=== PATIENT | female | born 1990 | race Caucasian/White ===

== ENCOUNTER 2023-04-01 21:13 | Emergency (ER) | payer OTHER, SELFPAY ==
[2023-04-01 21:20] VITALS: BP 127/77; PULSE 96; RESP 16; TEMP 36.6; O2SAT 99; BMI 31.0
--- NOTE | 2023-04-01 21:23 | ED.URI1 ---
HPI - URI/Sore Throat General Chief Complaint: Upper Respiratory Infection Stated Complaint: Upper Respiratory took home covid test + Time Seen by Provider: 04/01/23 21:22 Source: patient Limitations: no limitations History of Present Illness HPI Narrative: 32-year-old female presents with wanting a COVID test. She states that she has had a runny nose and cough for the past couple days and she is in a sober living home and needs a COVID test. She took an at home COVID test and this was positive. Denies fever, sore throat, ear pain, SOB or CP Related Data Home Medications Medication Instructions Recorded Confirmed olanzapine 10 mg tablet (Zyprexa) 10 mg PO BID 04/01/23 04/01/23 sertraline 50 mg tablet (Zoloft) 50 mg PO DAILY 04/01/23 04/01/23 Allergies Allergy/AdvReac Type Severity Reaction Status Date / Time No Known Drug Allergies Allergy Verified 04/01/23 21:23 Review of Systems ROS Status of ROS 10 or more systems reviewed and unremarkable except as noted in history and below PFSH PFS Social History Smoking status: Current every day smoker Exam Narrative Exam Narrative: General: alert, no distress, talking in full an complete sentences skin: warm, dry, intact head: normocephalic, atraumatic eyes: PERRLA, EOMI, normal conjunctiva nose: nares patent throat: no stridor, uvula midline neck: supple, trachea midline cardiac: +S1/S1. no murmur respiratory: lungs CTA, non-labored, no wheezing, no retractions extremities: FROM x 4, strength +5/5 neuro: A&Ox3 psych: appropriate mood and affect, cooperative Constitutional Vital Signs, click to edit/add: Last Vital Signs Temp 97.8 F 04/01/23 21:20 Pulse 96 H 04/01/23 21:20 Resp 16 04/01/23 21:20 BP 127/77 04/01/23 21:20 Pulse Ox 99 04/01/23 21:20 O2 Del Method Room Air 04/01/23 21:20 Course Vital Signs Vital signs: Vital Signs Temperature 97.8 F 04/01/23 21:20 Pulse Rate 96 H 04/01/23 21:20 Respiratory Rate 16 04/01/23 21:20 Blood Pressure 127/77 04/01/23 21:20 Pulse Oximetry 99 04/01/23 21:20 Oxygen Delivery Method Room Air 04/01/23 21:20 Temperature 97.8 F 04/01/23 21:20 Pulse Rate 96 H 04/01/23 21:20 Respiratory Rate 16 04/01/23 21:20 Blood Pressure 127/77 04/01/23 21:20 Pulse Oximetry 99 04/01/23 21:20 Oxygen Delivery Method Room Air 04/01/23 21:20 MDM - URI/Sore Throat MDM Narrative Medical decision making narrative: Patient will be discharged home and called medical records tomorrow to get her results printed off. F/u with PCP. afebrile, not tachypneic, not tachycardic, tolerating p.o., not hypoxic, non toxic appearing and ambulating at baseline and hemodynamically stable to be d/c. answered all questions. pt in agreement with tx. educated when to return to ER. Lab Data Labs: Lab Results 04/01/23 Range/Units 21:25 SARS-CoV-2 (PCR) Positive A (NEGATIVE) Discharge Plan Discharge Chief Complaint: Upper Respiratory Infection Clinical Impression: Upper respiratory infection Qualifiers: URI type: unspecified URI Qualified Code(s): J06.9 - Acute upper respiratory infection, unspecified Patient Disposition: Home, Self-Care Time of Disposition Decision: 21:30 Condition: Good Mode of Transportation: Private Vehicle Prescriptions / Home Meds: No Action sertraline [Zoloft] 50 mg tablet 50 mg PO DAILY olanzapine [Zyprexa] 10 mg tablet 10 mg PO BID Instructions: Viral Syndrome (ED) Additional Instructions: You can call medical records tomorrow and get a printout of your results and give this to sober living Stand Alone Forms: Portal Instructions
--- NOTE | 2023-04-01 21:31 | PC.NURSE ---
patient with cold symptoms for several days, took home covid test with positive result. She lives in a sober living house and needs an official covid test done with a positive result and a work note to be off of work.
[2023-04-01 21:48] LABS: SARS-CoV-2 Ag POSITIVE (NEGATIVE)
== END 2023-04-01 21:45 | disposition home or self-care (01) ==
PROVIDERS: Physician Assistant; Emergency Provider Emergency Medicine
DX: U07.1 COVID-19 (principal); J06.9 Acute upper respiratory infection, unspecified; F17.210 Nicotine dependence, cigarettes, uncomplicated
CPT/HCPCS: 87811; 99283

== ENCOUNTER 2024-08-06 21:26 | Emergency (ER) | payer SELFPAY ==
[2024-08-06 21:32] VITALS: BP 119/67; PULSE 86; TEMP 36.8; O2SAT 100; BMI 33.7
--- OUTSIDE RECORDS SUMMARY | 2024-08-06 21:35 | XMS_ITS | CCD ---
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 [place] [address] cCa2+ Art 4.66 mg/dL Normal 4.40-5.30 [facility] Comment on above: Performed By: #### 4 [id number] #### [facility] [address] [place] [address] cCl- Art 108.0 mmol/L Normal 101.0-111.0 [facility] Comment on above: Performed By: #### 4 [id number] #### [facility] [address] [place] [address] cGlu Art 87 mg/dL Normal 55-99 [facility] Comment on above: Performed By: #### 4 [id number] #### [facility] [address] [place] [address] cK+ Art 3.8 mmol/L Normal 3.5-5.3 [facility] Comment on above: Performed By: #### 4 [id number] #### [facility] [address] [place] [address] cLac Art .5 mmol/L Normal .5-2.2 [facility] Comment on above: Performed By: #### 4 [id number] #### [facility] [address] [place] [address] loan documentation specialist+ Art 138.0 mmol/L Normal 135.0-145.0 [facility] Comment on above: Performed By: #### 4 [id number] #### [facility] [address] [place] [address] Drawn by WMP Invalid Interpretation Code [facility] Comment on above: Performed By: #### 4 [id number] #### [facility] [address] [place] [address] FCOHb Art 1.0 % Low 1.5-4.9 [facility] Comment on above: Result Comment: Refe rence range Nonsmoker <1.5% Smoker <5.0% Heavy Smoker <9.0% Performed By: #### 4 [id number] #### [facility] [address] [place] [address] FIO2 BG 21 Invalid Interpretation Code [facility] Comment on above: Performed By: #### 4 [id number] #### [facility] [address] [place] [address] FMetHb Art <1.0 Normal 0.0-1.9 [facility] Comment on above: Performed By: #### 4 [id number] #### [facility] [address] [place] [address] FO2Hb Art 97.7 % Normal 92.0-100.0 [facility] Comment on above: Performed By: #### 4 [id number] #### [facility] [address] [place] [address] HCO3 (Bld) [Moles/Vol] 22.5 mmol/L Normal 22.0-26.0 [facility] Comment on above: Performed By: #### 4 [id number] #### [facility] [address] [place] [address] Hemoglobin (Bld) [Mass/Vol] 12.8 g/dL Normal 12.0-16.0 [facility] Comment on above: Performed By: #### 4 [id number] #### [facility] [address] [place] [address] Oxygen saturation in Blood 98.9 % Normal 95.0-100.0 [facility] Comment on above: Performed By: #### 4 [id number] #### [facility] [address] [place] [address] P CO2 Arterial 33.1 mmHg Low 35.0-45.0 [facility] Comment on above: Performed By: #### 4 [id number] #### [facility] [address] [place] [address] P O2 Arterial 96.6 mmHg Normal 80.0-100.0 [facility] Comment on above: Performed By: #### 4 [id number] #### [facility] [address] [place] [address] pH Arterial 7.421 Normal 7.350-7.450 [facility] Comment on above: Performed By: #### 4 [id number] #### [facility] [address] [place] [address] Sample Site L Radial Normal [facility] Comment on above: Performed By: #### 4 [id number] #### [facility] [address] [place] [address] Sample Type Arterial Draw Normal [facility] Comment on above: Performed By: #### 4 [id number] #### [facility] [address] [place] [address] ED Clinical Summaryon 2024 ED Clinical Summary ED Clinical Summary [address] [address] ED Clinical Summary Person Information Name: DECLANMACKENZIEELBA/[facility] Age: 34 Years : 1990 Sex: Female Language: Sammarinese PCP: NONE, XXXX Marital Status: Single Visit Id: Visit Reason: Carbon Monoxide (CO) exposure; Sinus Pain/Congestion; CARBONMONOXIDE EXPOSURE Speciality: Acuity: 3 Enc Type: Emergency Med Service: Emergency Arrival: 07/15/2024 18:07:57 Discharge: 07/15/2024 22:09:15 LOS: 000 04:02 Checkin: 07/15/2024 18:07:57 Checkout: 07/15/2024 22:09:15 Dispo Type: Home (Routine DC) EVENTS: Event Name Event Status Request Date/Time Start Date/Time Complete Date/Time Arrive Complete 07/15/2024 18:07:57 07/15/2024 18:07:57 07/15/2024 18:07:57 Document Home Meds Request 07/15/2024 18:07:57 Triage Complete 07/15/2024 18:07:57 07/15/2024 18:19:43 07/15/2024 18:19:43 Registration Complete 07/15/2024 18:16:01 07/15/2024 18:16:01 07/15/2024 18:16:01 Reg Complete Request 07/15/2024 18:16:01 Reg Bed Request Complete 07/15/2024 18:16:01 07/15/2024 18:16:01 07/15/2024 18:16:01 X-Ray Complete 07/15/2024 19:03:26 07/15/2024 19:15:07 07/15/2024 19:25:02 Wet Read Request 07/15/2024 19:25:02 Bed Assign Complete 07/15/2024 19:34:09 07/15/2024 19:34:09 07/15/2024 19:34:09 Dr Exam Complete 07/15/2024 19:34:09 07/15/2024 19:35:57 07/15/2024 19:35:57 RN Exam Complete 07/15/2024 19:34:09 07/15/2024 20:05:23 07/15/2024 20:05:23 Registration Request 07/15/2024 19:35:57 Pending Labs Complete 07/15/2024 19:54:26 07/15/2024 20:26:50 RT Tx/ABG Request 07/15/2024 19:54:26 Pending Labs Complete 07/15/2024 20:59:36 07/15/2024 21:53:07 Lab Complete 07/15/2024 20:59:36 07/15/2024 21:53:07 Urine Collect Complete 07/15/2024 20:59:36 07/15/2024 21:53:07 Discharge Complete 07/15/2024 22:00:39 07/15/2024 22:09:20 07/15/2024 22:09:20 Transfer Complete 07/15/2024 22:09:20 07/15/2024 22:09:20 07/15/2024 22:09:20 ADDRESS: [address] [place] [id number] [facility] DOC NOTES: MEDICAL INFORMATION: Prescriptions Given: PATIENT EDUCATION INFORMATION: Instructions: Medical Screening Exam Follow up: With: Address: When: Mahamed Garcia In 3 days 07/18/2024 Comments: Call the office of your primary care doctor to arrange for follow-up within the above-stated timeframe. Follow-up with your primary care doctor about this ED visit. You should review your labs, imaging, and diagnoses from this ED visit with your primary care physician. There are occasionally non-emergent findings that require additional follow-up after your ED visit. If you were prescribed medications you should discuss possible side-effects and drug interactions with your pharmacist. Call 911 or go to the nearest Emergency Department if you develop any new or worsening symptoms. DIAGNOSIS: Accidental exposure to carbon monoxide; Sebaceous cyst Normal [facility] ED Note-Physicianon 07-15-19 25 ED Note-Physician ED Note-Physician Basic Information Time Seen: Kobe Alcala DO 07/15/2024 19:35 Chief Complaint pt states a pipe was loose at her house and she had it checked and the param stated it leaks carbon monixide but safety featuires caused the pipes to turn off. pt states she had her face by a vent and it blew into her face, pt states she is now feeling History of Present Illness 34-year-old female to the emergency department with chief complaint of carbon oxide exposure. Patient reports that her he would not work today. She had an HVAC professional come out to her home to figure out what the problem was. He told them that there was a car monoxide leak in her furnace and it was shutting itself off to prevent buildup. They repaired this. They placed a carbon oxide detector in her home. The carbon oxide detector is not alerted. The patient does report though after the repair some exhaust from the pipe blew into her face and she has felt congested and had some tingling in her hands ever since. She is concerned she has carbon oxide poisoning. She also has a small lump on the inside of her right forearm that has been there for several years and occasionally gets inflamed she would like evaluated. There currently no symptoms. Review of Systems A 10 point review of systems is negative except as noted above Medical and Surgical History: Reviewed and noted Social history: Lives at home Tobacco: Denies Physical Exam Vitals & Measurements T: 36.7 ???C(Oral) HR: 83(Peripheral) RR: 18 BP: 129/70 SpO2: 100% HT: 160 cm WT: 88.3 kg BMI: 34.49 VITALS: I have reviewed the triage vital signs. GENERAL: Well developed, well appearing adult in no acute distress. NEURO: Alert and oriented. Moves all extremities. Face is symmetric and expressive. EYES: PERRL. No scleral icterus or conjunctival injection. No discharge. HENT: Normocephalic, atraumatic. Hearing is grossly intact. Nares grossly patent and without discharge. Mucous membranes moist. NECK: No JVD. Patient moves neck without restriction. CARDIO: Rhythm regular. Normal rate. No murmur, rub, or gallop. Pulses equal bilaterally in the upper and lower extremity. No lower extremity edema. PULM: Lungs clear to auscultation in all gee. No wheezes, rales, or rhonchi. No conversational dyspnea. No splinting, stridor, or accessory muscle use. EXTREMITIES: Symmetric muscle bulk. No joint swelling. No clubbing, cyanosis, or deformity. 2 mm sebaceous cyst of the right forearm SKIN: Warm and dry. Normal turgor. No rash or lesions appreciated. PSYCH: Anxious Medical Decision Making Well-appearing 34-year-old female to the emergency department with reported carbon oxide exposure. Vital stable, the patient is afebrile. She is anxious in the room. She has a sebaceous cyst on her forearm which is not inflamed or infected today which I reports she can follow-up with her doctor about in the future. Will test her for carbon monoxide with an ABG. ABG without any evidence of acute abnormality. She does not have car monoxide poisoning. Chest x-ray without acute findings as ordered in triage. Patient now concerned she may be . test is ordered. test is negative Reassurance was given to the patient. All questions were answered. The patient was discharged home. Assessment/Plan Accidental exposure to carbon monoxide (Z77.098: Contact with and (suspected) exposure to other hazardous, chiefly nonmedicinal, chemicals) Sebaceous cyst (L72.3: Sebaceous cyst) Orders: Blood Gas Art, with Lytes, Gluc, Lact Disposition Plan Patient Discharge Condition Stable Discharge Disposition Home Discharge Prescription List Prescriptions No active prescription medications Follow-up With When Contact Information Mahamed Garcia In 3 days 07/18/2024 EST Additional Instructions: Call the office of your primary care doctor to arrange for follow-up within the above-stated timeframe. Follow-up with your primary care doctor about this ED visit. You should review your labs, imaging, and diagnoses from this ED visit with your primary care physician. There are occasionally non-emergent findings that require additional follow-up after your ED visit. If you were prescribed medications you should discuss possible side-effects and drug interactions with your pharmacist. Call 911 or go to the nearest Emergency Department if you develop any new or worsening symptoms. Patient Education Medical Screening Exam Problem List/Past Medical History Ongoing Acute pharyngitis BMI 34.0-34.9,adult BMI 35.0-35.9,adult Smoker Historical No qualifying data Medications Inpatient No active inpatient medications Home No active home medications Allergies No Known Allergies Social History Alcohol - Denies Alcohol Use, 07/02/2023 Substance Abuse - Medium Risk, 07/02/2023 Past, 07/02/2023 Tobacco - High Risk, 07/02/2023 Current vaping or e-cigarette use Smokeless Tobacco Use:. Vaping, 07 (more content not included)... Normal [facility] Comment on above: Result Comment: Elec tronically Signed By: Kobe Alcala DO\.br\Date and Time Signed: 07/15/24 22:28 EST ED Patient Summaryon 025 ED Patient Summary ED Patient Summary [place] [id number] Patient Discharge Instructions Person Information Name: ELBA JO Age: 34 Years Arrival Date: 07/15/2024 18:07:57 Discharge Diagnosis: Accidental exposure to carbon monoxide; Sebaceous cyst Primary Care Physician: NONE, XXXX Provider Information Primary Provider: Kobe Alcala DO Advanced Bed Placement Coordinator:Mark The exam and treatment you received in the Emergency Department were for an urgent problem and are not intended as complete care. It is important that you follow up with a doctor, nurse practitioner, or physician???s greenhouse assistant for ongoing care. If your symptoms become worse or you do not improve as expected and you are unable to reach your usual health care provider, you should return to the Emergency Department. We are available 24 hours a day. ELBA JO has been given the following list of patient education materials, prescriptions and follow-up instructions: Follow-up Instructions: With: Address: When: Mahamed Garcia In 3 days 07/18/2024 Comments: Call the office of your primary care doctor to arrange for follow-up within the above-stated timeframe. Follow-up with your primary care doctor about this ED visit. You should review your labs, imaging, and diagnoses from this ED visit with your primary care physician. There are occasionally non-emergent findings that require additional follow-up after your ED visit. If you were prescribed medications you should discuss possible side-effects and drug interactions with your pharmacist. Call 911 or go to the nearest Emergency Department if you develop any new or worsening symptoms. In the event that this physician does not participate in your insurance network, please consult with your insurance company to find a nearby participating provider. Patient Education Materials: Medical Screening Exam A MESSAGE TO ALL PATIENTS REGARDING OPIOIDS PRESCRIPTION OPIOIDS: WHAT YOU NEED TO KNOW Prescription opioids can be used to help relieve xmufsqzo-gl-bozcyc pain and are often prescribed following a surgery or injury, or for certain health conditions. These medications can be an important part of the treatment but also come with serious risks. It is important to work with your healthcare provider to make sure you are getting the safest, most effective care. WHAT ARE THE RISKS AND SIDE EFFECTS OF OPIOID USE? Prescription opioids carry serious risks of addiction and overdose, especially with prolonged use. An opioid overdose, often marked by slowed breathing, can cause sudden . The use of prescription opioids can have a number of side effects as well, even when taken as directed: ??? Tolerance???meaning you might need to take more of the medication for the same pain relief ??? Physical dependence???meaning you have symptoms of withdrawal when a medication is stopped ??? Increased sensitivity to pain ??? Constipation ??? Nausea, vomiting, and dry mouth ??? Sleepiness and dizziness ??? Confusion ??? Depression ??? Low levels of testosterone that can result in lower sex drive, energy, and strength ??? Itching and sweating RISKS ARE GREATER WITH: ??? History of drug misuse, substance use disorder, or overdose ??? Mental health conditions (such as depression or anxiety) ??? Sleep apnea ??? Older age (65 years and older) ??? Avoid alcohol while taking prescription opioids. Also, unless specifically advised by your health care provider, medications to avoid include: ??? Benzodiazepines (such as Xanax or Valium) ??? Muscle relaxants (such as Soma or Flexeril) ??? Hypnotics (such as Ambien or Lunesta) ??? Other prescription opioids KNOW YOUR OPTIONS Talk to your health care provider about ways to manage your pain that don???t involve prescription opioids. Some of these options may actually work better and have fewer risks and side effects. Options may include: ??? Pain relievers such as acetaminophen, ibuprofen, and naproxen ??? Some medication that are also used for depression or seizures ??? Physical therapy and exercise ??? Cognitive behavioral therapy, a psychological, goal-directed approach, in which patients learn how to modify physical, behavioral, and emotional triggers of pain and stress. IF YOU ARE PRESCRIBED OPIOIDS FOR PAIN: ??? Never take opioids in greater amounts or more often than prescribed. ??? Follow up with your primary health care provider. o Work together to create a plan on how to manage your pain. o Talk about ways to help manage your pain that don???t involve prescription opioids. o Talk about any and all concerns and side effects. ??? Help prevent misuse and abuse o Never sell or share prescription opioids. o Never use another person???s prescription opioids. ??? Store prescription opioids in (more content not included)... Normal [facility] FT Blood GasesOrdered By: River Albarran on 07-15-2024 a/A Ratio Art 87.70 % Normal >=0.80% FT Resp Auto SS AaDO2 Art 13.5 mm[Hg] Normal 5.0 - 15.0 mmHg FT Resp Auto SS Allens Test Positive (07/15/24 8:24 PM) Normal FT Resp Auto SS Base Excess Arterial -2.3 mmol/L Low >=2.8mmol/L FT Resp Auto SS cCa2+ Art 4.66 mg/dL Normal 4.40 - 5.30 mg/dL FT Resp Auto SS cCl- Art 108.0 mmol/L Normal 101.0 - 111.0 mmol/L FT Resp Auto SS cGlu Art 87 mg/dL Normal 55 - 99 mg/dL FT Resp Auto SS cK+ Art 3.8 mmol/L Normal 3.5 - 5.3 mmol/L FT Resp Auto SS cLac Art 0.5 mmol/L Normal 0.5 - 2.2 mmol/L FT Resp Auto SS loan documentation specialist+ Art 138.0 mmol/L Normal 135.0 - 145.0 mmol/L FT Resp Auto SS Drawn by WMP Invalid Interpretation Code [facility] Resp Auto SS FCOHb Art 1.0 % Low 1.5 - 4.9 % FT Resp Auto SS Comment on above: Interpretive Data: R eference range Nonsmoker <1.5% Smoker <5.0% Heavy Smoker <9.0% FIO2 BG 21 1 Invalid Interpretation Code [facility] Resp Auto SS FMetHb Art % Normal 0.0 - 1.9 % [facility] Resp Auto SS FO2Hb Art 97.7 % Normal 92.0 - 100.0 % [facility] Resp Auto SS HCO3 (Bld) [Moles/Vol] 22.5 mmol/L Normal 22.0 - 26.0 mmol/L [facility] Resp Auto SS Hemoglobin (Bld) [Mass/Vol] 12.8 g/dL Normal 12.0 - 16.0 gm/dL [facility] Resp Auto SS P CO2 Arterial 33.1 mm[Hg] Low 35.0 - 45.0 mmHg [facility] Resp Auto SS P O2 Arterial 96.6 mm[Hg] Normal 80.0 - 100.0 mmHg [facility] Resp Auto SS pH (Bld) 7.421 [pH] Normal 7.350 - 7.450 [facility] Resp Auto SS Sample Site L Radial (07/15/24 8:24 PM) Normal [facility] Resp Auto SS Sample Type Arterial Draw (07/15/24 8:24 PM) Normal [facility] Resp Auto SS SEROLOGYOrdered By: Antelmo ly on 07-15-2024 HCG.beta subunit (U) [Moles/Vol] Negative Normal [facility] Man Sero U BetaHcg Qualon 07-15-2024 HCG.beta subunit (U) [Moles/Vol] Negative Normal [facility] Comment on above: Performed By: #### 2 [id number] #### [facility] [address] [place] [address] ED Clinical Summaryon 2024 ED Clinical Summary ED Clinical Summary [address] [address] ED Clinical Summary Person Information Name: ELBA JO Emily/[facility] Age: 34 Years : 1990 Sex: Female Language: Sammarinese PCP: NONE, XXXX Marital Status: Single Visit Id: Visit Reason: ABDOMINAL PAIN Speciality: Acuity: Enc Type: Emergency Med Service: Emergency Arrival: 07/10/2024 02:05:10 Discharge: 07/10/2024 03:10:28 LOS: 000 01:05 Checkin: 07/10/2024 02:05:10 Checkout: 07/10/2024 03:10:28 Dispo Type: Left Without Being Seen EVENTS: Event Name Event Status Request Date/Time Start Date/Time Complete Date/Time Arrive Complete 07/10/2024 02:05:10 07/10/2024 02:05:10 07/10/2024 02:05:10 Document Home Meds Request 07/10/2024 02:05:10 Triage Request 07/10/2024 02:05:10 Registration Complete 07/10/2024 02:08:03 07/10/2024 02:08:03 07/10/2024 02:08:03 Reg Complete Request 07/10/2024 02:08:03 Reg Bed Request Complete 07/10/2024 02:08:03 07/10/2024 02:08:03 07/10/2024 02:08:03 Discharge Complete 07/10/2024 03:10:38 07/10/2024 03:10:38 07/10/2024 03:10:38 Transfer Complete 07/10/2024 03:10:38 07/10/2024 03:10:38 07/10/2024 03:10:38 ADDRESS: [address] [place] [id number] PHYS DOC NOTES: MEDICAL INFORMATION: Prescriptions Given: PATIENT EDUCATION INFORMATION: Instructions: Follow up: DIAGNOSIS: Normal [facility] ED Patient Education Noteon 07-10-2024 ED Patient Education Note ED Patient Education Note Normal [facility] ED Patient Summaryon 025 ED Patient Summary ED Patient Summary [place] [id number] Patient Discharge Instructions Person Information Name: ELBA JO Age: 34 Years Arrival Date: 07/10/2024 02:05:10 Discharge Diagnosis: Primary Care Physician: NONE, XXXX Provider Information Primary Provider: Advanced Bed Placement Coordinator:None The exam and treatment you received in the Emergency Department were for an urgent problem and are not intended as complete care. It is important that you follow up with a doctor, nurse practitioner, or physician???s greenhouse assistant for ongoing care. If your symptoms become worse or you do not improve as expected and you are unable to reach your usual health care provider, you should return to the Emergency Department. We are available 24 hours a day. ELBA JO has been given the following list of patient education materials, prescriptions and follow-up instructions: Follow-up Instructions: In the event that this physician does not participate in your insurance network, please consult with your insurance company to find a nearby participating provider. Patient Education Materials: A MESSAGE TO ALL PATIENTS REGARDING OPIOIDS PRESCRIPTION OPIOIDS: WHAT YOU NEED TO KNOW Prescription opioids can be used to help relieve euvlehzp-wn-obqxsg pain and are often prescribed following a surgery or injury, or for certain health conditions. These medications can be an important part of the treatment but also come with serious risks. It is important to work with your healthcare provider to make sure you are getting the safest, most effective care. WHAT ARE THE RISKS AND SIDE EFFECTS OF OPIOID USE? Prescription opioids carry serious risks of addiction and overdose, especially with prolonged use. An opioid overdose, often marked by slowed breathing, can cause sudden . The use of prescription opioids can have a number of side effects as well, even when taken as directed: ??? Tolerance???meaning you might need to take more of the medication for the same pain relief ??? Physical dependence???meaning you have symptoms of withdrawal when a medication is stopped ??? Increased sensitivity to pain ??? Constipation ??? Nausea, vomiting, and dry mouth ??? Sleepiness and dizziness ??? Confusion ??? Depression ??? Low levels of testosterone that can result in lower sex drive, energy, and strength ??? Itching and sweating RISKS ARE GREATER WITH: ??? History of drug misuse, substance use disorder, or overdose ??? Mental health conditions (such as depression or anxiety) ??? Sleep apnea ??? Older age (65 years and older) ??? Avoid alcohol while taking prescription opioids. Also, unless specifically advised by your health care provider, medications to avoid include: ??? Benzodiazepines (such as Xanax or Valium) ??? Muscle relaxants (such as Soma or Flexeril) ??? Hypnotics (such as Ambien or Lunesta) ??? Other prescription opioids KNOW YOUR OPTIONS Talk to your health care provider about ways to manage your pain that don???t involve prescription opioids. Some of these options may actually work better and have fewer risks and side effects. Options may include: ??? Pain relievers such as acetaminophen, ibuprofen, and naproxen ??? Some medication that are also used for depression or seizures ??? Physical therapy and exercise ??? Cognitive behavioral therapy, a psychological, goal-directed approach, in which patients learn how to modify physical, behavioral, and emotional triggers of pain and stress. IF YOU ARE PRESCRIBED OPIOIDS FOR PAIN: ??? Never take opioids in greater amounts or more often than prescribed. ??? Follow up with your primary health care provider. o Work together to create a plan on how to manage your pain. o Talk about ways to help manage your pain that don???t involve prescription opioids. o Talk about any and all concerns and side effects. ??? Help prevent misuse and abuse o Never sell or share prescription opioids. o Never use another person???s prescription opioids. ??? Store prescription opioids in a secure place and out of reach of others (this may include visitors, children, friends, and family). ??? Safely dispose of unused prescription opioids: Find your community drug take-back program or your pharmacy mail-back program, or flush them down the toilet, following guidance from the Food and Drug Administration (www.fda.gov/Drugs/Resourc esForYou). ??? Visit www.cdc.gov/drugoverdose to learn about the risks of opioids abuse and overdose. ??? If you believe you may be struggling with addiction, tell your health caregiver assisted living and ask for guidance or call [facility]???S National Helpline at 7-439-414-FJFX. v Source: US Department of Health and Human Services/Center for Disease Control & Prevention [facility] Medicatio (more content not included)... [facility] Ambulatory Visit Summaryon 0 12-08-2023 Ambulatory Visit Summary Ambulatory Visit Summary ELBA JO :1990 Visit Date:12/08/2023 Ambulatory Visit Instructions Your Diagnosis Pain, dental Broken tooth BMI 35.0-35.9,adult Vapes nicotine containing substance Your Care Team Attending Physician - Carlos ALVAREZ, Wilberto Sloan Primary Care Physician - EMIR RIVAS, RANI Fan This Is Your Medications List amoxicillin (amoxicillin 500 mg Cap) chlorhexidine topical (Peridex 0.12% Liquid) Discharge Vitals Temperature (Oral) 36.7 ?C Heart Rate (Peripheral) 77 Blood Pressure 122/78 Height 160 cm Height 63 in Weight 91 kg Weight 200.2 lb BMI 35.55 Medications What How Much When Why Instructions New amoxicillin (amoxicillin 500 mg Cap) 1 Capsules By Mouth 3 times a day Pain, dental Broken tooth BMI 35.0-35.9,adult Vapes nicotine containing substance Duration: 7 Days Pickup at [facility]/pharmacy #[id number] New chlorhexidine topical (Peridex 0.12% Liquid) 15 Milliliter By Mouth 2 times a day Pain, dental Broken tooth BMI 35.0-35.9,adult Vapes nicotine containing substance Duration: 14 Days (swish and spit; do not swallow) Pickup at [facility]/pharmacy #[id number] [id number] [address] [place] [phone] Allergies No Known Allergies Problems Ongoing - Any problem that you are currently receiving treatment for. Acute pharyngitis BMI 34.0-34.9,adult BMI 35.0-35.9,adult Smoker Patient Survey You may receive a survey via text or e-mail asking about your office visit. Please share your experience with us by completing your survey. We appreciate your feedback and thank you for choosing us for your care. Education Materials Tooth Avulsion Tooth avulsion is the loss of a tooth due to trauma to the tooth which causes it to be completely knocked out of its place in the gum. This condition is an emergency and must be treated right away by a dentist or emergency department. The sooner the tooth is replanted, the better the chance that it can be saved. It is usually best if the tooth is replanted within one hour of avulsion. However, even if it has been longer than one hour, it is still important to visit your health care provider as soon as possible to discuss your treatment options. Only permanent teeth can be replanted. Baby teeth do not usually need replanting. What are the causes? The loss of a tooth may be caused by any force that is strong enough to chip, break, dislodge, or knock out a tooth. Forces may come from: ? Sports injuries. ? Falls. ? Accidents. ? Fights. What increases the risk? The following factors may make you more likely to lose a tooth: ? Playing contact sports, such as football or boxing, without using a mouth guard. ? Any medical condition that increases the risk of falling or fainting. ? Any injury that causes injuries to the face. ? Any dental condition that reduces the support of the root. What are the signs or symptoms? Symptoms of this condition include: ? A tooth that is knocked out of its place in the gum. How is this diagnosed? A physical exam. How is this treated? ? Before going to the dentist or emergency department: ? Find the tooth. Do not touch the bottom of the tooth. The bottom of the tooth is also called a root. ? Wash the tooth for 10 seconds under cold running water, bottled water or milk (if available). Do not wipe, dry or scrub the tooth. ? Gently reposition the tooth in its original socket, if you are able. ? If the tooth cannot be repositioned, immediately place the tooth in a glass of milk or hold the tooth inside the mouth under the tongue or between the molars and cheek. Your dental care provider will decide whether the tooth can be placed back into its original position. Your treatment will also include controlling any bleeding or pain. Follow these instructions at home: ? Take eunp-qbr-jfsqcvl and prescription medicines only as told by your dentist. ? Eat a soft diet for two weeks or as directed by your dentist. ? [place] the tooth with a soft toothbrush after every meal. ? For two weeks, or for the time you are told, avoid activities that have a high risk of injury to the teeth. ? Wear a mouth guard while playing contact sports. ? Keep all follow-up visits. This is important. Contact a health care provider if: ? The tooth becomes progressively loose. ? Your splint is bent or loose. ? You have swelling or pain that gets worse. ? You have redness around your replanted tooth. ? You have pain that does not get better with medicine. ? You have a fever or chills. ? You have any other new symptoms. Get help right away if: ? Your tooth become loose or falls out. Summary ? Tooth avulsion is the loss of a tooth due to the tooth falling out or being knocked out. ? If the tooth was an adult tooth, your health care provider (more content not included)... [facility] Family Medicine Office/Clini c Noteon 12-08-2023 Family Medicine Office/Clinic Note Family Medicine Office/Clinic Note Chief Complaint broken tooth/tooth ache HPI Staff 33 year old female presents with a broken tooth in the back of her mouth on the top. has a hole in a bottom tooth also that is painful symptoms for a few weeks scheduled a dentist bela for December 24 History of Present Illness I have reviewed and verified the staff HPI to be accurate for this encounter. Portions of this record have been created with voice recognition software. Occasional wrong-word or ?wxkmx-t-zykd? substitutions may have occurred due to the inherent limitations of voice recognition software. 33 yo female presents today with cc of broken tooth. Patient states left upper and left lower tooth pain. States that the left lower tooth actually started hurting her over the past 2 weeks states she noticed an area maybe an old filling or what she believes is a small hole in her tooth. States pain especially with eating she is uncertain if this is pushing down on a nerve or not. She also notes a broken tooth of the left upper jawline she states that may have been broken prior to the left lower jaw and tooth pain however patient is uncertain. Patient states she has a follow-up appointment with her dad has been on till the of this month. She denies any fever or chills she denies any mouth swelling she denies any drainage. She denies any nasal congestion runny stuffy nose ear pain or sore throat with her symptoms. She has no other concerns at this time. No known drug allergies. Patient does not currently take any medications. She has not tried any modifying factors in regards to her tooth pain today. Review of Systems PHQ Score Initial Depression Screen Score: 0 SCORE ROS negative unless otherwise stated in HPI. Physical Exam Vitals & Measurements T: 36.7 ?C(Oral) HR: 77(Peripheral) BP: 122/78 SpO2: 98% HT: 63 in HT: 160 cm WT: 91 kg WT: 200.2 lb BMI: 35.55 General: Pleasant obese female, no acute distress Eyes: Bilateral conjunctiva within normal limits no injection Ears: Bilateral TMs are within normal limits no erythema or bulging. Bilateral external auditory canals are within normal limits no erythema or edema Nose: No deformity, discharge, inflammation, or lesions Mouth: Moist mucous membranes. Uvula is midline. No tonsillar erythema edema or exudate. No signs of peritonsillar abscess. No trismus or drooling. Patient appears to have a small chip or avulsion of the left upper tooth #18. Patient appears to have either an old filling or a possible decay to the left lower tooth for 16. No significant surrounding gum erythema no obvious dental abscess noted. Pain around the areas of both of these teeth Neck: no adenopathy Lungs: Lung sounds are clear bilaterally. No wheezing rhonchi or crackles on exam. Cardio: S1, S2, regular rhythm. No murmurs gallops or rubs Abdomen: not assessed Musculoskeletal: not assessed Extremity: not assessed Neurologic: not assessed Skin: not assessed Mental Status: Alert and oriented x3. Normal mood and affect Assessment/Plan I spoke with patient regards to treatment for dental pain and broken tooth. Discussed treatment with amoxicillin 3 times daily x 7 days as I did not note any concern for dental abscess at this time. Also discussed. Dex Chloraseptic mouth rinse swish and spit twice daily x 2 weeks duration after brushing and flossing. Patient will keep her follow-up appoint with her dentist for 24 December otherwise may return if needed. Patient agrees and understands plan. 1. Pain, dental (K08.89: Other specified disorders of teeth and supporting structures) Will treat with amoxicillin, given signs of dental infection. Finish antibiotic course. May use tylenol or ibuprofen as needed for pain. Discussed importance of follow up with dentist SHOSHANA for proper treatment- pain and/or infection will continue or reoccur until properly treated. I also sent a prescription for peridex mouth rinse. Swish and spit twice daily after brushing and flossing. ER if any significantly worsening pain, high fever, or rapidly spreading erythema, edema, warmth to face. Patient verbalized understanding of treatment plan. May otherwise return if needed. Ordered: amoxicillin, 500 mg = 1 cap(s), Oral, TID, X 7 day(s), # 21 cap(s), Refills(s) 0, Pharmacy: [facility]/pharmacy #[id number], 160, cm, 12/08/23 10:02:00 EDT, Height/Length Dosing, 91, kg, 12/08/23 10:02:00 EDT, Weight Dosing chlorhexidine topical, 0.018 gm, 15 mL, Oral, BID for 14 day(s), 420 mL, Refill(s) 0, (swish and spit; do not swallow), [facility]/pharmacy #[id number], 160, cm, 12/08/23 10:02:00 EDT, Height/Length Dosing, 91, kg, 12/08/23 10:02:00 EDT, Weight Dosing 2. Broken tooth (S02.5XXA: Fracture of tooth (traumatic), initial encounter for closed fracture) See above Ordered: amoxicillin, 500 mg = 1 cap(s), Oral, TID, X 7 day(s), # 21 cap(s), Refills(s) 0, Pharmacy: [facility]/pharmacy #[id number], 160, cm, 12/08/23 10:02:00 EDT, Height/Length Dosing, 91, kg, 12/08/23 10:02:00 EDT, Weight Dosing chl (more content not included)... [facility] Comment on above: Result Comment: Elec tronically Signed By: Carlos ALVAREZ, Wilberto Sloan\.br\Date and Time Signed: 12/08/23 10:19 EDT Patient Letter FTon 2023 Patient Letter [facility] Patient Letter [facility] [address] [place] [address] [phone] December 08, 2023 ELBA JO [address] [place] [address] : 1990 Please excuse ELBA JO from work . Date and/or Time of Absence: From: 12/08/23 To: 12/09/23 May return to work on: 12/09/23 Restrictions: None Comments: Please excuse due to an acute illness. Provider Signature: Wilberto Gonzalez PA-C Physician [employer] Professor [facility] [address] [place] [address] [facility] ED Note-Physicianon 11-25-19 ED Note-Physician Basic Information Time Seen: Charles Eid PA-C 11/24/2023 16:06 Chief Complaint sinus congestion and pain History of Present Illness 33-year-old female comes into the ED for evaluation of sinus congestion. She presents with a 2-3-day history of sinus congestion, rhinorrhea, sneezing. No chest pain or shortness of breath. No cough, fever, chills, nausea or vomiting. Took a Benadryl yesterday with some improvement, no treatments prior to arrival today. Review of Systems A 10 point review of systems is negative except as noted above. Medical and Surgical History: Reviewed and noted Social history: Lives at home Tobacco: Denies Physical Exam Vitals & Measurements T: 36.6 ?C(Oral) HR: 73(Peripheral) RR: 16 BP: 124/80 SpO2: 100% HT: 160 cm WT: 90.5 kg BMI: 35.35 Nurses notes and vital signs reviewed and patient is not hypoxic. General: Well-appearing, does not appear ill Skin: Warm, dry. Head: Atraumatic. Neck: No JVD. Eye: Normal conjunctiva. Ears, Nose, Mouth, and Throat: Sinus congestion, no difficulty with speaking or swallowing. TMs are clear. Moderate tenderness across the maxillary frontal sinuses bilaterally. No facial swelling. No ecchymosis or erythema. Cardiovascular: Not tachycardic Chest wall: Respiratory: Respirations are nonlabored. Back: Normal range of motion. Musculoskeletal: Normal ROM with no gross deformity. Gastrointestinal: Urological: Neurological: Awake and alert. No focal deficits. Follows commands. Psychiatric: Cooperative. Medical Decision Making Patient with 3-day history of sinus congestion. She is treated with steroids antihistamines and decongestions. Discharged home to follow-up with PCP. Patient was encouraged to return to the ED if symptoms worsen or change. Assessment/Plan Sinusitis (J32.9: Chronic sinusitis, unspecified) Orders: loratadine-pseudoephedrine , 1 tab(s), Oral, q12hr for 10 day(s), 20 tab(s), Refill(s) 0, [facility]/pharmacy #[id number], 160, cm, 11/24/23 15:45:00 EDT, Height/Length Dosing, 90.5, kg, 11/24/23 15:45:00 EDT, Weight Dosing predniSONE, 60 mg = 3 tab(s), Oral, Daily, X 7 day(s), # 21 tab(s), Refills(s) 0, Pharmacy: [facility]/pharmacy #[id number], 160, cm, 11/24/23 15:45:00 EDT, Height/Length Dosing, 90.5, kg, 11/24/23 15:45:00 EDT, Weight Dosing Disposition Plan Patient Discharge Condition Disposition: Discharged home Condition: Improved and stable Counseled: Patient and/or family were counseled to workup, results, treatment plan and follow-up recommendations Discharge Prescription List Prescriptions loratadine-pseudoephedrine 5 mg-120 mg ER Tab, 1 tab(s), Oral, q12hr predniSONE 20 mg Tab, 60 mg= 3 tab(s), Oral, Daily Follow-up With When Contact Information RANI FIELD In 3 days 11/27/2023 EDT [address] [place] [address]- [phone] Business (1) Additional Instructions: Patient Education Sinus Infection, Adult Attestation I performed a substantive part of the MDM during the patient?s E/M visit. I personally made or approved the documented management plan and acknowledge its risk of complications. (Independent Interpretation) My (EKG/X-Ray/US/CT) interpretation as above. (Discussion) Management/test interpretation discussed with APC. This report was transcribed using voice recognition software. Every effort was made to ensure accuracy, however, inadvertently computerized classifier operator mistakes may be present. Appropriate healthcare PPE was used in evaluating this patient. Problem List/Past Medical History Ongoing Acute pharyngitis BMI 34.0-34.9,adult BMI 35.0-35.9,adult Smoker Historical No qualifying data Medications Inpatient No active inpatient medications Home No active home medications Allergies No Known Allergies Social History Alcohol - Denies Alcohol Use, 07/02/2023 Substance Abuse - Medium Risk, 07/02/2023 Past, 07/02/2023 Tobacco - High Risk, 07/02/2023 Current vaping or e-cigarette use Smokeless Tobacco Use:. Vaping, 11/24/2023 Never (less than 100 in lifetime) Tobacco Use:. Current vaping or e-cigarette use Smokeless Tobacco Use:. Cigarettes, Vaping, Yes, 10/15/2023 Lab Results No qualifying data available. Diagnostic Results No qualifying data available. [facility] Comment on above: Result Comment: Elec tronically Signed By: Charles Eid PA-C\.br\Date and Time Signed: 11/24/23 16:35 EDT\.br\Electronically Co-Signed By: Ting Kennedy DO\.br\Date and Time Co-Signed: 11/25/23 07:27 EDT Consent for Treatmenton 11-01 Consent for Treatment [id number] [facility] Discharge Instructionson Discharge Instructions [id number] [facility] ED Clinical Summaryon 2023 ED Clinical Summary (Inserted Image. Keerthi ble to display) [place] [id number] ED Clinical Summary Person Information Name: ELBA JO Emily[facility] Age: 33 Years : 1990 Sex: Female Language: Sammarinese PCP: RANI FIELD NP Marital Status: Single Visit Id: Visit Reason: Sinus Pain/Congestion; FEELS PRESSURE IN THE HEAD & NECK AREA, COUGH Speciality: Acuity: 4 Enc Type: Emergency Med Service: Emergency Arrival: 11/24/2023 15:35:16 Discharge: 11/24/2023 16:53:27 LOS: 000 01:18 Checkin: 11/24/2023 15:35:16 Checkout: 11/24/2023 16:53:27 Dispo Type: Home (Routine DC) EVENTS: Event Name Event Status Request Date/Time Start Date/Time Complete Date/Time Arrive Complete 11/24/2023 15:35:16 11/24/2023 15:35:16 11/24/2023 15:35:16 Document Home Meds Request 11/24/2023 15:35:16 Triage Complete 11/24/2023 15:35:16 11/24/2023 15:45:48 11/24/2023 15:45:48 Bed Assign Complete 11/24/2023 15:48:41 11/24/2023 15:48:41 11/24/2023 15:48:41 Dr Exam Complete 11/24/2023 15:48:41 11/24/2023 16:06:09 11/24/2023 16:06:09 RN Exam Complete 11/24/2023 15:48:41 11/24/2023 16:13:10 11/24/2023 16:13:10 Registration Complete 11/24/2023 16:06:09 11/24/2023 16:23:21 11/24/2023 16:23:21 Dr Exam Complete 11/24/2023 16:06:21 11/24/2023 16:06:21 11/24/2023 16:06:21 Reg Complete Request 11/24/2023 16:23:21 Reg Bed Request Complete 11/24/2023 16:23:21 11/24/2023 16:23:21 11/24/2023 16:23:21 Discharge Complete 11/24/2023 16:34:03 11/24/2023 16:53:33 11/24/2023 16:53:33 Transfer Complete 11/24/2023 16:53:33 11/24/2023 16:53:33 11/24/2023 16:53:33 ADDRESS: [address] [place] [phone] [facility] DOC NOTES: MEDICAL INFORMATION: Prescriptions Given: New Medications [facility]/pharmacy #[id number], [address] [place] [phone], [phone] loratadine-pseudoephedrine (loratadine-pseudoephedrin e 5 mg-120 mg ER Tab) 1 Tablets By Mouth every 12 hours for 10 Days. Refills: 0. predniSONE (predniSONE 20 mg Tab) 3 Tablets By Mouth every day for 7 Days. Refills: 0. PATIENT EDUCATION INFORMATION: Instructions: Sinus Infection, Adult Follow up: With: Address: When: RANI FIELD [address] [place], [place] [address]daron [facility] [place] [phone] Business (1) In 3 days 11/27/2023 DIAGNOSIS: Sinusitis [facility] ED Patient Education Noteon 11-24-2023 ED Patient Education Note Infectious Disease Sinus Infection, Adult A sinus infection, also called sinusitis, is inflammation of your sinuses. Sinuses are hollow spaces in the bones around your face. Your sinuses are located: ? Around your eyes. ? In the middle of your forehead. ? Behind your nose. ? In your cheekbones. Mucus normally drains out of your sinuses. When your nasal tissues become inflamed or swollen, mucus can become trapped or blocked. This allows bacteria, viruses, and fungi to grow, which leads to infection. Most infections of the sinuses are caused by a virus. A sinus infection can develop quickly. It can last for up to 4 weeks (acute) or for more than 12 weeks (chronic). A sinus infection often develops after a cold. What are the causes? This condition is caused by anything that creates swelling in the sinuses or stops mucus from draining. This includes: ? Allergies. ? Asthma. ? Infection from bacteria or viruses. ? Deformities or blockages in your nose or sinuses. ? Abnormal growths in the nose (nasal polyps). ? Pollutants, such as chemicals or irritants in the air. ? Infection from fungi. This is rare. What increases the risk? You are more likely to develop this condition if you: ? Have a weak body defense system (immune system). ? Do a lot of swimming or diving. ? Overuse nasal sprays. ? Smoke. What are the signs or symptoms? The main symptoms of this condition are pain and a feeling of pressure around the affected sinuses. Other symptoms include: ? Stuffy nose or congestion that makes it difficult to breathe through your nose. ? Thick yellow or greenish drainage from your nose. ? Tenderness, swelling, and warmth over the affected sinuses. ? A cough that may get worse at night. ? Decreased sense of smell and taste. ? Extra mucus that collects in the throat or the back of the nose (postnasal drip) causing a sore throat or bad breath. ? Tiredness (fatigue). ? Fever. How is this diagnosed? This condition is diagnosed based on: ? Your symptoms. ? Your medical history. ? A physical exam. ? Tests to find out if your condition is acute or chronic. This may include: ? Checking your nose for nasal polyps. ? Viewing your sinuses using a device that has a light (endoscope). ? Testing for allergies or bacteria. ? Imaging tests, such as an MRI or CT scan. In rare cases, a bone biopsy may be done to rule out more serious types of fungal sinus disease. How is this treated? Treatment for a sinus infection depends on the cause and whether your condition is chronic or acute. ? If caused by a virus, your symptoms should go away on their own within 10 days. You may be given medicines to relieve symptoms. They include: ? Medicines that shrink swollen nasal passages (decongestants). ? A spray that eases inflammation of the nostrils (topical intranasal corticosteroids). ? Rinses that help get rid of thick mucus in your nose (nasal saline washes). ? Medicines that treat allergies (antihistamines). ? Eojq-yue-mnmfefb pain relievers. ? If caused by bacteria, your health care provider may recommend waiting to see if your symptoms improve. Most bacterial infections will get better without antibiotic medicine. You may be given antibiotics if you have: ? A severe infection. ? A weak immune system. ? If caused by narrow nasal passages or nasal polyps, surgery may be needed. Follow these instructions at home: Medicines ? Take, use, or apply voee-xtx-twolmxr and prescription medicines only as told by your health care provider. These may include nasal sprays. ? If you were prescribed an antibiotic medicine, take it as told by your health care provider. Do not stop taking the antibiotic even if you start to feel better. Hydrate and humidify ? Drink enough fluid to keep your urine pale yellow. Staying hydrated will help to thin your mucus. ? Use a cool mist humidifier to keep the humidity level in your home above 50%. ? Inhale steam for 10?15 minutes, 3?4 times a day, or as told by your health care provider. You can do this in the bathroom while a hot shower is running. ? Limit your exposure to cool or dry air. Rest ? Rest as much as possible. ? Sleep with your head raised (elevated). ? Make sure you get enough sleep each night. General instructions ? Apply a warm, moist washcloth to your face 3?4 times a day or as told by your health care provider. This will help with discomfort. ? Use nasal saline washes as often as told by your health care provider. ? Wash your hands often with soap and water to reduce your exposure to germs. If soap and water are not available, use hand scale tank operator. ? Do not smoke. Avoid being around people who are smoking (secondhand smoke). ? Keep all follow-up visits. This is important. Contact a health care provider if: ? You have a fever. ? Your symptoms get (more content not included)... Normal [facility] ED Patient Summaryon 024 ED Patient Summary (Inserted Image. Keerthi ble to display) [address] [address] Patient Discharge Instructions Person Information Name: ELBA JO Age: 33 Years Arrival Date: 11/24/2023 15:35:16 Discharge Diagnosis: Sinusitis Primary Care Physician: RANI FIELD NP Provider Information Primary Provider: Ting Kennedy DO Advanced Bed Placement Coordinator:Charles Eid PA-C The exam and treatment you received in the Emergency Department were for an urgent problem and are not intended as complete care. It is important that you follow up with a doctor, nurse practitioner, or physician?s greenhouse assistant for ongoing care. If your symptoms become worse or you do not improve as expected and you are unable to reach your usual health care provider, you should return to the Emergency Department. We are available 24 hours a day. ELBA JO has been given the following list of patient education materials, prescriptions and follow-up instructions: Follow-up Instructions: With: Address: When: RANI FIELD [address] [place], [place] [id number] [phone] Business (1) In 3 days 11/27/2023 In the event that this physician does not participate in your insurance network, please consult with your insurance company to find a nearby participating provider. Patient Education Materials: Sinus Infection, Adult A MESSAGE TO ALL PATIENTS REGARDING OPIOIDS PRESCRIPTION OPIOIDS: WHAT YOU NEED TO KNOW Prescription opioids can be used to help relieve bolazbxy-sx-omhuxs pain and are often prescribed following a surgery or injury, or for certain health conditions. These medications can be an important part of the treatment but also come with serious risks. It is important to work with your healthcare provider to make sure you are getting the safest, most effective care. WHAT ARE THE RISKS AND SIDE EFFECTS OF OPIOID USE? Prescription opioids carry serious risks of addiction and overdose, especially with prolonged use. An opioid overdose, often marked by slowed breathing, can cause sudden . The use of prescription opioids can have a number of side effects as well, even when taken as directed: ? Tolerance?meaning you might need to take more of the medication for the same pain relief ? Physical dependence?meaning you have symptoms of withdrawal when a medication is stopped ? Increased sensitivity to pain ? Constipation ? Nausea, vomiting, and dry mouth ? Sleepiness and dizziness ? Confusion ? Depression ? Low levels of testosterone that can result in lower sex drive, energy, and strength ? Itching and sweating RISKS ARE GREATER WITH: ? History of drug misuse, substance use disorder, or overdose ? Mental health conditions (such as depression or anxiety) ? Sleep apnea ? Older age (65 years and older) ? Avoid alcohol while taking prescription opioids. Also, unless specifically advised by your health care provider, medications to avoid include: ? Benzodiazepines (such as Xanax or Valium) ? Muscle relaxants (such as Soma or Flexeril) ? Hypnotics (such as Ambien or Lunesta) ? Other prescription opioids KNOW YOUR OPTIONS Talk to your health care provider about ways to manage your pain that don?t involve prescription opioids. Some of these options may actually work better and have fewer risks and side effects. Options may include: ? Pain relievers such as acetaminophen, ibuprofen, and naproxen ? Some medication that are also used for depression or seizures ? Physical therapy and exercise ? Cognitive behavioral therapy, a psychological, goal-directed approach, in which patients learn how to modify physical, behavioral, and emotional triggers of pain and stress. IF YOU ARE PRESCRIBED OPIOIDS FOR PAIN: ? Never take opioids in greater amounts or more often than prescribed. ? Follow up with your primary health care provider. o Work together to create a plan on how to manage your pain. o Talk about ways to help manage your pain that don?t involve prescription opioids. o Talk about any and all concerns and side effects. ? Help prevent misuse and abuse o Never sell or share prescription opioids. o Never use another person?s prescription opioids. ? Store prescription opioids in a secure place and out of reach of others (this may include visitors, children, friends, and family). ? Safely dispose of unused prescription opioids: Find your community drug take-back program or your pharmacy mail-back program, or flush them down the toilet, following guidance from the Food and Drug Administration (www.fda.gov/Drugs/Resourc esForYou). ? Visit www.cdc.gov/drugoverdose to learn about the risks of opioids abuse and overdose. ? If you believe you may be struggling with addiction, tell your health caregiver assisted living and ask for guidance or call SAMHSA?S National Helpline at 0-986-372-HELP. v (more content not included)... Normal [facility] Prescriptions/Work Noteson 0 11-24-2023 Prescriptions/Work Notes [id number]#[id number] Normal [facility] HIV Screen 4th Generation wR fxon 11-08-2023 HIV 1+2 Ab+HIV1 p24 Ag IA Ql Non-Reactive Invalid Interpretation Code Non Reactive [facility] Comment on above: Result Comment: HIV Negative HIV-1/HIV-2 antibodies and HIV-1 p24 antigen were NOT detected. There is no laboratory evidence of HIV infection. Performed at: [facility] [id number] PhD Irina Bronson Performed By: #### 9 [id number] ####[facility] [id number] [place] [address] CBC w/ Auto Diffon 4 Basophils/100 WBC (Bld) 0.9 % Normal 0.0-2.0 [facility] Comment on above: Performed By: #### 2 [id number] #### [facility] Laboratory [address] [place] [address] Basophils/Leukocytes Auto (Bld) [Pure # fraction] 0.1 E9/L Normal 0.0-0.2 [facility] Comment on above: Performed By: #### 2 [id number] #### [facility] [address] [place] [address] Eosinophils (Bld) [#/Vol] 0.1 E9/L Normal 0.0-0.5 [facility] Comment on above: Performed By: #### 2 [id number] #### [facility] [address] [place] [address] Eosinophils/100 WBC (Bld) 1.9 % Normal 0.0-8.0 [facility] Comment on above: Performed By: #### 2 [id number] #### [facility] [address] [place] [address] Erythrocyte distribution width (RBC) [Ratio] 13.7 % Normal 10.9-14.2 [facility] Comment on above: Performed By: #### 2 [id number] #### [facility] [address] [place] [address] Hematocrit (Bld) [Volume fraction] 39.9 % Normal 34.0-46.0 [facility] Comment on above: Performed By: #### 2 [id number] #### [facility] [address] [place] [address] Hemoglobin (Bld) [Mass/Vol] 13.6 g/dL Normal 12.0-16.0 [facility] Comment on above: Performed By: #### 2 [id number] #### [facility] Laboratory [address] [place] [address] Lymphocytes (Bld) [#/Vol] 1.9 E9/L Normal 1.0-4.0 [facility] Comment on above: Performed By: #### 2 [id number] #### [facility] [address] [place] [address] Lymphocytes/100 WBC (Bld) 32.4 % Normal 14.0-50.0 [facility] Comment on above: Performed By: #### 2 [id number] #### [facility] [address] [place] [address] MCH (RBC) [Entitic mass] 28.8 pg Normal 27.0-34.0 [facility] Comment on above: Performed By: #### 2 [id number] #### [facility] [address] [place] [address] MCHC (RBC) [Mass/Vol] 34.2 g/dL Normal 31.4-36.0 [facility] Comment on above: Performed By: #### 2 [id number] #### [facility] [address] [place] [address] MCV (RBC) [Entitic vol] 84.4 fL Normal 80.0-100.0 [facility] Comment on above: Performed By: #### 2 [id number] #### [facility] [address] [place] [address] Monocytes (Bld) [#/Vol] 0.4 E9/L Normal 0.2-1.0 [facility] Comment on above: Performed By: #### 2 [id number] #### [facility] [address] [place] [address] Neutrophils (Bld) [#/Vol] 3.5 E9/L Normal 2.0-7.5 [facility] Comment on above: Performed By: #### 2 [id number] #### [facility] [address] [place] [address] Neutrophils/100 WBC (Bld) 58.4 % Normal 36.0-75.0 [facility] Comment on above: Performed By: #### 2 [id number] #### [facility] [address] [place] [address] Platelet mean volume (Bld) [Entitic vol] 8.8 fL Normal 6.4-10.8 [facility] Comment on above: Performed By: #### 2 [id number] #### [facility] [address] [place] [address] Platelets (Bld) [#/Vol] 278.0 E9/L Normal 150.0-500.0 [facility] Comment on above: Performed By: #### 2 [id number] #### [facility] [address] [place] [address] RBC (Bld) [#/Vol] 4.7 E12/L Normal 4.3-5.9 [facility] Comment on above: Performed By: #### 2 [id number] #### [facility] [address] [place] [address] WBC corrected for nucl RBC Auto (Bld) [#/Vol] 6.0 E9/L Normal 4.0-11.0 [facility] Comment on above: Performed By: #### 2 [id number] #### [facility] [address] [place] [address] CHEMISTRYOrdered By: SYSTEM SYSTEM on 06-07-2024 25-hydroxyvitamin D3 [Mass/Vol] 22.6 ng/mL Low 30.0 - 100.0 ng/mL [facility] Albumin [Mass/Vol] 4.4 g/dL Normal 3.3 - 5.0 gm/dL [facility] Albumin/Globulin [Mass ratio] 1.4 {ratio} Normal 1.1 - 2.2 [facility] ALP [Catalytic activity/Vol] 60 [iU]/d Normal 21 - 98 Int._Unit/L [facility] ALT No additional P-5'-P [Catalytic activity/Vol] 11 [iU]/d Normal 6 - 46 Int._Unit/L [facility] Anion gap [Moles/Vol] 9 mmol/L Normal 6 - 16 mEq/L R em[facility] Chem AST [Catalytic activity/Vol] 11 [iU]/d Normal 5 - 43 Int._Unit/L [facility] Bilirubin [Mass/Vol] 0.2 mg/dL Normal 0.0 - 1 .1 mg/dL [facility] Calcium [Mass/Vol] 9.2 mg/dL Normal 8.9 - 11. 1 mg/dL [facility] Chloride [Moles/Vol] 108 mmol/L Normal 101 - 1 11 mmol/L [facility] Cholesterol [Mass/Vol] 161 mg/dL Normal 120 - 200 mg/dL [facility] Cholesterol in HDL [Mass/Vol] 37 mg/dL Invalid Interpretation Code [facility] Comment on above: Result Comment: '>= 60 LOW RISK' '<= 40 HIGH RISK' Cholesterol in LDL [Mass/Vol] 108 mg/dL Normal <=129mg/dL [facility] Cholesterol in VLDL [Mass/Vol] 19 mg/dL Normal 7 - 40 mg/dL [facility] CO2 [Moles/Vol] 27 mmol/L Normal 21 - 31 mmol/L [facility] Creatinine [Mass/Vol] 0.8 mg/dL Normal 0.5 - 1.3 mg/dL [facility] eGFR 98 mL/min/1.73 m2 Normal >=59mL/min /1 .73 m2 [facility] Globulin (S) [Mass/Vol] 3.1 g/dL Normal 1.4 - 4.0 gm/dL [facility] Glucose [Mass/Vol] 94 mg/dL Normal 55 - 199 mg/dL [facility] Potassium [Moles/Vol] 4.2 mmol/L Normal 3.5 - 5.3 mmol/L [facility] Protein [Mass/Vol] 7.5 g/dL Normal 6.0 - 7.8 gm/dL [facility] Sodium [Moles/Vol] 140 mmol/L Normal 135 - 145 mmol/L [facility] Triglyceride [Mass/Vol] 97 mg/dL Normal <=149mg/dL [facility] TSH Qn 2.57 m[IU]/L Normal 0.34 - 5.60 mcIU/mL [facility] Urea nitrogen [Mass/Vol] 11 mg/dL Normal 5 - 21 mg/dL [facility] Urea nitrogen/Creatinine [Mass ratio] 14 mg/mg Normal 10 - 20 [facility] CMPon 11-07-2023 Albumin [Mass/Vol] 4.4 g/dL Normal 3.3-5.0 [facility] Comment on above: Performed By: #### 2 [id number] #### [facility] [address] [place] [address] Albumin/Globulin (S) [Mass conc ratio] 1.4 Normal 1.1-2.2 [facility] Comment on above: Performed By: #### 2 [id number] #### [facility] [address] [place] [address] ALP [Catalytic activity/Vol] 60 Int._Unit/L Normal 21-98 [facility] Comment on above: Performed By: #### 2 [id number] #### [facility] [address] [place] [address] ALT No additional P-5'-P [Catalytic activity/Vol] 11 Int._Unit/L Normal 6-46 [facility] Comment on above: Performed By: #### 2 [id number] #### [facility] [address] [place] [address] Anion gap [Moles/Vol] 9 mmol/L Normal 6-16 [facility] Comment on above: Performed By: #### 2 [id number] #### [facility] [address] [place] [address] AST [Catalytic activity/Vol] 11 Int._Unit/L Normal 5-43 [facility] Comment on above: Performed By: #### 2 [id number] #### [facility] [address] [place] [address] Bilirubin [Mass/Vol] 0.2 mg/dL Normal 0.0-1.1 [facility] Comment on above: Performed By: #### 2 [id number] #### [facility] [address] [place] [address] Calcium [Mass/Vol] 9.2 mg/dL Normal 8.9-11.1 [facility] Comment on above: Performed By: #### 2 [id number] #### [facility] [address] [place] [address] Chloride [Moles/Vol] 108 mmol/L Normal 101-111 [facility] Comment on above: Performed By: #### 2 [id number] #### [facility] [address] [place] [address] CO2 [Moles/Vol] 27 mmol/L Normal 21-31 [facility] Comment on above: Performed By: #### 2 [id number] #### [facility] [address] [place] [address] Creatinine [Mass/Vol] 0.8 mg/dL Normal 0.5-1.3 [facility] Comment on above: Performed By: #### 2 [id number] #### [facility] [address] [place] [address] Globulin (S) [Mass/Vol] 3.1 g/dL Normal 1.4-4.0 [facility] Comment on above: Performed By: #### 2 [id number] #### [facility] [address] [place] [address] Glucose [Mass/Vol] 94 mg/dL Normal 55-199 [facility] Comment on above: Performed By: #### 2 772909 #### [facility] [address] [place] [address] Potassium [Moles/Vol] 4.2 mmol/L Normal 3.5-5.3 [facility] Comment on above: Performed By: #### 2 582102 #### [facility] [address] [place] [address] Protein [Mass/Vol] 7.5 g/dL Normal 6.0-7.8 [facility] Comment on above: Performed By: #### 2 [id number] #### [facility] [address] [place] [address] Sodium [Moles/Vol] 140 mmol/L Normal 135-145 [facility] Comment on above: Performed By: #### 2 [id number] #### [facility] [address] [place] [address] Urea nitrogen [Mass/Vol] 11 mg/dL Normal 5-21 [facility] Comment on above: Performed By: #### 2 [id number] #### [facility] [address] [place] [address] Urea nitrogen/Creatinine [Mass ratio] 14 No Units Normal 10-20 [facility] Comment on above: Performed By: #### 2 [id number] #### [facility] [address] [place] [address] Consent for Treatmenton Consent for Treatment [id number]#[id number] Normal [facility] HEMATOLOGYOrdered By: SYSTEM SYSTEM on 11-07-2023 Basophils/100 WBC (Bld) 0.9 % Normal 0.0 - 2.0 % [facility] Basophils/Leukocytes Auto (Bld) [Pure # fraction] 0.1 E9/L Normal 0.0 - 0.2 E9/L [facility] Eosinophils (Bld) [#/Vol] 0.1 E9/L Normal 0.0 - 0.5 E9/L [facility] Eosinophils/100 WBC (Bld) 1.9 % Normal 0.0 - 8.0 % [facility] Erythrocyte distribution width (RBC) [Ratio] 13.7 % Normal 10.9 - 14.2 % [facility] Hematocrit (Bld) [Volume fraction] 39.9 % Normal 34.0 - 46.0 % [facility] Hemoglobin (Bld) [Mass/Vol] 13.6 g/dL Normal 12.0 - 16.0 gm/dL [facility] Lymphocytes (Bld) [#/Vol] 1.9 E9/L Normal 1.0 - 4.0 E9/L [facility] Lymphocytes/100 WBC (Bld) 32.4 % Normal 14.0 - 50.0 % [facility] MCH (RBC) [Entitic mass] 28.8 pg Normal 27.0 - 34.0 pg [facility] MCHC (RBC) [Mass/Vol] 34.2 g/dL Normal 31.4 - 36.0 gm/dL [facility] MCV (RBC) [Entitic vol] 84.4 fL Normal 80.0 - 100.0 fL [facility] Monocytes (Bld) [#/Vol] 0.4 E9/L Normal 0.2 - 1.0 E9/L [facility] Monocytes/100 WBC (Bld) 6.4 % Normal 4.0 - 14.0 % [facility] Neutrophils (Bld) [#/Vol] 3.5 E9/L Normal 2.0 - 7.5 E9/L [facility] Neutrophils/100 WBC (Bld) 58.4 % Normal 36.0 - 75.0 % [facility] Platelet mean volume (Bld) [Entitic vol] 8.8 fL Normal 6.4 - 10.8 fL [facility] Platelets (Bld) [#/Vol] 278.0 E9/L Normal 150.0 - 500.0 E9/L [facility] RBC (Bld) [#/Vol] 4.7 E12/L Normal 4.3 - 5.9 E12/L [facility] WBC corrected for nucl RBC Auto (Bld) [#/Vol] 6.0 E9/L Normal 4.0 - 11.0 E9/L [facility] Lipid Panelon 11-07-2023 Cholesterol [Mass/Vol] 161 mg/dL Normal 120-200 [facility] Comment on above: Performed By: #### 2 [id number] #### [facility] [address] [place] [address] Cholesterol in HDL [Mass/Vol] 37 mg/dL Invalid Interpretation Code [facility] Comment on above: Result Comment: '>= 60 LOW RISK' '<= 40 HIGH RISK' Performed By: #### 2 [id number] #### [facility] [address] [place] [address] Cholesterol in LDL [Mass/Vol] 108 mg/dL Normal <=129 [facility] Comment on above: Performed By: #### 2 [id number] #### [facility] [address] [place] [address] Cholesterol in VLDL [Mass/Vol] 19 mg/dL Normal 7-40 [facility] Comment on above: Performed By: #### 2 [id number] #### [facility] [address] [place] [address] Triglyceride [Mass/Vol] 97 mg/dL Normal <=149 [facility] Comment on above: Performed By: #### 2 [id number] #### [facility] [address] [place] [address] Physician Orderon 11-07-2023 Physician Order [id number]#1.00TIFF Normal [facility] TSH With T4fr Reflexon 11-06 TSH Qn 2.57 m[IU]/L Normal 0.34-5.60 [facility] Comment on above: Performed By: #### 1 [id number] #### [facility] [address] [place] [address] Vitamin D 25 Hydroxyon 11-06 25-hydroxyvitamin D3 [Mass/Vol] 22.6 ng/mL Low 30.0-100.0 [facility] Comment on above: Performed By: #### 5 [id number] #### [facility] [address] [place] [address] eGFRon 11-07-2023 eGFR 98 mL/min/1.73 m2 Normal >=59 [facility] Comment on above: Order Comment: Order added by Discern Expert. Performed By: #### 1 [id number] #### [facility] [address] [place] [address] Registrationon 10-21-2023 Registration [id number]#1.00TIFF Sandra Zepeda [facility] Family Medicine Office/Clini c Noteon 10-18-2023 Family Medicine Office/Clinic Note Chief Complaint cough, sore throat, HPI Staff 33 year old female flu symptoms nausea, diarrhea, stomach pain, sore throat, fatigue, itchy throat, cough strep negative- friday began Friday, was prescribed prednisone, didn't take OTC-none no hx of allergies History of Present Illness I have reviewed and verified the staff HPI to be accurate for this encounter. Portions of this record may have been created with voice recognition artificial intelligence software, specifically [employer] and or [employer]. Substitutions may have occurred due to the inherent limitations of voice recognition and artificial intelligence software. Patient presents in office today with concerns for flulike symptoms x 5 days. She was evaluated in office on 10/13/2023 with negative strep test. She was provided with prescription for prednisone at that time, but states that she has not picked it up. She continues to, complain of sore throat, fatigue, itchy throat, irritative cough. Denies any significant nasal symptoms. She now has nausea, had 1 episode of diarrhea this morning. Generalized abdominal discomfort. She is not using any treatment egwi-ihb-nnhsntz at this time. She does note that she recently had a flu exposure and notes that she is concerned about flu infection. Review of Systems PHQ Score Initial Depression Screen Score: 0 SCORE Physical Exam Vitals & Measurements T: 36.6 ?C(Oral) HR: 76(Peripheral) BP: 110/70 SpO2: 98% HT: 63 in HT: 160 cm WT: 90 kg WT: 198 lb BMI: 35.16 General: Well developed, well nourished, in no acute distress Ears: No deformity or lesion of external ear. Canals and TM appear normal bilaterally. TM?s intact, not inflamed, with normal light reflex. Hearing grossly normal to conversational speech Nose: mild nasal mucosa inflammation and edema Mouth: _Mucous membranes moist, tongue normal. No palatal petechiae. Uvula midline. Tonsils 3+ without exudate noted. Mild erythema of the posterior pharynx with mild postnasal drip noted. No trismus or drooling. Neck: shotty anterior cervical nodes bilaterally Lungs: clear to auscultation throughout, no wheezing, no rales. No respiratory distress Cardio: regular rate and rhythm, no murmur Abdomen: Abdomen is soft, round, nondistended. Bowel sounds are mildly hyperactive x 4 quadrants. No pain to palpation. No guarding, grimacing, or rebound tenderness. No rigidity noted. Mental Status: Alert and oriented x3. Normal mood and affect Assessment/Plan 1. Nausea (R11.0: Nausea) Discussed nausea likely secondary to viral illness. Will send Rx for Zofran to help with nausea. Rest, fluids. [place] diet. Follow-up with PCP if not gradually improving over the next week, sooner if significantly worsening. ER for any concerns for dehydration, inability to tolerate oral fluids. Patient verbalized understanding. 2. Exposure to influenza (Z20.828: Contact with and (suspected) exposure to other viral communicable diseases) recent strep PCR negative. Rapid influenza testing performed at the patient's request, negative today in office. Discussed exam and hx are consistent with viral illness. Advised of typical duration. Discussed antibiotics unfortunately do not treat viral illnesses, it will take time to run course- usually 7-14 days. Fluids/rest encouraged, PRN tylenol/ibuprofen for any pain. May use Mucinex DM, Claritin-D for symptomatic tx. Follow up with PCP if not improving over next week or significantly worsening symptoms. Patient verbalized understanding of tx plan. 3. BMI 35.0-35.9,adult (Z68.35: Body mass index [BMI] 35.0-35.9, adult) The standard range for ages 18 and older is >=18.5 and < 25 kg/m2. Your BMI today was above this range, this falls in the overweight to obese category and there are medical benefits to weight loss. We can offer counselling, referral, and/or medical support in addressing this problem. Your BMI and weight management will be followed at subsequent visits. Sore throat (J02.9: Acute pharyngitis, unspecified) Ordered: Influenza Type A&B POC 72726 Follow-up With When Contact Information EMIR RIVAS, RANI Fan, [facility] Only if needed [address] [place] [address]- Additional Instructions: 1 week if no improvement Patient Education Upper Respiratory Infection, Adult BMI for Adults Problem List/Past Medical History Ongoing Acute pharyngitis BMI 34.0-34.9,adult BMI 35.0-35.9,adult Smoker Historical No qualifying data Medications ondansetron 4 mg Tab, 4 mg= 1 tab(s), Oral, q8hr, PRN predniSONE 20 mg Tab, 40 mg= 2 tab(s), Oral, Daily, Unable to obtain Allergies No Known Allergies Social History Alcohol - Denies Alcohol Use, 07/02/2023 Substance Abuse - Medium Risk, 07/02/2023 Past, 07/02/2023 Tobacco - High Risk, 07/02/2023 Never (less than 100 in lifetime) Tobacco Use:. Current vaping or e-cigarette use Smokeless Tobacco Use:. Cigarettes, Vaping, Yes, 05/ (more content not included)... Normal [facility] Comment on above: Result Comment: Elec tronically Signed By: IWONA Perdue APRN, Sydnie Torres\.br\Date and Time Signed: 10/18/23 12:18 EDT Family Medicine Office/Clini c Noteon 10-16-2023 Family Medicine Office/Clinic Note Chief Complaint sore throat HPI Staff 33 year old female here for sore throat and difficulty swallowing for a few days. Pt has white patches in throat. History of Present Illness Reviewed and agree with above documented HPI by outside medical sales representative. Portions of this record may have been created with voice recognition artificial intelligence software, specifically [employer], [employer] and or [employer]. Substitutions may have occurred due to the inherent limitations of voice recognition and artificial intelligence software. Patient is a 33-year-old female who presents to [facility], for sore throat, patient states symptoms started few days, states her friend son is positive for strep and she has been around her friend's son, patient states past few days she has increased pain with swallowing, but no difficulty swallowing, states she is able to eat taste and smell of food she is not concerned about COVID-19 or influenza but concerned about strep pharyngitis. Patient states she thinks she has had strep neuritis before, patient denies any headaches, dizziness, fevers, chills, nausea vomiting, difficulty swallowing, cough, chest pain, shortness of breath, weakness. Review of Systems PHQ Score Initial Depression Screen Score: 0 SCORE Physical Exam Vitals & Measurements T: 36.7 ?C(Temporal Artery) HR: 78(Peripheral) BP: 128/80 SpO2: 99% HT: 63 in HT: 160 cm WT: 89.2 kg WT: 196.24 lb BMI: 34.84 General: Well developed, well nourished, in no acute distress patient does appear ill but not septic. No respiratory distress. Patient answers questions appropriately and in complete sentences, and follows commands appropriately. Head: Normocephalic/atraumatic Positive upper respiratory infection. Eyes: Pupils equal, round, and reactive to light. Conjunctivae and sclerae normal, Ears: Bilateral TMs bilateral external canals are both within normal limits. Hearing is intact. Nose: No deformity, discharge, inflammation, or lesions Mouth: Mucous membranes moist. Normal oropharynx, and posterior pharynx with erythremia, without exudates, lesions, or enlarged tonsils. No trismus. No difficulty swallowing. Neck: anterior cervical adenopathy bilaterally no mastoid tenderness. Lungs: Normal respiratory effort and clear to auscultation throughout. Cardio: regular rate and rhythm, no murmur Extremity: Patient is able to move all 4 extremities equally well with pain or weakness. Neurologic: Grossly normal Skin: No rashes, ulcerations, or suspicious lesions Lymph Nodes: no lad Mental Status: alert, active Assessment/Plan Patient agrees to rapid strep swab. No other swabs are indicated at this time. Discussed with patient she is negative for rapid strep. Patient verbally understands that she will be contacted with a positive throat culture results, at that time she can be placed on antibiotics. 33-year-old female presents to [facility], for acute pharyngitis, symptoms started a few days ago, patient ill but not septic, no respiratory distress, no difficulty swallowing, patient was given a prescription for prednisone, instructed colic ibuprofen Tylenol needed for fever or pain, drink plenty water stay hydrated, and follow-up with primary care provider as needed. 1. Acute pharyngitis (J02.9: Acute pharyngitis, unspecified) See above Ordered: Strep Screen Culture 2. BMI 35.0-35.9,adult (Z68.35: Body mass index [BMI] 35.0-35.9, adult) The standard range for ages 18 and older is >=18.5 and < 25 kg/m2. Your BMI today was above this range, this falls in the overweight to obese category and there are medical benefits to weight loss. We can offer counselling, referral, and/or medical support in addressing this problem. Your BMI and weight management will be followed at subsequent visits. Follow-up With When Contact Information EMIR RIVAS, RANI Fan, [facility] [address] [place] [address]- Additional Instructions: Patient Education BMI for Adults Pharyngitis, Qsim-cb-Oncm Problem List/Past Medical History Ongoing Acute pharyngitis BMI 34.0-34.9,adult BMI 35.0-35.9,adult Smoker Historical No qualifying data Medications ondansetron 4 mg Tab, 4 mg= 1 tab(s), Oral, q8hr, PRN predniSONE 20 mg Tab, 40 mg= 2 tab(s), Oral, Daily, Unable to obtain Allergies No Known Allergies Social History Alcohol - Denies Alcohol Use, 07/02/2023 Substance Abuse - Medium Risk, 07/02/2023 Past, 07/02/2023 Tobacco - High Risk, 07/02/2023 Never (less than 100 in lifetime) Tobacco Use:. Current vaping or e-cigarette use Smokeless Tobacco Use:. Cigarettes, Vaping, Yes, 10/15/2023 Immunizations Vaccine Date Status Comments SARS-CoV-2 mRNA (tozinameran 5y-11y) vac - Not Given Postpone due to refusal measles/mumps/rubella virus vaccine 08/31/1998 Recorded hepatitis B pediatric vaccine 08/31/1998 Recorded hepatitis B pediatric vaccine 11/07/1997 Recorded DTaP, unspecified formul (more content not included)... Normal [facility] Comment on above: Result Comment: Elec tronically Signed By: ELANA ALVAREZ, MIKE\.klaus\Date and Time Signed: 10/16/23 13:35 EDT Patient Educationon 10-16-19 Patient Education Infectious Disease Pharyngitis Pharyngitis is a sore throat (pharynx). This is when there is redness, pain, and swelling in your throat. Most of the time, this condition gets better on its own. In some cases, you may need medicine. What are the causes? ? An infection from a virus. ? An infection from bacteria. ? Allergies. What increases the risk? ? Being 5?24 years old. ? Being in crowded environments. These include: ? Daycares. ? Schools. ? Dormitories. ? Living in a place with cold temperatures outside. ? Having a weakened disease-fighting (immune) system. What are the signs or symptoms? Symptoms may vary depending on the cause. Common symptoms include: ? Sore throat. ? Tiredness (fatigue). ? Low-grade fever. ? Stuffy nose. ? Cough. ? Headache. Other symptoms may include: ? Glands in the neck (lymph nodes) that are swollen. ? Skin rashes. ? Film on the throat or tonsils. This can be caused by an infection from bacteria. ? Vomiting. ? Red, itchy eyes. ? Loss of appetite. ? Joint pain and muscle aches. ? Tonsils that are temporarily bigger than usual (enlarged). How is this treated? Many times, treatment is not needed. This condition usually gets better in 3?4 days without treatment. If the infection is caused by a bacteria, you may be need to take antibiotics. Follow these instructions at home: Medicines ? Take wsxo-fps-qygdqih and prescription medicines only as told by your doctor. ? If you were prescribed an antibiotic medicine, take it as told by your doctor. Do not stop taking the antibiotic even if you start to feel better. ? Use throat lozenges or sprays to soothe your throat as told by your doctor. ? Children can get pharyngitis. Do not give your child aspirin. Managing pain To help with pain, try: ? Sipping warm liquids, such as: ? Broth. ? Herbal tea. ? Warm water. ? Eating or drinking cold or frozen liquids, such as frozen ice pops. ? Rinsing your mouth (gargle) with a salt water mixture 3?4 times a day or as needed. ? To make salt water, dissolve ??1 tsp (3?6 g) of salt in 1 cup (237 mL) of warm water. ? Do not swallow this mixture. ? Sucking on hard candy or throat lozenges. ? Putting a cool-mist humidifier in your bedroom at night to moisten the air. ? Sitting in the bathroom with the door closed for 5?10 minutes while you run hot water in the shower. General instructions ? Do not smoke or use any products that contain nicotine or tobacco. If you need help quitting, ask your doctor. ? Rest as told by your doctor. ? Drink enough fluid to keep your pee (urine) pale yellow. How is this prevented? ? Wash your hands often for at least 20 seconds with soap and water. If soap and water are not available, use hand scale tank operator. ? Do not touch your eyes, nose, or mouth with unwashed hands. Wash hands after touching these areas. ? Do not share cups or eating utensils. ? Avoid close contact with people who are sick. Contact a doctor if: ? You have large, tender lumps in your neck. ? You have a rash. ? You cough up green, yellow-brown, or bloody spit. Get help right away if: ? You have a stiff neck. ? You drool or cannot swallow liquids. ? You cannot drink or take medicines without vomiting. ? You have very bad pain that does not go away with medicine. ? You have problems breathing, and it is not from a stuffy nose. ? You have new pain and swelling in your knees, ankles, wrists, or elbows. These symptoms may be an emergency. Get help right away. Call your local emergency services (911 in the [place] ? Do not wait to see if the symptoms will go away. ? Do not drive yourself to the hospital. Summary ? Pharyngitis is a sore throat (pharynx). This is when there is redness, pain, and swelling in your throat. ? Most of the time, pharyngitis gets better on its own. Sometimes, you may need medicine. ? If you were prescribed an antibiotic medicine, take it as told by your doctor. Do not stop taking the antibiotic even if you start to feel better. This information is not intended to replace advice given to you by your health care provider. Make sure you discuss any questions you have with your health care provider. Document Revised: 08/15/2021 Document Reviewed: 08/15/2021 [email or web address] Patient Education ? 2022 [email or web address] Nutrition BMI for Adults What is BMI? Body mass index (BMI) is a number that is calculated from a person's weight and height. BMI can help estimate how much of a person's weight is composed of fat. BMI does not measure body fat directly. Rather, it is an alternative to procedures that directly measure body fat, which can be difficult and expensive. BMI can help identify people who may be at higher risk for certain medical problems. What are BMI measurements used for? BMI is used as a screening tool to identify possi (more content not included)... Normal [facility] Patient Education Infectious Disease Upper Respiratory Infection, Adult An upper respiratory infection (URI) is a common viral infection of the nose, throat, and upper air passages that lead to the lungs. The most common type of URI is the common cold. URIs usually get better on their own, without medical treatment. What are the causes? A URI is caused by a virus. You may catch a virus by: ? Breathing in droplets from an infected person's cough or sneeze. ? Touching something that has been exposed to the virus (is contaminated) and then touching your mouth, nose, or eyes. What increases the risk? You are more likely to get a URI if: ? You are very young or very old. ? You have close contact with others, such as at work, school, or a health care facility. ? You smoke. ? You have long-term (chronic) heart or lung disease. ? You have a weakened disease-fighting system (immune system). ? You have nasal allergies or asthma. ? You are experiencing a lot of stress. ? You have poor nutrition. What are the signs or symptoms? A URI usually involves some of the following symptoms: ? Runny or stuffy (congested) nose. ? Cough. ? Sneezing. ? Sore throat. ? Headache. ? Fatigue. ? Fever. ? Loss of appetite. ? Pain in your forehead, behind your eyes, and over your cheekbones (sinus pain). ? Muscle aches. ? Redness or irritation of the eyes. ? Pressure in the ears or face. How is this diagnosed? This condition may be diagnosed based on your medical history and symptoms, and a physical exam. Your health care provider may use a swab to take a mucus sample from your nose (nasal swab). This sample can be tested to determine what virus is causing the illness. How is this treated? URIs usually get better on their own within 7?10 days. Medicines cannot cure URIs, but your health care provider may recommend certain medicines to help relieve symptoms, such as: ? Laal-iow-rlfvcks cold medicines. ? Cough suppressants. Coughing is a type of defense against infection that helps to clear the respiratory system, so take these medicines only as recommended by your health care provider. ? Fever-reducing medicines. Follow these instructions at home: Activity ? Rest as needed. ? If you have a fever, stay home from work or school until your fever is gone or until your health care provider says your URI cannot spread to other people (is no longer contagious). Your health care provider may have you wear a face mask to prevent your infection from spreading. Relieving symptoms ? Gargle with a mixture of salt and water 3?4 times a day or as needed. To make salt water, completely dissolve ??1 tsp (3?6 g) of salt in 1 cup (237 mL) of warm water. ? Use a cool-mist humidifier to add moisture to the air. This can help you breathe more easily. Eating and drinking ? Drink enough fluid to keep your urine pale yellow. ? Eat soups and other clear broths. General instructions ? Take mhgc-okg-ekiwmih and prescription medicines only as told by your health care provider. These include cold medicines, fever reducers, and cough suppressants. ? Do not use any products that contain nicotine or tobacco. These products include cigarettes, chewing tobacco, and vaping devices, such as e-cigarettes. If you need help quitting, ask your health care provider. ? Stay away from secondhand smoke. ? Stay up to date on all immunizations, including the yearly (annual) flu vaccine. ? Keep all follow-up visits. This is important. How to prevent the spread of infection to others URIs can be contagious. To prevent the infection from spreading: ? Wash your hands with soap and water for at least 20 seconds. If soap and water are not available, use hand scale tank operator. ? Avoid touching your mouth, face, eyes, or nose. ? Cough or sneeze into a tissue or your sleeve or elbow instead of into your hand or into the air. Contact a health care provider if: ? You are getting worse instead of better. ? You have a fever or chills. ? Your mucus is brown or red. ? You have yellow or brown discharge coming from your nose. ? You have pain in your face, especially when you bend forward. ? You have swollen neck glands. ? You have pain while swallowing. ? You have white areas in the back of your throat. Get help right away if: ? You have shortness of breath that gets worse. ? You have severe or persistent: ? Headache. ? Ear pain. ? Sinus pain. ? Chest pain. ? You have chronic lung disease along with any of the following: ? Making high-pitched whistling sounds when you breathe, most often when you breathe out (wheezing). ? Prolonged cough (more than 14 days). ? Coughing up blood. ? A change in your usual mucus. ? You have a stiff neck. ? You have changes in your: ? Vision. ? Hearing. ? Thinking. ? Mood. These symptoms may be an emergency. Get help (more content not included)... Normal [facility] Ambulatory Visit Summaryon 0 10-15-2023 Ambulatory Visit Summary ELBA JO :1990 Visit Date:10/15/2023 Ambulatory Visit Instructions Your Diagnosis Nausea Sore throat Your Care Team Attending Physician - Nette CRENSHAW, IWONA, Sydnie Torres Primary Care Physician - EMIR RIVAS, RANI Fan This Is Your Medications List Contact prescribing physician if questions or concerns cyclobenzaprine (cyclobenzaprine 10 mg Tab) lidocaine topical (lidocaine Top 5% film Patch) predniSONE (predniSONE 20 mg Tab) Discharge Vitals Temperature (Oral) 36.6 ?C Heart Rate (Peripheral) 76 Blood Pressure 110/70 Height 160 cm Height 63 in Weight 90 kg Weight 198 lb BMI 35.16 Medications What How Much When Why Instructions Unchanged cyclobenzaprine (cyclobenzaprine 10 mg Tab) 1 Tablets By Mouth 3 times a day Contact prescribing physician if questions or concerns Unchanged lidocaine topical (lidocaine Top 5% film Patch) 1 Patches Topical Every day apply 12 hours on and 12 hours off daily Contact prescribing physician if questions or concerns Unchanged predniSONE (predniSONE 20 mg Tab) 2 Tablets By Mouth Every day Acute pharyngitis Duration: 5 Days Contact prescribing physician if questions or concerns Medications and Immunizations Administered Not Given SARS-CoV-2 mRNA (tophong 5y-11y) vac, Postpone due to refusal Allergies No Known Allergies Problems Ongoing - Any problem that you are currently receiving treatment for. Acute pharyngitis BMI 34.0-34.9,adult Smoker Patient Survey You may receive a survey via text or e-mail asking about your office visit. Please share your experience with us by completing your survey. We appreciate your feedback and thank you for choosing us for your care. [facility] Provider Letteron 10-15-2023 Provider Letter (Inserted Image. Keerthi ble to display) October 15, 2023 ELBA JO [address] [place] [address] : 1990 To Whom It May Concern, Please excuse above patient from work. Date of Illness: From: 10/15/2023 To: 10/16/2023 May Return to Work On: 10/17/2023 Sincerely, [facility] [address] [place] [address], [facility] [place] [place] [address] [facility] Ambulatory Visit Summaryon 0 10-13-2023 Ambulatory Visit Summary DEYSI ELBA Fan :1990 Visit Date:10/13/2023 Ambulatory Visit Instructions Your Diagnosis Acute pharyngitis Your Care Team Attending Physician - ELANA ALVAREZ, MIKE Primary Care Physician - EMIR RIVAS, RANI Fan This Is Your Medications List cyclobenzaprine (cyclobenzaprine 10 mg Tab) lidocaine topical (lidocaine Top 5% film Patch) Discharge Vitals Temperature (Temporal Artery) 36.7 ?C Heart Rate (Peripheral) 78 Blood Pressure 128/80 Height 160 cm Height 63 in Weight 89.2 kg Weight 196.24 lb BMI 34.84 Medications What How Much When Instructions Unchanged cyclobenzaprine (cyclobenzaprine 10 mg Tab) 1 Tablets By Mouth 3 times a day Unchanged lidocaine topical (lidocaine Top 5% film Patch) 1 Patches Topical Every day apply 12 hours on and 12 hours off daily Allergies No Known Allergies Problems Ongoing - Any problem that you are currently receiving treatment for. Acute pharyngitis Smoker Patient Survey You may receive a survey via text or e-mail asking about your office visit. Please share your experience with us by completing your survey. We appreciate your feedback and thank you for choosing us for your care. Normal [facility] XR Hip Bilat 2 Views + Pelvi son 07-04-2023 XR Hip Bilat 2 Views + Pelvis Exam Date/Time: 07/03/2023 13:33 EST Reason for Exam: M54.50 lumboscaral pain Report IMPRESSION: NO ACUTE OSSEOUS ABNORMALITY. EXAMINATION: XR Hip Bilat 2 Views + Pelvis HISTORY: Hip pain COMPARISONS: None available TECHNIQUE: Frontal and lateral views of the right and left hip. FINDINGS: No acute proximal femur fracture. No hip dislocation. Joint space of both hips maintained. Visualized bones of the pelvis are within normal limits. Soft tissues are within normal limits. Ordering Provider: RANI FIELD FINAL REPORT Dictated: 07/04/2023 11:23 am Michael Carrion DO Signed (Electronic Signature): 07/04/2023 11:23 am Signed by: Michael Carrion DO Transcribed by: KEO Technologist: MALCOLM Technical Comments Radiation Dose: Ka,r in mGy = na DAP = na Normal [facility] XR Spine Lumbosacral 2 or 3 Viewson 07-04-2023 XR Spine Lumbosacral 2 or 3 Views Exam Date/Time: 07/03/2023 13:33 EST Reason for Exam: M54.50 lumbosacral pain Report IMPRESSION: NO ACUTE OSSEOUS ABNORMALITY. EXAMINATION: XR Spine Lumbosacral 2 or 3 Views TECHNIQUE: AP and lateral views of the lumbar spine and coned-down lateral view of the lumbosacral junction HISTORY: Low back pain COMPARISONS: None available. FINDINGS: Mild dextrocurvature. Lumbar vertebral body heights are maintained. Intervertebral disc heights are preserved. No acute fracture. No spondylolysis or spondylolisthesis. Ordering Provider: RANI FIELD FINAL REPORT Dictated: 07/04/2023 11:24 am Michael Carrion DO Signed (Electronic Signature): 07/04/2023 11:24 am Signed by: Michael Carrion DO Transcribed by: KEO Technologist: MALCOLM Technical Comments Radiation Dose: Ka,r in mGy = na DAP = na Normal [facility] Consent for Treatmenton 02-0 Consent for Treatment [id number] Normal [facility] Discharge Instructionson Discharge Instructions [id number] Normal [facility] ED Clinical Summaryon 2023 ED Clinical Summary (Inserted Image. Keerthi ble to display) [place] [id number] ED Clinical Summary Person Information Name: ELBA JO Mita Diaz/[facility]uan Jose Age: 33 Years : 1990 Sex: Female Language: Sammarinese PCP: NONE, XXXX Marital Status: Single Visit Id: Visit Reason: Back pain; LOWER BACK PAIN Speciality: Acuity: 4 Enc Type: Emergency Med Service: Emergency Arrival: 07/02/2023 21:01:45 Discharge: 07/02/2023 23:43:59 LOS: 000 02:42 Checkin: 07/02/2023 21:01:45 Checkout: 07/02/2023 23:43:59 Dispo Type: Home (Routine DC) EVENTS: Event Name Event Status Request Date/Time Start Date/Time Complete Date/Time Arrive Complete 07/02/2023 21:01:45 07/02/2023 21:01:45 07/02/2023 21:01:45 Document Home Meds Request 07/02/2023 21:01:45 Triage Complete 07/02/2023 21:01:45 07/02/2023 21:09:04 07/02/2023 21:09:04 Registration Complete 07/02/2023 21:05:19 07/02/2023 21:05:19 07/02/2023 21:05:19 Reg Complete Request 07/02/2023 21:05:19 Reg Bed Request Complete 07/02/2023 21:05:19 07/02/2023 21:05:19 07/02/2023 21:05:19 Dr Exam Complete 07/02/2023 21:05:57 07/02/2023 21:05:57 07/02/2023 21:05:57 Registration Start 07/02/2023 21:05:57 07/02/2023 21:09:13 Bed Assign Complete 07/02/2023 21:09:13 07/02/2023 21:09:13 07/02/2023 21:09:13 RN Exam Complete 07/02/2023 21:09:13 07/02/2023 21:25:12 07/02/2023 21:25:12 Pending Labs Complete 07/02/2023 21:10:57 07/02/2023 23:14:42 Lab Complete 07/02/2023 21:10:57 07/02/2023 23:14:42 Urine Collect Complete 07/02/2023 21:10:57 07/02/2023 23:14:42 Meds Admin Complete 07/02/2023 21:25:23 07/02/2023 21:34:24 Meds Admin Complete 07/02/2023 22:53:06 07/02/2023 22:55:47 Discharge Complete 07/02/2023 23:34:40 07/02/2023 23:44:23 07/02/2023 23:44:23 Transfer Complete 07/02/2023 23:44:23 07/02/2023 23:44:23 07/02/2023 23:44:23 ADDRESS: [address] [place], [place] [id number] PHYS DOC NOTES: MEDICAL INFORMATION: Prescriptions Given: New Medications [facility]/pharmacy #[id number], [address], [place] [id number], [phone] cyclobenzaprine (cyclobenzaprine 10 mg Tab) 1 Tablets By Mouth 3 times a day. Refills: 0. lidocaine topical (lidocaine Top 5% film Patch) 1 Patches Topical every day. apply 12 hours on and 12 hours off daily. Refills: 0. naproxen (naproxen 500 mg Tab) 1 Tablets By Mouth 2 times a day for 10 Days. Refills: 0. PATIENT EDUCATION INFORMATION: Instructions: Acute Back Pain, Adult Follow up: With: Address: When: [facility], [address] [place] [address] [place] [address] Business (1) In 5 days 07/07/2023 DIAGNOSIS: Low back pain Normal [facility] ED Note-Physicianon 07-03-19 ED Note-Physician Basic Information Time Seen: Driss Wright DO 07/02/2023 21:05 Chief Complaint left lower back pain on and off since april. in recovery not narcotics. pain today is worse than it has ever been. History of Present Illness HPI: She is a 33-year-old female with past medical history of drug abuse who presents the ED for left lower back pain. Patient states that she has had some on and off pain in this region since March or April of this year. She denies any injury that she is aware of. She states that it is worse with movement and walking and better at rest. She states that today the pain has been worse than it has been in the past. She denies any incontinence of urine or stool. She denies any numbness or weakness. She denies any fever or chills. She did try taking 800 mg of ibuprofen approximately 1 hour prior to arrival. ROS: Pertinent review of systems conducted and is negative except as noted above. Physical exam: General: nontoxic appearing and in no distress Neuro: awake and alert. Motor incision to bilateral lower extremities are intact in all dermatomes. Patellar tendon reflexes are 2+ bilaterally. Neck: supple, trachea midline Card: Heart regular rate and rhythm no murmur, dorsalis pedis pulses are 2+ bilaterally Resp: Lungs clear to auscultation no wheeze or rhonchi Abd: Soft and nondistended. No tenderness to palpation with no rebound or guarding. Spine: No midline tenderness of the thoracic or lumbar spine. No palpable bony deformity. Tenderness of the left paraspinal musculature of the L4-L5 region. Ext: No gross deformity or edema Physical Exam Vitals & Measurements T: 36.8 ?C(Oral) HR: 88(Peripheral) RR: 18 BP: 135/85 SpO2: 98% HT: 160 cm WT: 96.6 kg BMI: 37.73 Medical Decision Making MEDICAL DECISION MAKING Number and Complexity of Problems Differential Diagnosis: [] [facility] Data External documents reviewed: N/A My EKG interpretation: Noted in chart if applicable My CT interpretation: N/A My X-ray interpretation: Noted in chart if applicable My Ultrasound interpretation: N/A Decision rules/scores evaluated: N/A Discussed with: N/A Treatment and Disposition ED Course: Is well-appearing in no distress. No trauma. No signs of cauda equina. No midline tenderness. She has isolated tenderness to the paraspinal musculature in the lower lumbar region. We will obtain a urinalysis and urine and give her a dose of muscle relaxer and lidocaine patch. hCG is negative and urine shows no signs of acute infection. We will give her prescription for naproxen as well as Flexeril and lidocaine patches. We discussed need for follow-up with her primary care physician. Shared decision making: As above Code status: N/A Assessment/Plan Low back pain (M54.50: Low back pain, unspecified) Orders: cyclobenzaprine, 10 mg = 1 tab(s), Tab, Oral, Once, Stop date 07/02/23 21:25:00 EST, STAT, Start date 07/02/23 21:25:00 EST, 07/02/23 21:25:00 EST cyclobenzaprine, 10 mg = 1 tab(s), Oral, TID, # 14 tab(s), Refills(s) 0, Pharmacy: [facility] #[id number], 160, cm, 07/02/23 21:09:00 EST, Height/Length Dosing, 96.6, kg, 07/02/23 21:09:00 EST, Weight Dosing lidocaine topical, 1 patch(es), Patch, TransDermal, Once, Stop date 07/02/23 22:52:00 EST, STAT, Start date 07/02/23 22:52:00 EST lidocaine topical, 1 patch(es), Topical, Daily, 7 patch(es), Refill(s) 0, apply 12 hours on and 12 hours off daily, [facility] #[id number], 160, cm, 07/02/23 21:09:00 EST, Height/Length Dosing, 96.6, kg, 07/02/23 21:09:00 EST, Weight Dosing naproxen, 500 mg = 1 tab(s), Oral, BID, X 10 day(s), # 20 tab(s), Refills(s) 0, Pharmacy: [facility]/pharm[facility] #[id number], 160, cm, 07/02/23 21:09:00 EST, Height/Length Dosing, 96.6, kg, 07/02/23 21:09:00 EST, Weight Dosing U Beta Hcg Qual UA With Cult Reflex Medications Administered Given cyclobenzaprine 10 mg Tab, 10 mg, Oral lidocaine Top 5% film Patch, 1 patch(es), TransDermal Disposition Plan Discharge Prescription List Prescriptions cyclobenzaprine 10 mg Tab, 10 mg= 1 tab(s), Oral, TID lidocaine Top 5% film Patch, 1 patch(es), Topical, Daily naproxen 500 mg Tab, 500 mg= 1 tab(s), Oral, BID Follow-up With When Contact Information COREY FITZGERALD In 5 days 07/07/2023 EST [address] [place] [address] [employer] (1) Additional Instructions: Patient Education Acute Back Pain, Adult Problem List/Past Medical History Ongoing Smoker Historical No qualifying data Medications Inpatient cyclobenzaprine 10 mg Tab, 10 mg= 1 tab(s), Oral, Once Home No active home medications Allergies No Known Allergies Social History Alcohol - Denies Alcohol Use, 07/02/2023 Substance Abuse - Medium Risk, 07/02/2023 Past, 07/02/2023 Tobacco - High Risk, 07/02/2023 10 or more cigarettes (1/2 pack or more)/day in last 30 days Tobacco Use:., 07/02/2023 Lab Results UA Spec Desc: Clean Catch (07/02/23 22:50:00) UA Color: Yellow2 ( (more content not included)... Normal [facility] Comment on above: Result Comment: Elec tronically Signed By: Driss Wright DO\.br\Date and Time Signed: 07/02/23 23:38 EST ED Patient Education Noteon 07-03-2023 ED Patient Education Note Orthopedics Acute Back Pain, Adult Acute back pain is sudden and usually short-lived. It is often caused by an injury to the muscles and tissues in the back. The injury may result from: ? A muscle, tendon, or ligament getting overstretched or torn. Ligaments are tissues that connect bones to each other. Lifting something improperly can cause a back strain. ? Wear and tear (degeneration) of the spinal disks. Spinal disks are circular tissue that provide cushioning between the bones of the spine (vertebrae). ? Twisting motions, such as while playing sports or doing yard work. ? A hit to the back. ? Arthritis. You may have a physical exam, lab tests, and imaging tests to find the cause of your pain. Acute back pain usually goes away with rest and home care. Follow these instructions at home: Managing pain, stiffness, and swelling ? Take zpzc-anp-nekpojs and prescription medicines only as told by your health care provider. Treatment may include medicines for pain and inflammation that are taken by mouth or applied to the skin, or muscle relaxants. ? Your health care provider may recommend applying ice during the first 24?48 hours after your pain starts. To do this: ? Put ice in a plastic bag. ? Place a towel between your skin and the bag. ? Leave the ice on for 20 minutes, 2?3 times a day. ? Remove the ice if your skin turns bright red. This is very important. If you cannot feel pain, heat, or cold, you have a greater risk of damage to the area. ? If directed, apply heat to the affected area as often as told by your health care provider. Use the heat source that your health care provider recommends, such as a moist heat pack or a heating pad. ? Place a towel between your skin and the heat source. ? Leave the heat on for 20?30 minutes. ? Remove the heat if your skin turns bright red. This is especially important if you are unable to feel pain, heat, or cold. You have a greater risk of getting burned. Activity ? Do not stay in bed. Staying in bed for more than 1?2 days can delay your recovery. ? Sit up and stand up straight. Avoid leaning forward when you sit or hunching over when you stand. ? If you work at a desk, sit close to it so you do not need to lean over. Keep your chin tucked in. Keep your neck drawn back, and keep your elbows bent at a 90-degree angle (right angle). ? Sit high and close to the steering wheel when you drive. Add lower back (lumbar) support to your car seat, if needed. ? Take short walks on even surfaces as soon as you are able. Try to increase the length of time you walk each day. ? Do not sit, drive, or dining host one place for more than 30 minutes at a time. Sitting or standing for long periods of time can put stress on your back. ? Do not drive or use heavy machinery while taking prescription pain medicine. ? Use proper lifting techniques. When you bend and lift, use positions that put less stress on your back: ? Bend your knees. ? Keep the load close to your body. ? Avoid twisting. ? Exercise regularly as told by your health care provider. Exercising helps your back heal faster and helps prevent back injuries by keeping muscles strong and flexible. ? Work with a physical therapist to make a safe exercise program, as recommended by your health care provider. Do any exercises as told by your physical therapist. Lifestyle ? Maintain a healthy weight. Extra weight puts stress on your back and makes it difficult to have good posture. ? Avoid activities or situations that make you feel anxious or stressed. Stress and anxiety increase muscle tension and can make back pain worse. Learn ways to manage anxiety and stress, such as through exercise. General instructions ? Sleep on a firm mattress in a comfortable position. Try lying on your side with your knees slightly bent. If you lie on your back, put a pillow under your knees. ? Keep your head and neck in a straight line with your spine (neutral position) when using electronic equipment like smartphones or pads. To do this: ? Raise your smartphone or pad to look at it instead of bending your head or neck to look down. ? Put the smartphone or pad at the level of your face while looking at the screen. ? Follow your treatment plan as told by your health care provider. This may include: ? Cognitive or behavioral therapy. ? Acupuncture or massage therapy. ? Meditation or yoga. Contact a health care provider if: ? You have pain that is not relieved with rest or medicine. ? You have increasing pain going down into your legs or buttocks. ? Your pain does not improve after 2 weeks. ? You have pain at night. ? You lose weight without trying. ? You have a fever or chills. ? You develop nausea or vomiting. ? You develop abdominal pain. Get help right away if: ? You develop new bowel or bladder control problems. ? You have unusual weakness or numbness in your arms or legs. ? You feel faint. These sym (more content not included)... Normal [facility] ED Patient Summaryon 024 ED Patient Summary (Inserted Image. Keerthi ble to display) [address] [address] Patient Discharge Instructions Person Information Name: ELBA JO Age: 33 Years Arrival Date: 07/02/2023 21:01:45 Discharge Diagnosis: Low back pain Primary Care Physician: NONE, XXXX Provider Information Primary Provider: Driss Wright DO Advanced Bed Placement Coordinator:Mark The exam and treatment you received in the Emergency Department were for an urgent problem and are not intended as complete care. It is important that you follow up with a doctor, nurse practitioner, or physician?s greenhouse assistant for ongoing care. If your symptoms become worse or you do not improve as expected and you are unable to reach your usual health care provider, you should return to the Emergency Department. We are available 24 hours a day. ELBA JO has been given the following list of patient education materials, prescriptions and follow-up instructions: Follow-up Instructions: With: Address: When: [facility][1], [address] [place], [place] [address] [address] Business (1) In 5 days 07/07/2023 In the event that this physician does not participate in your insurance network, please consult with your insurance company to find a nearby participating provider. Patient Education Materials: Acute Back Pain, Adult A MESSAGE TO ALL PATIENTS REGARDING OPIOIDS PRESCRIPTION OPIOIDS: WHAT YOU NEED TO KNOW Prescription opioids can be used to help relieve ncmrdrgf-jl-xevrua pain and are often prescribed following a surgery or injury, or for certain health conditions. These medications can be an important part of the treatment but also come with serious risks. It is important to work with your healthcare provider to make sure you are getting the safest, most effective care. WHAT ARE THE RISKS AND SIDE EFFECTS OF OPIOID USE? Prescription opioids carry serious risks of addiction and overdose, especially with prolonged use. An opioid overdose, often marked by slowed breathing, can cause sudden . The use of prescription opioids can have a number of side effects as well, even when taken as directed: ? Tolerance?meaning you might need to take more of the medication for the same pain relief ? Physical dependence?meaning you have symptoms of withdrawal when a medication is stopped ? Increased sensitivity to pain ? Constipation ? Nausea, vomiting, and dry mouth ? Sleepiness and dizziness ? Confusion ? Depression ? Low levels of testosterone that can result in lower sex drive, energy, and strength ? Itching and sweating RISKS ARE GREATER WITH: ? History of drug misuse, substance use disorder, or overdose ? Mental health conditions (such as depression or anxiety) ? Sleep apnea ? Older age (65 years and older) ? Avoid alcohol while taking prescription opioids. Also, unless specifically advised by your health care provider, medications to avoid include: ? Benzodiazepines (such as Xanax or Valium) ? Muscle relaxants (such as Soma or Flexeril) ? Hypnotics (such as Ambien or Lunesta) ? Other prescription opioids KNOW YOUR OPTIONS Talk to your health care provider about ways to manage your pain that don?t involve prescription opioids. Some of these options may actually work better and have fewer risks and side effects. Options may include: ? Pain relievers such as acetaminophen, ibuprofen, and naproxen ? Some medication that are also used for depression or seizures ? Physical therapy and exercise ? Cognitive behavioral therapy, a psychological, goal-directed approach, in which patients learn how to modify physical, behavioral, and emotional triggers of pain and stress. IF YOU ARE PRESCRIBED OPIOIDS FOR PAIN: ? Never take opioids in greater amounts or more often than prescribed. ? Follow up with your primary health care provider. o Work together to create a plan on how to manage your pain. o Talk about ways to help manage your pain that don?t involve prescription opioids. o Talk about any and all concerns and side effects. ? Help prevent misuse and abuse o Never sell or share prescription opioids. o Never use another person?s prescription opioids. ? Store prescription opioids in a secure place and out of reach of others (this may include visitors, children, friends, and family). ? Safely dispose of unused prescription opioids: Find your community drug take-back program or your pharmacy mail-back program, or flush them down the toilet, following guidance from the Food and Drug Administration (www.fda.gov/Drugs/Resourc esForYou). ? Visit www.cdc.gov/drugoverdose to learn about the risks of opioids abuse and overdose. ? If you believe you may be struggling with addiction, tell your health caregiver assisted living and ask for guidance or call SAMHSA?S National Helpline at 2-292-778-HELP. v Source: [place] Depar (more content not included)... Normal [facility] Physician Orderon 07-03-2023 Physician Order [id number] Normal [facility] U BetaHcg Qualon 07-03-2023 HCG.beta subunit (U) [Moles/Vol] Negative Normal [facility] Comment on above: Performed By: #### 2 [id number], [id number] ####[facility] [address] [place] [address] UA With Cult Reflexon 2023 Bacteria LM Ql (Urine sed) 1+ /HPF Abnormal Trace [facility] Comment on above: Performed By: #### 2 [id number], [id number] ####[facility] [address] [place] [address] Bilirubin Ql (U) Negative Normal Negative [facility] Comment on above: Performed By: #### 2 [id number], [id number] ####[facility] [address] [place] [address] Clarity (U) SL CLOUDY Invalid Interpretation Code [facility] Comment on above: Performed By: #### 2 [id number], [id number] ####[facility] [address] [place] [address] Color (U) YELLOW Normal Yellow [facility] Comment on above: Performed By: #### 2 [id number], [id number] ####[facility] [address] [place] [address] Epithelial cells.squamous LM.HPF (Urine sed) [#/Area] 5-8 Normal 0-2 [facility] Comment on above: Performed By: #### 2 [id number], [id number] ####[facility] [address] [place] [address] Glucose Test strip (U) [Mass/Vol] Negative Normal Negative [facility] Comment on above: Performed By: #### 2 [id number], [id number] ####[facility] [address] [place] [address] Hemoglobin Ql (U) 1+ Abnormal Negative [facility] Comment on above: Performed By: #### 2 [id number], [id number] ####[facility] [address] [place] [address] Ketones (U) [Mass/Vol] Negative Normal Negative [facility] Comment on above: Performed By: #### 2 [id number], [id number] ####[facility] [address] [place] [address] Tustin.plasma/Lithiu m.RBC (Bld) [Mass ratio] 0-3 Normal 0-3 [facility] Comment on above: Performed By: #### 2 [id number], [id number] ####[address] [address] Mucus Ql (Urine sed) 1+ Normal [facility] Comment on above: Performed By: #### 2 [id number], [id number] ####[facility] [address] [place] [address] Nitrite Ql (U) Negative Normal Negative [facility] Comment on above: Performed By: #### 2 [id number], [id number] ####[facility] [address] [place] [address] pH (U) 6.0 [pH] Invalid Interpretation Code 5.0-9.0 [facility] Comment on above: Performed By: #### 2 [id number], [id number] ####[facility] [address] [place] [address] Protein (U) [Mass/Vol] Negative Normal Negative [facility] Comment on above: Performed By: #### 2 [id number], [id number] ####[facility] [address] [place] [address] Specific gravity (U) [Rel density] 1.025 Invalid Interpretation Code 1.005-1.030 [facility] Comment on above: Performed By: #### 2 [id number], [id number] ####[facility] [address] [place] [address] Type of Urine collection method Clean Catch Normal [facility] Comment on above: Performed By: #### 2 [id number], [id number] ####[facility] [address] [place] [address] Urobilinogen Qn (U) 0.2 {John'U}/dL Normal 0.0-1.0 [facility] Comment on above: Performed By: #### 2 [id number], [id number] ####[facility] [address] [place], [place] [address] WBC Auto Ql (U) Negative Normal Negative [facility] Comment on above: Performed By: #### 2 0796631, [id number] ####[address] [address] WBC LM.HPF (Urine sed) [#/Area] 0-5 Normal 0-5 [facility] Comment on above: Performed By: #### 2 [id number], [id number] ####[address] [address] Consent for Treatmenton 06-04 Consent for Treatment [id number] Normal [facility] PAP [id number] Age Gdlnon 2024 IGP Aptima HPV ACOG Note Invalid Interpretation Code [facility] Comment on above: Result Comment: TEST S RESULT FLAG UNITS REF RANGE LAB Clinician Provided Cytology Information Source.............Cervix No. of containers..01 ThinPrep Vial Age Algo ACOG Kirsty... FLAG LEGEND: L-Low Normal,H-High Normal,LL-Alert Low,HH-Alert High <-Panic Low,>-Panic High,A-Abnormal,AA-Critical Abnormal Performed at: 01 =[facility] [address] [facility], [place] [address] Lauren Perez MD, Performed at: =[facility] [address] [place], [place] [id number] MD Ana Aguilar Performed By: #### 2 [id number], [id number] ####[facility] [address] [place] [address] PAP [id number] 05-13-2023 Cytology report Cyto stain Doc (Cvx/Vag) Note Invalid Interpretation Code [facility] Comment on above: Result Comment: TEST S RESULT FLAG UNITS REF RANGE LAB DIAGNOSIS: 02 NEGATIVE FOR INTRAEPITHELIAL LESION OR MALIGNANCY. Specimen adequacy: 02 Satisfactory for evaluation. No endocervical component is identified. Performed by: 02 Patience Alvarenga, Municipal Court Judge (ASCP) . 02 Note: Note 02 The Pap smear is a screening test designed to aid in the detection of premalignant and malignant conditions of the uterine cervix. It is not a diagnostic procedure and should not be used as the sole means of detecting cervical cancer. Both false-positive and false-negative reports do occur. Test Methodology: Note 02 This liquid based ThinPrep(R) pap test was screened with the use of an image guided system. HPV Genotype Reflex Note 02 Criteria not met, HPV Genotype not performed. FLAG LEGEND: L-Low Normal,H-High Normal,LL-Alert Low,HH-Alert High <-Panic Low,>-Panic High,A-Abnormal,AA-Critical Abnormal Performed at: [address] [address] Lauren Perez MD, Performed By: #### 2 [id number], [id number] ####[address] [place] [address] HPV 16+18+31+33+35+39+45+ 51+52+56+58+59+66+68 DNA Probe+sig amp Ql (Cvx) Negative Invalid Interpretation Code Negative [facility] Comment on above: Result Comment: This nucleic acid amplification test detects fourteen high-risk HPV types (16,18,31,33,35,39,45,51,52,56,58,59,66,68) without differentiation. Performed at: WB [address] [id number] MD Ana Aguilar Performed at: =G [address] [id number] MD Ana Aguilar Performed By: #### 2 [id number], [id number] ####[address] [place] [address] NuSwab Vaginitis Plus (VG+)o n 05-12-2023 A. vaginae DNA KAY+probe Ql (Vag fld) High - 2 Abnormal [facility] Comment on above: Performed By: #### 1 [id number] ####[facility] [address] [place] [address] Bacterial vaginosis associated bacterium 2 DNA KAY+probe Ql (Vag fld) High - 2 Abnormal [facility] Comment on above: Performed By: #### 1 [id number] ####[facility] [address] [place] [address] C. albicans DNA KAY+probe Ql (Vag fld) Negative Invalid Interpretation Code Negative [facility] Comment on above: Result Comment: This test was developed and its performance characteristics determined by [facility]. It has not been cleared or approved by the Food and Drug Administration. Performed By: #### 1 [id number] ####[address] [address] C. glabrata DNA KAY+probe Ql (Vag fld) Negative Invalid Interpretation Code Negative [facility] Comment on above: Result Comment: This test was developed and its performance characteristics determined by [facility]. It has not been cleared or approved by the Food and Drug Administration. Performed By: #### 1 [id number] ####[address] [address] C. trachomatis DNA KAY+probe Ql (Vag fld) Negative Invalid Interpretation Code Negative [facility] Comment on above: Performed By: #### 1 [id number] ####[address] [address] Megasphaera sp type 1 DNA KAY+probe Ql (Vag fld) High - 2 Abnormal [facility] Comment on above: Result Comment: Calc ulate total score by adding the 3 individual bacterial vaginosis (BV) marker scores together. Total score is interpreted as follows: Total score 0-1: Indicates the absence of BV. Total score 2: Indeterminate for BV. Additional clinical data should be evaluated to establish a diagnosis. Total score 3-6: Indicates the presence of BV. This test was developed and its performance characteristics determined by [facility]. It has not been cleared or approved by the Food and Drug Administration. Performed By: #### 1 [id number] ####[id number] [place] [address] N. gonorrhoeae DNA KAY+probe Ql (Vag fld) Negative Invalid Interpretation Code Negative [facility] Comment on above: Result Comment: Perf ormed at: =G [facility] [address] [place] [id number] MD Ana Aguilar Performed By: #### 1 [id number] ####[facility] [id number] [place] [address] T. vaginalis DNA KAY+probe Ql (Vag fld) Negative Invalid Interpretation Code Negative [facility] Comment on above: Performed By: #### 1 [id number] ####[facility] [address] [place] [address] PAP [id number] Age Gdlnon 2024 Collection Technique BRUSH-SPATULA Normal F [facility] Comment on above: Performed By: #### 2 [id number], [id number] ####[address] [place] [address] Gynecological Body Site CERVIX Normal [facility] Comment on above: Performed By: #### 2 [id number], [id number] ####[facility] [address] [place] [address] Physician Orderon 05-08-2023 Physician Order [id number]#[id number] Normal [facility] Coding Summaryon 03-15-2023 Coding Summary HTMLBase 64 SsdxlaqmGDl2qSp+PGhlYWQ+PE 2WKEHwJ03qhFDeuU2mR8WAZZfC WxjmJJTSKJwMOuNteyAdYI1nyI NjZXJu IC8+AW1mLEFyLnddfRUsb0B8eV K9U44bhm7tXNdfaAB6MSZcQlIt zemje3yyzDc5PDaxDpqfLrJa GBNxbL53REB7xR32Bo89aSNduX Pho6adnEo1NgZbZTKbNKS8wYdu CKxig3EcNLNbK49gcGLgo6D6 UGLerRpntSDqUhJzjDS0eQ2qZE qpoybdx0bkvbozDfi6cn40uPSk u6L6iHS8U7VjtlU1AYFzqSZw LfelgGGNtP6lqpmog9dlevlqHh MiCKGaDCo0WEq9EZNgsJjdIuTu AQ00JMW0BIQyudUyV3RdHUOq nDhiYwE1t7B7Ed0EJ0HHDiurG8 VNTUFSWTwvdGQ+HN16cu68D4Ld JstsBrl4EHZsLBE0iYY8dI0i VAPqFHseu9Q5hNA3Y3WsnaXftx 5nc2duNDOoFRhsZ78foKClk9W9 FBJmbIA5LEQprVyrDgCqkM40 Oyc+HPLlsQiff1FyKuobc9bly6 rqdZc3MmqxEWGouiZyaXkcIIH4 t5CfUh5bMNGxhET7hEG2jG7n YsChJbB2UOdqJ844UeDejDDyDo ahP40rZ9WbiPB+ECQtPgv8XGQo bBduJI6eM7StPPEfybqwyBQl kWkjLC4bDZWesfvsORIojU8hPB MxX7b5KqNwKkQ7DVevK7LhNHBx ajodSy83fH3hOzYrPuK6FKsr N2TjpbD0XOGliZSxDFhxPFM0S2 0jq7S3LCTpJSVeVVO6aCT6uV6r bGlnbjogbGVmdDsgdmVydGlj AVlyOSmqF667FICyeMuyWdSoOX luZyBEYXRlOiAgMTAvMTQvMjAy MzwvdGQ+EPOvDYL3vMetBYCa vTYnHGqsAb8knOoodEbsBE7aUR JwxbujXHPtjY6aAUKtiPHotCmt VI2sAEWbtfqny438EvZcVDN1 DJVjmNRiK2YxfA2gYlShQZQxGS BdF2CwgJBpUExsG678VGtiTeJ4 JQJavoQlZ9MpFWTehMmyInO1 c3K8Pe7Ph2XxivnhH3MmsAClCr VuYxbqWWj1L2IwQmrilHC+PC90 TJSzBH03KFx8CUL6yYsmVVfd LTYeV8FjxA6bTsZuEUZnMGEgVz c+PHRhYmxlIHdpZHRoPScxMDAl KvEubRgwPJ8rUs9rERIbGFRw oXkouWThMaHci3doBHJuDUemVR 3rwEeqX9DhqZM3CXXkh0e4Ft52 Z77jY4GduIA+SCDppRN4oGI1 pB2hSfKbDnH9TItuA387FqUydF NoTmsjk6ynv5bgpSh2NnX3GLXt xiLkrMvjWTZ0g4AkYz70S94d IHdpZHRoPSIxNSUiIHZhbGlnbj 4ueG3qVj5+ZUIvuYQ6dUJ8kF0x PaYqZiF0CZhwC446TqBkfOKk Etjmt7hsz2xqaBw7TkJrYROwef GanOseNUO7s1FeLs76I6OxcNnl o4AsCps2fh59iMIht2O1cNI6 X0EiKIZwswdcdGAfqPzwCR1vIA NwzupeUXAqzX7gTABpD9u9HgJw PiB4IAvfI7GhwwX2RVMgaMIe QMLoySTUyS7jokxbn9shktzyCz JqFWUlYCr0MYo5GUBrbIurXzTp HQE1UmC2ONH9eXNkxJ5ccEuo gweqtD8dIka+LGV2lTBxqXOHIA 1lOjwvdGQ+HNJkVXN9bHbfUKpd TTBgiL5gCMQqV7b6ZgDqJgC1 CGffC9YmjjI1YMPwsAJiRTXnyW PLaA0tkuwsd7xjeekzAuTlJIGk ARy4ZGd7QWDalGztVgBuOEE8 HuA8BAM2jPRkdV6tnOtxezhsbY 9wOyc+BbeabDvoGXG1TAt2P8Cj Ndd0NOMjyNknKK2hgINwZPkr Jz3ofDfufReeDF7rMVDguwcnb8 61GpGad1dlCDJvoSSnXCulJPR1 C10uh1G9ANBfXTMfYIH3uPN3 kO7xcOgdsbkouHWdbKalmqVonW arFYsgDCpbZ374SHWhzQdnYcAm ZXg6L2MnCzg5UFSmzNngFY6x dLAvMPprHr2clEgvcBwdVW1vLQ Klbcdsf049UqVhp3biRVAjiNSa NVgdWCP0Y50xp2E6XSEbYJVy CMW8wQF8nM9deByimpjhxTNkbI hmqxKwmUgbLJunTRkdH785UITm jTgwNpKjhJp6X9SjIkt8DVAf mRlqLV0ofQJlXZeqVq1fxKzykJ urFI6qXZEzpasdk023MoGwu2zp CEJbpFXrGIujPYF9R24xf7S2 AQXlEZSoHLR9bJP9yV8ncXchnx ogbGVmdDsgdmVydGljYWwtYWxp V469OPJapMveAdDxnZgsmaZw JQjxQSn2S0PeWyctuDG+PC90YW OyDG08gMNvxYCsf0gefEd0LnFh KRRhPOL1gKiiWAyqk7ErYOYd O82tjPQhd8F4BDVinLbwmUTgOd AfgKR0lH5oFGyxiwhnt2fhdocv Syvav9frhy19xU94H82dLAli YIJhDZYxESMxVXGhjRnvze1wzP 9wIi8+UUNhiBF8nBM4pY3uSHAj UuZ1WChlR084JwVtmKInSrsc d5nif9yanQy7KfD5VPEdpfBoeM rnRUI0w3WqCj29X96mHTbnCMYw VSBzHCLkWVDzyFzhkv6pzK5z Ii8+XVCacXZ4dEB1mF5zDjDuVa Y7GKqfF129DmFgaDJuFfpeP57x H9KfwPB+IMInChi8AHKsxIck ZU1dvLHaRQicCb9dQTY4HnRaNw OhVPcbR3CnEOVtwmkrfkkniVG6 GWGeZODfeP43Wo8eaZogKDXy vBZCyR5pnlpnl7xcqpzdIzUnBQ AhRJs2LMl7BWWkiAabVuGpHIH8 DjA2JBL0tOQfeR7wdOwbqmrh eT2qT8HeQIXybsvbFm82eK3fYz LuKhI1LObaZwb+A7wWM1uDDjwp FIhZRVYIAOJXRObAFN43GF10 iKZzk6R2wWJ0P4GxZZEnnoyhnr dcdEH0GILnLWPplN50pEGsXFmz Dd5uq0K9h390ZSWaUQMibJ89 Qe3atSzlYTVjyAUOfN9lkpgbe8 sclsvmGhPuMRLkSBv8CIv6PHXc uJxwSmEnUQZ8YjZ2AXK8sWFe jR9miYiflyhstP3mWsg+MDEvMj KaLEd6PKyojRE+WYWnDZW9rMks WDnuJCFwjW5xMPPuH4z0NeDo OnP8SJnxK3HjZKXftquwFh60sV 3uJtFtXcH5WXpkA7PgqgQ3SNPc sERzWIuxZKJ8Y73lc5Q2ZFTq OYUoZBT1xYZ3bI8vlSmhyjsbcZ CzaHzcabVpjXuzHGsyEKoiP257 PRTjtAkrDrN0BRfmOUDoWQ45 ML40iZCmi1X0zRF3R0SvCLSqbq tswmlbtFV8DNJmHRBnfV54iGOi RHxgVz8wn0R9m831PTMvZSCe dT16Lk7yyOieAQScjIEDfU4hkn dfv9nywseoFqOfGAHlEEk8HKx2 LZKzcPgmRqLvYUP9NfN2OLA8 aAMkaD2laMrxkrdrtG7qZxy+Rk ANPVqVSX98WM34eTUuj6V6wIU1 U1SvWWFzjkjsecbrqVT3HXHa HLCryS98qCFyPJfhQz7ux1C1g1 93OWKeLPJcrE62Me1arKywHJHj lYBYbP6qogfny1tkjasjDdSa PNCnGAh0XNw1QVGhbAldCbXuKS H1VrZ3KOJ8jTVcjG0uuBndwnud lZ7iPsn+ZQ1ccsunzdX3QF27 NR07A4CiMjgdsTBrpFN+PHRhYm xlIHdpZHRoPScxMDAlJyBzdHls ZS5gHk6qUXMtAAFabNzuuPTl KjXqu6xeTZQgALwwFK9rlJwwD3 DduXF8KLJim8u2St22H57qM8Sw dXA+SZVweYY4uAD7uY7qCyJl ZmV2KRxtI390QqZjfIEzYdgql1 lup6qctNs7AsNgIJPewiAceOlz QVS1b1WcZm33A79yWPztWZOn QJUlXQXjZRIjpKmkhg8enC4pGa 8+ASPdxTB5cTC6dV7wFzTmXtS6 EDjtD923OlEzsNRnUngjD00z G0QuuTN+VWSiZbl9PSIumSizGB 0zlWGnOOewHh1kLIC2HcSqJoLz KNqtC8LsXTYankkwdeasbAR7 IBHxAOXqbA50Fr0gnPqzIb4kEO SiHRF2OGMjmRDfZ4SurD8mBmMs OMJeIZIhK0QqaOJnUShcK129 KTisAvO0HJLxbvHuI4TeQBAukK vtQjH2g9M6Iy7JnBafxRPuPE3g VrRsEVa5W3FyBvd8ZGUtsWmn EB2ykJDvKUvgFi0ueYbtaQctAO 4uWPJxexqhz255KvQix7byLRPg uATaAGfnCOL3U82ku8R0PPTs EBXzTSU7tLN2wM5ndSmorljcwM BmrRxvpyCmmFgzCNcnKOryK483 EGTxqMfkYjBCDqq0K2SoLny9 BOBtjUcyGT6siBPzBKdyNq3khA uwgZvyXF9gCTLsjlems345DkZv w7zwRLBnnQLhEJwfTJQ7S97t r1G7SAImIUHlEGP4kIE0iQ3zsV lnbjogbGVmdDsgdmVydGljYWwt ZCiwZ399PYGdxDfaRq4ISyl8 G1UwJpt6OBWdpEpiVU7gfHMdNP fpAc2drJtxdCooWN6jHEWrhcys o986PlNxl2tsNVBvqILnTMtm PII2J84sf1K4DWLjTRCmVGS8qZ K0yT6jzWfzdsmrsETkhBzlhzCd vAhqRVrzQAnbJ802KUAbxDzp PlBheWVyOjwvdGQ+MM92pi25F8 NuVayoKyj4ISFaDWA8aOM2gC6c FJLxYVkcg0G3zEF9N1BoneDr ci1 (more content not included)... [facility] Consent Formson 03-10-2023 Consent Forms [id number] [facility] Outside Recordson 03-10-2023 Outside Records [id number]#1.00OTGTIFF Normal [facility] Transfer Noteon 03-10-2023 Transfer Note [id number] Normal [facility] .Auto Diff 1on 03-09-2023 Auto Gos[place] % 6 % Normal 1-12 [facility] Comment on above: Performed By: #### 5 [id number], [id number], [id number] #### [facility] (DEFAULT) [address] [place] [address] Baso Abs# 0.1 x10 Normal 0.0-0.2 [facility] Comment on above: Performed By: #### 5 [id number], [id number], [id number] #### [facility] (DEFAULT) [address] [place] [address] Basophils/100 WBC (Bld) 0.8 % Normal 0.2-2.0 [facility] Comment on above: Performed By: #### 5 [id number], [id number], [id number] #### [facility] (DEFAULT) [address] [place] [address] Eos Abs# 0.2 x10 Normal 0.0-0.4 [facility] Comment on above: Performed By: #### 5 [id number], [id number], [id number] #### [facility] (DEFAULT) [address] [place] [address] Eosinophils/100 WBC (Bld) 1.4 % Normal 0.9-4.0 [facility] Comment on above: Performed By: #### 5 [id number], [id number], [id number] #### [facility] (DEFAULT) [address] [place] [address] 22627 Lymph Abs# 2.7 x10 Normal 1.3-2.9 [facility] Comment on above: Performed By: #### 5 [id number], [id number], [id number] #### [facility] (DEFAULT) [address] [place] [address]176 Lymphocytes/100 WBC (Bld) 25 % Normal 14-48 [facility] Comment on above: Performed By: #### 5 [id number], [id number], [id number] #### [facility] (DEFAULT) [address] [place] [address] Gosper Abs# 0.6 x10 Normal 0.0-0.8 [facility] Comment on above: Performed By: #### 5 [id number], [id number], [id number] #### [facility] (DEFAULT) [address] [place] [address] Neut Abs# 7.3 x10 Normal 1.5-9.2 [facility] Comment on above: Performed By: #### 5 [id number], [id number], [id number] #### [facility] (DEFAULT) [address] [place] [address] Neutrophils/100 WBC (Bld) 67 % Normal 44-88 [facility] Comment on above: Performed By: #### 5 [id number], [id number], [id number] #### [facility] (DEFAULT) [address] [place] [address] Acet Levelon 03-09-2023 Acetaminoph Lvl <10 Normal 10-30 [facility] Comment on above: Order Comment: Urine Source: Voided Performed By: #### 5 [id number], [id number], [id number] #### [facility] (DEFAULT) [address] [place] [address] CBC w/ Auto Diffon Erythrocyte distribution width (RBC) [Ratio] 16.6 % High 11.5-15.0 [facility] Comment on above: Order Comment: Urine Source: Voided Performed By: #### 5 [id number], [id number], [id number] #### [facility] (DEFAULT) [address] [place] [address] Hematocrit (Bld) [Volume fraction] 41.3 % High 33.7-40.4 [facility] Comment on above: Order Comment: Urine Source: Voided Performed By: #### 5 [id number], [id number], [id number] #### [facility] (DEFAULT) [address] [place] [address]9 Hemoglobin (Bld) [Mass/Vol] 14.2 g/dL Normal 11.3-15.9 [facility] Comment on above: Order Comment: Urine Source: Voided Performed By: #### 5 [id number], [id number], [id number] #### [facility] (DEFAULT) [address] [place] [address] Man Diff? Auto Invalid Interpretation Code [facility] Comment on above: Order Comment: Urine Source: Voided Performed By: #### 5 [id number], [id number], [id number] #### [facility] (DEFAULT) [address] [place] [address] 54037 MCH (RBC) [Entitic mass] 29 pg Normal 24-34 [facility] Comment on above: Order Comment: Urine Source: Voided Performed By: #### 5 [id number], [id number], [id number] #### [facility] (DEFAULT) [address] [place] [address] MCHC (RBC) [Mass/Vol] 34 g/dL Normal 26-37 [facility] Comment on above: Order Comment: Urine Source: Voided Performed By: #### 5 [id number], [id number], [id number] #### [facility] (DEFAULT) [address] [place] [address] 78945 MCV (RBC) [Entitic vol] 83 fL Normal 81-100 [facility] Comment on above: Order Comment: Urine Source: Voided Performed By: #### 5 [id number], [id number], [id number] #### [facility] (DEFAULT) [address] [place] [address] 86883 Platelet 310 x10 Normal 138-427 [facility] Comment on above: Order Comment: Urine Source: Voided Performed By: #### 5 [id number], [id number], [id number] #### [facility] (DEFAULT) [address] [place] [address] 29299 Platelet mean volume (Bld) [Entitic vol] 7.7 fL Normal 6.3-10.2 [facility] Comment on above: Order Comment: Urine Source: Voided Performed By: #### 5 [id number], [id number], [id number] #### [facility] (DEFAULT) [address] [place] [address] RBC 4.95 x10 Normal 3.70-5.30 [facility] Comment on above: Order Comment: Urine Source: Voided Performed By: #### 5 [id number], [id number], [id number] #### [facility] (DEFAULT) [address] [place] [address] WBC 10.9 x10 High 3.5-10.5 [facility] Comment on above: Order Comment: Urine Source: Voided Performed By: #### 5 [id number], [id number], [id number] #### [facility] (DEFAULT) [address] [place] [address] CMP Standardon 03-09-2023 eGFR Non AA >60 Invalid Interpretation Code [facility] Comment on above: Order Comment: Urine Source: Voided Performed By: #### 5 [id number], [id number], [id number] #### [facility] (DEFAULT) [address] [place] [address] eGFR AA >60 Invalid Interpretation Code [facility] Comment on above: Order Comment: Urine Source: Voided Performed By: #### 5 [id number], [id number], [id number] #### [facility] (DEFAULT) [address] [place] [address] 92493 Albumin [Mass/Vol] 4.4 g/dL Normal 3.5-5.0 [facility] Comment on above: Order Comment: Urine Source: Voided Performed By: #### 5 [id number], [id number], [id number] #### [facility] (DEFAULT) [address] [place] [address] 70182 Albumin/Globulin [Mass ratio] 1.2 {ratio} Low 1.4-2.6 [facility] Comment on above: Order Comment: Urine Source: Voided Performed By: #### 5 [id number], [id number], [id number] #### [facility] (DEFAULT) [address] [place] [address] 80060 Alk Phos 57 IU/L Normal 32-91 [facility] Comment on above: Order Comment: Urine Source: Voided Performed By: #### 5 [id number], [id number], [id number] #### [facility] (DEFAULT) [address] [place] [address] 33106 ALT [Catalytic activity/Vol] 27.0 U/L Normal 14.0-54.0 [facility] Comment on above: Order Comment: Urine Source: Voided Performed By: #### 5 [id number], [id number], [id number] #### [facility] (DEFAULT) [address] [place] [address] 49388 Anion gap [Moles/Vol] 10.3 mmol/L Normal 5.0-19.0 [facility] Comment on above: Order Comment: Urine Source: Voided Performed By: #### 5 [id number], [id number], [id number] #### [facility] (DEFAULT) [address] [place] [address] 66399 AST [Catalytic activity/Vol] 22 U/L Normal 15-41 [facility] Comment on above: Order Comment: Urine Source: Voided Performed By: #### 5 [id number], [id number], [id number] #### [facility] (DEFAULT) [address] [place] [address] 03734 Bili Total 0.2 mg/dL Low 0.3-1.2 [facility] Comment on above: Order Comment: Urine Source: Voided Performed By: #### 5 [id number], [id number], [id number] #### [facility] (DEFAULT) [address] [place] [address] 06110 Calcium [Mass/Vol] 9.6 mg/dL Normal 8.9-10.3 [facility] Comment on above: Order Comment: Urine Source: Voided Performed By: #### 5 [id number], [id number], [id number] #### [facility] (DEFAULT) [address] [place] [address] 28415 Chloride [Moles/Vol] 107 mmol/L Normal 101-111 [facility] Comment on above: Order Comment: Urine Source: Voided Performed By: #### 5 [id number], [id number], [id number] #### [facility] (DEFAULT) [address] [place] [address] 87667 CO2 [Moles/Vol] 27 mmol/L Normal 21-32 [facility] Comment on above: Order Comment: Urine Source: Voided Performed By: #### 5 [id number], [id number], [id number] #### [facility] (DEFAULT) [address] [place] [address] 48315 Creatinine [Mass/Vol] 0.77 mg/dL Normal 0.60-1.30 [facility] Comment on above: Order Comment: Urine Source: Voided Performed By: #### 5 [id number], [id number], [id number] #### [facility] (DEFAULT) [address] [place] [address] 41857 Globulin (S) [Mass/Vol] 3.6 g/dL Normal 1.5-4.3 [facility] Comment on above: Order Comment: Urine Source: Voided Performed By: #### 5 [id number], [id number], [id number] #### [facility] (DEFAULT) [address] [place] [address] 57426 Glucose [Mass/Vol] 102.0 mg/dL Normal 74.0-118.0 [facility] Comment on above: Order Comment: Urine Source: Voided Performed By: #### 5 [id number], [id number], [id number] #### [facility] (DEFAULT) [address] [place] [address] 46653 Osmolality 280 mOsm/L Invalid Interpretation Code [facility] Comment on above: Order Comment: Urine Source: Voided Performed By: #### 5 [id number], [id number], [id number] #### [facility] (DEFAULT) [address] [place] [address] 25910 Potassium [Moles/Vol] 4.3 mmol/L Normal 3.6-5.1 [facility] Comment on above: Order Comment: Urine Source: Voided Performed By: #### 5 [id number], [id number], [id number] #### [facility] (DEFAULT) [address] [place] [address] 82004 Protein [Mass/Vol] 8.0 g/dL Normal 6.5-8.1 [facility] Comment on above: Order Comment: Urine Source: Voided Performed By: #### 5 [id number], [id number], [id number] #### [facility] (DEFAULT) [address] [place] [address] 06074 Sodium [Moles/Vol] 140.0 mmol/L Normal 136.0-144.0 [facility] Comment on above: Order Comment: Urine Source: Voided Performed By: #### 5 [id number], [id number], [id number] #### [facility] (DEFAULT) [address] [place] [address] 34854 Urea nitrogen [Mass/Vol] 14 mg/dL Normal 8-26 [facility] Comment on above: Order Comment: Urine Source: Voided Performed By: #### 5 [id number], [id number], [id number] #### [facility] (DEFAULT) [address] [place] [address] 27512 Urea nitrogen/Creatinine [Mass ratio] 18.1 mg/mg High 4.6-16.2 [facility] Comment on above: Order Comment: Urine Source: Voided Performed By: #### 5 [id number], [id number], [id number] #### [facility] (DEFAULT) [address] [place] [address] 56179 Cholesterol [Mass/volume] in Serum or PlasmaOrdered By: Baljinder Espino on 03-09-2023 Cholesterol [Mass/Vol] 170 mg/dL 140-200 [facility] Comment on above: Chol less than 200 m g/dl low riskChol 201-239 mg/dl borderline riskChol 240 mg/dl and greater high risk Cholesterol in LDL Calc [Mas s/Vol]Ordered By: Baljinder Espino on 03-09-2023 Cholesterol in LDL [Mass/Vol] 83 mg/dL 0-100 [facility] Comment on above: LDL ATP III CLASSIFI CATIONLDL less than 100 mg/dL OptimalLDL 100-129 mg/dL Near or above optimalLDL 130-159 mg/dL Borderline highLDL 160-189 mg/dL HighLDL greater than 189 mg/dL Very high Cholesterol in VLDL Calc [Ma ss/Vol]Ordered By: Baljinder Espino on 03-09-2023 Cholesterol in VLDL [Mass/Vol] 35 mg/dL [facility] ED Clinical Summaryon 2022 ED Clinical Summary [facility] Emergency Department [address] [place] [address] [id number] ED Clinical Summary PERSON INFORMATION Name: ELBA JO Age: 32 Years Sex: FEMALE : 1990 MRN: Acct#: Visit Reason: Psychiatric problem; PSYCH EVAL Arrival: 03/08/2023 20:38:00 Discharge: 03/09/2023 01:25:00 LOS: 000 04:47 Check In: 03/08/2023 20:38:00 Checkout:03/09/2023 01:25:00 Address: [address] [place] [id number] PCP: Provider, None PROVIDER INFORMATION Provider Role Assigned Unassigned Aravind Arnold DO ED Provider 03/08/2023 20:39:09 Khushboo Daniel HEALTH SERVICES COORDINATOR Nurse 03/08/2023 20:46:22 VITALS INFORMATION Vital Sign Triage Latest Temperature Tympanic Temperature Temporal Artery 36.7 DegC Pulse Rate 69 bpm 68 bpm O2 Sat 96 % 100 % Respiratory Rate 16 br/min 16 br/min Blood Pressure /78 mmHg /78 mmHg MEDICAL INFORMATION Medications Given: Medication Dose Route acetaminophen 1000 mg PO Allergy Information: No known allergies PHYSICIAN DOCUMENTATION DISCHARGE INFORMATION: Discharge Disposition: Disch /Transfer to Psychiatric Facility Discharge Location: [facility] PATIENT EDUCATION INFORMATION Instructions: Follow-Up: DIAGNOSIS: 1:Depression; 2:Mood swings; 3:Blood pressure elevated without history of HTN; 4:Alcoholism in recovery; 5:Drug abuse in remission Patient Understands: Yes - Patient/family/caregiver verbalizes understanding of instructions given Comment: [facility] ED Patient Education Noteon 03-09-2023 ED Patient Education Note Education Materials [facility] ED Patient Summaryon 023 ED Patient Summary [facility] Emergency Department [address] [place] [id number] PATIENT DISCHARGE INSTRUCTIONS Patient Information Name: ELBA JO Age: 32 Years Date of : 1990 [facility]: [id number] Reason For Visit: Psychiatric problem; PSYCH EVAL Arrival Time: 03/08/2023 20:38:00 Primary Care Physician: Provider, None Attending Physician: Aravind Arnold DO Comment: Visit Diagnosis: Diagnoses This Visit Alcoholism in recovery (F10.21) Blood pressure elevated without history of HTN (R03.0) Depression (F32.A) 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 If you or anyone you know is experiencing suicidal thoughts, mental health, alcohol and/or drug addiction problems; contact the [facility] 23/12 Crisis Hotline -Text 7BEXQ tz 450491. If you received any narcotics, sedation, or any other medication that causes drowsiness for the next 24 hours, unless otherwise directed: ? Do not drive a car. ? Do not operate machinery such as power tools, lawn mowers, drills, sewing machines, or stoves ? Avoid alcoholic beverages and drugs for allergies, nerves, or sleep ? Do not make important personal or business decisions or sign any legal documents Medication Information: The exam and treatment you received today in the [facility] Emergency Department were for an urgent problem and are not intended as complete care. It is important for you to follow up with a doctor, nurse practitioner, or physician?s greenhouse assistant for ongoing care. If your symptoms become worse or you do not improve as expected and you are unable to reach your usual health care provider, you should return to the Emergency Department, we are available 24 hours a day. For those patients who have received Radiology results, the interpretation of your X-ray as given to you by our Emergency Department physician is only a preliminary report. The Radiologist will review your films and if there is a change in the diagnosis you will be notified by phone. Please make sure you have provided a working phone number so we can reach you if necessary. In the event that you had a lab culture while you were a patient in the Emergency Department, you will be notified by phone if there is a need to change your antibiotic. Please make sure you have provided a working phone number so we can reach you if necessary. [facility] Emergency Department has provided you with a complete list of medications post discharge. Please inform your neurology epilepsy physician/provider of your visit and for further instruction on these medications. Any specific questions regarding your chronic medications and dosages should be discussed with your primary care physician(s) and/or pharmacist. Visit Information Allergies: Substance Reaction Symptoms Type Comments No known allergies Drug Vital Signs: Vitals and Measurements this Visit (last charted value for your 03/08/2023 visit) Vital Signs This Visit Temperature Temporal Artery: 36.7 DegC Peripheral Pulse Rate: 68 bpm Heart Rate Monitored: 69 bpm Respiratory Rate: 16 br/min Systolic Blood Pressure: 105 mmHg Diastolic Blood Pressure: 60 mmHg Mean Arterial Pressure, Cuff-Calculation: 75 mmHg Mean Arterial Pressure Cuff-Monitor: 73 mmHg Systolic Blood Pressure Invasive: 113 mmHg Diastolic Blood Pressure Invasive: 81 mmHg SpO2: 100 % Oxygen Therapy: Room air Measurements This Visit Height/Length Dosin.020 cm Height/Length Estimated: 160.020 cm Weight Dosin.770 kg Weight Estimated: 65.770 kg Problems List: Problem Onset Comments Alcoholism in recovery Drug abuse in remission Tobacco user Patient Education Viruses or Bacteria What?s got you sick? Antibiotics only treat bacterial infections. Viral illnesses cannot be treated with antibiotics. When an antibiotic is not prescribed, ask your healthcare professional for tips on how to relieve symptoms and feel better. Usual Cause Illness Viruses Bacteria Antibiotic Needed Cold/Runny Nose ? NO Bronchitis/Chest Cold (in otherwise healthy children and adults) ? NO Whooping Cough ? Yes Flu ? NO Strep Throat ? Yes Sore Throat (except strep) ? NO Fluid in the middle ear (otitis media with effusion) ? NO Urinary Tract Infection ? Yes Antibiotics Aren?t Always the Answer www.cdc.gov/getsmart GET SMART Know When Antibiotics Work U.S. Department of Health and Human Services Centers for Disease Control and Prevention January 2014 Normal [facility] Ethanol.on 03-09-2023 Ethanol Level <5.0 Normal 0.0-5.0 [facility] Comment on above: Order Comment: Jeannine potts is currently on the phone with hotline. I will poke after. 03/08/2023 21:51:29 EDT I had asked Elizabet Cavazos Comic Writer to call when patient is done. 03/08/2023 21:55:00 EDT Performed By: #### 2 [id number] #### [facility] (DEFAULT) [address] [place] [address] Lipid Panelon 03-09-2023 Cholesterol [Mass/Vol] 170 mg/dL Normal 140-200 [facility] Comment on above: Result Comment: Chol less than 200 mg/dl low risk Chol 201-239 mg/dl borderline risk Chol 240 mg/dl and greater high risk Performed By: #### L IPID, TSH3 wRFLX, [id number] #### [facility] [address] [place] [address] [place] Cholesterol in HDL [Mass/Vol] 52 mg/dL Normal 23-92 [facility] Comment on above: Result Comment: HDL CHOL ATP-III CLASSIFICATION Cardiovascular Risk HDL > or equal to 60 mg/dL LOW HDL < 40 mg/dL HIGH Performed By: #### L IPID, TSH3 wRFLX, [id number] #### [facility] [address] [place] [address] [place] Cholesterol.total/Cho lesterol in HDL [Mass ratio] 3.3 {ratio} Normal <5.0 [facility] Comment on above: Performed By: #### L IPID, TSH3 wRFLX, [id number] #### [facility] [address] [place] [address] [place] LDL Cholesterol,Calculate d 83 mg/dL Normal 0-100 [facility] Comment on above: Result Comment: LDL ATP III CLASSIFICATION LDL less than 100 mg/dL Optimal LDL 100-129 mg/dL Near or above optimal LDL 130-159 mg/dL Borderline high LDL 160-189 mg/dL High LDL greater than 189 mg/dL Very high Performed By: #### L IPID, TSH3 wRFLX, [id number] #### [facility] [address] [place] [address] [place] Triglyceride w/Reflex 177 mg/dL High 0-149 [facility] Comment on above: Result Comment: TRIG ATP III CLASSIFICATION TRIG less than 150 mg/dL Normal TRIG 150-199 mg/dL Borderline high TRIG 200-500 mg/dL High TRIG greater than 500 mg/dL Very high Standard traceable to the Center for Disease Conrtrol and Prevention (CDC) test method. Performed By: #### L IPID, TSH3 wRFLX, [id number] #### [facility] [address] [place] [address] [place] VLDL CHOLESTEROL 35 mg/dL Normal [facility] Comment on above: Performed By: #### L IPID, TSH3 wRFLX, [id number] #### [facility] [address] [place] [address] [facility] Test Urine 1on U Preg Negative Normal [facility] Comment on above: Performed By: #### 5 [id number], [id number], [id number] #### [facility] (DEFAULT) [address] [place] [address] U Preg Internal Control Pass Normal [facility] Comment on above: Performed By: #### 5 [id number], [id number], [id number] #### [facility] (DEFAULT) [address] [place] [address] Salicylateon 03-09-2023 Salicylate Lvl <4.0 Normal 0.0-30.0 [facility] Comment on above: Order Comment: Urine Source: Voided Performed By: #### 5 [id number], [id number], [id number] #### [facility] (DEFAULT) [address] [place] [address]684 Serum or plasma high density lipoprotein (HDL) cholesterol measurementOrdered By: Baljinder Espino on 03-09-2023 Cholesterol in HDL [Mass/Vol] 52 mg/dL 23-92 [facility] Comment on above: HDL CHOL ATP-III CLA SSIFICATION Cardiovascular RiskHDL > or equal to 60 mg/dL LOWHDL < 40 mg/dL HIGH Serum or plasma total choles terol/high density lipoprotein (HDL) cholesterol mass ratOrdered By: Baljinder Espino on 03-09-2023 Cholesterol.total/Cho lesterol in HDL [Mass ratio] 3.3 {ratio} <5.0 [facility] Thyroid Stim Hormone w/Rflxo n 03-09-2023 Thyroid Stim Hormone w/Rflx 2.69 u[iU]/mL Normal 0.45-5.33 [facility] Comment on above: Performed By: #### L IPID, TSH3 wRFLX, [id number] #### [facility] [address] Thyrotropin [Units/volume] i n Serum or PlasmaOrdered By: Baljinder Espino on 03-09-2023 TSH Qn 2.69 m[IU]/L 0.45-5.33 [facility] Triage Panel 12on 03-09-2023 Triage Internal Control Pass Normal [facility] Comment on above: Order Comment: Urine Source: Voided Performed By: #### 5 [id number], [id number], [id number] #### [facility] (DEFAULT) [address] [place] [address]7739 U Amph Scr Negative [facility] Comment on above: Order Comment: Urine Source: Voided Performed By: #### 5 [id number], [id number], [id number] #### [facility] (DEFAULT) [address] [place] [address] 64980 U Yojana Scr Negative Normal [facility] Comment on above: Order Comment: Urine Source: Voided Performed By: #### 5 [id number], [id number], [id number] #### [facility] (DEFAULT) [address] [place] [address] 34325 U Benzodia Scr Negative Normal [facility] Comment on above: Order Comment: Urine Source: Voided Performed By: #### 5 [id number], [id number], [id number] #### [facility] (DEFAULT) [address] [place] [address] 06690 U Cannab Scrn Negative [facility] Comment on above: Order Comment: Urine Source: Voided Performed By: #### 5 [id number], [id number], [id number] #### [facility] (DEFAULT) [address] [place] [address] 91693 U Cocaine Scr Negative [facility] Comment on above: Order Comment: Urine Source: Voided Performed By: #### 5 [id number], [id number], [id number] #### [facility] (DEFAULT) [address] [place] [address] 41480 U Methadone Scr Negative [facility] Comment on above: Order Comment: Urine Source: Voided Performed By: #### 5 [id number], [id number], [id number] #### [facility] (DEFAULT) [address] [place] [address] 45478 U Methamp Scrn Negative [facility] Comment on above: Order Comment: Urine Source: Voided Performed By: #### 5 [id number], [id number], [id number] #### [facility] (DEFAULT) [address] [place] [address] 35067 U Opiate Scr Negative [facility] Comment on above: Order Comment: Urine Source: Voided Performed By: #### 5 [id number], [id number], [id number] #### [facility] (DEFAULT) [address] [place] [address] 10931 U Oxycod Scr Negative [facility] Comment on above: Order Comment: Urine Source: Voided Performed By: #### 5 [id number], [id number], [id number] #### [facility] (DEFAULT) [address] [place] [address] 83860 U Phencyclidine Scr Negative [facility] Comment on above: Order Comment: Urine Source: Voided Performed By: #### 5 [id number], [id number], [id number] #### [facility] (DEFAULT) [address] [place] [address] 62361 U Propoxyphene Scr Negative Normal [facility] Comment on above: Order Comment: Urine Source: Voided Performed By: #### 5 [id number], [id number], [id number] #### [facility] (DEFAULT) [address] [place] [address] 49950 U Tricyclic Antidepress Scr Negative Normal [facility] Comment on above: Order Comment: Urine Source: Voided Result Comment: Resu lts are to be used only for medical (ie, treatment) purposes only. Positive tests will not be sent out for confirmation. PROFILE?-V MEDTOX Scan? Drugs of Abuse Test System detects drug classes at the following cutoff concentrations: AMP Amphetamine (d-amphetamine): 500 ng/mL BAR Barbituates (Butabital): 200 ng/mL BZO Benzodiazepines (Nordiazepam): 150 ng/mL BUP Buprenorphine (Buprenorphine): 10 ng/mL ROXANNE Cocaine (Benzoylecgonine): 150 ng/mL MAMP Methamphetamine (d-Methamphetamine): 500 ng/mL MTD Methadone (Methadone): 200 ng/mL OPI Opiates (Morphine): 100 ng/mL or 2000 ng/mL OXY Oxycodone (Oxycodone): 100 ng/mL PCP Phencyclidine (Phencyclidine): 25 ng/mL PPX Propoxyphene (Norpropoxyphene): 300 ng/mL THC Cannabinoids (76-ioz-4-carboxy- -THC): 50 ng/mL TCA Tricyclic-Antidepressants (Desipramine): 300 ng/mL Performed By: #### 5 [id number], [id number], [id number] #### [facility] (DEFAULT) [address] [place] [address] 33174 Urine Source Clean Catch [facility] Comment on above: Order Comment: Urine Source: Voided Performed By: #### 5 [id number], [id number], [id number] #### [facility] (DEFAULT) [address] [place] [address] 59367 Triglyceride [Mass/volume] i n Serum or PlasmaOrdered By: Baljinder Espino on 03-09-2023 Triglyceride [Mass/Vol] 177 mg/dL 0-149 [facility] Comment on above: TRIG ATP III CLASSIF ICATIONTRIG less than 150 mg/dL NormalTRIG 150-199 mg/dL Borderline highTRIG 200-500 mg/dL High TRIG greater than 500 mg/dL Very highStandard traceable to the Center for Disease Conrtrol and Prevention (CDC) test method. UA Ezkyu1dd 03-09-2023 UA Bacteria Trace [facility] Comment on above: Order Comment: Urina lysis Microscopic order added on by [employer] Rules system. Performed By: #### 5 [id number], [id number], [id number] #### [facility] (DEFAULT) [address] [place] [address] UA Mucous Trace [facility] Comment on above: Order Comment: Urina lysis Microscopic order added on by [employer] Rules system. Performed By: #### 5 [id number], [id number], [id number] #### [facility] (DEFAULT) [address] [place] [address] UA RBC 0-2 [facility] Comment on above: Order Comment: Urina lysis Microscopic order added on by [employer] Expert Rules system. Performed By: #### 5 [id number], [id number], [id number] #### [facility] (DEFAULT) [address] [place] [address] UA Squam Epi Rare [facility] Comment on above: Order Comment: Urina lysis Microscopic order added on by [employer] Expert Rules system. Performed By: #### 5 [id number], [id number], [id number] #### [facility] (DEFAULT) [address] [place] [address] UA WBC 0-2 [facility] Comment on above: Order Comment: Urina lysis Microscopic order added on by [employer] Expert Rules system. Performed By: #### 5 [id number], [id number], [id number] #### [facility] (DEFAULT) [address] [place] [address] UA w Culture if Ind Standard on 03-09-2023 Breakpoint UA [facility] Comment on above: Performed By: #### 5 [id number], [id number], [id number] #### [facility] (DEFAULT) [address] [place] [address] Color (U) Yellow [facility] Comment on above: Performed By: #### 5 [id number], [id number], [id number] #### [facility] (DEFAULT) [address] [place] [address] Culture? Not Indicated Invalid Interpretation Code [facility] Comment on above: Result Comment: Resu lt created by rule GL_MAGR_ADD_UA_CULT Result created by rule GL_MAGR_ADD_UA_CULT1 Result created by rule GL_MAGR_ADD_UA_CULT Result created by rule GL_MAGR_ADD_UA_CULT1 Result created by rule GL_MAGR_ADD_UA_CULT1 Performed By: #### 5 [id number], [id number], [id number] #### [facility] (DEFAULT) [address] [place] [address] Glucose (U) [Mass/Vol] Negative Normal [facility] Comment on above: Performed By: #### 5 [id number], [id number], [id number] #### [facility] (DEFAULT) [address] [place] [address] Ketones Ql (U) Negative Normal [facility] Comment on above: Performed By: #### 5 [id number], [id number], [id number] #### [facility] (DEFAULT) [address] [place] [address] Micro? Indicated Invalid Interpretation Code [facility] Comment on above: Result Comment: Resu lt created by rule GL_MAGR_ADD_UA_MICRO Performed By: #### 5 [id number], [id number], [id number] #### [facility] (DEFAULT) [address] [place] [address] UA Bilirubin Negative Normal [facility] Comment on above: Performed By: #### 5 [id number], [id number], [id number] #### [facility] (DEFAULT) [address] [place] [address] UA Blood TRACE Abnormal NEGATIVE [facility] Comment on above: Performed By: #### 5 [id number], [id number], [id number] #### [facility] (DEFAULT) [address] [place] [address] UA Clarity CLEAR Normal CLEAR [facility] Comment on above: Performed By: #### 5 [id number], [id number], [id number] #### [facility] (DEFAULT) [address] [place] [address] 52320 UA Leuk Est Negative Normal NEGATIVE [facility] Comment on above: Performed By: #### 5 [id number], [id number], [id number] #### [facility] (DEFAULT) [address] [place] [address] 52917 UA Nitrite Negative Normal NEGATIVE [facility] Comment on above: Performed By: #### 5 [id number], [id number], [id number] #### [facility] (DEFAULT) [address] [place] [address] 81966 UA pH 6.0 Normal 5-8 [facility] Comment on above: Performed By: #### 5 [id number], [id number], [id number] #### [facility] (DEFAULT) [address] [place] [address] 38960 UA Protein Negative Normal NEGATIVE [facility] Comment on above: Performed By: #### 5 [id number], [id number], [id number] #### [facility] (DEFAULT) [address] [place] [address] 90362 UA Spec Grav 1.025 Normal 1.001-1.035 [facility] Comment on above: Performed By: #### 5 [id number], [id number], [id number] #### [facility] (DEFAULT) [address] [place] [address] 04834 UA Urobilinogen 0.2 mg/dL Normal 0.2-1.0 [facility] Comment on above: Performed By: #### 5 [id number], [id number], [id number] #### [facility] (DEFAULT) [address] [place] [address] 39603 Vitamin D 25 Hydroxy Totalon 03-09-2023 Vitamin D 25 Hydroxy Total 25.0 ng/mL Low 30-100 [facility] Comment on above: Result Comment: VARGHESE MIN D STATUS 25(OH)VITAMIN D RANGE (ng/mL) Deficient <20 Insufficient 20 to <30 Sufficient 30 to 100 Reference: Aj Herrera, Tony INFANTE, et al. Evaluation,treatment, and prevention of vitamin D deficiency; an Endocrine Society clinical practice guideline. JCEM. 2010; 96(7):1911-30. PERFORMED BY: [facility] [address] [place] [address] PATHOLOGIST HAT BODY SORTER ESTEBAN MALDONADO M.D. Performed By: #### L IPID, TSH3 wRFLX, [id number] #### [facility] [address] Vitamin D+Metabolites [Mass/ volume] in Serum or PlasmaOrdered By: Baljinder Espino on 03-09-2023 Vitamin D+Metabolites [Mass/Vol] 25.0 ng/mL 30-100 [facility] Comment on above: VITAMIN D STATUS 25( [place])VITAMIN D RANGE (ng/mL) Deficient <20 Insufficient 20 to <30Sufficient 30 to 100Reference: Aj Herrera, Tony INFANTE, et al. Evaluation,treatment, and prevention of vitamin D deficiency; an Endocrine Society clinical practice guideline. JCEM. 2010; 96(7):1911-30. Transfer Noteon 03-08-2023 Transfer Note 2056 - called Rbuen Zamarripa is currently speaking with the patient's nurse, Capri. Marilou then spoke with the patient. Marilou is going to have the counselor call back. 2124 - Linda Bradley, [facility] counselor, called back and spoke with the nurse and the patient. 2248 - all labs [facility]ed to the [facility] 0028 - Linda called back with acceptance from Dr. Espino, Psychiatrist, to [facility] 1 [facility] rm 15 bed 1... report #[phone].....Linda couldn't get the ME car until 1pm tomorrow so she thought we could use [facility]. We don't have any transport until 7am. 0030 - called [facility] for transport...ETA: 1-1:30 am [Electronically Signed on: 03/09/2023 01:04 EDT] Elizabet Cavazos [Verified on: 03/09/2023 01:04 EDT] Elizabet Cavazos 0112 - [facility] arrived 0120 - [facility] departed A copy of the patient's chart was given to the transport crew. The patient's not on any home medications at this time. The original signed Voluntary Admission paper was sent with the chart as well. [Electronically Signed on: 03/09/2023 01:22 EDT] Elizabet Cavazos [facility] HCV RNA,Quant,PCRon 01-21-20 23 HCV RNA,Quant Not detected [facility] Comment on above: Result Comment: INTERPRETIVE INFORMATION: HCV by Quantitative NAAT, Serum or Plasma Normal Range for this assay is Not Detected . The quantitative range of this assay is 15-30,000,000 IU/mL (1.17-7.48 log IU/mL). Lower limit of quantitation(LLoQ) is 15 IU/mL(1.17 log IU/mL). LLoQ values do not apply to diluted specimens. A result of Not Detected does not rule out the presence of inhibitors in the patient specimen or hepatitis C virus RNA concentrations below the level of detection of the test. Care should be taken when interpreting any single viral load determination. This test should not be used for blood donor screening, associated re-entry protocols, or for screening Human Cell, Tissues and Cellular Tissue-Based Products (HCT/P). Performed By: #### H CV #### [facility] [address] [place], [place] [id number] Mail Clerk: Hernesto Hinton MD [facility] [address] [place] [address] Mail Clerk: Drake Zelaya MD HCV RNA,Quant,PCRon 01-18-20 23 Source .PLASMA Normal [facility] Comment on above: Performed By: #### H CVQN #### [address] [address] Mail Clerk: Hernesto Hinton MD [facility] [address] [place] [address] [place] [address] Mail Clerk: Drake Zelaya MD Hepatitis Acute [facility] 01-16 Hep A Ab,IgM Non-Reactive Normal [facility] Comment on above: Performed By: #### C BC, HCG, CP #### [facility] [address] [place] [address] [address] [place], [place] [id number] Mail Clerk: Drake Zelaya MD #### HIVCMB, PHEP, TREP #### [address] [address] Mail Clerk: Hernesto Hinton MD Hep B Core Ab,IgM Non-Reactive Normal [facility] Comment on above: Performed By: #### C BC, HCG, CP #### [address] [place], [place] [address]83 Mail Clerk: Drake Zelaya MD #### HIVCMB, PHEP, TREP #### [address] [address] Mail Clerk: Hernesto Hinton MD Hep B Surf Ag Non-Reactive Normal [facility] Comment on above: Performed By: #### C BC, HCG, CP #### [facility] [address] [place] [address] [place] [address] Mail Clerk: Drake Zelaya MD #### HIVCMB, PHEP, TREP #### [address] [address] Mail Clerk: Hernesto Hinton MD Hep C Ab Reactive Abnormal [facility] Comment on above: Result Comment: The hepatitis C procedure used in our laboratory is a Chemiluminescent test specific for three recombinant HCV antigens. A negative anti-HCV result indicates that the antibodies to hepatitis C virus are not present at this time. Individuals with reactive anti-HCV should be considered infected and infectious until proven otherwise. Confirmation of all equivocal or reactive results is recommended by ordering HCV RNA by PCR. Results reported to the appropriate Health Department Performed By: #### C BC, HCG, CP #### [facility] [address] [place] [address] [place] [address] Mail Clerk: Drake Zelaya MD #### HIVCMB, PHEP, TREP #### [address] [place], [place] [phone] Mail Clerk: Hernesto Hinton MD T.pallidum Ab Screenon 01-160 T.pallidum Ab Screen Non-Reactive Normal NR [facility] Comment on above: Result Comment: T. pallidum antibodies are not detected. There is no serological evidence of infection with T. pallidum (early primary syphilis cannot be excluded). Retest in 2-4 weeks if syphilis is clinically suspect. Performed By: #### C BC, HCG, CP #### [address] [place] [address] Mail Clerk: Drake Zelaya MD #### HIVCMB, PHEP, TREP #### [facility] [employer] [facility] [place], [place] 8455408 Mail Clerk: Hernesto Hinton MD CBCon Erythrocyte distribution width (RBC) [Ratio] 14.3 % Normal 11.8-14.4 [facility] Comment on above: Performed By: #### C BC, HCG, CP #### [address] [place] [address] Mail Clerk: Drake Zelaya MD #### HIVCMB, PHEP, TREP #### [facility] [employer] [facility] [place], [place] 6846[address] Mail Clerk: Hernesto Hinton MD Hematocrit (Bld) [Volume fraction] 43.9 % Normal 36.3-47.1 [facility] Comment on above: Performed By: #### C BC, HCG, CP #### [address] [place] [address] Mail Clerk: Drake Zelaya MD #### HIVCMB, PHEP, TREP #### [address] [id number] Mail Clerk: Hernesto Hinton MD Hemoglobin (Bld) [Mass/Vol] 14.6 g/dL Normal 11.9-15.1 [facility] Comment on above: Performed By: #### C BC, HCG, CP #### [address] [place] [id number] Mail Clerk: Drake Zelaya MD #### HIVCMB, PHEP, TREP #### [address] [id number] Mail Clerk: Hernesto Hinton MD MCH (RBC) [Entitic mass] 28.0 pg Normal 25.2-33.5 [facility] Comment on above: Performed By: #### C BC, HCG, CP #### [address] [place] [address] Mail Clerk: Drake Zelaya MD #### HIVCMB, PHEP, TREP #### [address] [id number] Mail Clerk: Hernesto Hinton MD MCHC (RBC) [Mass/Vol] 33.3 g/dL Normal 28.4-34.8 [facility] Comment on above: Performed By: #### C BC, HCG, CP #### [address] [place] [address] Mail Clerk: Drake Zelaya MD #### HIVCMB, PHEP, TREP #### [address] [id number] Mail Clerk: Hernesto Hinton MD MCV (RBC) [Entitic vol] 84.3 fL Normal 82.6-102.9 [facility] Comment on above: Performed By: #### C BC, HCG, CP #### [facility] [address] [place] [address] [address] [place], [place] 737[address]83 Mail Clerk: Drake Zelaya MD #### HIVCMB, PHEP, TREP #### [address] [place] [address] Mail Clerk: Hernesto Hinton MD NRBC Automated 0.0 per 100 WBC Normal 0.0 [facility] Comment on above: Performed By: #### C BC, HCG, CP #### [facility] [address] [place] [address] [address] [place] [id number] Mail Clerk: Drake Zelaya MD #### HIVCMB, PHEP, TREP #### [address] [address] Mail Clerk: Hernesto Hinton MD Platelet mean volume (Bld) [Entitic vol] 11.4 fL Normal 8.1-13.5 [facility] Comment on above: Performed By: #### C BC, HCG, CP #### [address] [place] [id number] Mail Clerk: Drake Zelaya MD #### HIVCMB, PHEP, TREP #### [address] [id number] Mail Clerk: Hernesto Hinton MD Platelets (Bld) [#/Vol] 237 10*3/uL Normal 138-453 [facility] Comment on above: Performed By: #### C BC, HCG, CP #### [facility] [address] [place] [address] Dr. [place] [id number] Mail Clerk: Drake Zelaya MD #### HIVCMB, PHEP, TREP #### [facility] [address] [place] [address] Mail Clerk: Hernesto Hinton MD RBC (Bld) [#/Vol] 5.21 10*6/uL High 3.95-5.11 [facility] Comment on above: Performed By: #### C BC, HCG, CP #### [address] [place], [place] [phone] Mail Clerk: Drake Zelaya MD #### HIVCMB, PHEP, TREP #### [address] [address] Mail Clerk: Hernesto Hinton MD WBC (Bld) [#/Vol] 6.3 10*3/uL Normal 3.5-11.3 [facility] Comment on above: Performed By: #### C BC, HCG, CP #### [address] [place] [phone] Mail Clerk: Drake Zelaya MD #### HIVCMB, PHEP, TREP #### [address] [address] Mail Clerk: Hernesto Hinton MD Comp Metabolic Profon 2022 Albumin [Mass/Vol] 4.4 g/dL Normal 3.5-5.2 [facility] Comment on above: Performed By: #### C BC, HCG, CP #### [address] [place] [address] Mail Clerk: Drake Zelaya MD #### HIVCMB, PHEP, TREP #### [address] [address] Mail Clerk: Hernesto Hinton MD Albumin/Glob Ratio 1.4 Normal 1.0-2.5 [facility] Comment on above: Performed By: #### C BC, HCG, CP #### [address] [place], [place] [phone] Mail Clerk: Drake Zelaya MD #### HIVCMB, PHEP, TREP #### [address] [place], [place] [phone] Mail Clerk: Hernesto Hinton MD Alkaline Phos 55 U/L Normal 35-104 [facility] Comment on above: Performed By: #### C BC, HCG, CP #### [facility] [address] [place], [place] [phone] Mail Clerk: Drake Zelaya MD #### HIVCMB, PHEP, TREP #### [id number] [place], [place] [phone] Mail Clerk: Hernesto Hinton MD ALT [Catalytic activity/Vol] 8 U/L Normal 5-33 [facility] Comment on above: Performed By: #### C BC, HCG, CP #### [address] [place] [address] Mail Clerk: Drake Zelaya MD #### HIVCMB, PHEP, TREP #### [address] [phone] Mail Clerk: Hernesto Hinton MD Anion gap [Moles/Vol] 9 mmol/L Normal 9-17 [facility] Comment on above: Performed By: #### C BC, HCG, CP #### [facility] [address] [place] [address] [place] [address] Mail Clerk: Drake Zelaya MD #### HIVCMB, PHEP, TREP #### [address] [place], [place] [phone] Mail Clerk: Hernesto Hinton MD AST [Catalytic activity/Vol] 13 U/L Normal <32 [facility] Comment on above: Performed By: #### C BC, HCG, CP #### [facility] [address] [place] [address] [place] [address] Mail Clerk: Drake Zelaya MD #### HIVCMB, PHEP, TREP #### [address] [place], [place] [phone] Mail Clerk: Hernesto Hinton MD Bilirubin [Mass/Vol] 0.3 mg/dL Normal 0.3-1.2 [facility] Comment on above: Performed By: #### C BC, HCG, CP #### [facility] [address] [place] [address] [place] [address] Mail Clerk: Drake Zelaya MD #### HIVCMB, PHEP, TREP #### [address] [phone] Mail Clerk: Hernesto Hinton MD BUN/CRE Ratio 11 Normal 9-20 [facility] Comment on above: Performed By: #### C BC, HCG, CP #### [facility] [address] [place] [address] [place] [address] Mail Clerk: Drake Zelaya MD #### HIVCMB, PHEP, TREP #### [address] [phone] Mail Clerk: Hernesto Hinton MD Calcium [Mass/Vol] 9.5 mg/dL Normal 8.6-10.4 [facility] Comment on above: Performed By: #### C BC, HCG, CP #### [address] [place] [address] Mail Clerk: Drake Zelaya MD #### HIVCMB, PHEP, TREP #### [address] [place], [place] [phone] Mail Clerk: Hernesto Hinton MD Chloride [Moles/Vol] 105 mmol/L Normal 98-107 [facility] Comment on above: Performed By: #### C BC, HCG, CP #### [facility] [address] [place], [place] [phone] Mail Clerk: Drake Zelaya MD #### HIVCMB, PHEP, TREP #### [id number] [place], [place] [phone] Mail Clerk: Hernesto Hinton MD CO2 [Moles/Vol] 25 mmol/L Normal 20-31 [facility] Comment on above: Performed By: #### C BC, HCG, CP #### [address] [place], [place] 8005983 Mail Clerk: Drake Zelaya MD #### HIVCMB, PHEP, TREP #### [address] [place], [place] [phone] Mail Clerk: Hernesto Hinton MD Creatinine [Mass/Vol] 0.8 mg/dL Normal 0.5-0.9 [facility] Comment on above: Performed By: #### C BC, HCG, CP #### [address] [place] [address] Mail Clerk: Drake Zelaya MD #### HIVCMB, PHEP, TREP #### [address] [place], [place] [phone] Mail Clerk: Hernesto Hinton MD GFR/1.73 sq M.predicted among non-blacks MDRD (S/P/Bld) [Vol rate/Area] mL/min/{1.73_m2} Normal >60 [facility] Comment on above: Result Comment: These results are not intended for use in patients <18 years of age. eGFR results are calculated without a race factor using the 2020 CKD-EPI equation. Careful clinical correlation is recommended, particularly when comparing to results calculated using previous equations. The CKD-EPI equation is less accurate in patients with extremes of muscle mass, extra-renal metabolism of creatine, excessive creatine ingestion, or following therapy that affects renal tubular secretion. Performed By: #### C BC, HCG, CP #### [address] [place], [place] [phone] Mail Clerk: Drake Zelaya MD #### HIVCMB, PHEP, TREP #### [address] [address] [place], [place] [phone] Mail Clerk: Hernesto Hinton MD Glucose [Mass/Vol] 90 mg/dL Normal 70-99 [facility] Comment on above: Performed By: #### C BC, HCG, CP #### [facility] [address] [place] [address] Dr. [place], [place] [phone] Mail Clerk: Drake Zelaya MD #### HIVCMB, PHEP, TREP #### [address] [place], [place] [phone] Mail Clerk: Hernesto Hinton MD Potassium [Moles/Vol] 4.4 mmol/L Normal 3.7-5.3 [facility] Comment on above: Performed By: #### C BC, HCG, CP #### [address] [place], [place] [phone] Mail Clerk: Drake Zelaya MD #### HIVCMB, PHEP, TREP #### [address] [phone] Mail Clerk: Hernesto Hinton MD Protein [Mass/Vol] 7.5 g/dL Normal 6.4-8.3 [facility] Comment on above: Performed By: #### C BC, HCG, CP #### [address] [place], [place] [phone] Mail Clerk: Drake Zelaya MD #### HIVCMB, PHEP, TREP #### [address] [phone] Mail Clerk: Hernesto Hinton MD Sodium [Moles/Vol] 139 mmol/L Normal 135-144 [facility] Comment on above: Performed By: #### C BC, HCG, CP #### [facility] [address] [place] [place] [address] Mail Clerk: Drake Zelaya MD #### HIVCMB, PHEP, TREP #### [facility] [employer] [address] [place] [address] Mail Clerk: Hernesto Hinton MD Urea nitrogen [Mass/Vol] 9 mg/dL Normal 6-20 [facility] Comment on above: Performed By: #### C BC, HCG, CP #### [facility] [address] [place] [place] [address] Mail Clerk: Drake Zelaya MD #### TONYACMDipak, PHEP, TREP #### [address] [place] [address] Mail Clerk: Hernesto Hinton MD HCG Screen, Bloodon 01-15-20 23 HCG Screen, Blood Negative Normal NEG [facility] Comment on above: Result Comment: Spec imens with hCG levels near the threshold of the test (25 mIU/mL) may give a negative or indeterminate result. In such cases, another test should be performed with a new specimen in 48-72 hours. If early is suspected clinically in this setting, correlation with quantitative serum b-hCG level is suggested. [facility] has confirmed the use of plasma for this test. This has not been cleared or approved by the U.S. Food and Drug Administration. The FDA has determined that such clearance is not necessary. Performed By: #### C BC, HCG, CP #### [facility] [address] [place] [place] [address] Mail Clerk: Drake Zelaya MD #### HIVCMDipak, PHEP, TREP #### [facility] [address] [place] [address] Mail Clerk: Hernesto Hinton MD HIV Ag/Abon 01-14-2023 HIV Ag/Ab Non-Reactive Normal NR [facility] Comment on above: Result Comment: No l aboratory evidence of HIV infection. If acute HIV infection is suspected, consider testing for HIV-1 RNA. Performed By: #### C BC, HCG, CP #### [facility] [address] [place] [address] Mail Clerk: Drake Zelaya MD #### HIVCMB, PHEP, TREP #### [address] [phone] Mail Clerk: Hernesto Hinton MD C.trachomatis N.gonorrhoeae DNA ,Urineon 11-12-2022 Chlamydia trachomatis DNA, Urine Negative Normal Negative [facility] Neisseria gonorrhoeae DNA, Urine Negative Normal Negative [facility] Trichomonas vaginalis by [employer] on 11-09-2022 T. vaginalis Amplified Negative Normal Negative [facility] Comment on above: Result Comment: This test was developed and its performance characteristics determined by [facility]. It has not been cleared or approved by the U.S. Food and Drug Administration. This test was performed in a CLIA-certified laboratory and is intended for clinical purposes. Interpretive Information: Trichomonas vaginalis by TMA A negative result does not completely rule out infection with T. vaginalis. Results should be interpreted in conjunction with other clinical data. This test has not been validated for use with self-collected vaginal swab specimens from patients. This test is intended for medical purposes only and is not valid for the evaluation of suspected sexual abuse or for other forensic purposes. Performed By: [facility] [address] [place] [id number] Concert Manager: Alfa Looney MD, PhD Performed By: #### [id number] #### [facility] [address] [place] [address] Culture, Urineon 11-07-2022 Culture, Urine ORDER#: [id number] OR DERED BY: NATI OCHOA SOURCE: Urine Clean Catch COLLECTED: 11/07/22 12:00 ANTIBIOTICS AT MATTY.: RECEIVED : 11/07/22 17:07 Culture, Urine FINAL 11/08/22 20:25 Cult,Urine: NO SIGNIFICANT GROWTH Performed at [address] [address] ([phone] Normal [facility] Comment on above: Performed By: #### C XURN #### [facility] [address] [place] [address] POC Urine QualOrde red By: Pascual Ramirez on 11-07-2022 Beta HCG ( test) Ql (U) Negative Negative [facility] [employer] Lot Number [id number] [facility] [employer] Negative QC Pass/Fail Pass [facility] Positive QC Pass/Fail Pass [facility] [employer] [facility] [employer] Trichomonas vaginalis by [employer] on 11-07-2022 Specimen source Nom (Unsp spec) Urine Normal [facility] Comment on above: Performed By: #### [id number] #### [facility] [address] [place] [address] Urinalysis, reflex to cultur mirtha 11-07-2022 Urine Reflexed to Culture Yes Normal [facility] Comment on above: Performed By: #### U AR #### [facility] [address] [place] [address] Bilirubin Ql (U) Negative Normal Negative [facility] Comment on above: Performed By: #### U AR #### [facility] [address] [place] [address] Clarity (U) SL CLOUDY Abnormal Clear [facility] Comment on above: Performed By: #### U AR #### [facility] [address] [place] [address] Color (U) Yellow Normal Straw/[place] [facility] Comment on above: Performed By: #### U AR #### [facility] [address] [place] [address] Glucose Ql (U) Negative Normal Negative [facility] Comment on above: Performed By: #### U AR #### [facility] [address] [place] [address] Hemoglobin Ql (U) Negative Normal Negative [facility] Comment on above: Performed By: #### U AR #### [facility] [address] [place] [address] Ketones Ql (U) Negative Normal Negative [facility] Comment on above: Performed By: #### U AR #### [facility] [address] [place] [address] Leukocyte esterase Test strip Ql (U) TRACE Abnormal Negative [facility] Comment on above: Performed By: #### U AR #### [facility] [address] [place] [address] Nitrite Ql (U) Negative Normal Negative [facility] Comment on above: Performed By: #### U AR #### [facility] [address] [place] [address] pH (U) 6.0 [pH] Normal 5.0-9.0 [facility] Comment on above: Performed By: #### U AR #### [facility] [address] [place] [address] Protein Ql (U) Negative Normal Negative [facility] Comment on above: Performed By: #### U AR #### [facility] [address] [place] [address] Specific gravity (U) [Rel density] >=1.030 Normal 1.005-1.03 [facility] Comment on above: Performed By: #### U AR #### [facility] [address] [place] [address] Urobilinogen Qn (U) 0.2 {John'U}/dL Normal < 2.0 [facility] Comment on above: Performed By: #### U AR #### [facility] [address] [place] [address] Urine Microscopicon 11-08-19 23 Urine Bacteria FEW Abnormal Negative [facility] Comment on above: Performed By: #### U JAD #### [facility] [address] [place] [address] Urine Epithelial Cells Auto 20-50 Normal 0-5 [facility] Comment on above: Performed By: #### U JAD #### [facility] [address] [place] [address] Urine Hyaline Casts Auto 5-10 Normal 0-5 [facility] Comment on above: Performed By: #### U JAD #### [facility] [address] [place] [address] Urine RBC Auto 3-5 Abnormal 0-5 [facility] Comment on above: Performed By: #### U JAD #### [facility] [address] [place] [address] Urine WBC Auto 50-100 Abnormal 0-5 [facility] Comment on above: Performed By: #### U JAD #### [facility] [address] [place] [address] XR WRIST RIGHT (MIN 3 VIEWS) on 06-18-2022 XR WRIST RIGHT (MIN 3 VIEWS) EXAMINATION: 3 XRAY VIEWS OF THE RIGHT WRIST 06/18/2022 11:44 am COMPARISON: None. HISTORY: ORDERING SYSTEM PROVIDED HISTORY: wrist pain TECHNOLOGIST PROVIDED HISTORY: Reason for exam:->wrist pain Is the patient ?->No What reading provider will be dictating this exam?->CRC FINDINGS: Carpal bones and alignment are maintained. Distal radius and ulna are intact. No acute fracture or dislocation. IMPRESSION: Normal wrist radiographs Interpreted by: Ting Graff MD Signed by: Ting Graff MD 06/18/22 Final result Normal [facility] Normal wrist radiogr aphs [facility] RAD[facility] EXAMINATION: 3 XRAY VIEWS OF THE RIGHT WRIST 06/18/2022 11:44 am COMPARISON: None. HISTORY: ORDERING SYSTEM PROVIDED HISTORY: wrist pain TECHNOLOGIST PROVIDED HISTORY: Reason for exam:->wrist pain Is the patient ?->No What reading provider will be dictating this exam?->CRC FINDINGS: Carpal bones and alignment are maintained. Distal radius and ulna are intact. No acute fracture or dislocation. [facility] Ting Graff MD - 06/18/2022 EXAMINATION: 3 XRAY VIEWS OF THE RIGHT WRIST 06/18/2022 11:44 am COMPARISON: None. HISTORY: ORDERING SYSTEM PROVIDED HISTORY: wrist pain TECHNOLOGIST PROVIDED HISTORY: Reason for exam:->wrist pain Is the patient ?->No What reading provider will be dictating this exam?->CRC FINDINGS: Carpal bones and alignment are maintained. Distal radius and ulna are intact. No acute fracture or dislocation. IMPRESSION: Normal wrist radiographs [employer] Phone: Radiology Study observation (narrative) [employer] Phone: XR WRIST RIGHT (MIN 3 VIEWS) Ordered By: Ting Graff on 06-18-2022 [employer] Phone: COVID-19 SOFIAOrdered By: Ab jamar Abarca on 12-01-2021 SARS-CoV+SARS-CoV-2 (COVID-19) Ag IA.rapid Ql (Resp) Negative Negative [facility] Comment on above: This is a duplicate Nicole SARS Antigen (LOU) result to be used for statistical tracking purpose only. No Panel InformationOrdered By: Gordon Abarca on 12-01-2021 SARS Antigen (LFIA) [facility] COVID-19 SOFIAOrdered By: Florian Paez on 11-29-2021 SARS-CoV+SARS-CoV-2 (COVID-19) Ag IA.rapid Ql (Resp) Negative Negative [facility] Comment on above: This is a duplicate Nicole SARS Antigen (LOU) result to be used for statistical tracking purpose only. No Panel InformationOrdered By: Talha Paez on 11-29-2021 SARS Antigen (LFIA) [facility] Amphetamine Screen Ql (U)Ord ered By: Talha Paez on 11-28-2021 Amphetamines Ql (U) Negative Negative [facility] Automated erythrocytes count in urine sediment (number/area)Ordered By: Talha Paez on 11-28-2021 RBC Auto (Urine sed) [#/Area] 1-2 [HPF] [facility] Automated leukocytes count i n urine sediment (number/area)Ordered By: Talha Paez on 11-28-2021 WBC Auto (Urine sed) [#/Area] 5-9 [HPF] [facility] Barbiturates [Presence] in U rineOrdered By: Talha Paez on 11-28-2021 Barbiturates Ql (U) Negative Negative [facility] Basophils Auto (Bld) [#/Vol] Ordered By: Talha Paez on 11-28-2021 Basophils (Bld) [#/Vol] 0.0 10*3/uL 0.0-0.2 [facility] Basophils/100 WBC Auto (Bld) Ordered By: Talha Paez on 11-28-2021 Basophils/100 WBC (Bld) 0.7 % [facility] Benzodiazepines [Presence] i n UrineOrdered By: Talha Paez on 11-28-2021 Benzodiazepines Ql (U) Negative Negative [facility] Bilirubin Test strip Ql (U)O rdered By: Talha Paez on 11-28-2021 Bilirubin Ql (U) Negative Negative [facility] Blood hemoglobin measurement (mass/volume)Ordered By: Talha Paez on 11-28-2021 Hemoglobin (Bld) [Mass/Vol] 13.9 g/dL 11.8-15.4 [facility] Blood leukocytes automated c ount (number/volume)Ordered By: Talha Paez on 11-28-2021 WBC (Bld) [#/Vol] 7.0 10*3/uL 4.5-11.0 [facility] Body fluid albumin measureme nt (mass/volume)Ordered By: Talha Paez on 11-28-2021 Albumin (Body fld) [Mass/Vol] 4.3 g/dL 3.2-5.5 [facility] Cannabinoids [Presence] in U rine by Screen methodOrdered By: Talha Paez on 11-28-2021 Cannabinoids Screen Ql (U) Positive Negative [facility] Comment on above: These are unconfirme d results and should not be used for legal purposes. Drug Cut-Off Concentration: AMPH 1000 ng/mL YOJANA 200 ng/mL WERNER 200 ng/mL COCM 300 ng/mL OP 300 ng/mL PCP 25 ng/mL THC 20 ng/mL Cholesterol [Mass/volume] in Serum or PlasmaOrdered By: Gordon Abarca on 11-28-2021 Cholesterol [Mass/Vol] 170 mg/dL 140-200 [facility] Comment on above: Chol less than 200 m g/dl low risk Chol 201-239 mg/dl borderline risk Chol 240 mg/dl and greater high risk Cholesterol in LDL Calc [Mas s/Vol]Ordered By: Gordon Abarca on 11-28-2021 Cholesterol in LDL [Mass/Vol] 105 mg/dL 0-100 [facility] Comment on above: LDL ATP III CLASSIFI CATION LDL less than 100 mg/dL Optimal LDL 100-129 mg/dL Near or above optimal LDL 130-159 mg/dL Borderline high LDL 160-189 mg/dL High LDL greater than 189 mg/dL Very high Cholesterol in VLDL Calc [Ma ss/Vol]Ordered By: Gordon Abarca on 11-28-2021 Cholesterol in VLDL [Mass/Vol] 34 mg/dL [facility] Color Auto (U)Ordered By: Florian Paez on 11-28-2021 Color (U) Yellow Yellow [facility] Creatinine and Glomerular fi ltration rate.predicted panel (S/P/Bld)Ordered By: Talha Paez on 11-28-2021 Creatinine [Mass/Vol] 0.77 mg/dL 0.44-1.03 [facility] Eosinophils Auto (Bld) [#/Vo l]Ordered By: Talha Paez on 11-28-2021 Eosinophils (Bld) [#/Vol] 0.1 10*3/uL 0.0-0.45 [facility] Eosinophils/100 WBC Auto (Bl d)Ordered By: Talha Paez on 11-28-2021 Eosinophils/100 WBC (Bld) 1.9 % [facility] Erythrocyte distribution wid th Auto (RBC) [Ratio]Ordered By: Talha Paez on 11-28-2021 Erythrocyte distribution width (RBC) [Ratio] 14.6 % 11.9-15.3 [facility] Estimated glomerular filtrat ion rate (GFR) non- AmericanOrdered By: Talha Paez on 11-28-2021 GFR/1.73 sq M.predicted among non-blacks MDRD (S/P/Bld) [Vol rate/Area] > 60 mL/Min [facility] Globulin Calc (S) [Mass/Vol] Ordered By: Talha Paez on 11-28-2021 Globulin (S) [Mass/Vol] 2.9 g/dL [facility] HCG ( test) IA.rapi d Ql (U)Ordered By: Talha Paez on 11-28-2021 HCG ( test) Ql (U) Negative [facility] Hematocrit Auto (Bld) [Volum e fraction]Ordered By: Talha Paez on 11-28-2021 Hematocrit (Bld) [Volume fraction] 41.9 % 34.0-46.4 [facility] Ketones Auto test strip (U) [Mass/Vol]Ordered By: Talah Paez on 11-28-2021 Ketones (U) [Mass/Vol] Negative Negative [facility] Laboratory - Drug toxicology Ordered By: Talha Paez on 11-28-2021 Opiates Ql (U) Negative Negative [facility] Laboratory - Hematology and Cell countsOrdered By: Talha Paez on 11-28-2021 Nucleated RBC/100 WBC (Bld) [Ratio] 0.1 % 0-0.5 [facility] Laboratory - UrinalysisOrder ed By: Talha Paez on 11-28-2021 Hyaline casts LM Ql (Urine sed) 0-8 [LPF] [facility] Lymphocytes Auto (Bld) [#/Vo l]Ordered By: Talha Paez on 11-28-2021 Lymphocytes (Bld) [#/Vol] 2.3 10*3/uL 1.00-4.8 [facility] Lymphocytes/100 WBC Auto (Bl d)Ordered By: Talha Paez on 11-28-2021 Lymphocytes/100 WBC (Bld) 32.9 % [facility] MCH Auto (RBC) [Entitic mass ]Ordered By: Talha Paez on 11-28-2021 MCH (RBC) [Entitic mass] 29.1 pg 24.7-34.3 [facility] MCHC Auto (RBC) [Mass/Vol]Or dered By: Talha Paez on 11-28-2021 MCHC (RBC) [Mass/Vol] 33.2 g/dL 32.0-35.0 [facility] MCV Auto (RBC) [Entitic vol] Ordered By: Talha Paez on 11-28-2021 MCV (RBC) [Entitic vol] 87.9 fL 80-100 [facility] Monocytes Auto (Bld) [#/Vol] Ordered By: Talha Paez on 11-28-2021 Monocytes (Bld) [#/Vol] 0.3 10*3/uL 0.0-0.8 [facility] Monocytes/100 WBC Auto (Bld) Ordered By: Talha Paez on 11-28-2021 Monocytes/100 WBC (Bld) 5.0 % [facility] Neutrophils Auto (Bld) [#/Vo l]Ordered By: Talha Paez on 11-28-2021 Neutrophils (Bld) [#/Vol] 4.2 10*3/uL 1.8-7.7 [facility] Neutrophils/100 WBC Auto (Bl d)Ordered By: Talha Paez on 11-28-2021 Neutrophils/100 WBC (Bld) 59.5 % [facility] Nitrite Test strip Ql (U)Ord ered By: Talha Paez on 11-28-2021 Nitrite Ql (U) Negative Negative [facility] No Panel InformationOrdered By: Gordon Abarca on 11-28-2021 25-Hydroxy Vitamin D Total 30.3 ng/mL 30-100 [facility] Comment on above: VITAMIN D STATUS 25( [place])VITAMIN D RANGE (ng/mL) Deficient <20 Insufficient 20 to <30 Sufficient 30 to 100 Reference: Alexy MF,Aj NC, Tony INFANTE, et al. Evaluation,treatment, and prevention of vitamin D deficiency; an Endocrine Society clinical practice guideline. JCEM. 2010; 96(7):1911-30. No Panel InformationOrdered By: Talha Paez on 11-28-2021 Estimated GFR () > 60 mL/Min [facility] Comment on above: GFR estimated refere nce range: According to KDOQI guidelines, <60 ml/min/1.73m2 is sufficient to diagnose a patient with chronic kidney disease. Pharmacy Creatinine Clearance (Chem 105.15 [facility] Phencyclidine Screen Ql (U)O rdered By: Talha Paez on 11-28-2021 Phencyclidine Ql (U) Negative Negative [facility] Platelet mean volume Auto (B ld) [Entitic vol]Ordered By: Talha Paez on 11-28-2021 Platelet mean volume (Bld) [Entitic vol] 9.0 fL 6.3-10.7 [facility] Platelets Auto (Bld) [#/Vol] Ordered By: Talha Paez on 11-28-2021 Platelets (Bld) [#/Vol] 267 10*3/uL 150-450 [facility] Protein Auto test strip (U) [Mass/Vol]Ordered By: Talha Paez on 11-28-2021 Protein (U) [Mass/Vol] Negative Negative [facility] Protein [Mass/volume] in Ser um or PlasmaOrdered By: Talha Paez on 11-28-2021 Protein [Mass/Vol] 7.2 g/dL 6.1-7.9 [facility] RBC Auto (Bld) [#/Vol]Ordere d By: Talha Paez on 11-28-2021 RBC (Bld) [#/Vol] 4.76 10*6/uL 3.60-5.00 [facility] Serum or plasma alanine pitts otransferase measurement without P-5'-P (enzymatic activiOrdered By: Talha Paez on 11-28-2021 ALT No additional P-5'-P [Catalytic activity/Vol] 14 U/L 10-60 [facility] Serum or plasma albumin/glob ulin mass ratioOrdered By: Talha Paez on 11-28-2021 Albumin/Globulin [Mass ratio] 1.5 {ratio} [facility] Serum or plasma alkaline nikhil sphatase measurement (enzymatic activity/volume)Ordered By: Talha Paez on 11-28-2021 ALP [Catalytic activity/Vol] 46 U/L 32-92 [facility] Serum or plasma aspartate am inotransferase measurement (enzymatic activity/volume)Ordered By: Talha Paez on 11-28-2021 AST [Catalytic activity/Vol] 17 U/L 10-42 [facility] Serum or plasma calcium zacarias urement (mass/volume)Ordered By: Talha Paez on 11-28-2021 Calcium [Mass/Vol] 9.0 mg/dL 8.2-10.2 [facility] Serum or plasma chloride edilberto surement (moles/volume)Ordered By: Talha Paez on 11-28-2021 Chloride [Moles/Vol] 103 mmol/L 95-114 [facility] Serum or plasma ethanol zacarias urement (mass/volume)Ordered By: Talha Paez on 11-28-2021 Ethanol [Mass/Vol] mg/dL [facility] Ethanol [Mass/Vol] TNP [facility] Comment on above: Test not performed Serum or plasma glucose zacarias urement (mass/volume)Ordered By: Talha Paez on 11-28-2021 Glucose [Mass/Vol] 86 mg/dL 70-100 [facility] Comment on above: ADA recommended refe rence range Random Glucose Reference Range is dependent on time and content of last meal. Glucose of more than 200 mg/dL in a nonstressed, ambulatory subject supports the diagnosis of Diabetes Mellitus. Serum or plasma high density lipoprotein (HDL) cholesterol measurementOrdered By: Gordon Abarca on 11-28-2021 Cholesterol in HDL [Mass/Vol] 31 mg/dL 35-85 [facility] Comment on above: HDL CHOL ATP-III CLA SSIFICATION Cardiovascular Risk HDL > or equal to 60 mg/dL LOW HDL < 40 mg/dL HIGH Serum or plasma potassium me asurement (moles/volume)Ordered By: Talha Paez on 11-28-2021 Potassium [Moles/Vol] 3.5 mmol/L 3.5-5.1 [facility] Serum or plasma sodium measu rement (moles/volume)Ordered By: Talha Paez on 11-28-2021 Sodium [Moles/Vol] 138 mmol/L 136-146 [facility] Serum or plasma total biliru bin measurement (mass/volume)Ordered By: Talha Paez on 11-28-2021 Bilirubin [Mass/Vol] 0.2 mg/dL 0.3-1.2 [facility] Serum or plasma total carbon dioxide measurement (moles/volume)Ordered By: Talha Paez on 11-28-2021 CO2 [Moles/Vol] 26.3 mmol/L 22.0-30.0 [facility] Serum or plasma total choles terol/high density lipoprotein (HDL) cholesterol mass ratOrdered By: Gordon Abarca on 11-28-2021 Cholesterol.total/Cho lesterol in HDL [Mass ratio] 5.5 {ratio} [facility] Serum or plasma urea nitroge n measurement (mass/volume)Ordered By: Talha Paez on 11-28-2021 Urea nitrogen [Mass/Vol] 6 mg/dL 9- [facility] Specific gravity Auto test s trip (U) [Rel density]Ordered By: Talha Paez on 11-28-2021 Specific gravity (U) [Rel density] 1.010 1.001-1.030 [facility] Squamous epithelial cells de tection in urine sediment by light microscopyOrdered By: Talha Paez on 11-28-2021 Epithelial cells.squamous LM Ql (Urine sed) 3-4 [HPF] [facility] TSH DL <= 0.005 mIU/L QnOrde red By: Gordon Abarca on 11-28-2021 TSH Qn 2.00 m[IU]/L 0.45-5.33 [facility] Triglyceride [Mass/volume] i n Serum or PlasmaOrdered By: Gordon Abarca on 11-28-2021 Triglyceride [Mass/Vol] 171 mg/dL 35-149 [facility] Comment on above: TRIG ATP III CLASSIF ICATION TRIG less than 150 mg/dL Normal TRIG 150-199 mg/dL Borderline high TRIG 200-500 mg/dL High TRIG greater than 500 mg/dL Very high Standard traceable to the Center for Disease Conrtrol and Prevention (CDC) test method. Urine bacteria detection by automated methodOrdered By: Talha Paez on 11-28-2021 Bacteria Auto Ql (U) 1+ None Seen [facility] Urine clarity by refractomet ry automatedOrdered By: Talha Paez on 11-28-2021 Clarity Refractometry automated (U) Clear Clear [facility] Urine cocaine detectionOrder ed By: Tahla Paez on 06-29-2022 Cocaine Ql (U) Negative Negative [facility] Urine culture routineOrdered By: Talha Paez on 11-28-2021 Bacteria identified Cx Nom (U) 2 Days [facility] Urine glucose measurement by automated test strip (mass/volume)Ordered By: Talha Paez on 11-28-2021 Glucose Auto test strip (U) [Mass/Vol] Normal mg/dL Normal [facility] Urine hemoglobin detection b y automated test stripOrdered By: Talha Paez on 11-28-2021 Hemoglobin Auto test strip Ql (U) 1+ Negative [facility] Urine leukocyte esterase det ection by automated test stripOrdered By: Talha Paez on 11-28-2021 Leukocyte esterase Auto test strip Ql (U) 1+ Negative [facility] Urobilinogen Auto test strip (U) [Mass/Vol]Ordered By: Talha Paez on 11-28-2021 Urobilinogen (U) [Mass/Vol] Normal mg/dL Normal [facility] pH Auto test strip (U)Ordere d By: Talha Paez on 11-28-2021 pH (U) 6.0 [pH] 5.0-9.0 [facility] HCG ( test) Ql (U)o n 09-03-2021 [facility] HCG QUALITATIVE, URINEon HCG ( test) Ql (U) Negative [facility] No Panel Informationon 09-03 Interpretation and review of laboratory results Abnormal [facility] URINALYSIS, MACROon 09-04-19 22 Bilirubin Ql (U) Negative NEGATIVE [facility] Clarity (U) CLEAR CLEAR [facility] Color (U) YELLOW YELLOW [facility] Glucose Test strip (U) [Mass/Vol] Negative NEGATIVE mg/dl [facility] Hemoglobin Ql (U) Negative NEGATIVE [facility] Ketones (U) [Mass/Vol] Negative NEGATIVE mg/dl [facility] Leukocyte esterase Test strip Ql (U) SMALL Abnormal NEGATIVE [facility] Nitrite Ql (U) Negative NEGATIVE [facility] pH (U) 7.0 [pH] [facility] Protein Ql (U) 30 mg/dl Abnormal NEGATIVE [facility] Specific gravity (U) [Rel density] 1.020 [facility] Urobilinogen (U) [Mass/Vol] 0.2 mg/dL [facility] URINE MICROSCOPICon 09-04-19 22 Bacteria LM.HPF (Urine sed) [#/Area] 1+ Abnormal NEGATIVE [facility] Casts LM.LPF (Urine sed) [#/Area] NONE NONE /LPF [facility] Crystals LM Nom (Urine sed) NONE NONE [facility] Epithelial cells LM Ql (Urine sed) 20 TO 30 /HPF [facility] Mucus Ql (Urine sed) TRACE Abnormal NEGATIVE [facility] RBC LM.HPF (Urine sed) [#/Area] Negative NEGATIVE /HPF [facility] Urine sediment comments LM Constantine (Urine sed) POSSIBLY CONTAMINATED SPECIMEN, CULTURE MUST BE ORDERED SEPARATELY IF DEEMED NECESSARY. [facility] WBC LM.HPF (Urine sed) [#/Area] '5 TO 10 NEGATIVE /HPF [facility] US Pelvis transvaginalon IMPRESSION: Cystic lesion in the left ovary measuring 2 cm. I favor a collapsing functional cyst. This does not have the typical appearance of an ectopic RADIOLOGY EXAM: US TRANSVAGINA L WITH DOPPLER HISTORY: pelvic pain left COMPARISON: None. TECHNIQUE: Transabdominal and transvaginal imaging FINDINGS: The uterus is normal in size, contour and myometrial echotexture measuring 9.7 x 4.7 x 5.1 cm. No focal myometrial mass. The endometrium measures 0.9 cm, normal. Areas of anechoic echogenicity in the cervix, nabothian cysts are favored. The right ovary is normal in size, contour and echotexture measuring 2.7 x 2.7 x 3.1 cm. Normal color and Doppler flow. PSV/EDV: 11.6/6.4 cm/s. Normal resistive index of 0.45. Left ovary is normal in size measuring 3.5 x 2.8 x 3.3 cm. Area of oval echogenic abnormality measuring 2.0 x 1.6 x 1.5 cm with peripheral soft tissue and hypervascular area and central hypovascularity/anechoic echogenicity. Normal color Doppler flow in the ovary. PSV/EDV: 21.5/7.3 cm/s. Resistive index 0.66. Small amount of free fluid in the pelvic cul-de-sac, physiologic amount RADIOLOGY West VDrake MD - 09/03/2021 EXAM: US TRANSVAGINAL WITH DOPPLER HISTORY: pelvic pain left COMPARISON: None. TECHNIQUE: Transabdominal and transvaginal imaging FINDINGS: The uterus is normal in size, contour and myometrial echotexture measuring 9.7 x 4.7 x 5.1 cm. No focal myometrial mass. The endometrium measures 0.9 cm, normal. Areas of anechoic echogenicity in the cervix, nabothian cysts are favored. The right ovary is normal in size, contour and echotexture measuring 2.7 x 2.7 x 3.1 cm. Normal color and Doppler flow. PSV/EDV: 11.6/6.4 cm/s. Normal resistive index of 0.45. Left ovary is normal in size measuring 3.5 x 2.8 x 3.3 cm. Area of oval echogenic abnormality measuring 2.0 x 1.6 x 1.5 cm with peripheral soft tissue and hypervascular area and central hypovascularity/anechoic echogenicity. Normal color Doppler flow in the ovary. PSV/EDV: 21.5/7.3 cm/s. Resistive index 0.66. Small amount of free fluid in the pelvic cul-de-sac, physiologic amount IMPRESSION IMPRESSION: Cystic lesion in the left ovary measuring 2 cm. I favor a collapsing functional cyst. This does not have the typical appearance of an ectopic [facility] Radiology Study observation (narrative) [facility] US Pelvis transvaginalOrdere d By: Drake Alvarenga on 09-03-2021 [facility] Work Phone: INFLUENZA A AND B, PCRon FLUAV and FLUBV Ag IF Nom (Unsp spec) Negative NEGATIVE [facility] FLUBV Ag IA Ql (Unsp spec) Negative NEGATIVE [facility] Comment on above: TESTING PERFORMED BY KAY [facility] NOVEL CORONAVIRUS LAB 1 - NA SOPHARYNGEALon 07-30-2021 NARRATIVE -1 This test was perfor med using isothermal KAY and has been approved as Emergency Use Authorization (EUA) for the qualitative detection [id number] nucleic acid. [facility] SARS-CoV-2 (COVID-19) RNA KAY+probe Ql (Unsp spec) Not detected NOT DETECTED [facility] Comment on above: Negative results do not preclude SARS-CoV-2 infection and should not be used as the sole basis for treatment or other patient management decisions. Optimum specimen types and timing for peak viral levels during infections caused by SARS-CoV-2 has not been determined. The possibility of a false negative result should especially be considered if the patient's recent exposures or clinical presentation suggest that SARS-CoV-2 infection is probable, and diagnostic tests for other causes of illness (e.g., other respiratory illness) are negative. Collection of a new specimen and re-testing may be necessary if the patient is critically ill or clinically deteriorating. [facility] No Panel Informationon 04-28 Interpretation and review of laboratory results Abnormal [facility] URINALYSIS, MACROon 04-28-20 21 Bilirubin Ql (U) SMALL Abnormal NEGATIVE [facility] Clarity (U) CLEAR CLEAR [facility] Color (U) YELLOW YELLOW [facility] Glucose Test strip (U) [Mass/Vol] Negative NEGATIVE mg/dl [facility] Hemoglobin Ql (U) Negative NEGATIVE [facility] Ketones (U) [Mass/Vol] 15 mg/dL Abnormal NEGATIVE [facility] Leukocyte esterase Test strip Ql (U) TRACE Abnormal NEGATIVE [facility] Nitrite Ql (U) Negative NEGATIVE [facility] pH (U) 6.0 [pH] [facility] Protein Ql (U) Negative NEGATIVE mg/dl [facility] Specific gravity (U) [Rel density] 1.020 [facility] Urobilinogen (U) [Mass/Vol] 1.0 mg/dL [facility] URINE MICROSCOPICon 04-28-20 21 Bacteria LM.HPF (Urine sed) [#/Area] 2+ Abnormal NEGATIVE [facility] Casts LM.LPF (Urine sed) [#/Area] NONE NONE /LPF [facility] Crystals LM Nom (Urine sed) NONE NONE [facility] Epithelial cells LM Ql (Urine sed) TOO NUMEROUS TO COUNT /HPF [facility] Mucus Ql (Urine sed) 2+ Abnormal NEGATIVE [facility] RBC LM.HPF (Urine sed) [#/Area] Negative NEGATIVE /HPF [facility] Urine sediment comments LM Constantine (Urine sed) POSSIBLY CONTAMINATED SPECIMEN, CULTURE MUST BE ORDERED SEPARATELY IF DEEMED NECESSARY. [facility] WBC LM.HPF (Urine sed) [#/Area] 1 TO 5 NEGATIVE /HPF [facility] XR CHEST AP PORTABLEon 04-28 EXAM: XR CHEST AP PO RTABLE COMPARISON: None available. CLINICAL INDICATION: Shortness of breath. FINDINGS: Evaluation limited by exposure. Difficult to evaluate the pulmonary interstitium due to technique. The cardiomediastinal silhouette is within normal limits. No focal consolidation. No pleural effusion. No pneumothorax. RADIOLOGY Krishna Mccormick MD - 04/28/2021 EXAM: XR CHEST AP PORTABLE COMPARISON: None available. CLINICAL INDICATION: Shortness of breath. FINDINGS: Evaluation limited by exposure. Difficult to evaluate the pulmonary interstitium due to technique. The cardiomediastinal silhouette is within normal limits. No focal consolidation. No pleural effusion. No pneumothorax. IMPRESSION IMPRESSION: Evaluation limited by exposure. Difficult to evaluate the pulmonary interstitium due to technique. No definite radiographic evidence of acute cardiopulmonary abnormality. If continued clinical concern consider repeat PA and lateral chest x-rays with improved penetration or a CT chest. [facility] Radiology Study observation (narrative) [facility] XR CHEST AP PORTABLEOrdered By: Krishna Mccormick on 04-28-2021 [facility] Work Phone: POCT ALERE DRUG SCREENOrdere d By: Cecilia Vargas on 01-04-2021 Amphetamine (AMP), poct Negative [facility] Barbiturates (BAR), poct Negative [facility] Buprenorphine Glucuronide (BUPG),poct Negative [facility] COCAINE (ROXANNE), POCT Negative [facility] Ecstasy (MDMA), poct Negative [facility] Interpretation and review of laboratory results Normal [facility] Marijuana (THC), poct Negative [facility] Comment on above: temp 96 urine was no t witnessed Methadone (MTD), poct Negative [facility] Methamphetamine (mAMP/MET), poct Negative [facility] Nortripyline (TCA), poct Negative [facility] Opiate (OPI), poct Negative [facility] OXAZEPAM (BZO),POCT Negative [facility] Oxycodone (OXY), poct Negative [facility] Phencyclidine (PCP), poct Negative [facility] Propoxyphene (PPX), poct Negative [facility] POCT ALERE DRUG SCREENon All internal control s were present [facility] XR HAND LEFT 3+ VIEWSOrdered By: Drake Calloway on 12-06-2020 IMPRESSION: Suspecte d nondisplaced fracture at the base of the proximal fifth phalanx. [facility] EXAM: XR HAND LEFT 3 + VIEWS HISTORY: Pain and swelling fifth and fourth knuckles. No injury or trauma. COMPARISON: None. TECHNIQUE: 3 views of the left hand are performed. FINDINGS: There is irregularity at the base of the proximal fifth phalanx, suggesting a nondisplaced fracture. The remaining bony structures are unremarkable. Normal soft tissues. [facility] User, Interfaces 12/06/2020 6:00 PM EDT EXAM: XR HAND LEFT 3+ VIEWS HISTORY: Pain and swelling fifth and fourth knuckles. No injury or trauma. COMPARISON: None. TECHNIQUE: 3 views of the left hand are performed. FINDINGS: There is irregularity at the base of the proximal fifth phalanx, suggesting a nondisplaced fracture. The remaining bony structures are unremarkable. Normal soft tissues. IMPRESSION IMPRESSION: Suspected nondisplaced fracture at the base of the proximal fifth phalanx. [facility] POCT ALERE DRUG SCREENOrdere d By: Ender Collins on 11-30-2020 Amphetamine (AMP), poct Negative [facility] Barbiturates (BAR), poct Negative [facility] Buprenorphine Glucuronide (BUPG),poct Negative [facility] COCAINE (ROXANNE), POCT Negative [facility] Ecstasy (MDMA), poct Negative [facility] Interpretation and review of laboratory results Normal [facility] Marijuana (THC), poct Negative [facility] Comment on above: temp 94 urine was no t witnessed Methadone (MTD), poct Negative [facility] Methamphetamine (mAMP/MET), poct Negative [facility] Nortripyline (TCA), poct Negative [facility] Opiate (OPI), poct Negative [facility] OXAZEPAM (BZO),POCT Negative [facility] Oxycodone (OXY), poct Negative [facility] Phencyclidine (PCP), poct Negative [facility] Propoxyphene (PPX), poct Negative [facility] All internal control s were present [facility] CBC, EDIF, PLATELETOrdered B y: Ting Mott on 11-08-2020 ABSOLUTE BASOPHIL COUNT 0.0 10*3/uL 0.0 - 0.2 10*3/uL [facility] Basophils/100 WBC (Bld) 0.7 % 0.0 - 2.0 % [facility] Differential cell count method Nom (Bld) AUTO DIFF % [facility] Eosinophils (Bld) [#/Vol] 0.20 10*3/uL 0.0 - 0.7 10*3/uL [facility] Eosinophils/100 WBC (Bld) 2.7 % 0.0 - 11.0 % [facility] Erythrocyte distribution width (RBC) [Ratio] 13.7 % 11.5 - 14.5 % [facility] Hematocrit (Bld) [Volume fraction] 37.0 % 36.0 - 48.0 % [facility] Hemoglobin (Bld) [Mass/Vol] 12.8 g/dL [facility] Lymphocytes (Bld) [#/Vol] 2.00 10*3/uL 1.2 - 3.4 10*3/uL [facility] Lymphocytes/100 WBC (Bld) 28.4 % 20.0 - 55.0 % [facility] MCH (RBC) [Entitic mass] 30.2 pg 26.0 - 35.0 PG [facility] MCHC (RBC) [Mass/Vol] 34.7 g/dL [facility] MCV (RBC) [Entitic vol] 87.3 fL [facility] Monocytes (Bld) [#/Vol] 0.6 10*3/uL 0.0 - 0.7 10*3/uL [facility] Monocytes/100 WBC (Bld) 8.1 % 0.0 - 10.0 % [facility] Neutrophils (Bld) [#/Vol] 4.2 10*3/uL 1.4 - 6.5 10*3/uL [facility] Neutrophils/100 WBC (Bld) 60.1 % 37.0 - 75.0 % [facility] Platelet mean volume (Bld) [Entitic vol] 7.8 fL [facility] Platelets (Bld) [#/Vol] 244 10*3/uL 130.0 - 400.0 10*3/uL [facility] RBC (Bld) [#/Vol] 4.24 10*6/uL 4.0 - 5.4 10*6/uL [facility] WBC (Bld) [#/Vol] 7.0 10*3/uL 3.6 - 11.0 10*3/uL [facility] COMPREHENSIVE METABOLIC PANE LOrdered By: Ting Mott on 11-08-2020 Albumin [Mass/Vol] 4.1 G/dl 3.5 - 5.0 G/dl [facility] Albumin/Globulin [Mass ratio] 1.5 {ratio} [facility] ALP [Catalytic activity/Vol] 56 U/L [facility] ALT [Catalytic activity/Vol] 13 U/L <35 IU/L [facility] AST [Catalytic activity/Vol] 19 U/L [facility] Bilirubin [Mass/Vol] 0.1 mg/dL Low [facility] Calcium [Mass/Vol] 9.2 mg/dL [facility] Chloride [Moles/Vol] 107 mmol/L [facility] Comment on above: Please note: Triglyc eride levels of 600mg/dL or higher may positively bias chloride results by approximately 2.1 mmol CO2 [Moles/Vol] 25 mmol/L [facility] Creatinine [Mass/Vol] 0.69 mg/dL Low [facility] GFR COMMENT Average GFR for 30-3 9 years old = 109. [facility] Comment on above: Chronic Kidney disea se, GFR = <60. Kidney failure, GFR = <15. The GFR estimate is not adjusted for extreme body surface area or acute process, nor has it been validated for women or ethnic groups other than and . GFR/1.73 sq M.predicted among blacks MDRD (S/P/Bld) [Vol rate/Area] mL/min/{1.73_m2} ml/min/1.73s q.m [facility] GFR/1.73 sq M.predicted among non-blacks MDRD (S/P/Bld) [Vol rate/Area] mL/min/{1.73_m2} ml/min/1.73s q.m [employer] Glucose post fast [Mass/Vol] 93 [facility] Comment on above: NORMAL <100 mg/dL PREDIABETES 101-126 mg/dL DIABETES 126 mg/dL or higher Interpretation and review of laboratory results Abnormal [employer] Potassium [Moles/Vol] 3.9 mmol/L [facility] Protein [Mass/Vol] 6.9 g/dL [employer] Sodium [Moles/Vol] 138 mmol/L [employer] Urea nitrogen [Mass/Vol] 12 mg/dL [employer] CT ABDOMEN/PELVIS WITH CONTR ASTOrdered By: Ting Mott on 11-08-2020 IMPRESSION: No obstr ucting stones, appendicitis, or diverticulitis. No discrete focal bowel wall or stomach wall thickening. Heterogeneous uterus with sliver of endometrial canal fluid. Focus of air within the cervical canal and vaginal canal. Correlate clinically for underlying pelvic inflammation versus other etiology. [employer] EXAMINATION: CT ABDOMEN/PELVIS WITH CONTRAST HISTORY: Epigastric abdominal pain COMPARISON: None. TECHNIQUE: CT examination of the abdomen and pelvis following the administration of 75 mL Omnipaque 350 intravenous contrast. Coronal and sagittal reformations were performed. Dose reduction techniques were achieved by using automated exposure control and/or adjustment of mA and/or kV according to patient size and/or use of iterative reconstruction technique. FINDINGS: Visualized lung bases unremarkable. Visualized cardiac apex unremarkable. Liver, gallbladder, spleen, pancreas, adrenal glands, kidneys are unremarkable. Appendix unremarkable. No evidence for appendicitis. No evidence for bowel obstruction, large ascites, or free air. Urinary bladder unremarkable. Heterogeneous uterus with sliver of endometrial canal fluid. Focus of air within the cervical canal and vaginal canal. Correlate clinically for underlying pelvic inflammation versus other etiology. 2.0 cm right ovarian cyst. No acute bony abnormality. [employer] User, Interfaces - 11/08/2020 11:30 PM EDT EXAMINATION: CT ABDOMEN/PELVIS WITH CONTRAST HISTORY: Epigastric abdominal pain COMPARISON: None. TECHNIQUE: CT examination of the abdomen and pelvis following the administration of 75 mL Omnipaque 350 intravenous contrast. Coronal and sagittal reformations were performed. Dose reduction techniques were achieved by using automated exposure control and/or adjustment of mA and/or kV according to patient size and/or use of iterative reconstruction technique. FINDINGS: Visualized lung bases unremarkable. Visualized cardiac apex unremarkable. Liver, gallbladder, spleen, pancreas, adrenal glands, kidneys are unremarkable. Appendix unremarkable. No evidence for appendicitis. No evidence for bowel obstruction, large ascites, or free air. Urinary bladder unremarkable. Heterogeneous uterus with sliver of endometrial canal fluid. Focus of air within the cervical canal and vaginal canal. Correlate clinically for underlying pelvic inflammation versus other etiology. 2.0 cm right ovarian cyst. No acute bony abnormality. IMPRESSION IMPRESSION: No obstructing stones, appendicitis, or diverticulitis. No discrete focal bowel wall or stomach wall thickening. Heterogeneous uterus with sliver of endometrial canal fluid. Focus of air within the cervical canal and vaginal canal. Correlate clinically for underlying pelvic inflammation versus other etiology. [facility] HCG ( test) Ql (U)O rdered By: iTng Mott on 11-08-2020 [facility] HCG QUALITATIVE, URINEOrdere d By: Ting Mott on 11-08-2020 HCG ( test) Ql (U) Negative [facility] [facility] LIPASEOrdered By: Ting Mott on 11-08-2020 Lipase [Catalytic activity/Vol] 66 U/L 23 - 300 U/L [facility] No Panel InformationOrdered By: Ting Mott on 11-08-2020 [facility] Interpretation and review of laboratory results Abnormal [facility] URINALYSIS, MACROOrdered By: Ting Mott on 11-08-2020 Bilirubin Ql (U) Negative NEGATIVE [facility] Clarity (U) CLEAR CLEAR [facility] Color (U) YELLOW YELLOW [facility] Glucose Test strip (U) [Mass/Vol] Negative NEGATIVE mg/dl [facility] Hemoglobin Ql (U) Negative NEGATIVE [facility] Ketones (U) [Mass/Vol] TRACE Abnormal NEGATIVE mg/dl [facility] Leukocyte esterase Test strip Ql (U) TRACE Abnormal NEGATIVE [facility] Nitrite Ql (U) Negative NEGATIVE [facility] pH (U) 7.5 [pH] High [facility] Protein Ql (U) Negative NEGATIVE mg/dl [facility] Specific gravity (U) [Rel density] 1.025 [facility] Urobilinogen (U) [Mass/Vol] 0.2 mg/dL [facility] URINE MICROSCOPICOrdered By: Ting Mott on 11-08-2020 Bacteria LM.HPF (Urine sed) [#/Area] 2+ Abnormal NEGATIVE [facility] Casts LM.LPF (Urine sed) [#/Area] NONE NONE /LPF [facility] Crystals LM Nom (Urine sed) NONE NONE [facility] Epithelial cells LM Ql (Urine sed) 20 TO 30 /HPF [facility] Mucus Ql (Urine sed) 2+ Abnormal NEGATIVE [facility] RBC LM.HPF (Urine sed) [#/Area] Negative NEGATIVE /HPF [facility] Urine sediment comments LM Constantine (Urine sed) POSSIBLY CONTAMINATED SPECIMEN, CULTURE MUST BE ORDERED SEPARATELY IF DEEMED NECESSARY. [facility] WBC LM.HPF (Urine sed) [#/Area] 1 TO 5 NEGATIVE /HPF [facility] POCT ALERE DRUG SCREENOrdere d By: Ender Collins on 10-05-2020 Amphetamine (AMP), poct Negative [facility] Barbiturates (BAR), poct Negative [facility] Buprenorphine Glucuronide (BUPG),poct Negative [facility] COCAINE (ROXANNE), POCT Negative [facility] Ecstasy (MDMA), poct Negative [facility] Interpretation and review of laboratory results Normal [facility] Marijuana (THC), poct Negative [facility] Comment on above: Temp 96 urine was no t witnessed Methadone (MTD), poct Negative [facility] Methamphetamine (mAMP/MET), poct Negative [facility] Nortripyline (TCA), poct Negative [facility] Opiate (OPI), poct Negative [facility] OXAZEPAM (BZO),POCT Negative [facility] Oxycodone (OXY), poct Negative [facility] Phencyclidine (PCP), poct Negative [facility] Propoxyphene (PPX), poct Negative [facility] All internal control s were present [facility] POCT ALERE DRUG SCREENon Amphetamine (AMP), poct Negative [facility] Barbiturates (BAR), poct Negative [facility] Buprenorphine Glucuronide (BUPG),poct Negative [facility] COCAINE (ROXANNE), POCT Negative [facility] Ecstasy (MDMA), poct Negative [facility] Interpretation and review of laboratory results Normal [facility] Marijuana (THC), poct Negative [facility] Comment on above: temp 96 urine was no t witnessed Methadone (MTD), poct Negative [facility] Methamphetamine (mAMP/MET), poct Negative [facility] Nortripyline (TCA), poct Negative [facility] Opiate (OPI), poct Negative [facility] OXAZEPAM (BZO),POCT Negative [facility] Oxycodone (OXY), poct Negative [facility] Phencyclidine (PCP), poct Negative [facility] Propoxyphene (PPX), poct Negative [facility] All internal control s were present [facility] POCT ALERE DRUG SCREENon Amphetamine (AMP), poct Negative [facility] Barbiturates (BAR), poct Negative [facility] Buprenorphine Glucuronide (BUPG),poct Negative [facility] COCAINE (ROXANNE), POCT Negative [facility] Ecstasy (MDMA), poct Negative [facility] Interpretation and review of laboratory results Normal [facility] Methadone (MTD), poct Negative [facility] Methamphetamine (mAMP/MET), poct Negative [facility] Nortripyline (TCA), poct Negative [facility] Opiate (OPI), poct Negative [facility] OXAZEPAM (BZO),POCT Negative [facility] Oxycodone (OXY), poct Negative [facility] Phencyclidine (PCP), poct Negative [facility] Propoxyphene (PPX), poct Negative [facility] All internal control s are positive [facility] POCT ALERE DRUG SCREENon Amphetamine (AMP), poct Negative [facility] Barbiturates (BAR), poct Negative [facility] Buprenorphine Glucuronide (BUPG),poct Negative [facility] COCAINE (ROXANNE), POCT Negative [facility] Ecstasy (MDMA), poct Negative [facility] Interpretation and review of laboratory results Normal [facility] Marijuana (THC), poct Negative [facility] Methadone (MTD), poct Negative [facility] Methamphetamine (mAMP/MET), poct Negative [facility] Nortripyline (TCA), poct Negative [facility] Opiate (OPI), poct Negative [facility] OXAZEPAM (BZO),POCT Negative [facility] Oxycodone (OXY), poct Negative [facility] Phencyclidine (PCP), poct Negative [facility] Propoxyphene (PPX), poct Negative [facility] All internal control s are positive [facility] HCV, QN, RT-PCRon 06-16-2020 HEPATITIS C QN Not detected Normal [facility] Comment on above: Result Comment: Unit : IU/mL Performed By: #### A CBC, CMPF, GHIV #### Testing [place] [address] #### LHCVRT #### Testing performed at [facility] TEST INFORMATION Comment Normal [facility] Comment on above: Result Comment: (NOT E) The quantitative range of this assay is 15 IU/mL to 100 million IU/mL. PERFORMED AT [facility] Performed By: #### A CBC, CMPF, GHIV #### Testing [place] [address] #### LHCVRT #### Testing performed at [facility] HEP PANEL A,B,Con 06-15-2020 HEP A AB TOTAL Negative Normal NEGATIVE [facility] Comment on above: Performed By: #### A HEPP #### Testing performed [place] [address] HEP B CORE AB Negative Normal NEGATIVE [facility] Comment on above: Performed By: #### A HEPP #### Testing performed [place] [address] HEP B SURFACE AB Positive Normal POSITIVE [facility] Comment on above: Result Comment: Clinical Interpretation of Immune Status Negative: patient is considered to be not immune to infection with HBV Intermediate: unable to determine if anti-HBs is present at levels consistent with immunity Positive: anti-HBs detected, patient is considered to be immune to infection with HBV Performed By: #### A HEPP #### Testing performed [place] [address] HEP C AB Reactive Abnormal NEGATIVE [facility] Comment on above: Result Comment: HCV Ab IgG detected, patient is presumed to be infected, state or associated disease not determined Performed By: #### A HEPP #### Testing performed [place] [address] HEP B SURFACE AG Negative Normal NEGATIVE [facility] Comment on above: Performed By: #### A HEPP #### Testing performed [place] [address] CBCon 06-14-2020 ABSOLUTE BAS 0.1 10*3/uL Normal 0.0-0.2 [facility] Comment on above: Result Comment: Test ing performed at [place] [address] Performed By: #### A CBC, CMPF, GHIV #### Testing performed [place] [address] #### LHCVRT #### Testing performed at [facility] ABSOLUTE EOS 0.10 10*3/uL Normal 0.0-0.7 [facility] Comment on above: Performed By: #### A CBC, CMPF, GHIV #### Testing performed [place] [address] #### LHCVRT #### Testing performed at [facility] ABSOLUTE NEUTROPHIL COUNT 4.3 10*3/uL Normal 1.4-6.5 [facility] Comment on above: Performed By: #### A CBC, CMPF, GHIV #### Testing performed [place] [address] #### LHCVRT #### Testing performed at [facility] Basophils/100 WBC (Bld) 0.9 % Normal 0.0-2.0 [facility] Comment on above: Performed By: #### A CBC, CMPF, GHIV #### Testing performed [place] [address] #### LHCVRT #### Testing performed at [facility] DTYPE AUTO DIFF Normal [facility] Comment on above: Performed By: #### A CBC, CMPF, GHIV #### Testing performed [place] [address] #### LHCVRT #### Testing performed at [facility] Eosinophils/100 WBC (Bld) 2.0 % Normal 0.0-11.0 [facility] Comment on above: Performed By: #### A CBC, CMPF, GHIV #### Testing [place] [address] #### LHCVRT #### Testing performed at [facility] Lymphocytes (Bld) [#/Vol] 1.50 10*3/uL Normal 1.2-3.4 [facility] Comment on above: Performed By: #### A CBC, CMPF, GHIV #### Testing performed [place] [address] #### LHCVRT #### Testing performed at [facility] Lymphocytes/100 WBC (Bld) 23.7 % Normal 20.0-55.0 [facility] Comment on above: Performed By: #### A CBC, CMPF, GHIV #### Testing performed [place] [address] #### LHCVRT #### Testing performed at [facility] Monocytes (Bld) [#/Vol] 0.4 10*3/uL Normal 0.0-0.7 [facility] Comment on above: Performed By: #### A CBC, CMPF, GHIV #### Testing performed [place] [address] #### LHCVRT #### Testing performed at [facility] Monocytes/100 WBC (Bld) 6.8 % Normal 0.0-10.0 [facility] Comment on above: Performed By: #### A CBC, CMPF, GHIV #### Testing performed [place] [address] #### LHCVRT #### Testing performed at [facility] Neutrophils/100 WBC (Bld) 66.6 % Normal 37.0-75.0 [facility] Comment on above: Performed By: #### A CBC, CMPF, GHIV #### Testing performed [place] [address] #### LHCVRT #### Testing performed at [facility] Erythrocyte distribution width (RBC) [Ratio] 13.5 % Normal 11.5-14.5 [facility] Comment on above: Performed By: #### A CBC, CMPF, GHIV #### Testing performed [place] [address] #### LHCVRT #### Testing performed at [facility] Hematocrit (Bld) [Volume fraction] 38.8 % Normal 36.0-48.0 [facility] Comment on above: Performed By: #### A CBC, CMPF, GHIV #### Testing performed [place] [address] #### LHCVRT #### Testing performed at [facility] Hemoglobin (Bld) [Mass/Vol] 13.3 g/dL Normal 12.0-16.0 [facility] Comment on above: Performed By: #### A CBC, CMPF, GHIV #### Testing performed [place] [address] #### LHCVRT #### Testing performed at [facility] MCH (RBC) [Entitic mass] 30.1 pg Normal 26.0-35.0 [facility] Comment on above: Performed By: #### A CBC, CMPF, GHIV #### Testing performed [place] [address] #### LHCVRT #### Testing performed at [facility] MCHC (RBC) [Mass/Vol] 34.3 g/dL Normal 27.0-37.0 [facility] Comment on above: Performed By: #### A CBC, CMPF, GHIV #### Testing performed [place] [address] #### LHCVRT #### Testing performed at [facility] MCV (RBC) [Entitic vol] 87.9 fL Normal 80.0-100.0 [facility] Comment on above: Performed By: #### A CBC, CMPF, GHIV #### Testing performed [place] [address] #### LHCVRT #### Testing performed at [facility] Platelet mean volume (Bld) [Entitic vol] 8.5 fL Normal 7.4-11.0 [facility] Comment on above: Result Comment: Test ing performed at [place] [address] Performed By: #### A CBC, CMPF, GHIV #### Testing performed [place] [address] #### LHCVRT #### Testing performed at [facility] Platelets (Bld) [#/Vol] 267 10*3/uL Normal 130.0-400.0 [facility] Comment on above: Performed By: #### A CBC, CMPF, GHIV #### Testing performed [place] [address] #### LHCVRT #### Testing performed at [facility] RBC (Bld) [#/Vol] 4.41 10*6/uL Normal 4.0-5.4 [facility] Comment on above: Performed By: #### A CBC, CMPF, GHIV #### Testing performed [place] [address] #### LHCVRT #### Testing performed at [facility] WBC (Bld) [#/Vol] 6.5 10*3/uL Normal 3.6-11.0 [facility] Comment on above: Performed By: #### A CBC, CMPF, GHIV #### Testing performed at [address] [address] #### LHCVRT #### Testing performed at [facility] CBC, EDIF, PLATELETon 2020 ABSOLUTE BASOPHIL COUNT 0.1 10*3/uL 0 - 0.2 10*3/uL [facility] Comment on above: Testing performed at [place] [address] Basophils/100 WBC (Bld) 0.9 % 0 - 2 % [facility] Differential cell count method Nom (Bld) AUTO DIFF % [facility] Eosinophils (Bld) [#/Vol] 0.10 10*3/uL 0 - 0.7 10*3/uL [facility] Eosinophils/100 WBC (Bld) 2.0 % 0 - 11 % [facility] Erythrocyte distribution width (RBC) [Ratio] 13.5 % 11.5 - 14.5 % [facility] Hematocrit (Bld) [Volume fraction] 38.8 % 36 - 48 % [facility] Hemoglobin (Bld) [Mass/Vol] 13.3 g/dL [facility] Lymphocytes (Bld) [#/Vol] 1.50 10*3/uL 1.2 - 3.4 10*3/uL [facility] Lymphocytes/100 WBC (Bld) 23.7 % 20 - 55 % [facility] MCH (RBC) [Entitic mass] 30.1 pg 26 - 35 PG [facility] MCHC (RBC) [Mass/Vol] 34.3 g/dL [facility] MCV (RBC) [Entitic vol] 87.9 fL [facility] Monocytes (Bld) [#/Vol] 0.4 10*3/uL 0 - 0.7 10*3/uL [facility] Monocytes/100 WBC (Bld) 6.8 % 0 - 10 % [facility] Neutrophils (Bld) [#/Vol] 4.3 10*3/uL 1.4 - 6.5 10*3/uL [facility] Neutrophils/100 WBC (Bld) 66.6 % 37 - 75 % [facility] Platelet mean volume (Bld) [Entitic vol] 8.5 fL [facility] Platelets (Bld) [#/Vol] 267 10*3/uL 130 - 400 10*3/uL [facility] RBC (Bld) [#/Vol] 4.41 10*6/uL 4 - 5.4 10*6/uL [facility] WBC (Bld) [#/Vol] 6.5 10*3/uL 3.6 - 11 10*3/uL [facility] CMP FASTINGon 06-14-2020 A:G RATIO 1.4 RATIO Normal 1.3-2.2 [facility] Comment on above: Performed By: #### A CBC, CMPF, GHIV #### Testing [place] [address] #### LHCVRT #### Testing performed at [facility] ALBUMIN 4.4 G/dl Normal 3.5-5.0 [facility] Comment on above: Performed By: #### A CBC, CMPF, GHIV #### Testing performed [place] [address] #### LHCVRT #### Testing performed at [facility] ALP [Catalytic activity/Vol] 50 U/L Normal 38-126 [facility] Comment on above: Performed By: #### A CBC, CMPF, GHIV #### Testing performed [place] [address] #### LHCVRT #### Testing performed at [facility] ALT [Catalytic activity/Vol] 13 U/L Normal <35 [facility] Comment on above: Performed By: #### A CBC, CMPF, GHIV #### Testing performed [place] [address] #### LHCVRT #### Testing performed at [facility] AST [Catalytic activity/Vol] 25 U/L Normal 14-36 [facility] Comment on above: Performed By: #### A CBC, CMPF, GHIV #### Testing performed at [place] [id number] #### LHCVRT #### Testing performed at [facility] Bilirubin [Mass/Vol] mg/dL Low 0.2-1.3 [facility] Comment on above: Performed By: #### A CBC, CMPF, GHIV #### Testing [place] [address] #### LHCVRT #### Testing performed at [facility] Calcium [Mass/Vol] 8.9 mg/dL Normal 8.4-10.2 [facility] Comment on above: Performed By: #### A CBC, CMPF, GHIV #### Testing [place] [address] #### LHCVRT #### Testing performed at [facility] Chloride [Moles/Vol] 104 mmol/L Normal 98-107 [facility] Comment on above: Result Comment: Moni begum note: Triglyceride levels of 600mg/dL or higher may positively bias chloride results by approximately 2.1 mmol Performed By: #### A CBC, CMPF, GHIV #### Testing [place] [address] #### LHCVRT #### Testing performed at [facility] CO2 [Moles/Vol] 27 mmol/L Normal 22-30 [facility] Comment on above: Performed By: #### A CBC, CMPF, GHIV #### Testing [place] [address] #### LHCVRT #### Testing performed at [facility] Creatinine [Mass/Vol] 0.80 mg/dL Normal 0.7-1.2 [facility] Comment on above: Performed By: #### A CBC, CMPF, GHIV #### Testing performed [place] [address] #### LHCVRT #### Testing performed at [facility] EST. GFR, >60 Normal [facility] Comment on above: Performed By: #### A CBC, CMPF, GHIV #### Testing [place] [address] #### LHCVRT #### Testing performed at [facility] EST. GFR,Non >60 Normal [facility] Comment on above: Performed By: #### A CBC, CMPF, GHIV #### Testing performed [place] [address] #### LHCVRT #### Testing performed at [facility] GFR Information Average GFR for 30-3 9 years old = 109. Normal [facility] Comment on above: Result Comment: Fund Controller demetrio Kidney disease, GFR = <60. Kidney failure, GFR = <15. The GFR estimate is not adjusted for extreme body surface area or acute process, nor has it been validated for women or ethnic groups other than and . Testing performed at [place] [address] Performed By: #### A CBC, CMPF, GHIV #### Testing [place] [address] #### LHCVRT #### Testing performed at [facility] Glucose [Mass/Vol] 78 mg/dL Normal 70-100 [facility] Comment on above: Result Comment: NORMAL <100 mg/dL PREDIABETES 101-126 mg/dL DIABETES 126 mg/dL or higher Performed By: #### A CBC, CMPF, GHIV #### Testing [place] [address] #### LHCVRT #### Testing performed at [facility] Potassium [Moles/Vol] 3.8 mmol/L Normal 3.5-5.1 [facility] Comment on above: Performed By: #### A CBC, CMPF, GHIV #### Testing [place] [address] #### LHCVRT #### Testing performed at [facility] Protein [Mass/Vol] 7.5 g/dL Normal 6.3-8.2 [facility] Comment on above: Performed By: #### A CBC, CMPF, GHIV #### Testing performed [place] [address] #### LHCVRT #### Testing performed at [facility] Sodium [Moles/Vol] 139 mmol/L Normal 137-145 [facility] Comment on above: Performed By: #### A CBC, CMPF, GHIV #### Testing performed [place] [address] #### LHCVRT #### Testing performed at [facility] Urea nitrogen [Mass/Vol] 15 mg/dL Normal 7-20 [facility] Comment on above: Performed By: #### A CBC, CMPF, GHIV #### Testing [place] [address] #### LHCVRT #### Testing performed at [facility] COMPREHENSIVE METABOLIC PANE [place] 06-14-2020 Albumin [Mass/Vol] 4.4 G/dl 3.5 - 5 G/dl [facility] Albumin/Globulin [Mass ratio] 1.4 {ratio} [facility] ALP [Catalytic activity/Vol] 50 U/L [facility] ALT [Catalytic activity/Vol] 13 U/L <35 IU/L [facility] AST [Catalytic activity/Vol] 25 U/L [facility] Bilirubin [Mass/Vol] mg/dL Low [facility] Calcium [Mass/Vol] 8.9 mg/dL [facility] Chloride [Moles/Vol] 104 mmol/L [facility] Comment on above: Please note: Triglyc eride levels of 600mg/dL or higher may positively bias chloride results by approximately 2.1 mmol CO2 [Moles/Vol] 27 mmol/L [facility] Creatinine [Mass/Vol] 0.80 mg/dL [facility] GFR/1.73 sq M predicted among blacks MDRD (S/P/Bld) [Vol rate/Area] mL/min/{1.73_m2} ml/min/1.73s q.m [facility] GFR/1.73 sq M predicted among non-blacks MDRD (S/P/Bld) [Vol rate/Area] Average GFR for 30-39 years old = 109. [facility] Comment on above: Chronic Kidney disea se, GFR = <60. Kidney failure, GFR = <15. The GFR estimate is not adjusted for extreme body surface area or acute process, nor has it been validated for women or ethnic groups other than and . Testing performed at [place] [address] GFR/1.73 sq M predicted among non-blacks MDRD (S/P/Bld) [Vol rate/Area] mL/min/{1.73_m2} ml/min/1.73s q.m [facility] Glucose post fast [Mass/Vol] 78 mg/dL [facility] Comment on above: NORMAL <100 mg/dL PREDIABETES 101-126 mg/dL DIABETES 126 mg/dL or higher Interpretation and review of laboratory results Abnormal [facility] Potassium [Moles/Vol] 3.8 mmol/L [facility] Protein [Mass/Vol] 7.5 g/dL [facility] Sodium [Moles/Vol] 139 mmol/L [facility] Urea nitrogen [Mass/Vol] 15 mg/dL [facility] HIV 1 AND 2 ANTIBODIESon HIV 1+2 Ab IA Ql NONREACTIVE NONREACTIVE [facility] Comment on above: Testing performed at [place] [address] HIV 1,2 ABon 06-14-2020 HIV 1,2 Non-Reactive Normal NONREACTIVE [facility] Comment on above: Result Comment: Test ing performed at [place] [address] Performed By: #### A CBC, CMPF, GHIV #### Testing [place] [address] #### LHCVRT #### Testing performed at [facility] HCV RNA,Quant,PCRon 03-21-20 HCV RNA,Quant,PCR Specimen Description .PLASMA Special Requests QUALITATIVE Direct Exam HCV RNA NOT DETECTED This test is a sensitive method for quantitating HCV RNA viral loads in plasma. It utilizes RT-PCR in the FDA approved [employer] System. This test is intended for detecting and quantifying HCV RNA viral loads in the range of 15 IU/mL to 100,000,000 IU/mL (1.18 log IU/mL to 8.00 log IU/mL). Patients should have confirmed HCV infection prior to RNA quantification. This test has been developed to monitor disease progression and efficacy of anti-HCV drug therapy. This test has been optimized for HCV genotypes 1-6. Report Status FINAL 03/21/2020 [facility] Comment on above: Performed By: #### H CVQ #### [facility] [employer] [address] [place] [address] Mail Clerk: Hernesto Hinton MD [facility] [address] [place] [address] Mail Clerk: Iftikhar Mcgrath MD Basic Metabolic Panelon 03-02 Anion gap [Moles/Vol] 9 mmol/L 9 - 17 mmol/L [place] Bun/Cre Ratio 15 [place] Calcium [Mass/Vol] 9.5 mg/dL 8.6 - 10. 4 mg/dL [place] Chloride [Moles/Vol] 107 mmol/L 98 - 10 7 mmol/L [place] CO2 [Moles/Vol] 25 mmol/L 20 - 31 mmol/L [place] Creatinine [Mass/Vol] 0.67 mg/dL 0.5 - 0.9 mg/dL [place] GFR >60 >60 mL/min [place] GFR Non- >60 >60 mL/min [place] Glucose [Mass/Vol] 107 mg/dL High 70 - 99 mg/dL [place] Interpretation and review of laboratory results Abnormal [place] Potassium [Moles/Vol] 4.6 mmol/L 3.7 - 5.3 mmol/L [place] Sodium [Moles/Vol] 141 mmol/L 135 - 144 mmol/L [place] Urea nitrogen [Mass/Vol] 10 mg/dL 6 - 20 mg/dL [place] Basic Metabolic Profon 03-17 (cont.) [facility] Comment on above: Result Comment: Aver age GFR for 30-39 years old: 107 mL/min/1.73sq m Chronic Kidney Disease: <60 mL/min/1.73sq m Kidney failure: <15 mL/min/1.73sq m eGFR calculated using average adult body mass. Additional eGFR calculator available at: http://www.[facility]/multiple_crcl_2012.htm Performed By: #### B MP #### [facility] [address] [place] [phone] Mail Clerk: Iftikhar Mcgrath MD #### GLYHGB #### [address] [phone] Mail Clerk: Hernesto Hinton MD Anion gap [Moles/Vol] 9 mmol/L Normal 9-17 [facility] Comment on above: Performed By: #### B MP #### [address] [place] [phone] Mail Clerk: Iftikhar Mcgrath MD #### GLYHGB #### [address] [phone] Mail Clerk: Hernesto Hinton MD BUN/CRE Ratio 15 Normal 9-20 [facility] Comment on above: Performed By: #### B MP #### [address] [place] [phone] Mail Clerk: Iftikhar Mcgrath MD #### GLYHGB #### [address] [phone] Mail Clerk: Hernesto Hinton MD Calcium [Mass/Vol] 9.5 mg/dL Normal 8.6-10.4 [facility] Comment on above: Performed By: #### B MP #### [address] [place], [place] [phone] Mail Clerk: Iftikhar Mcgrath MD #### GLYHGB #### [address] [place] [address] Mail Clerk: Hernesto Hinton MD Chloride [Moles/Vol] 107 mmol/L Normal 98-107 [facility] Comment on above: Performed By: #### B MP #### [facility] [address] [place] [address] Mail Clerk: Iftikhar Mcgrath MD #### GLYHGB #### [address] [address] Mail Clerk: Hernesto Hinton MD CO2 [Moles/Vol] 25 mmol/L Normal 20-31 [facility] Comment on above: Performed By: #### B MP #### [address] [place], [place] [phone] Mail Clerk: Iftikhar Mcgrath MD #### GLYHGB #### [address] [address] Mail Clerk: Hernesto Hinton MD Creatinine [Mass/Vol] 0.67 mg/dL Normal 0.50-0.90 [facility] Comment on above: Performed By: #### B MP #### [facility] [address] [place] [address] [place] [address] Mail Clerk: Iftikhar Mcgrath MD #### GLYHGB #### [address] [address] Mail Clerk: Hernesto Hinton MD GFR, Amer >60 Normal >60 [facility] Comment on above: Performed By: #### B MP #### [facility] [address] [place] [address] [place] [address] Mail Clerk: Iftikhar Mcgrath MD #### GLYHGB #### [address] [address] Mail Clerk: Hernesto Hinton MD GFR,non Amer >60 Normal >60 [facility] Comment on above: Performed By: #### B MP #### [facility] [address] [place], [place] [phone] Mail Clerk: Iftikhar Mcgrath MD #### GLYHGB #### [address] [address] Mail Clerk: Hernesto Hinton MD Glucose [Mass/Vol] 107 mg/dL High 70-99 [facility] Comment on above: Performed By: #### B MP #### [facility] [address] [place], [place] [phone] Mail Clerk: Iftikhar Mcgrath MD #### GLYHGB #### [address] [address] Mail Clerk: Hernesto Hinton MD Potassium [Moles/Vol] 4.6 mmol/L Normal 3.7-5.3 [facility] Comment on above: Performed By: #### B MP #### [facility] [address] [place], [place] [phone] Mail Clerk: Iftikhar Mcgrath MD #### GLYHGB #### [address] [address] Mail Clerk: Hernesto Hinton MD Sodium [Moles/Vol] 141 mmol/L Normal 135-144 [facility] Comment on above: Performed By: #### B MP #### [facility] [address] [place] [address] Dr. [place], [place] [phone] Mail Clerk: Iftikhar Mcgrath MD #### GLYHGB #### [address] [address] Mail Clerk: Hernesto Hinton MD Staging: Normal [facility] Comment on above: Result Comment: Stag e 1: Some kidney damage normal GFR Stage 2: Mild kidney damage GFR 60-89 Stage 3: Moderate kidney damage GFR 30-59 Stage 4: Severe kidney damage GFR 15-29 Stage 5: Severe kidney damage GFR <15 ESRD - chronic treatment by dialysis or transplant Performed By: #### B MP #### [facility] [address] [place], [place] [phone] Mail Clerk: Iftikhar Mcgrath MD #### GLYHGB #### [address] [place] [address] Mail Clerk: Hernesto Hinton MD Urea nitrogen [Mass/Vol] 10 mg/dL Normal 6-20 [facility] Comment on above: Performed By: #### B MP #### [facility] [address] [place], [place] [phone] Mail Clerk: Iftikhar Mcgrath MD #### GLYHGB #### [address] [address] Mail Clerk: Hernesto Hinton MD Hemoglobin A1Con 03-17-2020 HbA1c (Bld) [Mass fraction] 111 mg/dL Normal [facility] Comment on above: Result Comment: The ADA and AACC recommend providing the estimated average glucose result to permit better patient understanding of their HBA1c result. Performed By: #### B MP #### [address] [place], [place] [phone] Mail Clerk: Iftikhar Mcgrath MD #### GLYHGB #### [address] [address] Mail Clerk: Hernesto Hinton MD HbA1c (Bld) [Mass fraction] 5.5 % Normal 4.0-6.0 [facility] Comment on above: Performed By: #### B MP #### [facility] [address] [place] [address] Dr[address] [place], [place] [phone] Mail Clerk: Iftikhar Mcgrath MD #### GLYHGB #### [address] [place] [address] Mail Clerk: Hernesto Hinton MD Glucose [Mass/Vol] 111 mg/dL [place] Comment on above: The ADA and AACC rec ommend providing the estimated average glucose result to permit better patient understanding of their HBA1c result. HbA1c (Bld) [Mass fraction] 5.5 % 4 - 6 % [place] Metabolic Panelon 03-17-2020 GFR/1.73 sq M predicted among non-blacks MDRD (S/P/Bld) [Vol rate/Area] [place] Comment on above: Stage 1: Some kidney damage normal GFR Stage 2: Mild kidney damage GFR 60-89 Stage 3: Moderate kidney damage GFR 30-59 Stage 4: Severe kidney damage GFR 15-29 Stage 5: Severe kidney damage GFR <15 ESRD - chronic treatment by dialysis or transplant Average GFR for 30-3 9 years old: 107 mL/min/1.73sq m Chronic Kidney Disease: <60 mL/min/1.73sq m Kidney failure: <15 mL/min/1.73sq m eGFR calculated using average adult body mass. Additional eGFR calculator available at: http://www.[employer]/multiple_crcl_2012.htm CBCon 03-08-2020 Erythrocyte distribution width (RBC) [Ratio] 14.3 % Normal 11.8-14.4 [facility] Comment on above: Performed By: #### C BC, HCG, CP #### [facility] [address] [place] [address] [place] [address] Mail Clerk: Iftikhar Mcgrath MD #### HIVCMB #### [facility] [employer] [address] [place] [address] Mail Clerk: Hernesto Hinton MD Hematocrit (Bld) [Volume fraction] 49.2 % High 36.3-47.1 [facility] Comment on above: Performed By: #### C BC, HCG, CP #### [facility] [address] [place] [address] [place] [address] Mail Clerk: Iftikhar Mcgrath MD #### HIVCMB #### [address] [place], [place] [phone] Mail Clerk: Hernesto Hinton MD Hemoglobin (Bld) [Mass/Vol] 16.4 g/dL High 11.9-15.1 [facility] Comment on above: Performed By: #### C BC, HCG, CP #### [address] [place] [address] Mail Clerk: Iftikhar Mcgrath MD #### HIVCMB #### [address] [phone] Mail Clerk: Hernesto Hinton MD MCH (RBC) [Entitic mass] 27.7 pg Normal 25.2-33.5 [facility] Comment on above: Performed By: #### C BC, HCG, CP #### [address] [place] [phone] Mail Clerk: Iftikhar Mcgrath MD #### HIVCMB #### [address] [phone] Mail Clerk: Hernesto Hinton MD MCHC (RBC) [Mass/Vol] 33.3 g/dL Normal 28.4-34.8 [facility] Comment on above: Performed By: #### C BC, HCG, CP #### [address] [place] [phone] Mail Clerk: Iftikhar Mcgrath MD #### HIVCMB #### [address] [phone] Mail Clerk: Hernesto Hinton MD MCV (RBC) [Entitic vol] 83.2 fL Normal 82.6-102.9 [facility] Comment on above: Performed By: #### C BC, HCG, CP #### [address] [place] [address] Mail Clerk: Iftikhar Mcgrath MD #### HIVCMB #### [address] [phone] Mail Clerk: Hernesto Hinton MD NRBC Automated 0.0 per 100 WBC Normal 0.0 [facility] Comment on above: Performed By: #### C BC, HCG, CP #### [facility] [address] [place] [phone] Mail Clerk: Iftikhar Mcgrath MD #### HIVCMB #### [address] [phone] Mail Clerk: Hernesto Hinton MD Platelet mean volume (Bld) [Entitic vol] 10.8 fL Normal 8.1-13.5 [facility] Comment on above: Performed By: #### C BC, HCG, CP #### [address] [place] [phone] Mail Clerk: Iftikhar Mcgrath MD #### HIVCMB #### [address] [phone] Mail Clerk: Hernesto Hinton MD Platelets (Bld) [#/Vol] 299 10*3/uL Normal 138-453 [facility] Comment on above: Performed By: #### C BC, HCG, CP #### [address] [place] [phone] Mail Clerk: Iftikhar Mcgrath MD #### HIVCMB #### [address] [phone] Mail Clerk: Hernesto Hinton MD RBC (Bld) [#/Vol] 5.91 10*6/uL High 3.95-5.11 [facility] Comment on above: Performed By: #### C BC, HCG, CP #### [address] [place] [address] Mail Clerk: Iftikhar Mcgrath MD #### HIVCMB #### [address] [place], [place] [phone] Mail Clerk: Hernesto Hinton MD WBC (Bld) [#/Vol] 9.1 10*3/uL Normal 3.5-11.3 [facility] Comment on above: Performed By: #### C BC, HCG, CP #### [facility] [address] [place] [address] Mail Clerk: Iftikhar Mcgrath MD #### HIVCMB #### [facility] [address] [place] [address] Mail Clerk: Hernesto Hinton MD Erythrocyte distribution width (RBC) [Ratio] 14.3 % 11.8 - 14.4 % [place] Hematocrit (Bld) [Volume fraction] 49.2 % High 36.3 - 47.1 % [place] Hemoglobin (Bld) [Mass/Vol] 16.4 g/dL High 11.9 - 15.1 g/dL [place] Interpretation and review of laboratory results Abnormal [place] MCH (RBC) [Entitic mass] 27.7 pg 25.2 - 33.5 pg [place] MCHC (RBC) [Mass/Vol] 33.3 g/dL 28.4 - 34.8 g/dL [place] MCV (RBC) [Entitic vol] 83.2 fL 82.6 - 102.9 fL [place] Platelet mean volume (Bld) [Entitic vol] 10.8 fL 8.1 - 13.5 fL [place] Platelets (Bld) [#/Vol] 299 10*3/uL [place] RBC (Bld) [#/Vol] 5.91 10*6/uL High 3.95 - 5.1 1 m/uL [place] WBC (Bld) [#/Vol] 9.1 10*3/uL [place] WBC (Bld) [#/Vol] 0.0 10*3/uL 0.0 per 10 0 WBC [place] Comp Metabolic Profon 2019 (cont.) Normal [facility] Comment on above: Result Comment: Aver age GFR for 30-39 years old: 107 mL/min/1.73sq m Chronic Kidney Disease: <60 mL/min/1.73sq m Kidney failure: <15 mL/min/1.73sq m eGFR calculated using average adult body mass. Additional eGFR calculator available at: http://www.[employer]/multiple_crcl_2012.htm Performed By: #### C BC, HCG, CP #### [address] [place] [address] Mail Clerk: Iftikhar Mcgrath MD #### HIVCMB #### [phone] [place], [place] [phone] Mail Clerk: Hernesto Hinton MD Albumin [Mass/Vol] 5.0 g/dL Normal 3.5-5.2 [facility] Comment on above: Performed By: #### C BC, HCG, CP #### [address] [place] [address] Mail Clerk: Iftikhar Mcgrath MD #### HIVCMB #### [address] [place], [place] [phone] Mail Clerk: Hernesto Hinton MD Albumin/Globulin [Mass ratio] 1.4 {ratio} Normal 1.0-2.5 [facility] Comment on above: Performed By: #### C BC, HCG, CP #### [address] [place] [address] Mail Clerk: Iftikhar Mcgrath MD #### HIVCMB #### [address] [place], [place] [phone] Mail Clerk: Hernesto Hinton MD Alkaline Phos 68 U/L Normal 35-104 [facility] Comment on above: Performed By: #### C BC, HCG, CP #### [address] [place] [address] Mail Clerk: Iftikhar Mcgrath MD #### HIVCMB #### [address] [address] Mail Clerk: Hernesto Hinton MD ALT [Catalytic activity/Vol] 11 U/L Normal 5-33 [facility] Comment on above: Performed By: #### C BC, HCG, CP #### [facility] [address] [place], [place] [phone] Mail Clerk: Iftikhar Mcgrath MD #### HIVCMB #### [address] [address] Mail Clerk: Hernesto Hinton MD Anion gap [Moles/Vol] 17 mmol/L Normal 9-17 [facility] Comment on above: Performed By: #### C BC, HCG, CP #### [facility] [address] [place], [place] [phone] Mail Clerk: Iftikhar Mcgrath MD #### HIVCMB #### [address] [address] Mail Clerk: Hernesto Hinton MD AST [Catalytic activity/Vol] 11 U/L Normal <32 [facility] Comment on above: Performed By: #### C BC, HCG, CP #### [facility] [address] [place] [address] [place], [place] [phone] Mail Clerk: Iftikhar Mcgrath MD #### HIVCMB #### [address] [address] Mail Clerk: Hernesto Hinton MD Bilirubin Ql (U) 0.52 mg/dL Normal 0.3-1.2 [facility] Comment on above: Performed By: #### C BC, HCG, CP #### [facility] [address] [place] [address] [place], [place] [phone] Mail Clerk: Iftikhar Mcgrath MD #### HIVCMB #### [address] [address] Mail Clerk: Hernesto Hinton MD BUN/CRE Ratio 22 High 9-20 [facility] Comment on above: Performed By: #### C BC, HCG, CP #### [facility] [address] [place], [place] [phone] Mail Clerk: Iftikhar Mcgrath MD #### HIVCMB #### [address] [phone] Mail Clerk: Hernesto Hinton MD Calcium [Mass/Vol] 9.9 mg/dL Normal 8.6-10.4 [facility] Comment on above: Performed By: #### C BC, HCG, CP #### [facility] [address] [place], [place] 2344383 Mail Clerk: Iftikhar Mcgrath MD #### HIVCMB #### [address] [phone] Mail Clerk: Hernesto Hinton MD Chloride [Moles/Vol] 103 mmol/L Normal 98-107 [facility] Comment on above: Performed By: #### C BC, HCG, CP #### [address] [place], [place] [phone] Mail Clerk: Iftikhar Mcgrath MD #### HIVCMB #### [address] [address] Mail Clerk: Hernesto Hinton MD CO2 [Moles/Vol] 19 mmol/L Low 20-31 [facility] Comment on above: Performed By: #### C BC, HCG, CP #### [facility] [address] [place], [place] 0700183 Mail Clerk: Iftikhar Mcgrath MD #### HIVCMB #### [address] [address] Mail Clerk: Hernesto Hinton MD Creatinine [Mass/Vol] 1.43 mg/dL High 0.50-0.90 [facility] Comment on above: Performed By: #### C BC, HCG, CP #### [facility] [address] [place], [place] [phone] Mail Clerk: Iftikhar Mcgrath MD #### HIVCMB #### [address] [address] Mail Clerk: Hernesto Hinton MD GFR, Amer 52 mL/min Low >60 [facility] Comment on above: Performed By: #### C BC, HCG, CP #### [facility] [address] [place], [place] [phone] Mail Clerk: Iftikhar Mcgrath MD #### HIVCMB #### [address] [address] Mail Clerk: Hernesto Hinton MD GFR,non Amer 43 mL/min Low >60 [facility] Comment on above: Performed By: #### C BC, HCG, CP #### [facility] [address] [place], [place] 4449483 Mail Clerk: Iftikhar Mcgrath MD #### HIVCMB #### [address] [address] Mail Clerk: Hernesto Hinton MD Glucose [Mass/Vol] 159 mg/dL High 70-99 [facility] Comment on above: Performed By: #### C BC, HCG, CP #### [facility] [address] [place], [place] [phone] Mail Clerk: Iftikhar Mcgrath MD #### HIVCMB #### [address] [address] Mail Clerk: Hernesto Hinton MD Potassium [Moles/Vol] 3.5 mmol/L Low 3.7-5.3 [facility] Comment on above: Performed By: #### C BC, HCG, CP #### [facility] [address] [place], [place] [phone] Mail Clerk: Iftikhar Mcgrath MD #### HIVCMB #### [address] [place], [place] [phone] Mail Clerk: Hernesto Hinton MD Protein [Mass/Vol] 8.7 g/dL High 6.4-8.3 [facility] Comment on above: Performed By: #### C BC, HCG, CP #### [address] [place], [place] 8042383 Mail Clerk: Iftikhar Mcgrath MD #### HIVCMB #### [address] [phone] Mail Clerk: Hernesto Hinton MD Sodium [Moles/Vol] 139 mmol/L Normal 135-144 [facility] Comment on above: Performed By: #### C BC, HCG, CP #### [address] [place] [address] Mail Clerk: Iftikhar Mcgrath MD #### HIVCMB #### [address] [phone] Mail Clerk: Hernesto Hinton MD Staging: Normal [facility] Comment on above: Result Comment: Stag e 1: Some kidney damage normal GFR Stage 2: Mild kidney damage GFR 60-89 Stage 3: Moderate kidney damage GFR 30-59 Stage 4: Severe kidney damage GFR 15-29 Stage 5: Severe kidney damage GFR <15 ESRD - chronic treatment by dialysis or transplant Performed By: #### C BC, HCG, CP #### [address] [place], [place] [phone] Mail Clerk: Iftikhar Mcgrath MD #### HIVCMB #### [id number] [place], [place] 1235208 Mail Clerk: Hernesto Hinton MD Urea nitrogen [Mass/Vol] 31 mg/dL High 6-20 [facility] Comment on above: Performed By: #### C BC, HCG, CP #### [facility] [address] [place] [address] Mail Clerk: Iftikhar Mcgrath MD #### HIVCMB #### [facility] [address] [place], [place] [phone] Mail Clerk: Hernesto Hinton MD Comprehensive Metabolic Pane [facility] 03-08-2020 Albumin [Mass/Vol] 5 g/dL 3.5 - 5.2 g/dL [place] Albumin/Globulin [Mass ratio] 1.4 {ratio} [place] ALP [Catalytic activity/Vol] 68 U/L 35 - 104 U/L [place] ALT [Catalytic activity/Vol] 11 U/L 5 - 33 U/L [place] Anion gap [Moles/Vol] 17 mmol/L 9 - 17 mmol/L [place] AST [Catalytic activity/Vol] 11 U/L <32 [place] Bilirubin Ql (U) 0.52 mg/dL 0.3 - 1.2 mg/dL [place] Bun/Cre Ratio 22 High [place] Calcium [Mass/Vol] 9.9 mg/dL 8.6 - 10. 4 mg/dL [place] Chloride [Moles/Vol] 103 mmol/L 98 - 10 7 mmol/L [place] CO2 [Moles/Vol] 19 mmol/L Low 20 - 31 mmol/L [place] Creatinine [Mass/Vol] 1.43 mg/dL High 0.5 - 0.9 mg/dL [place] GFR 52 mL/min Low >60 [place] GFR Non- 43 mL/min Low >60 [place] Glucose [Mass/Vol] 159 mg/dL High 70 - 99 mg/dL [place] Interpretation and review of laboratory results Abnormal [place] Potassium [Moles/Vol] 3.5 mmol/L Low 3.7 - 5.3 mmol/L [place] Protein [Mass/Vol] 8.7 g/dL High 6.4 - 8.3 g/dL [place] Sodium [Moles/Vol] 139 mmol/L 135 - 144 mmol/L [place] Urea nitrogen [Mass/Vol] 31 mg/dL High 6 - 20 mg/dL [place] HCG Qualitative, Serumon hCG Qual Negative NEGATIVE [place] Comment on above: Specimens with hCG l evels near the threshold of the test (25 mIU/mL) may give a negative or indeterminate result. In such cases, another test should be performed with a new specimen in 48-72 hours. If early is suspected clinically in this setting, correlation with quantitative serum b-hCG level is suggested. [facility] has confirmed the use of plasma for this test. This has not been cleared or approved by the U.S. Food and Drug Administration. The FDA has determined that such clearance is not necessary. HCG Screen, Bloodon 03-08-20 20 HCG Qn Negative Normal NEG [facility] Comment on above: Result Comment: Spec imens with hCG levels near the threshold of the test (25 mIU/mL) may give a negative or indeterminate result. In such cases, another test should be performed with a new specimen in 48-72 hours. If early is suspected clinically in this setting, correlation with quantitative serum b-hCG level is suggested. [facility] has confirmed the use of plasma for this test. This has not been cleared or approved by the U.S. Food and Drug Administration. The FDA has determined that such clearance is not necessary. Performed By: #### C BC, HCG, CP #### [facility] [address] [place] [place] [address] Mail Clerk: Iftikhar Mcgrath MD #### HIVCMB #### [facility] [address] [place] [address] Mail Clerk: Hernesto Hinton MD HIV Ag/Abon 03-08-2020 HIV Ag/Ab NONREACTIVE Normal NR [facility] Comment on above: Result Comment: No l aboratory evidence of HIV infection. If acute HIV infection is suspected, consider testing for HIV-1 RNA. Performed By: #### C BC, HCG, CP #### [facility] [address] [place] [address] Mail Clerk: Iftikhar Mcgrath MD #### HIVCMB #### [facility] [address] [place], [place] [phone] Mail Clerk: Hernesto Hinton MD HIV Screenon 03-08-2020 HIV Ag/Ab NONREACTIVE NONREACTIVE [place] Comment on above: No laboratory eviden ce of HIV infection. If acute HIV infection is suspected, consider testing for HIV-1 RNA. Hepatitis Panel, Acuteon HAV IgM IA Qn (S) NONREACTIVE NONREACTIVE [place] Hep B Core Ab, IgM NONREACTIVE NONREACTIVE [place] Hepatitis B Surface Ag NONREACTIVE NONREACTIVE [place] Hepatitis C Ab REACTIVE Abnormal NONREACTIVE [place] Comment on above: The hepatitis C procedure used in our laboratory is a Chemiluminescent test specific for three recombinant HCV antigens. A negative anti-HCV result indicates that the antibodies to hepatitis C virus are not present at this time. Individuals with reactive anti-HCV should be considered infected and infectious until proven otherwise. Confirmation of all equivocal or reactive results is recommended by ordering HCV RNA by PCR. Results reported to the appropriate Health Department Interpretation and review of laboratory results Abnormal [place] Metabolic Panelon 03-08-2020 GFR/1.73 sq M predicted among non-blacks MDRD (S/P/Bld) [Vol rate/Area] [place] Comment on above: Stage 1: Some kidney damage normal GFR Stage 2: Mild kidney damage GFR 60-89 Stage 3: Moderate kidney damage GFR 30-59 Stage 4: Severe kidney damage GFR 15-29 Stage 5: Severe kidney damage GFR <15 ESRD - chronic treatment by dialysis or transplant Average GFR for 30-3 9 years old: 107 mL/min/1.73sq m Chronic Kidney Disease: <60 mL/min/1.73sq m Kidney failure: <15 mL/min/1.73sq m eGFR calculated using average adult body mass. Additional eGFR calculator available at: http://www.globalrph.com/multiple_crcl_2012.htm POC Urine Qualon 1 Beta HCG ( test) Ql (U) Negative Negative [facility], JANUSZ Beta HCG ( test) Ql (U) [id number] [facility], JANUSZ Negative QC Pass/Fail Pass Yanelis re[facility] [place], [place] Positive QC Pass/Fail Pass Yanelis re[facility] [place], [place] ED NOTEon 11-17-2019 ED NOTE HNO ID: [id number] Author: Beatris OrtizPcna) CYRUS Moya Service: ? Author Type: Patient Care Boiler/Chiller Technician Type: ED Notes Filed: 11/17/2019 8:23 PM Note Text: Two straight stick attempts missed Normal [facility] INR Coag (Bld) [Relative time] HNO ID: [id number] Author: Fam OrtizRn) SERGO Burr Service: ? Author Type: Registered Nurse Type: ED Notes Filed: 11/17/2019 6:51 PM Note Text: Pt here today for UTI, std exposure, pelvic pain for three weeks. 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 Pt has noticed increased vaginal discharge and odor for last week. Pt presents AOx3, warm dry skin, no signs of respiratory distress. Pt has no other complaints at this time. Normal [facility] ED PROV NOTEon 11-17-2019 ED PROV NOTE HNO ID: [id number] Author: Chalo Hall DO Service: Emergency Medicine Author Type: Physician Type: ED Provider Notes Filed: 11/17/2019 8:56 PM Note Text: ED Provider Note Patient Name: Elba Jo SERVICE DATE: 11/17/19 History Patient presents with: Pelvic Pain Std Exposure UTI HPI Patient is a 29-year-old female who presents the ED with concern of STD and UTI. The patient states that over the last few weeks she has had persistent vaginal discharge. It is clear and at times white. It feels similar to past episodes of Trichomonas. She states she is also concern for a UTI. She has had foul-smelling dark urine. She has also had urinary frequency. She has also had intermittent episodes of abdominal pain, however she is not having any pain right now. She denies any fevers, chills, nausea or vomiting. She is sexually active with 2 or 3 partners, does not consistently use condoms. PAST MEDICAL HISTORY Diagnosis Date - Anxiety and depression Social History Tobacco Use - Smoking status: Current Every Day Smoker Packs/day: 1.00 Years: 10.00 Pack years: 10.00 Types: Cigarettes - Smokeless tobacco: Never Used Substance and Sexual Activity - Alcohol use: No - Drug use: Not on file - Sexual activity: Not on file ALLERGIES No Known Allergies Review of Systems Constitutional: Negative for chills and fever. HENT: Negative for sore throat. Eyes: Negative for visual disturbance. Respiratory: Negative for cough and shortness of breath. Cardiovascular: Negative for chest pain and palpitations. Gastrointestinal: Positive for abdominal pain. Negative for nausea and vomiting. Genitourinary: Positive for dysuria, frequency and vaginal discharge. Negative for flank pain, vaginal bleeding and vaginal pain. Musculoskeletal: Negative for neck pain and neck stiffness. Skin: Negative for rash and wound. Neurological: Negative for weakness, numbness and headaches. Physical Exam BP 107/72 Pulse 96 Temp 98.6 Resp 16 Wt 145 lb (65.8kg) SpO2 97% LMP 11/03/2019 Physical Exam Vitals signs and nursing note reviewed. Constitutional: General: She is not in acute distress. Appearance: She is not diaphoretic. Eyes: Comments: No conjunctival pallor Neck: Musculoskeletal: Neck supple. Cardiovascular: Rate and Rhythm: Normal rate and regular rhythm. Heart sounds: Normal heart sounds. Pulmonary: Effort: Pulmonary effort is normal. No respiratory distress. Breath sounds: Normal breath sounds. No wheezing or rales. Abdominal: General: Bowel sounds are normal. There is no distension. Palpations: Abdomen is soft. Tenderness: There is no abdominal tenderness. There is no right CVA tenderness, left CVA tenderness or rebound. Genitourinary: Comments: Pelvic exam performed with SceneShot CT in room. No external lesions. Scant white vaginal discharge, no bleeding. No adnexal or CMT. No cervical erythema noted Skin: General: Skin is warm and dry. Neurological: Mental Status: She is alert and oriented to person, place, and time. Psychiatric: Behavior: Behavior normal. Diagnostic Testing ED Labs Ordered and Reviewed URINALYSIS WITH MICROSCOPIC (AK,AV,EU,FV,HL,LORY,MM,SP) - Abnormal; Notable for the following components: Result Value Ref Range Clarity Cloudy (*) Clear Ketones, Urine Trace (*) Negative Leukest 1+ (*) Negative Bacteria Present (*) 0 /HPF All other components within normal limits HCG URINE - ED(POC) - Normal HIV RAPID FOR ED USE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 /min [facility] [employer] 06-18-2022 11:16-0500 SaO2% (BldA) [Mass fraction] 96 % [facility] [employer] 06-18-2022 11:16-0500 Systolic blood pressure 124 mm[Hg] [facility] [employer] 12-01-2021 07:30-0400 Body temperature 98.6 [degF] PHYSICIAN [facility] 12-01-2021 07:30-0400 Diastolic blood pressure 51 mm[Hg] PHYSICIAN NO [facility] 12-01-2021 07:30-0400 Heart rate 77 /min PHYSICIAN NO [facility] 12-01-2021 07:30-0400 Respiratory rate 16 /min PHYSICIAN NO [facility] 12-01-2021 07:30-0400 SaO2% (BldA) [Mass fraction] 98 % PHYSICIAN NO [facility] 12-01-2021 07:30-0400 Systolic blood pressure 103 mm[Hg] PHYSICIAN NO [facility] 11-29-2021 14:13-0400 Body height 160.02 cm PHYSICIAN NO [facility] 11-29-2021 02:20-0400 Body mass index (BMI) [Ratio] 30.6 kg/m2 PHYSICIAN NO [facility] 11-29-2021 02:20-0400 Body weight 78.47 kg PHYSICIAN NO [facility] 11-28-2021 22:17-0400 Body height 160.02 cm PHYSICIAN NO [facility] 11-28-2021 22:17-0400 Body mass index (BMI) [Ratio] 31.8 kg/m2 PHYSICIAN NO [facility] 11-28-2021 22:17-0400 Body temperature 98.8 [degF] PHYSICIAN NO [facility] 11-28-2021 22:17-0400 Body weight 81.64 kg PHYSICIAN NO [facility] 11-28-2021 22:17-0400 Diastolic blood pressure 72 mm[Hg] PHYSICIAN NO [facility] 11-28-2021 22:17-0400 Heart rate 74 /min PHYSICIAN NO [facility] 11-28-2021 22:17-0400 Respiratory rate 18 /min PHYSICIAN NO [facility] 11-28-2021 22:17-0400 SaO2% (BldA) [Mass fraction] 100 % PHYSICIAN NO [facility] 11-28-2021 22:17-0400 Systolic blood pressure 118 mm[Hg] PHYSICIAN NO [facility] 09-03-2021 09:55-0400 Body temperature 97.5 [degF] Francisco Maldonado MD Work Phone: [facility] 09-03-2021 09:55-0400 Diastolic blood pressure 78 mm[Hg] Francisco Maldonado MD Work Phone: [facility] 09-03-2021 09:55-0400 Heart rate 84 /min Francisco Maldonado MD Work Phone: [facility] 09-03-2021 09:55-0400 Respiratory rate 16 /min Francisco Maldonado MD Work Phone: [facility] 09-03-2021 09:55-0400 SaO2% (BldA) [Mass fraction] 98 % Francisco Maldonado MD Work Phone: [facility] 09-03-2021 09:55-0400 Systolic blood pressure 119 mm[Hg] Francisco Maldonado MD Work Phone: [facility] 07-30-2021 03:38-0500 Body temperature 98.29 [degF] Francisco Maldonado MD Work Phone: [facility] 07-30-2021 03:38-0500 Diastolic blood pressure 61 mm[Hg] Francisco Maldonado MD Work Phone: [facility] 07-30-2021 03:38-0500 Heart rate 69 /min Francisco Maldonado MD Work Phone: [facility] 07-30-2021 03:38-0500 Respiratory rate 16 /min Francisco Maldonado MD Work Phone: [facility] 07-30-2021 03:38-0500 SaO2% (BldA) [Mass fraction] 98 % Francisco Maldonado MD Work Phone: [facility] 07-30-2021 03:38-0500 Systolic blood pressure 115 mm[Hg] Francisco Maldonado MD Work Phone: [facility] 06-19-2021 16:22-0500 Body temperature 98.4 [degF] Francisco Maldonado MD Work Phone: [facility] 06-19-2021 16:22-0500 Diastolic blood pressure 75 mm[Hg] Francisco Maldonado MD Work Phone: [facility] 06-19-2021 16:22-0500 Heart rate 88 /min Francisco Maldonado MD Work Phone: [facility] 06-19-2021 16:22-0500 Respiratory rate 16 /min Francisco Maldonado MD Work Phone: [facility] 06-19-2021 16:22-0500 SaO2% (BldA) [Mass fraction] 98 % Francisco Maldonado MD Work Phone: [employer] 06-19-2021 16:22-0500 Systolic blood pressure 127 mm[Hg] Francisco Maldonado MD Work Phone: [employer] [facility] 05-23-2021 11:17-0500 Body height 160 cm Ender Collins STRAIGHT KNIFE CUTTER MACHINE-AGER TENDER Work Phone: [employer] [facility] 05-23-2021 11:17-0500 Body mass index (BMI) [Ratio] 32.45 kg/m2 Ender Collins STRAIGHT KNIFE CUTTER MACHINE-AGER TENDER Work Phone: [employer] 05-23-2021 11:17-0500 Body temperature 96.8 [degF] Ender Dennis STRAIGHT KNIFE CUTTER MACHINE-AGER TENDER Work Phone: [employer] 05-23-2021 11:17-0500 Body weight 83.1 kg Ender Dennis STRAIGHT KNIFE CUTTER MACHINE-AGER TENDER Work Phone: [employer] 05-23-2021 11:17-0500 Diastolic blood pressure 62 mm[Hg] Ender Dennis STRAIGHT KNIFE CUTTER MACHINE-AGER TENDER Work Phone: [employer] 05-23-2021 11:17-0500 Heart rate 98 /min Ender Collins STRAIGHT KNIFE CUTTER MACHINE-AGER TENDER Work Phone: [employer] 05-23-2021 11:17-0500 SaO2% (BldA) [Mass fraction] 98 % Ender Collins STRAIGHT KNIFE CUTTER MACHINE-AGER TENDER Work Phone: [employer] 05-23-2021 11:17-0500 Systolic blood pressure 116 mm[Hg] Ender Collins STRAIGHT KNIFE CUTTER MACHINE-AGER TENDER Work Phone: [employer] 05-14-2021 01:59-0500 Body temperature 98.1 [degF] Vishal Pay DO Work Phone: [employer] 05-14-2021 01:59-0500 Diastolic blood pressure 61 mm[Hg] Vishal Pay DO Work Phone: [facility] 05-14-2021 01:59-0500 Heart rate 77 /min Vishal Pay DO Work Phone: [facility] 05-14-2021 01:59-0500 Respiratory rate 18 /min Vishal Pay DO Work Phone: [facility] 05-14-2021 01:59-0500 SaO2% (BldA) [Mass fraction] 97 % Vishal Pay DO Work Phone: [facility] 05-14-2021 01:59-0500 Systolic blood pressure 125 mm[Hg] Vishal Pay DO Work Phone: [facility] 04-28-2021 20:53-0500 Diastolic blood pressure 66 mm[Hg] Indra Diaz MD Work Phone: 2(921)537-390444 [place] [address] 04-28-2021 20:53-0500 Heart rate 84 /min Indra Diaz MD Work Phone: 1(738)505-382444 [place] [address] 04-28-2021 20:53-0500 Respiratory rate 16 /min Indra Diaz MD Work Phone: 3(135)906-088244 [place] [address] 04-28-2021 20:53-0500 SaO2% (BldA) [Mass fraction] 100 % Indra Diaz MD Work Phone: 2(973)272-888544 [place] [address] 04-28-2021 20:53-0500 Systolic blood pressure 125 mm[Hg] Indra Diaz MD Work Phone: 1(052)926-172144 [place] [address] 04-28-2021 18:39-0500 Body height 160 cm Indra Diaz MD Work Phone: 8(774)368-376744 [place] [address] 04-28-2021 18:39-0500 Body mass index (BMI) [Ratio] 31 kg/m2 Indra Diaz MD Work Phone: 0(947)297-368377 [place] [address] 04-28-2021 18:39-0500 Body weight 79.38 kg Indra Diaz MD Work Phone: 1(527)009-664877 [place] [address] 04-28-2021 18:38-0500 Body temperature 97.7 [degF] Indra Diaz MD Work Phone: [facility] [employer] [facility] 01-04-2021 15:16-0400 Body height 160 cm Ender Collins APRN-AGER TENDER Work Phone: [employer] [facility] 01-04-2021 15:16-0400 Body mass index (BMI) [Ratio] 30.26 kg/m2 Ender Collins APRN-AGER TENDER Work Phone: [employer] [facility] 01-04-2021 15:16-0400 Body temperature 98.4 [degF] Ender Collins APRN-AGER TENDER Work Phone: [employer] [facility] 01-04-2021 15:16-0400 Body weight 77.47 kg Ender Collins APRN-AGER TENDER Work Phone: [employer] [facility] 01-04-2021 15:16-0400 Diastolic blood pressure 78 mm[Hg] Ender Dennis TUCKERN-AGER TENDER Work Phone: [employer] [facility] 01-04-2021 15:16-0400 Heart rate 85 /min Ender Collins APRN-AGER TENDER Work Phone: [employer] [facility] 01-04-2021 15:16-0400 SaO2% (BldA) [Mass fraction] 99 % Ender Collins APRN-AGER TENDER Work Phone: [employer] [facility] 01-04-2021 15:16-0400 Systolic blood pressure 112 mm[Hg] Ender Dennis STRAIGHT KNIFE CUTTER MACHINE-AGER TENDER Work Phone: [employer] [facility] 12-06-2020 17:10-0400 Body height 160 cm Drake Calloway DO Work Phone: [facility] 12-06-2020 17:08-0400 Body temperature 97.7 [degF] Drake Calloway DO Work Phone: [facility] 12-06-2020 17:08-0400 Diastolic blood pressure 66 mm[Hg] Drake Calloway DO Work Phone: [facility] 12-06-2020 17:08-0400 Heart rate 74 /min Drake Calloway DO Work Phone: [facility] 12-06-2020 17:08-0400 Respiratory rate 16 /min Drake Calloway DO Work Phone: [facility] 12-06-2020 17:08-0400 SaO2% (BldA) [Mass fraction] 99 % Drake Calloway DO Work Phone: [facility] 12-06-2020 17:08-0400 Systolic blood pressure 124 mm[Hg] Drake Calloway DO Work Phone: [facility] 11-30-2020 13:22-0400 Body height 160 cm Ender Collins APRN-AGER TENDER Work Phone: [facility] 11-30-2020 13:22-0400 Body mass index (BMI) [Ratio] 30.68 kg/m2 Ender Collins STRAIGHT KNIFE CUTTER MACHINE-AGER TENDER Work Phone: [facility] 11-30-2020 13:22-0400 Body temperature 97.5 [degF] Ender Collins STRAIGHT KNIFE CUTTER MACHINE-AGER TENDER Work Phone: [facility] 11-30-2020 13:22-0400 Body weight 78.56 kg Ender Collins STRAIGHT KNIFE CUTTER MACHINE-AGER TENDER Work Phone: [facility] 11-30-2020 13:22-0400 Diastolic blood pressure 68 mm[Hg] Ender Collins APRN-AGER TENDER Work Phone: [facility] 11-30-2020 13:22-0400 Heart rate 78 /min Ender Collins STRAIGHT KNIFE CUTTER MACHINE-AGER TENDER Work Phone: [facility] 11-30-2020 13:22-0400 SaO2% (BldA) [Mass fraction] 99 % Ender Collins STRAIGHT KNIFE CUTTER MACHINE-AGER TENDER Work Phone: [facility] 11-30-2020 13:22-0400 Systolic blood pressure 106 mm[Hg] Ender Collins STRAIGHT KNIFE CUTTER MACHINE-AGER TENDER Work Phone: [facility] [employer] [facility] 11-08-2020 23:17-0400 Diastolic blood pressure 56 mm[Hg] Ting Mott MD Work Phone: [facility] 11-08-2020 23:17-0400 Heart rate 69 /min Ting Mott MD Work Phone: [facility] 11-08-2020 23:17-0400 Respiratory rate 17 /min Ting Mott MD Work Phone: [facility] 11-08-2020 23:17-0400 SaO2% (BldA) [Mass fraction] 98 % Ting Mott MD Work Phone: [facility] 11-08-2020 23:17-0400 Systolic blood pressure 115 mm[Hg] Ting Mott MD Work Phone: [facility] 11-08-2020 21:25-0400 Body temperature 98.1 [degF] Ting Mott MD Work Phone: [facility] 10-05-2020 09:54-0400 Body height 160 cm Ender Collins STRAIGHT KNIFE CUTTER MACHINE-AGER TENDER Work Phone: [facility] 10-05-2020 09:54-0400 Body mass index (BMI) [Ratio] 31.18 kg/m2 Ender Collins STRAIGHT KNIFE CUTTER MACHINE-AGER TENDER Work Phone: [facility] 10-05-2020 09:54-0400 Body temperature 96.6 [degF] Ender Collins APRN-AGER TENDER Work Phone: [facility] 10-05-2020 09:54-0400 Body weight 79.83 kg Ender Collins STRAIGHT KNIFE CUTTER MACHINE-AGER TENDER [facility] 10-05-2020 09:54-0400 Diastolic blood pressure 64 mm[Hg] Ender Collins STRAIGHT KNIFE CUTTER MACHINE-AGER TENDER Work Phone: [facility] 10-05-2020 09:54-0400 Systolic blood pressure 106 mm[Hg] Ender Collins STRAIGHT KNIFE CUTTER MACHINE-AGER TENDER Work Phone: [facility] 08-17-2020 14:27-0400 BMI (Body Mass Index) 31.28 kg/m2 [facility] 08-17-2020 14:27-0400 Body Temperature 97.9 [degF] [facility] 08-17-2020 14:27-0400 Body weight 80.[address] [facility] 08-17-2020 14:27-0400 BP Diastolic 70 mm[Hg] [facility] 08-17-2020 14:27-0400 BP Systolic 106 mm[Hg] [facility] 08-17-2020 14:270400 Height [address] [facility] 08-17-2020 14:27-0400 Pulse (Heart Rate) 92 /min [facility] 08-17-2020 14:27-0400 Pulse Oximetry 99 % [facility] 07-21-2020 12:09-0500 Body temperature [facility] Comment on above: temperature is 96, collection was not wi tnessed 07-21-2020 11:27-0500 BMI (Body Mass Index) 29.58 kg/m2 [facility] 07-21-2020 11:27-0500 Body Temperature 97.9 [degF] [facility] 07-21-2020 11:27-0500 Body weight 75.[address] [facility] 07-21-2020 11:27-0500 BP Diastolic 62 mm[Hg] [facility] 07-21-2020 11:27-0500 BP Systolic 114 mm[Hg] [facility] 07-21-2020 11:27-0500 Height [address] [facility] 07-21-2020 11:27-0500 Pulse (Heart Rate) 94 /min [facility] 07-21-2020 11:27-0500 Pulse Oximetry 99 % [facility] 06-20-2020 14:01-0500 BMI (Body Mass Index) 29.44 kg/m2 [facility] 06-20-2020 14:01-0500 Body Temperature 98.01 [degF] [facility] 06-20-2020 14:01-0500 Body weight 75.[address] [facility] 06-20-2020 14:01-0500 BP Diastolic 62 mm[Hg] [facility] 06-20-2020 14:01-0500 BP Systolic 116 mm[Hg] [facility] 06-20-2020 14:01-0500 Height [address] [facility] 06-20-2020 14:01-0500 Pulse (Heart Rate) 78 /min [facility] 06-20-2020 14:01-0500 Pulse Oximetry 98 % [facility] 06-14-2020 13:43-0500 BMI (Body Mass Index) 29.8 kg/m2 [facility] 06-14-2020 13:43-0500 Body Temperature 98.29 [degF] [facility] 06-14-2020 13:43-0500 Body weight 76.[address] [facility] 06-14-2020 13:43-0500 BP Diastolic 62 mm[Hg] [facility] 06-14-2020 13:43-0500 BP Systolic 99 mm[Hg] [facility] 06-14-2020 13:43-0500 Height [address] [facility] 06-14-2020 13:43-0500 Pulse (Heart Rate) 92 /min [facility] 06-14-2020 13:43-0500 Pulse Oximetry 98 % [facility] 05-23-2020 14:00-0500 BMI (Body Mass Index) 28.46 kg/m2 [facility] 05-23-2020 14:00-0500 Body Temperature 98.1 [degF] [facility] 05-23-2020 14:00-0500 Body weight 74.[address] [facility] 05-23-2020 14:00-0500 BP Diastolic 58 mm[Hg] [facility] 05-23-2020 14:00-0500 BP Systolic 140 mm[Hg] [facility] 05-23-2020 14:00-0500 Height 161.[address] [facility] 05-23-2020 14:00-0500 Pulse (Heart Rate) 90 /min [facility] 05-23-2020 14:00-0500 Pulse Oximetry 99 % [facility] 03-07-2020 11:52-0400 BP Diastolic 62 mm[Hg] [facility] [place] 03-07-2020 11:52-0400 BP Systolic 118 mm[Hg] [place] 03-07-2020 11:52-0400 Pulse (Heart Rate) 71 /min [place] 03-07-2020 11:52-0400 Pulse Oximetry 100 % [place] 03-07-2020 11:52-0400 Respiratory Rate 18 /min [facility] [employer] [place] 03-07-2020 09:39-0400 BMI (Body Mass Index) 26.57 kg/m2 [facility] [place] 03-07-2020 09:39-0400 Body Temperature 97.5 [degF] [facility] [employer] [place] 03-07-2020 09:39-0400 Body weight 68.04 kg [place] 03-07-2020 09:39-0400 Height 160 cm [place] Encounters Encounter Date Encounter Type Care Provider Facility Start: 07-15-2024 End: 07-15-2024 Emergency department patient visit Bernadette Ramirez [facility] Start: 07-10-2024 End: 07-10-2024 Emergency department patient visit Luis Eduardo Goss [facility] Start: 03-01-2024 End: 03-01-2024 ambulatory [facility] Facility:[facility] Start: 12-08-2023 End: 12-08-2023 ambulatory Wilberto Gonzalez Facility:[facility] Start: 12-08-2023 End: 12-08-2023 Patient encounter procedure Wilberto Gonzalez [facility] Start: 11-24-2023 End: 11-24-2023 Emergency department patient visit Ting Kennedy [facility] Start: 11-07-2023 End: 11-07-2023 ambulatory RANI FIELD Facility:[facility] Start: 11-07-2023 End: 11-07-2023 Patient encounter procedure RANI FIELD [facility] Start: 10-15-2023 End: 10-16-2023 ambulatory Sydnie X Orzech Facility:[facility] Start: 10-15-2023 End: 10-15-2023 Patient encounter procedure Sydnie X Orzech [facility] Start: 10-13-2023 End: 10-14-2023 ambulatory MIKE HUITRON Facility:[facility] Start: 10-13-2023 End: 10-13-2023 Lab Drop off MIKE HUITRON [facility] Start: 10-13-2023 End: 10-13-2023 Patient encounter procedure MIKE REAVESTIZ [facility] Start: 10-13-2023 End: 10-14-2023 ambulatory Vishal PEDERSON Facility:[facility] Start: 07-03-2023 End: 07-04-2023 ambulatory RANI FIELD Facility:[facility] Start: 07-03-2023 End: 07-03-2023 Patient encounter procedure RANI FIELD [facility] Start: 07-02-2023 End: 07-03-2023 Emergency department patient visit Driss Wright Facility:[facility] Start: 05-07-2023 End: 05-08-2023 ambulatory RANI FIELD Facility:[facility] Start: 04-17-2023 ambulatory Analisa NIA VIKAS [facility] Start: 03-09-2023 End: 03-11-2023 ambulatory Baljinder Espino Facility:[facility] Start: 03-09-2023 End: 03-11-2023 Evaluation and management of inpatient PHYSICIAN CLEMENTINE KNUTSON [facility] Work Phone: Start: 03-08-2023 End: 03-09-2023 Emergency department patient visit Aravind Dot Arnold Facility:[facility] Start: 03-08-2023 ambulatory Gordon Negrete acility:[facility] Start: 01-17-2023 End: 01-18-2023 ambulatory OBEY She[facility] Start: 01-14-2023 End: 01-15-2023 ambulatory OBEY Sheehan [facility] Start: 01-14-2023 End: 01-14-2023 Subsequent hospital visit by physician Obey Carl STRAIGHT KNIFE CUTTER MACHINE - AGER TENDER Work Phone: [facility] Start: 11-07-2022 End: 11-07-2022 Emergency department patient visit NONE NONE [facility] Start: 11-07-2022 End: 11-07-2022 Emergency department patient visit NONE NONE [facility] ED Comment on above: Nausea and vomiting, unspecified vomiting type (Primary Dx) Start: 11-07-2022 End: 11-07-2022 Emergency department patient visit None None [facility] ED Comment on above: Insect bite of neck, initial encounter (Primary Dx); Concern about STD in female without diagnosis Start: 06-18-2022 End: 06-18-2022 Emergency department patient visit NONE NONE [facility] Start: 06-18-2022 End: 01-17-2023 Emergency department patient visit [facility] ED Comment on above: Right wrist pain (Pr imary Dx); Ganglion cyst of joint of finger of right hand Start: 11-29-2021 End: 12-01-2021 Evaluation and management of inpatient PHYSICIAN [facility] Start: 09-03-2021 End: 09-03-2021 Emergency department patient visit Francisco Maldonado MD Work Phone: [facility] Start: 07-30-2021 End: 07-30-2021 Emergency department patient visit Francisco Maldonado MD Work Phone: [facility] Start: 06-19-2021 End: 06-19-2021 Emergency department patient visit Francisco Maldonado MD Work Phone: [facility] Start: 05-23-2021 End: 05-23-2021 Office outpatient visit 15 minutes Ender Collins STRAIGHT KNIFE CUTTER MACHINE-AGER TENDER Work Phone: [facility] Comment on above: Laceration of left t humb without foreign body without damage to nail, subsequent encounter (Primary Dx) Start: 05-14-2021 End: 05-14-2021 Emergency department patient visit Vishal Leon DO Work Phone: [facility] Start: 04-28-2021 End: 04-28-2021 Emergency department patient visit Indra Diaz MD Work Phone: [facility] Start: 01-04-2021 End: 01-04-2021 Office outpatient visit 15 minutes Ender Collins STRAIGHT KNIFE CUTTER MACHINE-AGER TENDER Work Phone: [facility] Comment on above: Opioid dependence in remission (Primary Dx) Start: 12-06-2020 End: 12-06-2020 Emergency department patient visit Drake Calloway DO Work Phone: [facility] Start: 11-30-2020 End: 11-30-2020 Office outpatient visit 15 minutes Ender Collins STRAIGHT KNIFE CUTTER MACHINE-AGER TENDER Work Phone: [facility] Comment on above: Opioid dependence in remission (Primary Dx) Start: 11-08-2020 End: 11-08-2020 Emergency department patient visit Ting Mott MD Work Phone: [facility] Start: 10-05-2020 End: 10-05-2020 Office outpatient visit 15 minutes Ender Collins STRAIGHT KNIFE CUTTER MACHINE-AGER TENDER Work Phone: [facility] Comment on above: Opioid dependence in remission (Primary Dx) Start: 08-17-2020 End: 08-17-2020 Office outpatient visit 15 minutes Ender Collins Work Phone: [facility] Comment on above: Opioid dependence in remission (Primary Dx); Encounter for well woman exam with routine gynecological exam Start: 07-21-2020 End: 07-21-2020 Office outpatient visit 15 minutes Ender Collins Work Phone: [facility] Comment on above: Opioid dependence in remission (Primary Dx) Start: 06-20-2020 End: 06-20-2020 Office outpatient visit 15 minutes Ender Collins Work Phone: [facility] Comment on above: Opioid dependence in remission (Primary Dx); Chronic hepatitis C with hepatic coma Start: 06-14-2020 End: 06-14-2020 Office outpatient visit 25 minutes Ender Collins Work Phone: [facility] Comment on above: Insomnia, unspecifie d type (Primary Dx); Hx of intravenous drug use in remission; High risk heterosexual behavior; Chronic hepatitis C with hepatic coma Start: 05-23-2020 End: 05-23-2020 Office outpatient new 30 minutes Ender Collins Work Phone: [facility] Comment on above: Encounter for medica l examination to establish care (Primary Dx); Opioid dependence in remission Start: 03-17-2020 End: 03-18-2020 Patient encounter procedure [facility] Start: 03-17-2020 End: 03-17-2020 Subsequent hospital visit by physician [facility] Start: 03-16-2020 End: 03-17-2020 Patient encounter procedure [facility] Start: 03-16-2020 End: 03-16-2020 Subsequent hospital visit by physician [facility] Start: 03-15-2020 End: 03-16-2020 Patient encounter procedure [facility] Start: 03-15-2020 End: 03-15-2020 [facility] Start: 03-08-2020 End: 03-09-2020 Patient encounter procedure [facility] Start: 03-08-2020 End: 03-08-2020 Subsequent [facility] Start: 03-07-2020 End: 03-07-2020 Emergency department patient visit [facility] ED Comment on above: Heroin withdrawal (H CC) (Primary Dx) Start: 10-08-2017 End: 10-08-2017 Emergency department patient visit TING BRANTLEY Facility:[id number] Start: 02-26-2017 End: 02-26-2017 Emergency department patient visit [facility] Procedures Date Procedure Procedure Detail Performing Clinician Start: 11-07-2022 Iadna trichomonas va ginalis amplified probe tech Nati Ochoa STRAIGHT KNIFE CUTTER MACHINE [employer] Work Phone: Start: 11-07-2022 End: 11-07-2022 Urine test visual color cmprsn methandre Ochoa STRAIGHT KNIFE CUTTER MACHINE [employer] Work Phone: Start: 11-07-2022 Microscopic observat ion [Identifier] in Cervix by Cyto stain None None Start: 06-18-2022 Radex wrist complete minimum 3 views Josefina Lafleur PA-C Work Phone: Start: 12-01-2021 SARS Antigen (LFIA) PHY SICIAN NO FAMILY Start: 11-29-2021 SARS Antigen (LFIA) PHY SICIAN NO FAMILY Start: 11-28-2021 Urine culture PHYSICIAN NO FAMILY Start: 09-03-2021 Us transvaginal Francisco Maldonado MD Work Phone: Start: 09-03-2021 Gonadotropin chorion ic qualitative Francisco Maldonado MD Work Phone: Start: 09-03-2021 Urinalysis microscopic only Francisco Maldonado MD Work Phone: Start: 09-03-2021 Urinalysis, reagent strip without microscopy Francisco Maldonado MD Work Phone: Start: 07-30-2021 Iadna nos amplified probe tq each organism Francisco Maldonado MD Work Phone: Start: 07-30-2021 Quantitative PCR analysis Francisco Maldonado MD Work Phone: Start: 04-28-2021 Radiologic exam ches t single view Indra Diaz MD Work Phone: Start: 04-28-2021 Urinalysis microscopic only Indra Diaz MD Work Phone: Start: 04-28-2021 Urinalysis, reagent strip without microscopy Indra Diaz MD Work Phone: Start: 01-04-2021 Drug test prsmv read direct optical obs pr date Ender Collins STRAIGHT KNIFE CUTTER MACHINE-AGER TENDER Work Phone: Start: 12-06-2020 Radex hand minimum 3 views Drake Calloway DO Work Phone: Start: 11-30-2020 Drug test prsmv read direct optical obs pr date Ender Collins STRAIGHT KNIFE CUTTER MACHINE-AGER TENDER Work Phone: Start: 11-08-2020 Ct abdomen & pelvis w/contrast material Ting Mott MD Work Phone: Start: 11-08-2020 Complete blood count with white cell differential, automated Ting Mott MD Work Phone: Start: 11-08-2020 End: 11-08-2020 Comprehensive metabolic panel Ting Mott MD Work Phone: Start: 11-08-2020 Urinalysis microscopic only Ting Mott MD Work Phone: Start: 11-08-2020 Urinalysis, reagent strip without microscopy Ting Mott MD Work Phone: Start: 10-05-2020 Drug test prsmv read direct optical obs pr date Ender Collins STRAIGHT KNIFE CUTTER MACHINE-AGER TENDER Work Phone: Start: 08-17-2020 Drug test prsmv read direct optical obs pr date Ender Collins Work Phone: Start: 07-21-2020 Drug test prsmv read direct optical obs pr date Ender Collins Work Phone: Start: 06-20-2020 Drug test prsmv read direct optical obs pr date Ender Collins Work Phone: Start: 03-17-2020 Basic metabolic pane l calcium total OBEY MESERET Start: 03-17-2020 Hemoglobin glycosylated a1c OBEY MESERET Start: 03-17-2020 Iadna hepatitis c qu ant & reverse classifier operator OBEY MESERET Start: 03-17-2020 Basic metabolic pane l calcium total Obey Meseret Work Phone: Start: 03-17-2020 Hemoglobin glycosylated a1c Obey Meseret Work Phone: Start: 03-08-2020 Acute hepatitis panel E RNEST MESERET Start: 03-08-2020 Antibody hiv-1&hiv-2 single result OBEY MESERET Start: 03-08-2020 Blood count complete automated OBEY MESERET Start: 03-08-2020 Comprehensive metabo lic panel OBEY MESERET Start: 03-08-2020 Gonadotropin chorion ic qualitative OBEY MESERET Start: 03-08-2020 Acute hepatitis panel E rnest Meseret Work Phone: Start: 03-08-2020 Antibody hiv-1&hiv-2 single result Obey Meseret Work Phone: Start: 03-08-2020 Blood count complete automated Obey Meseret Work Phone: Start: 03-08-2020 Comprehensive metabo lic panel Obey Meseret Work Phone: Start: 03-08-2020 Gonadotropin chorion ic qualitative Obey Meseret Work Phone: Start: 03-07-2020 Urine test visual color cmprsn meths Eusebia Hoffmann Kota Work Phone: Start: 05-25-2013 Microscopic observat ion [Identifier] in Cervix by Cyto stain Plan of Treatment Date Care Activity Detail Author Start: 11-07-2025 Screening for malign ant neoplasm of cervix [facility] Start: 03-11-2023 [facility] Start: 03-09-2023 Referral to Channel Executive [facility] Start: 03-09-2023 Hospital admission [facility] Start: 12-31-2022 Influenza vaccination B ON [facility] Start: 01-31-2022 Influenza vaccination INFLUENZ A VACCINE (Season Ended) [facility] Start: 12-31-2021 Influenza vaccination Flu vaccine (# 1) [facility]ON [facility] Start: 11-28-2021 Bacteria identified in Urine by Culture Urine Culture [facility] Start: 02-20-2021 End: 02-20-2021 Patient encounter procedure 02/20/2021 Office Visit JEWELRY DRILL OPERATOR Aurea Chao, [address] [address] [facility] JEWELRY DRILL OPERATOR CLOTHIER Start: 02-01-2021 End: 02-01-2021 Patient encounter procedure 02/01/2021 Office Visit Family Medicine Ender Collins, STRAIGHT KNIFE CUTTER MACHINE-AGER TENDER [address] [place] [address] [facility] Start: 01-31-2021 Influenza vaccination A [facility] Start: 12-28-2020 End: 12-28-2020 Patient encounter procedure 12/28/2020 Office Visit Family Medicine Ender Collins, STRAIGHT KNIFE CUTTER MACHINE-AGER TENDER [address] [place] [address] [phone] [facility] Start: 11-30-2020 End: 11-30-2020 Patient encounter procedure 11/30/2020 Office Visit Family Ender James STRAIGHT KNIFE CUTTER MACHINE-AGER TENDER [address] [place] [address] [phone] [facility] Start: 11-02-2020 End: 11-02-2020 Patient encounter procedure 11/02/2020 Office Visit Family Ender James STRAIGHT KNIFE CUTTER MACHINE-AGER TENDER [address] [place] [address] [phone] [facility] Start: 08-17-2020 End: 08-17-2020 Office Visit 08/17/2020 Office Visit Family Medicine Ender Collins, STRAIGHT KNIFE CUTTER MACHINE-AGER TENDER [address] [place] [address] [phone] [facility] Start: 07-18-2020 End: 07-18-2020 Office Visit 07/18/2020 Office Visit Family Medicine Ender Collins, STRAIGHT KNIFE CUTTER MACHINE-AGER TENDER [address] [place] [address] [phone] [facility] Start: 06-20-2020 End: 06-20-2020 Office Visit 06/20/2020 Office Visit Family Medicine Ender Collins, STRAIGHT KNIFE CUTTER MACHINE-AGER TENDER [address] [place] [address] [phone] [facility] Start: 06-14-2020 End: 06-14-2020 Office Visit 06/14/2020 Office Visit Family Medicine Ender Collins, STRAIGHT KNIFE CUTTER MACHINE-AGER TENDER [address] [place] [address] [phone] [facility] Start: 02-01-2020 Influenza vaccination [place], [place] Start: 2018 Screening for malign ant neoplasm of cervix [facility] Start: 05-25-2016 Screening for malign ant neoplasm of cervix [facility] Start: 2009 Screening for malign ant neoplasm of cervix [facility] Start: 2007 DTaP/Tdap/Td vaccine (1 - Tdap) DTaP/Tdap/Td vaccine (1 - Tdap) [facility] Start: 2007 DTaP/Tdap/Td vaccine (2 - Tdap) DTaP/Tdap/Td vaccine (2 - Tdap) [facility] Start: 2007 Third diphtheria, tetanus and acellular pertussis (DTaP) vaccination TDAP (ADULT) [facility] Start: 2006 Tetanus vaccination TETANUS [facility] Start: 2004 COVID-19 VACCINE (1) COVID-19 VACCIN E (1) [facility] Start: 2001 HIV screening HIV SCREENING DISCUSSION [facility] Start: 2000 COVID-19 VACCINE (1) COVID-19 VACCIN E (1) [facility] Start: 2000 Depression Screen Depression Screen [facility] Start: 1994 PNEUMOCOCCAL VACCINE SERIES (1 of 2 - PPSV23) PNEUMOCOCCAL VACCINE SERIES (1 of 2 - PPSV23) [facility] Start: 1993 COVID-19 VACCINE (1) COVID-19 VACCIN E (1) [facility] Start: 1989 Varicella vaccine (1 of 2 - 2-dose childhood series) Varicella vaccine (1 of 2 - 2-dose childhood series) [facility] Start: 1988 COVID-19 Vaccine (#1) COVID-19 Vacci ne (#1) [facility] Start: 1988 Hepatitis C antibody , confirmatory test HEPATITIS C VIRUS SCREENING [facility] Bacteria identified in Urine by Culture [facility] Work Phone: End: 11-07-2022 C.trachomatis N.gonorrhoeae DNA, Urine C.trachomatis N.gonorrhoeae DNA, Urine Microbiology Routine One Time for 1 Occurrences starting 11/07/2022 until 11/07/2022 [facility] Work Phone: Comment on above: One Time for 1 Occur rences starting 11/07/2022 until 11/07/2022 End: 01-14-2023 CBC panel - Blood by Automated count [facility] [employer] Phone: Comment on above: Once for 1 Occurrenc es starting 01/14/2023 until 01/14/2023 CHLAMYDIA/GONOCOCCUS , KAY CHLAMYDIA/GONOCOCCUS, KAY Microbiology STAT 04/28/2021 6:55 PM EST [facility] End: 01-14-2023 Comprehensive metabolic 2000 panel - Serum or Plasma [facility] Comment on above: Once for 1 Occurrenc es starting 01/14/2023 until 01/14/2023 HCG ( test) Ql (U) POCT URINE Point of Care Testing Routine Opioid dependence in remission Ordered: 05/23/2020 [facility] Comment on above: Ordered: 05/23/2020 End: 01-14-2023 HCG Qualitative, Serum [facility] Comment on above: Once for 1 Occurrenc es starting 01/14/2023 until 01/14/2023 HCV RNA KAY+probe DL = 5 iU/mL Qn HEPATITIS C BY PCR, QUANT Lab Routine Hx of intravenous drug use in remission High risk heterosexual behavior Chronic hepatitis C with hepatic coma 06/14/2020 2:31 PM [facility] HEPATITIS A, B, C HEPATITIS A, B , C Lab Routine Hx of intravenous drug use in remission High risk heterosexual behavior 06/14/2020 2:31 PM [facility] End: 03-17-2020 Hepatitis C RNA, quantitative, PCR Hepatitis C RNA, quantitative, PCR Lab Routine Once for 1 Occurrences starting 03/17/2020 until 03/17/2020 [place] Comment on above: Once for 1 Occurrenc es starting 03/17/2020 until 03/17/2020 Hepatitis C RNA, quantitative, PCR Hepatitis C RNA, quantitative, PCR Lab Routine 03/17/2020 8:30 AM EDT [place], [place] End: 01-14-2023 Hepatitis Panel, Acute [facility] Comment on above: Once for 1 Occurrenc es starting 01/14/2023 until 01/14/2023 End: 01-14-2023 HIV Screen [facility] Comment on above: Once for 1 Occurrenc es starting 01/14/2023 until 01/14/2023 Iadna trichomonas vaginalis amplified probe tech Trichomonas vaginalis RNA, Qualitative, TMA, Pap Vial Microbiology STAT 11/07/2022 12:06 PM EDT [facility] [employer] Work Phone: End: 11-07-2022 Microscopic urinalysis [facility] Phone: Comment on above: Once for 1 Occurrenc es starting 11/07/2022 until 11/07/2022 Patient Education Depression, Ad ult (DC) [facility] DC Instructions [facility] Work Phone: Patient referral [facility] Work Phone: POCT ALERE DRUG SCREEN POCT ALER E DRUG SCREEN Point of Care Testing Routine Opioid dependence in remission Ordered: 05/23/2020 [facility] Comment on above: Ordered: 05/23/2020 Postop follow up vis it related to original px [place] - OFFICE PERFORMED Routine Laceration of left thumb without foreign body without damage to nail, subsequent encounter Ordered: 05/23/2021 [facility] Comment on above: Ordered: 05/23/2021 End: 01-14-2023 T. pallidum Ab [facility] Comment on above: Once for 1 Occurrenc es starting 01/14/2023 until 01/14/2023 Urinalysis with Refl ex to Culture Urinalysis with Reflex to Culture Lab STAT 11/07/2022 12:00 PM EDT [facility] Work Phone: Immunizations Immunization Date Immunization Notes Care Provider Castro johnson 08-31-1998 hepatitis B vaccine, pediatric or pediatric/adolescent dosage MIKE HUITRON [facility] 08-31-1998 measles, mumps and rubella virus vaccine MIKE HUITRON [facility] 11-07-1997 hepatitis B vaccine, pediatric or pediatric/adolescent dosage MIKE HUITRON [facility] 01-15-1994 DTaP, unspecified formulation MIKE HUITRON [facility] 04-22-1991 DTaP, unspecified formulation MIKE HUITRON [facility] 01-22-1991 measles, mumps and rubella virus vaccine MIKE HUITRON [facility] 08-25-1990 Hib, unspecified formulation MIKE HUITRON [facility] 03-05-1990 poliovirus vaccine, unspecified formulation MIKE HUITRON [facility] 1988 poliovirus vaccine, unspecified formulation MIKE HUITRON [facility] NEGATED: Highlighted row has not occurred!10-15-2023 SARS-CoV-2 mRNA (tozinameran 5y-11y) vaccine Sydnie Perdue [facility] Payers Date Payer Category Payer Self-pay [id number] 2020 Unknown [id number] 2020 Unknown [facility] [id number] 2020-Present [address] [place] [address] [id number] 2019 Medicaid [id number] 1988 Unknown [id number] 1988 Unknown [id number] 2.16.840.1.006131.3.579.2.173 1988 Unknown [id number] 2.16.840.1.000977.3.579.2.173 1988 Unknown [id number] 2.16.840.1.024482.3.579.2.173 1988 Unknown [id number] 2.16.840.1.831709.3.579.2.182 1988 Unknown [id number] 2.16.840.1.744886.3.579.2.182 1988 Unknown [id number] 2.16.840.1.477964.3.579.2.182 1988 Unknown [id number] 2.16.840.1.476522.3.579.2.173 1988 Unknown [id number] 2.16.840.1.711461.3.579.2.173 1988 Unknown [id number] 2.16.840.1.810170.3.579.2.718 1988 Unknown [id number] 2.16.840.1.343571.3.579.2.983 1988 Unknown [id number] 2.16.840.1.654947.3.579.2.727 1988 Unknown [id number] 2.16.840.1.000583.3.579.2.7 1988 Unknown [id number] 2.16.840.1.147118.3.579.2.727 1988 Unknown [id number] 2.16.840.1.203801.3.579.2.727 1988 Unknown [id number] 2.16.840.1.832471.3.579.2.727 1988 Unknown [id number] 2.16.840.1.744588.3.579.2.7 1988 Unknown [id number] 2.16.840.1.088457.3.579.2.727 1988 Unknown [id number] 2.16.840.1.851928.3.579.2.727 1988 Unknown [id number] 2.16.840.1.039336.3.579.2.727 1988 Unknown [id number] 2.16.840.1.253962.3.579.2.727 1988 Unknown [id number] 2.16.840.1.388847.3.579.2.727 1988 Unknown [id number] 2.16.840.1.192468.3.579.2.727 1988 Unknown [id number] 2.16.840.1.003384.3.579.2.727 Unknown [id number] 2.16.840.1.481392.3.579.2.531 Unknown [id number] 2.16.840.1.231525.3.579.2.531 Social History Date Type Detail Facility Start: 03-07-2020 End: 10-15-2023 Tobacco smoking status NHIS Never smoker [employer] Start: 03-07-2020 End: 06-18-2022 Tobacco use and exposure Never used [employer] [place] Start: 03-07-2020 End: 11-07-2022 Alcohol intake [facility]dr[facility] [place] [place] Start: 1990 Sex Assigned At Not on file M [facility] [employer] Start: 07-20-2021 End: 06-18-2022 Exposure to SARS-CoV-2 (event) Not sure [facility] [place] [employer] [place] Start: 05-23-2000 End: 12-06-2020 Tobacco smoking status UTIS Current every day smoker [employer] Start: 11-28-2021 End: 03-09-2023 History of tobacco use Smoker [employer] Start: 05-23-2020 End: 12-06-2020 Cigarettes smoked current (pack per day) - Reported [employer] Start: 11-08-2020 End: 01-04-2021 Alcohol intake Ex-drinker (finding) [facility] Exposure to SARS-CoV -2 (event) Unable to assess [facility] Start: 1990 Sex Assigned At Female F [facility] [employer] Start: 07-02-2023 Tobacco smoking status Heavy t obacco smoker (finding) [facility] Sex Assigned At Female [facility] Tobacco Current vaping o r e-cigarette use Smokeless Tobacco Use:. Vaping [facility] Tobacco smoking status No Smokin g Status Entered [facility] Goals Date Patient Goal Desired Activity /State Functional Status Date Assessment Result Facility 02-13-2025 Functional Status N/A [facility] 12-08-2023 Functional Status N/A [facility] 11-24-2023 [facility] N/A [facility] [facility] 10-15-2023 Functional Status N/A [facility] 10-13-2023 Functional Status N/A [facility] 03-11-2023 Functional status Patient at Baseline [facility] Work Phone: 12-01-2021 Functional status Patient at Baseline [facility] Work Phone: Mental Status Date Assessment Result Facility 03-11-2023 Cognitive function Cognitive Sta tus Patient at Baseline [facility] Work Phone: 12-01-2021 Cognitive function Cognitive Sta tus Patient at Baseline [facility] Work Phone: Clinical Notes 10-05-2020 to 07-16-2024 Note Date & Type Note Facility 07-16-2024 Hospital Discharg e instructions Patient Education 07/15/2024 22:00:47 Medical Screening Exam Medical Screening Exam A medical screening exam (MSE) helps to determine whether you need immediate medical treatment relating to any number of symptoms you are having. This type of exam may be done in an emergency department, an urgent care setting, or your health care provider's office. Depending on your symptoms and severity, you may need additional tests or medical therapy. It is important to note that an MSE does not necessarily mean that you will need or receive further medical testing or interventions if your symptoms are not deemed to be medically urgent (emergent). Tell a health care provider about: Any allergies you have. All medicines you are taking, including vitamins, herbs, eye drops, creams, and yrie-ixq-otdvdwv medicines. Any problems you or family members have had with anesthetic medicines. Any bleeding problems you have. Any surgeries you have had. Any medical conditions you have. Whether you are or may be . What happens during the test? During the exam, a health care provider does a short, often focused, physical exam and asks about your medical history to assess: Your current symptoms. Your overall health. Your need for possible further medical intervention. What can I expect after the test? If you have a regular health care provider, make an appointment for a follow-up visit with him or her. If you do not have a regular health care provider, ask about resources in your community. Your medical screening exam may determine that: You do not need emergency treatment at this time. You need treatment right away. You need to be transferred to another medical center. This may happen if you need an emergent specialist or energy sales consultant that is not available at the medical center you are at. You need to have more tests. A medical scientific liaison may be consulted if needed. Get help right away if: Your condition gets worse. You develop new or troubling symptoms before you see your health care provider. These symptoms may represent a serious problem that is an emergency. Do not wait to see if the symptoms will go away. Get medical help right away. Call your local emergency services (911 in the [place] Do not drive yourself to the hospital. Summary A medical screening exam helps to determine whether you need medical treatment right away. This type of exam may be done in an emergency department, an urgent care setting, or your health care provider's office. During the exam, a health care provider does a short physical exam and asks about your current symptoms and overall health. Depending on the exam, more tests or therapies may be ordered. However, an MSE does not necessarily mean that you will have further medical testing if your symptoms are not deemed to be urgent. If you need further care that is not offered at your current medical center, you may need to be transferred to another facility. This information is not intended to replace advice given to you by your health care provider. Make sure you discuss any questions you have with your health care provider. Document Revised: 01/30/2022 Document Reviewed: 09/27/2021 [email or web address] Patient Education 2023 Amen.. Follow Up Care 07/15/2024 18:10:37 With:Mahamed Garcia Address:Unknown When:07/18/2024 Comments:Call the office of your primary care doctor to arrange for follow-up within the above-stated timeframe. Follow-up with your primary care doctor about this ED visit. You should review your labs, imaging, and diagnoses from this ED visit with your primary care physician. There are occasionally non-emergent findings that require additional follow-up after your ED visit. If you were prescribed medications you should discuss possible side-effects and drug interactions with your pharmacist. Call 911 or go to the nearest Emergency Department if you develop any new or worsening symptoms. [facility] 07-15-2024 Note ED Patient Education Note Emergency Medicine Medical Screening Exam A medical screening exam (MSE) helps to determine whether you need immediate medical treatment relating to any number of symptoms you are having. This type of exam may be done in an emergency department, an urgent care setting, or your health care provider's office. Depending on your symptoms and severity, you may need additional tests or medical therapy. It is important to note that an MSE does not necessarily mean that you will need or receive further medical testing or interventions if your symptoms are not deemed to be medically urgent (emergent). Tell a health care provider about: ??? Any allergies you have. ??? All medicines you are taking, including vitamins, herbs, eye drops, creams, and fvjr-jzr-gsxstyd medicines. ??? Any problems you or family members have had with anesthetic medicines. ??? Any bleeding problems you have. ??? Any surgeries you have had. ??? Any medical conditions you have. ??? Whether you are or may be . What happens during the test? During the exam, a health care provider does a short, often focused, physical exam and asks about your medical history to assess: ??? Your current symptoms. ??? Your overall health. ??? Your need for possible further medical intervention. What can I expect after the test? If you have a regular health care provider, make an appointment for a follow-up visit with him or her. If you do not have a regular health care provider, ask about resources in your community. Your medical screening exam may determine that: ??? You do not need emergency treatment at this time. ??? You need treatment right away. ??? You need to be transferred to another medical center. This may happen if you need an emergent specialist or energy sales consultant that is not available at the medical center you are at. ??? You need to have more tests. A medical scientific liaison may be consulted if needed. Get help right away if: ??? Your condition gets worse. ??? You develop new or troubling symptoms before you see your health care provider. These symptoms may represent a serious problem that is an emergency. Do not wait to see if the symptoms will go away. Get medical help right away. Call your local emergency services (911 in the [place] Do not drive yourself to the hospital. Summary ??? A medical screening exam helps to determine whether you need medical treatment right away. This type of exam may be done in an emergency department, an urgent care setting, or your health care provider's office. ??? During the exam, a health care provider does a short physical exam and asks about your current symptoms and overall health. ??? Depending on the exam, more tests or therapies may be ordered. However, an MSE does not necessarily mean that you will have further medical testing if your symptoms are not deemed to be urgent. ??? If you need further care that is not offered at your current medical center, you may need to be transferred to another facility. This information is not intended to replace advice given to you by your health care provider. Make sure you discuss any questions you have with your health care provider. Document Revised: 01/30/2022 Document Reviewed: 09/27/2021 [email or web address] Patient Education ? 2023 [employer]en.. [facility] 07-15-2024 Evaluation + Plan note Extrac vinayak from: Title:ED Note Author:Kobe Alcala DO Date: Accidental exposure to carbo n monoxide (Z77.098: Contact with and (suspected) exposure to other hazardous, chiefly nonmedicinal, chemicals) Sebaceous cyst (L72.3: Sebaceous cyst) Orders: Blood Gas Art, with Lytes, Gluc, Lact [facility] 07-08-2024 Hospital Discharge instructions Patient Education 12/08/2023 10:11:59 Tooth Avulsion Tooth Avulsion Tooth avulsion is the loss of a tooth due to trauma to the tooth which causes it to be completely knocked out of its place in the gum. This condition is an emergency and must be treated right away bya dentist or emergency department. The sooner the tooth is replanted, the better the chance that it can be saved. It is usually best if the tooth is replanted within one hour of avulsion. However, even if it has been longer than one hour, it is still important to visit your health care provider as soon as possible to discuss your treatment options. Only permanent teeth can be replanted. Baby teeth do not usually need replanting. What are the causes? The loss of a tooth may be caused by any force that is strong enough to chip, break, dislodge, or knock out a tooth. Forces may come from: Sports injuries. Falls. Accidents. Fights. What increases the risk? The following factors may make you more likely to lose a tooth: Playing contact sports, such as football or boxing, without using a mouth guard. Any medical condition that increases the risk of falling or fainting. Any injury that causes injuries to the face. Any dental condition that reduces the support of the root. What are the signs or symptoms? Symptoms of this condition include: A tooth that is knocked out of its place in the gum. How is this diagnosed? A physical exam. How is this treated? Before going to the dentist or emergency department: ?Find the tooth. Do not touch the bottom of the tooth. The bottom of the tooth is also called a root. ?Wash the tooth for 10 seconds under cold running water, bottled water or milk (if available). Do not wipe, dry or scrub the tooth. Gently reposition the tooth in its original socket, if you are able. ?If the tooth cannot be repositioned, immediately place the tooth in a glass of milk or hold the tooth inside the mouth under the tongue or between the molars and cheek. Your dental care provider will decide whether the tooth can be placed back into its original position. Your treatment will also include controlling any bleeding or pain. Follow these instructions at home: Take fckv-biw-qdftwmr and prescription medicines only as told by your dentist. Eat a soft diet for two weeks or as directed by your dentist. [place] the tooth with a soft toothbrush after every meal. For two weeks, or for the time you are told, avoid activities that have a high risk of injury to the teeth. Wear a mouth guard while playing contact sports. Keep all follow-up visits. This is important. Contact a health care provider if: The tooth becomes progressively loose. Your splint is bent or loose. You have swelling or pain that gets worse. You have redness around your replanted tooth. You have pain that does not get better with medicine. You have a fever or chills. You have any other new symptoms. Get help right away if: Your tooth become loose or falls out. Summary Tooth avulsion is the loss of a tooth due to the tooth falling out or being knocked out. If the tooth was an adult tooth, your health care provider will see if it can be placed back into its original position (replanted). Baby teeth will not usually need to be replanted. The sooner the tooth is replanted, the better the chance that it can be saved. This information is not intended to replace advice given to you by your health care provider. Make sure you discuss any questions you have with your health care provider. Document Revised: 01/24/2021 Document Reviewed: 01/24/2021 [email or web address] Patient Education 2022 Amen.. 12/08/2023 10:11:56 Dental Pain Dental Pain Dental pain is often a sign that something is wrong with your teeth or gums. It is also something that can occur following dental treatment. If you have dental pain, it is important to contact your dental care provider, especially if the cause of the pain has not been determined. Dental pain may beof varying intensity and can be caused by many things, including: Tooth decay (cavities or caries). Cavities are caused by bacteria that produce acids that irritate the nerve of your tooth, making it sensitive to air and hot or cold temperatures. This eventually causes discomfort or pain. Abscess or infection. Once the bacteria reach the inner part of the tooth (pulp), a bacterial infection (dental abscess) can occur. Pus typically collects at the end of the root of a tooth. Injury. A crack in the tooth. Gum recession exposing the root, and possibly the nerves, of a tooth. Gum (periodontal)disease. Abnormal grinding or clenching. Poor or improper home care. An unknown reason (idiopathic). Your pain may be mild or severe. It may occur when you are: Chewing. Exposed to hot or cold temperatures. Eating or drinking sugary foods or beverages, such as soda or candy. Your pain may be constant, or it may come and go without cause. Follow these instructions at home: The following actions may help to lessen any discomfort that you are feeling before or after getting dental care. Medicines Take mhmp-pts-ssevlhc and prescription medicines only as told by your dental care provider. If you were prescribed an antibiotic medicine, take it as told by your dental care provider. Do notstop taking the antibiotic even if you start to feel better. Eating and drinking Avoid foods or drinks that cause you pain, such as: Very hot or very cold foods or drinks. Sweet or sugary foods or drinks. Managing pain and swelling Ice can sometimes be used to reduce pain and swelling, especially if the pain is following dental treatment. If directed, put ice on the painful area of your face. To do this: ?Put ice in a plastic bag. ?Place a towel between your skin and the bag. ?Leave the ice on for 20 minutes, 2 3 times a day. ?Remove the ice if your skin turns bright red. This is very important. If you cannot feel pain, heat, or cold, you have a greater risk of damage to the area. Brushing your teeth To keep your mouth and gums healthy, brush your teeth twice a day using a fluoride toothpaste. Use a toothpaste made for sensitive teeth as directed by your dental care provider, especially if the root is exposed. Always brush your teeth with a soft-bristled toothbrush. This will help prevent irritation to your gums. General instructions Floss at least once a day. Do not apply heat to the outside of the face. Gargle with a mixture of salt and water 3 4 times a day or as needed. To make salt water, completely dissolve 1 tsp (3 6 g) of salt in 1 cup (237 mL) of warm water. Keep all follow-up visits. This is important. Contact a dental care provider if: You have any unexplained dental pain. Your pain is not controlled with medicines. Your symptoms get worse. You have new symptoms. Get help right away if: You are unable to open your mouth. You are having trouble breathing or swallowing. You have a fever. You notice that your face, neck, or jaw is swollen. These symptoms may represent a serious problem that is an emergency. Do not wait to see if the symptoms will go away. Get medical help right away. Call your local emergency services (911 in the [place] Do not drive yourself to the hospital. Summary Dental pain may be caused by many things, including tooth decay and infection. Your pain may be mild or severe. Take nloo-zoo-pittjmp and prescription medicines only as told by your dental care provider. Watch your dental pain for any changes. Let your dental care provider know if your symptoms get worse. This information is not intended to replace advice given to you by your health care provider. Make sure you discuss any questions you have with your health care provider. Document Revised: 02/21/2021 Document Reviewed: 02/21/2021 [email or web address] Patient Education 2022 Amen.. 12/08/2023 10:11:52 Health Risks of Smoking Health Risks of Smoking Smoking tobacco is very bad for your health. Tobacco smoke contains many toxic chemicals that can damage every part of your body. Secondhand smoke can be harmful to those around you. Tobacco or nicotine use can cause many long-term (chronic) diseases. Smoking is difficult to quit because a chemical in tobacco, called nicotine, causes addiction or dependence. When you smoke and inhale, nicotine is absorbed quickly into your bloodstream through yourlungs. Both inhaled and non-inhaled nicotine may be addictive. How can quitting affect me? There are health benefits of quitting smoking. Some benefits happen right away and others take time. Benefits may include: Blood flow, blood pressure, heart rate, and lung capacity may begin to improve. However, any lung damage that has already occurred cannot be repaired. Respiratory symptoms from smoking, such as nasal congestion and cough, may improve over time. Your risk of heart disease, stroke, and cancer is reduced. The overall quality of your health may improve. You may save money, as you will not spend money on tobacco products and may spend less money on smoking-related health issues. What can increase my risk? Smoking harms nearly every organ in the body. People who smoke tobacco have a shorter life expectancy and an increased risk of many serious medical problems. These include: More respiratory infections, such as colds and pneumonia. Cancer. Heart disease. Stroke. Chronic respiratory diseases. Delayed wound healing and increased risk of complications during surgery. Problems with reproduction, , and childbirth, such as infertility, early (premature) births, stillbirths, and defects. Secondhand smoke exposure to children increases the risk of: Sudden infant syndrome (SIDS). Infections in the nose, throat, or airways (respiratory infections). Chronic respiratory symptoms. What actions can I take to quit? Smoking is an addiction that affects both your body and your mind, and long-time habits can be hardto change. Your health care provider can recommend: Nicotine replacement products, such as patches, gum, and nasal sprays. Use these products only as directed. Do not replace cigarette smoking with electronic cigarettes, which are commonly called e-cigarettes. The safety of e-cigarettes is not known, and some may contain harmful chemicals. Programs and community resources, which may include group support, education, or talk therapy. Prescription medicines to help reduce cravings. A combination of two or more quit methods, which may increase the success of quitting. Where to find support Follow the recommendations from your health care provider about support groups and other assistance. You can also visit: [place]. Department of Health and Human Services: www.smokefree.gov [employer]: www.freedomfromsmoking.org [employer]: www.heart.org Where to find more information Centers for Disease Control and Prevention: www.cdc.gov World Health Organization: www.who.int Summary Smoking tobacco is very bad for your health. Tobacco smoke contains many toxic chemicals that can damage every part of the body. Smoking is difficult to quit because a chemical in tobacco, called nicotine, causes addiction or dependence. There are immediate and long-term health benefits of quitting smoking. A combination of two or more quit methods may increase the success of quitting. This information is not intended to replace advice given to you by your health care provider. Make sure you discuss any questions you have with your health care provider. Document Revised: 05/21/2022 Document Reviewed: 05/21/2022 [email or web address] Patient Education 2022 [email or web address] 12/08/2023 10:11:51 Steps to Quit Smoking Steps to Quit Smoking Smoking tobacco is the leading cause of preventable . It can affect almost every organ in the body. Smoking puts you and those around you at risk for developing many serious chronic diseases. Quitting smoking can be very challenging. Do not get discouraged if you are not successful the first time. Some people need to make many attempts to quit before they achieve long-term success. Do your best to stick to your quit plan, and talk with your health care provider if you have any questionsor concerns. How do I get ready to quit? When you decide to quit smoking, create a plan to help you succeed. Before you quit: Pick a date to quit. Set a date within the next 2 weeks to give you time to prepare. Write down the reasons why you are quitting. Keep this list in places where you will see it often. Tell your family, friends, and co-workers that you are quitting. Support from people you are close to can make quitting easier. Talk with your health care provider about your options for quitting smoking. Find out what treatment options are covered by your health insurance. Identify people, places, things, and activities that make you want to smoke (triggers). Avoid them. What first steps can I take to quit smoking? Throw away all cigarettes at home, at work, and in your car. Throw away smoking accessories, such as ashtrays and lighters. Clean your car. Make sure to empty the ashtray. Clean your home, including curtains and carpets. What strategies can I use to quit smoking? Talk with your health care provider about combining strategies, such as taking medicines while you are also receiving in-person counseling. Using these two strategies together makes you more likely to succeed in quitting than if you used either strategy on its own. If you are or , talk with your health care provider about finding counseling or other support strategies to quit smoking. Do not take medicine to help you quit smoking unless your health care provider tells you to. Quit right away Quit smoking completely, instead of gradually reducing how much you smoke over a period of time. Stopping smoking right away may be more successful than gradually quitting. Attend in-person counseling to help you build problem-solving skills. You are more likely to succeed in quitting if you attend counseling sessions regularly. Even short sessions of 10 minutes can be effective. Take medicine You may take medicines to help you quit smoking. Some medicines require a prescription. You can also purchase gkzy-dsx-ckwiezj medicines. Medicines may have nicotine in them to replace the nicotine in cigarettes. Medicines may: Help to stop cravings. Help to relieve withdrawal symptoms. Your health care provider may recommend: Nicotine patches, gum, or lozenges. Nicotine inhalers or sprays. Non-nicotine medicine that you take by mouth. Find resources Find resources and support systems that can help you quit smoking and remain smoke-free after you quit. These resources are most helpful when you use them often. They include: Online chats with a counselor. Telephone quitlines. Printed self-help materials. Support groups or group counseling. Text messaging programs. Mobile phone apps or applications. Use apps that can help you stick to your quit plan by providing reminders, tips, and encouragement. Examples of free services include Quit Guide from the CDC and smokefree.gov What can I do to make it easier to quit? Reach out to your family and friends for support and encouragement. Call telephone quitlines, such as 3-008-PQRP-NOW, reach out to support groups, or work with a counselor for support. Ask people who smoke to avoid smoking around you. Avoid places that trigger you to smoke, such as bars, parties, or smoke-break areas at work. Spend time with people who do not smoke. Lessen the stress in your life. Stress can be a smoking trigger for some people. To lessen stress, try: ?Exercising regularly. ?Doing deep-breathing exercises. ?Doing yoga. ?Meditating. What benefits will I see if I quit smoking? Over time, you should start to see positive results, such as: Improved sense of smell and taste. Decreased coughing and sore throat. Slower heart rate. Lower blood pressure. Clearer and healthier skin. The ability to breathe more easily. Fewer sick days. Summary Quitting smoking can be very challenging. Do not get discouraged if you are not successful the first time. Some people need to make many attempts to quit before they achieve long-term success. When you decide to quit smoking, create a plan to help you succeed. Quit smoking right away, not slowly over a period of time. Find resources and support systems that can help you quit smoking and remain smoke-free after you quit. This information is not intended to replace advice given to you by your health care provider. Make sure you discuss any questions you have with your health care provider. Document Revised: 05/10/2022 Document Reviewed: 05/10/2022 [email or web address] Patient Education 2022 Amen.. 12/08/2023 10:11:45 BMI for Adults BMI for Adults What is BMI? Body mass index (BMI) is a number that is calculated from a person's weight and height. BMI can help estimate how much of a person's weight is composed of fat. BMI does not measure body fat directly.Rather, it is an alternative to procedures that directly measure body fat, which can be difficult and expensive. BMI can help identify people who may be at higher risk for certain medical problems. What are BMI measurements used for? BMI is used as a screening tool to identify possible weight problems. It helps determine whether a person is obese, overweight, a healthy weight, or underweight. BMI is useful for: Identifying a weight problem that may be related to a medical condition or may increase the risk for medical problems. Promoting changes, such as changes in diet and exercise, to help reach a healthy weight. BMI screening can be repeated to see if these changes are working. How is BMI calculated? BMI involves measuring your weight in relation to your height. Both height and weight are measured,and the BMI is calculated from those numbers. This can be done either in [place] or metric measurements. Note that charts and online BMI calculators are available to help you find your BMI quickly and easily without having to do these calculations yourself. To calculate your BMI in [place] measurements: 1.Measure your weight in pounds (lb). 2.Multiply the number of pounds by 703. For example, for a person who weighs 180 lb, multiply that number by 703, which equals 126,540. 3.Measure your height in inches. Then multiply that number by itself to get a measurement called inches squared. For example, for a person who is 70 inches tall, the inches squared measurement is 70 inches x 70inches, which equals 4,900 inches squared. 4.Divide the total from step 2 (number of lb x 703) by the total from step 3 (inches squared): 126,540 4,900 = 25.8. This is your BMI. To calculate your BMI in metric measurements: 1.Measure your weight in kilograms (kg). 2.Measure your height in meters (m). Then multiply that number by itself to get a measurement called meters squared. For example, for a person who is 1.75 m tall, the meters squared measurement is 1.75 m x 1.75 m, which is equal to 3.1 meters squared. 3.Divide the number of kilograms (your weight) by the meters squared number. In this example: 70 3.1 = 22.6. This is your BMI. What do the results mean? BMI charts are used to identify whether you are underweight, normal weight, overweight, or obese. The following guidelines will be used: Underweight: BMI less than 18.5. Normal weight: BMI between 18.5 and 24.9. Overweight: BMI between 25 and 29.9. Obese: BMI of 30 or above. Keep these notes in mind: Weight includes both fat and muscle, so someone with a muscular build, such as an athlete, may havea BMI that is higher than 24.9. In cases like these, BMI is not an accurate measure of body fat. To determine if excess body fat is the cause of a BMI of 25 or higher, further assessments may needto be done by a health care provider. BMI is usually interpreted in the same way for men and women. Where to find more information For more information about BMI, including tools to quickly calculate your BMI, go to these websites: Centers for Disease Control and Prevention: www.cdc.gov [employer] Heart Association: www.heart.org National Heart, Lung, and Blood [place]: www.nhlbi.nih.gov Summary Body mass index (BMI) is a number that is calculated from a person's weight and height. BMI may help estimate how much of a person's weight is composed of fat. BMI can help identify thosewho may be at higher risk for certain medical problems. BMI can be measured using Sammarinese measurements or metric measurements. BMI charts are used to identify whether you are underweight, normal weight, overweight, or obese. This information is not intended to replace advice given to you by your health care provider. Make sure you discuss any questions you have with your health care provider. Document Revised: 02/09/2020 Document Reviewed: 12/17/2019 [email or web address] Patient Education 2022 Amen.. Follow Up Care 12/08/2023 09:49:12 With:EMIR RIVAS, NHI FLORES Address: [address] [place], [place] [id number]- When: Unknown [facility] 07-08-2024 NotePatient Education Dentistry Tooth Avulsion Tooth avulsion is the loss of a tooth due to trauma to the tooth which causes it to be completely knocked out of its place in the gum. This condition is an emergency and must be treated right away bya dentist or emergency department. The sooner the tooth is replanted, the better the chance that it can be saved. It is usually best if the tooth is replanted within one hour of avulsion. However, even if it has been longer than one hour, it is still important to visit your health care provider as soon as possible to discuss your treatment options. Only permanent teeth can be replanted. Baby teeth do not usually need replanting. What are the causes? The loss of a tooth may be caused by any force that is strong enough to chip, break, dislodge, or knock out a tooth. Forces may come from: ? Sports injuries. ? Falls. ? Accidents. ? Fights. What increases the risk? The following factors may make you more likely to lose a tooth: ? Playing contact sports, such as football or boxing, without using a mouth guard. ? Any medical condition that increases the risk of falling or fainting. ? Any injury that causes injuries to the face. ? Any dental condition that reduces the support of the root. What are the signs or symptoms? Symptoms of this condition include: ? A tooth that is knocked out of its place in the gum. How is this diagnosed? A physical exam. How is this treated? ? Before going to the dentist or emergency department: ? Find the tooth. Do not touch the bottom of the tooth. The bottom of the tooth is also called a root. ? Wash the tooth for 10 seconds under cold running water, bottled water or milk (if available). Do not wipe, dry or scrub the tooth. ? Gently reposition the tooth in its original socket, if you are able. ? If the tooth cannot be repositioned, immediately place the tooth in a glass of milk or hold the tooth inside the mouth under the tongue or between the molars and cheek. Your dental care provider will decide whether the tooth can be placed back into its original position. Your treatment will also include controlling any bleeding or pain. Follow these instructions at home: ? Take lqln-dun-iqjwksk and prescription medicines only as told by your dentist. ? Eat a soft diet for two weeks or as directed by your dentist. ? [place] the tooth with a soft toothbrush after every meal. ? For two weeks, or for the time you are told, avoid activities that have a high risk of injury to the teeth. ? Wear a mouth guard while playing contact sports. ? Keep all follow-up visits. This is important. Contact a health care provider if: ? The tooth becomes progressively loose. ? Your splint is bent or loose. ? You have swelling or pain that gets worse. ? You have redness around your replanted tooth. ? You have pain that does not get better with medicine. ? You have a fever or chills. ? You have any other new symptoms. Get help right away if: ? Your tooth become loose or falls out. Summary ? Tooth avulsion is the loss of a tooth due to the tooth falling out or being knocked out. ? If the tooth was an adult tooth, your health care provider will see if it can be placed back intoits original position (replanted). Baby teeth will not usually need to be replanted. ? The sooner the tooth is replanted, the better the chance that it can be saved. This information is not intended to replace advice given to you by your health care provider. Make sure you discuss any questions you have with your health care provider. Document Revised: 01/24/2021 Document Reviewed: 01/24/2021 [employer] Patient Education ? 2022 [email or web address] Dental Pain Dental pain is often a sign that something is wrong with your teeth or gums. It is also something that can occur following dental treatment. If you have dental pain, it is important to contact your dental care provider, especially if the cause of the pain has not been determined. Dental pain may beof varying intensity and can be caused by many things, including: ? Tooth decay (cavities or caries). Cavities are caused by bacteria that produce acids that irritate the nerve of your tooth, making it sensitive to air and hot or cold temperatures. This eventually causes discomfort or pain. ? Abscess or infection. Once the bacteria reach the inner part of the tooth (pulp), a bacterial infection (dental abscess) can occur. Pus typically collects at the end of the root of a tooth. ? Injury. ? A crack in the tooth. ? Gum recession exposing the root, and possibly the nerves, of a tooth. ? Gum (periodontal)disease. ? Abnormal grinding or clenching. ? Poor or improper home care. ? An unknown reason (idiopathic). Your pain may be mild or severe. It may occur when you are: ? Chewing. ? Exposed to hot or cold temperatures. ? Eating or drinking sugary foods or beverages, (more content not included)... [facility]2024 Hospital Discharge instructions Patient Education 11/24/2023 16:53:33 Sinus Infection, Adult Sinus Infection, Adult A sinus infection, also called sinusitis, is inflammation of your sinuses. Sinuses are hollow spaces in the bones around your face. Your sinuses are located: Around your eyes. In the middle of your forehead. Behind your nose. In your cheekbones. Mucus normally drains out of your sinuses. When your nasal tissues become inflamed or swollen, mucus can become trapped or blocked. This allows bacteria, viruses, and fungi to grow, which leads to infection. Most infections of the sinuses are caused by a virus. A sinus infection can develop quickly. It can last for up to 4 weeks (acute) or for more than 12 weeks (chronic). A sinus infection often develops after a cold. What are the causes? This condition is caused by anything that creates swelling in the sinuses or stops mucus from draining. This includes: Allergies. Asthma. Infection from bacteria or viruses. Deformities or blockages in your nose or sinuses. Abnormal growths in the nose (nasal polyps). Pollutants, such as chemicals or irritants in the air. Infection from fungi. This is rare. What increases the risk? You are more likely to develop this condition if you: Have a weak body defense system (immune system). Do a lot of swimming or diving. Overuse nasal sprays. Smoke. What are the signs or symptoms? The main symptoms of this condition are pain and a feeling of pressure around the affected sinuses.Other symptoms include: Stuffy nose or congestion that makes it difficult to breathe through your nose. Thick yellow or greenish drainage from your nose. Tenderness, swelling, and warmth over the affected sinuses. A cough that may get worse at night. Decreased sense of smell and taste. Extra mucus that collects in the throat or the back of the nose (postnasal drip) causing a sore throat or bad breath. Tiredness (fatigue). Fever. How is this diagnosed? This condition is diagnosed based on: Your symptoms. Your medical history. A physical exam. Tests to find out if your condition is acute or chronic. This may include: ?Checking your nose for nasal polyps. ?Viewing your sinuses using a device that has a light (endoscope). ?Testing for allergies or bacteria. ?Imaging tests, such as an MRI or CT scan. In rare cases, a bone biopsy may be done to rule out more serious types of fungal sinus disease. How is this treated? Treatment for a sinus infection depends on the cause and whether your condition is chronic or acute. If caused by a virus, your symptoms should go away on their own within 10 days. You may be given medicines to relieve symptoms. They include: ?Medicines that shrink swollen nasal passages (decongestants). ?A spray that eases inflammation of the nostrils (topical intranasal corticosteroids). ?Rinses that help get rid of thick mucus in your nose (nasal saline washes). ?Medicines that treat allergies (antihistamines). ?Tazx-cnc-ryvfqve pain relievers. If caused by bacteria, your health care provider may recommend waiting to see if your symptoms improve. Most bacterial infections will get better without antibiotic medicine. You may be given antibiotics if you have: ?A severe infection. ?A weak immune system. If caused by narrow nasal passages or nasal polyps, surgery may be needed. Follow these instructions at home: Medicines Take, use, or apply ghfz-npr-vswqgfu and prescription medicines only as told by your health care provider. These may include nasal sprays. If you were prescribed an antibiotic medicine, take it as told by your health care provider. Do notstop taking the antibiotic even if you start to feel better. Hydrate and humidify Drink enough fluid to keep your urine pale yellow. Staying hydrated will help to thin your mucus. Use a cool mist humidifier to keep the humidity level in your home above 50%. Inhale steam for 10 15 minutes, 3 4 times a day, or as told by your health care provider. You can do this in the bathroom while a hot shower is running. Limit your exposure to cool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 Pulse Resp SpO2 09/03/21 0955 119/78 97.5 F (36.4 C) Oral 84 16 98 % Orders/Results: Orders Placed This Encounter US TRANSVAGINAL WITH DOPPLER AMB REFERRAL TO OB-VIDEO PRODUCTION COORDINATOR ibuprofen (MOTRIN) tablet 800 mg sulfamethoxazole-trimethoprim (BACTRIM DS) 800-160 MG per tablet 1 tablet phenazopyridine (PYRIDIUM) tablet 200 mg sulfamethoxazole-trimethoprim 800-160 MG per tablet phenazopyridine 200 MG tablet URINALYSIS, MACRO HCG QUALITATIVE, URINE URINE MICROSCOPIC Results for orders placed or performed during the hospital encounter of 09/03/21 URINALYSIS, MACRO Result Value Ref Range COLOR, URINE YELLOW YELLOW APPEARANCE, URINE CLEAR CLEAR Specific Harrison, Urine 1.020 1.010 - 1.025 PH URINE 7.0 5.0 - 7.0 PROTEIN, URINE 30 (A) NEGATIVE mg/dl GLUCOSE, URINE NEGATIVE NEGATIVE mg/dl KETONES, URINE NEGATIVE NEGATIVE mg/dl BILIRUBIN, URINE NEGATIVE NEGATIVE BLOOD, URINE DIPSTICK NEGATIVE NEGATIVE NITRITES, URINE NEGATIVE NEGATIVE UROBILINOGEN, URINE 0.2 0.2 - 1.0 E.U./dL LEUKOCYTE ESTERASE, URINE SMALL (A) NEGATIVE HCG QUALITATIVE, URINE Result Value Ref Range HCG, QUALITATIVE, URINE NEGATIVE URINE MICROSCOPIC Result Value Ref Range WBC, URINE '5 TO 10 NEGATIVE /HPF RBC, URINE NEGATIVE NEGATIVE /HPF Epithelial Cells UA 20 TO 30 /HPF Mucus TRACE (A) NEGATIVE BACTERIA, URINE 1+ (A) NEGATIVE CRYSTALS, URINE NONE NONE CASTS, URINE NONE NONE /LPF COMMENT, URINE POSSIBLY CONTAMINATED SPECIMEN, CULTURE MUST BE ORDERED SEPARATELY IF DEEMED NECESSARY. Radiographic Imaging US TRANSVAGINAL WITH DOPPLER Final Result IMPRESSION: Cystic lesion in the left ovary measuring 2 cm. I favor a collapsing functional cyst. This does not have the typical appearance of an ectopic Procedures: Procedures Moderate Sedation Procedure: No ED Summary/MDM US, left 2cm ovarian cyst, VSS, Veneer Cutter follow up as outpatient, RT to ER as needed. MDM Number of Diagnoses or Management Options Amount and/or Complexity of Data Reviewed Clinical lab tests: reviewed and ordered Tests in the radiology section of CPT : ordered and reviewed Review and summarize past medical records: yes Independent visualization of images, tracings, or specimens: no Clinical Impression: 1. Acute cystitis without hematuria 2. Cyst of left ovary No follow-ups on file. New Prescriptions PHENAZOPYRIDINE 200 MG TABLET Take 1 tablet by mouth 3 times daily. SULFAMETHOXAZOLE-TRIMETHOPRIM 800-160 MG PER TABLET Take 1 tablet by mouth 2 times daily for 3 days. Discontinued Medications No medications on file An After Visit Summary was printed and given to the patient with above information. . . Francisco Maldonado MD 09/03/21 1126 [facility]04-04-2022 Emergency department Note* Raine Rivas RN - 09/03/2021 9:58 AM EDT Asks for lunch menu, will wait until results from urine for food. Voices an understanding. [facility]04[facility]04[facility] Emergency [facility] Note* Raine Rivas RN - 09/03/2021 9:54 AM EDT Requests something like motrin for pain. Dr. Maldonado aware. [facility]04[facility] Emergency department Note* Raine Rivas RN - 09/03/2021 9:35 AM EDT States she has an ovarian cyst but missed her initial OBGYN appt. Asks what the doc will order. This RN explains it is hard to say until he sees her. Asks about a transvaginal ultrasound. Explained those are indicated in emergencies like a possible ectopic . Denies but asks if wechecked on her urine. Advised we did run an hcg but I didn't have the results. Dr. Maldonado aware. [facility] Emergency [facility] Note* Lui Ferrer RN - 07/30/2021 4:19 AM EST Discharge instructions reviewed, patient encouraged to follow up with PCP per AVS. Patient verbalizes understanding, denies further questions or concerns at this time. Patient asks for printed copy of Covid results, they are provided to her. * Francisco Maldonado MD - 07/30/2021 4:16 AM EST Emergency Department Report [facility] Service Date:.07/30/21 PCP: Ender Collins Chief Complaint: Chief Complaint Patient presents with Diarrhea pt reports diarrhea, cough, off and on headache x 3 days, pt states that she was sent home from work with covid like symptoms and would like to be checked. tylenol taken at 0230. HPI Elba Jo is a 31 y.o. female presents to the ED today due to Diarrhea. Patient states she's also had upper rest worse symptoms concern about coronavirus. Diarrhea. Patient states the last 2-3 days she's had upper respiratory symptoms and also diarrhea. She was concerned about coronavirus. Review of Systems: Review of Systems Constitutional: Negative for fever. Respiratory: Negative for shortness of breath and wheezing. Past Medical History: Past Medical History: Diagnosis Date Hepatitis Past Surgical History: Past Surgical History: Procedure Laterality Date SECTION 2013 WISDOM TEETH EXTRACTION 2006 Allergies: No Known Allergies Medications: Patient's Medications New Prescriptions No medications on file Previous Medications ARIPIPRAZOLE 2 MG TABLET Take 2 mg by mouth daily. LAMOTRIGINE 25 MG TABLET Take 50 mg by mouth daily. NALTREXONE (VIVITROL) 380 MG RECON SUSP INJECTION Inject 4 mL intramuscularly every 28 days. NAPROXEN 500 MG TABLET Take one tablet po q12h prn pain, inflammation. Modified Medications No medications on file Discontinued Medications No medications on file Family History: Family History Problem Relation Age of Onset Stroke Father Stroke Paternal Grandfather Social History: Social History Socioeconomic History Marital status: Single Spouse name: Not on file Number of children: Not on file Years of education: Not on file Highest education level: Not on file Occupational History Not on file Tobacco Use Smoking status: Current Every Day Smoker Packs/day: 2.00 Start date: 05/23/2000 Smokeless tobacco: Never Used Vaping Use Vaping Use: Never used Substance and Sexual Activity Alcohol use: Not Currently Drug use: Not Currently Sexual activity: Not on file Other Topics Concern Not on file Social History Narrative Not on file Social Determinants of Health Financial Resource Strain: Not on file Food Insecurity: Not on file Transportation Needs: Not on file Physical Activity: Not on file Stress: Not on file Social Connections: Not on file Intimate Partner Violence: Not on file Housing Stability: Not on file Physical Exam: Physical Exam Physical Exam Nursing note and vitals reviewed. Constitutional: Patient is well-developed, well-nourished, and in no distress. HENT: throat clear Head: Normocephalic and atraumatic. Eyes: Conjunctivae are normal. Cardiovascular: Normal rate, regular rhythm and normal heart sounds. Pulmonary/Chest: Effort normal and breath sounds normal. Abd: Soft nontender nondistended normoactive bowel sounds no rebound or guarding Neurological: Patient is alert. GCS score is 15. Skin: Skin is warm and dry. Psychiatric: Affect and judgment normal. Vital Signs During ED Visit Patient Vitals for the past 24 hrs: BP Temp Temp src Pulse Resp SpO2 07/30/21 0338 115/61 98.3 F (36.8 C) Oral 69 16 98 % Orders/Results: Orders Placed This Encounter [facility] - NASOPHARYNGEAL INFLUENZA A AND B, PCR aripiprazole 2 MG tablet lamoTRIgine 25 MG tablet Results for orders placed or performed during the hospital encounter of 07/30/21 [facility] 1 - NASOPHARYNGEAL Specimen: NASOPHARYNGEAL; Fluid/Swab Result Value Ref Range SARS COV 2 RNA, QL REAL TIME RT PCR NOT DETECTED NOT DETECTED NARRATIVE -1 This test was performed using isothermal KAY and has been approved as Emergency Use Authorization (EUA) for the qualitative detection [id number] nucleic acid. INFLUENZA A AND B, PCR Result Value Ref Range INFLUENZA A NEGATIVE NEGATIVE INFLUENZA B NEGATIVE NEGATIVE Radiographic Imaging No orders to display Procedures: Procedures Moderate Sedation Procedure: No ED Summary/MDM Work excuse provided PCP follow-up MDM Clinical Impression: 1. Diarrhea, unspecified type No follow-ups on file. New Prescriptions No medications on file Discontinued Medications No medications on file An After Visit Summary was printed and given to the patient with above information. . . Francisco Maldonado MD 07/30/21 0418 [facility]* Nusrat Pineda RN - 06/19/2021 5:00 PM EST Patient reports that she feels alone, helpless, no one to talk to and is having intermittent thoughts of harming herself , at this present time patient denies suicidal thoughts. She stated I have all these mixed emotions and just need someone to talk to. I feel better when I can talk to someone Patient stated I think I made a mistake coming here, I think I will just go to work and call [employer] tomorrow. Dr. Maldonado at bedside. After speaking with patient will be discharged andto follow up with counseling first thing in the am and was instructed if having thoughts of suicideto return to the Ed. Patient verbalizes understanding. * Francisco Maldonado MD - 06/19/2021 4:27 PM EST Emergency Department Report [facility] Service Date:.06/19/21 PCP: Endre Collins Chief Complaint: Chief Complaint Patient presents with Suicidal patient states she is having relationship issues, thinks everyone is out to get me , feels helpless , feels alone HPI Elba Jo is a 30 y.o. female presents to the ED today due to stress. Patient states she's having a lot of issues. She feels hopeless at times. She states at this moment she is not suicidal or homicidal. She states her symptoms are better when she is talking to people. Review of Systems: Review of Systems Respiratory: Negative for shortness of breath. Cardiovascular: Negative for chest pain. Past Medical History: Past Medical History: Diagnosis Date Hepatitis Past Surgical History: Past Surgical History: Procedure Laterality Date SECTION 2014 WISDOM TEETH EXTRACTION 2006 Allergies: No Known Allergies Medications: Patient's Medications New Prescriptions No medications on file Previous Medications NALTREXONE (VIVITROL) 380 MG RECON SUSP INJECTION Inject 4 mL intramuscularly every 28 days. NAPROXEN 500 MG TABLET Take one tablet po q12h prn pain, inflammation. Modified Medications No medications on file Discontinued Medications No medications on file Family History: Family History Problem Relation Age of Onset Stroke Father Stroke Paternal Grandfather Social History: Social History Socioeconomic History Marital status: Single Spouse name: Not on file Number of children: Not on file Years of education: Not on file Highest education level: Not on file Occupational History Not on file Tobacco Use Smoking status: Current Every Day Smoker Packs/day: 2.00 Start date: 05/23/2000 Smokeless tobacco: Never Used Vaping Use Vaping Use: Never used Substance and Sexual Activity Alcohol use: Not Currently Drug use: Not Currently Sexual activity: Not on file Other Topics Concern Not on file Social History Narrative Not on file Social Determinants of Health Financial Resource Strain: Not on file Food Insecurity: Not on file Transportation Needs: Not on file Physical Activity: Not on file Stress: Not on file Social Connections: Not on file Intimate Partner Violence: Not on file Housing Stability: Not on file Physical Exam: Physical Exam Exam conducted with a street light repairer present. Physical Exam Nursing note and vitals reviewed. Constitutional: Patient is well-developed, well-nourished, and in no distress. HENT: throat clear Head: Normocephalic and atraumatic. Eyes: Conjunctivae are normal. Cardiovascular: Normal rate, regular rhythm and normal heart sounds. Pulmonary/Chest: Effort normal and breath sounds normal. Abd: Soft nontender nondistended normoactive bowel sounds no rebound or guarding Neurological: Patient is alert. GCS score is 15. Skin: Skin is warm and dry. Psychiatric: Affect and judgment normal. Vital Signs During ED Visit Patient Vitals for the past 24 hrs: BP Temp Temp src Pulse Resp SpO2 06/19/21 1622 127/75 98.4 F (36.9 C) Oral 88 16 98 % Orders/Results: Orders Placed This Encounter CBC,PLATELETS COMPREHENSIVE METABOLIC PANEL ALCOHOL (ETHANOL),BLOOD ACETAMINOPHEN LEVEL SALICYLATE LEVEL TOXICOLOGY DRUG SCREEN, URINE HCG QUALITATIVE, URINE - For females over 12 years and less than 50 years of age Results for orders placed or performed during the hospital encounter of 04/28/21 CHLAMYDIA/GONOCOCCUS, KAY Specimen: URINE FIRST CATCH Result Value Ref Range AMPLIFIED DNA PROBE: CHLAMYDIA Negative AMPLIFIED DNA PROBE: NEISSERIA Negative URINALYSIS, MACRO Result Value Ref Range COLOR, URINE YELLOW YELLOW APPEARANCE, URINE CLEAR CLEAR SPECIFIC GRAVITY, URINE 1.020 1.010 - 1.025 PH URINE 6.0 5.0 - 7.0 PROTEIN, URINE NEGATIVE NEGATIVE mg/dl GLUCOSE, URINE NEGATIVE NEGATIVE mg/dl KETONES, URINE 15 (A) NEGATIVE mg/dl BILIRUBIN, URINE SMALL (A) NEGATIVE BLOOD, URINE DIPSTICK NEGATIVE NEGATIVE NITRITES, URINE NEGATIVE NEGATIVE UROBILINOGEN, URINE 1.0 0.2 - 1.0 E.U./dL LEUKOCYTE ESTERASE, URINE TRACE (A) NEGATIVE URINE MICROSCOPIC Result Value Ref Range WBC, URINE 1 TO 5 NEGATIVE /HPF RBC, URINE NEGATIVE NEGATIVE /HPF Epithelial Cells UA TOO NUMEROUS TO COUNT /HPF Mucus 2+ (A) NEGATIVE BACTERIA, URINE 2+ (A) NEGATIVE CRYSTALS, URINE NONE NONE CASTS, URINE NONE NONE /LPF COMMENT, URINE POSSIBLY CONTAMINATED SPECIMEN, CULTURE MUST BE ORDERED SEPARATELY IF DEEMED NECESSARY. Radiographic Imaging No orders to display Procedures: Procedures Moderate Sedation Procedure: No ED Summary/MDM Patient was interviewed with Elba TROTTER patient is not homicidal or suicidal discharge home she'llfollow up outpatient with mental health. MDM Number of Diagnoses or Management Options Clinical Impression: 1. PTSD (post-traumatic stress disorder) No follow-ups on file. New Prescriptions No medications on file Discontinued Medications No medications on file An After Visit Summary was printed and given to the patient with above information. . . Francisco Maldonado MD 06/19/21 0897 [facility] History of Present illness Narrative* Ender Collins, STRAIGHT KNIFE CUTTER MACHINE-AGER TENDER - 05/23/2021 11:10 AM EST This is a 30 yo female that arrives to the office for reason of stitches removal. Was seen in the ED on 05/14/21 for left thumb laceration. In the ED 4 simple sutures were placed to the left thumb lac for repair. Was told to have sutures removed in 7-9 days. She was utd on tetanus shot and did not need one in the ED. Here today for suture removal. No concerns. Site well approximated. No redness. No drainage. No signs of secondary infection. ROS Constitutional: Denies Fever. No chills. Eyes: Denies visual change or eye discharge Head/Ear/Nose/Throat: Denies earache or sore throat Respiratory: Denies shortness of breath. No cough. Cardiovascular: Denies chest pain Gastrointestinal: Denies abdominal pain, Denies nausea, Denies vomiting Genitourinary: Denies dysuria Musculoskeletal: Denies Joint pain, Denies muscle pain Skin: Denies Rash. Pos for healing lac with sutures to the left thumb. Neurological: Denies Headache, Denies focal neuro symptoms Social History Tobacco Use Smoking status: Current Every Day Smoker Packs/day: 2.00 Start date: 05/23/2000 Smokeless tobacco: Never Used Vaping Use Vaping Use: Never used Substance Use Topics Alcohol use: Not Currently Drug use: Not Currently EXAM Smoking Status Current Every Day Smoker Primary Assessment: Airway patent. Respirations unlabored, Normal respiratory effort Constitutional: Vital signs reviewed. Well appearing. No distress Psychiatric: Mental status appropriate. Normal affect Skin: Warm and dry. No rashes noted. Healing lac to the left thumb with sutures in place. No signs of secondary infection. Site well approximated. Eyes: Conjunctiva clear. No photophobia HENT: Normocephalic. Normal Tms. Posterior pharynx clear. Negative cervical lymphadenopathy. Tracheal sounds free of stridor. Thorax/ Respiratory: Respiratory effort non-labored. BBS clear ant/post. No wheezes, rales or rhonchi. Gastrointestinal: Abdomen soft and non-tender Genitourinary: NA Musculoskeletal: Neck supple Neurologic: Alert and Oriented Diagnosis: There were no encounter diagnoses. Plan: 1. Laceration of left thumb without foreign body without damage to nail, subsequent encounter - [place] SUTURE REMOVAL Lac left thumb. Seen in ED on 05/14/21 and 4 sutures placed. Healing well. Site well approximated. No signs of secondary infection. Sutures removed by office staff. abx ointment as needed to the area. Fu as needed. VIRGINIA Serra 05/23/2021 documented in this [facility]12-13-2021 Hospital Discharge instructions* Instructions* Vishal Leon DO - 05/14/2021 Sutures are to be removed in 7-9 days by PCP. Use antibiotic ointment 3-4 times a day the next week. * Attachments The following attachments cannot be sent through Care Everywhere. * Hand Laceration: Stitches (Sammarinese) * Wound Check (Sammarinese) documented in this [facility]12-13-2021 Emergency department Note* Araceli Kennedy RN - 05/14/2021 2:37 AM EST Discharge instructions given pt verbalizes understanding, no questions or concerns at this time. Ptambulatory to er exit. Pt rates pain4/10 * Araceli Kennedy RN - 05/14/2021 2:35 AM EST Bacitracin ointment applied to laceration, non stick bulky dry dressing applied, pt tolerated well. * Vishal Leon, DO - 05/14/2021 2:27 AM EST Emergency Department Report [facility] Service Date:.05/14/21 PCP: Ender Collins Chief Complaint: Chief Complaint Patient presents with Laceration Patient was using a cerated kitchen knife to attempt to open a can patient cut left thumb. Bleedingcontrolled edges well approximated. incident about 30 minutes prior to arrival. 7/10 tingling pain.tetanus within 7 years. BRIAN Jo is a 30 y.o. female presents to the ED today due to Left thumb laceration, 2.5 cm, U-shaped flap over the distal aspect of the left thumb, volar aspect. Patient was at home, trying toopen up a can using a knife, when the knife slipped and cut her left finger. Patient had a tetanus shot approximate 7 years ago. Patient is [id number]. Patient has slow venous colored, no pulsatile bleeding. No acute complaints. 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 No other acute complaints. Review of Systems: Review of Systems Unless otherwise stated in this report or unable to obtain because of the patient's clinical or mental status as evidenced by medical record, the patient's positive and negative responses for review of systems for constitutional, eyes, ENT, cardiovascular, respiratory, gastrointestinal, neurological, , musculoskeletal, and integument systems and related systems to the presenting problem are either stated in the history of present illness or were not pertinent or were negative for the symptomsand/or complaints related to the presenting medical problem. Past Medical History: Past Medical History: Diagnosis Date Hepatitis Past Surgical History: Past Surgical History: Procedure Laterality Date SECTION 2014 WISDOM TEETH EXTRACTION 2006 Allergies: No Known Allergies Medications: Patient's Medications New Prescriptions No medications on file Previous Medications NALTREXONE (VIVITROL) 380 MG RECON SUSP INJECTION Inject 4 mL intramuscularly every 28 days. NAPROXEN 500 MG TABLET Take one tablet po q12h prn pain, inflammation. Modified Medications No medications on file Discontinued Medications No medications on file Family History: Family History Problem Relation Age of Onset Stroke Father Stroke Paternal Grandfather Social History: Social History Socioeconomic History Marital status: Single Spouse name: Not on file Number of children: Not on file Years of education: Not on file Highest education level: Not on file Occupational History Not on file Tobacco Use Smoking status: Current Every Day Smoker Packs/day: 2.00 Start date: 05/23/2000 Smokeless tobacco: Never Used Vaping Use Vaping Use: Never used Substance and Sexual Activity Alcohol use: Not Currently Drug use: Not Currently Sexual activity: Not on file Other Topics Concern Not on file Social History Narrative Not on file Social Determinants of Health Financial Resource Strain: Not on file Food Insecurity: Not on file Transportation Needs: Not on file Physical Activity: Not on file Stress: Not on file Social Connections: Not on file Intimate Partner Violence: Not on file Housing Stability: Not on file Physical Exam: Physical Exam vital signs reviewed and patient is not hypoxic. General: The patient appears well and in no apparent distress. Patient is resting comfortably on cart. Not toxic, lethargic, or listless. Skin: Warm, dry, no pallor noted. There is no rash noted. Head: Normocephalic, atraumatic Eye: Normal conjunctiva, no drainage, EOMI. PERRL. Ears, Nose, Mouth, and Throat: oral mucosa is moist. Nares patent. Mouth without vesicles, no acuteintraoral pathology. Cardiovascular: Regular Rate and Rhythm, no murmurs, gallops, or rubs Respiratory: Patient is in no distress, no accessory muscle use, lungs are clear to auscultation, no wheezing, rales or rhonchi Back: non-tender, GI: Soft, Musculoskeletal: The patient has full range of motion of all extremities and joints with no difficulty. Patient has a 2.5 cm U-shaped flap over the distal phalanx of the left thumb, volar aspect. Slow venous colored bleeding, no pulsatile bleeding. Patient's superficial and deep flexor tendons are intact. No foreign bodies. No other acute complaints or findings. Minimal tingling to the soft the left thumb, however it is neurovascularly intact. Patient has sharp tactful sensations all 4 quadrants of the distal left thumb. Patient has no motor, no sensory deficits. Neurological: A&O x4, normal speech, no focal neurological deficits. Psychiatric: Cooperative Vital Signs During ED Visit Patient Vitals for the past 24 hrs: BP Temp Temp src Pulse Resp SpO2 05/14/21 0159 125/61 98.1 F (36.7 C) Oral 77 18 97 % Orders/Results: Orders Placed This Encounter bacitracin ointment 1 Application Results for orders placed or performed during the hospital encounter of 04/28/21 CHLAMYDIA/GONOCOCCUS, KAY Specimen: URINE FIRST CATCH Result Value Ref Range AMPLIFIED DNA PROBE: CHLAMYDIA Negative AMPLIFIED DNA PROBE: NEISSERIA Negative URINALYSIS, MACRO Result Value Ref Range COLOR, URINE YELLOW YELLOW APPEARANCE, URINE CLEAR CLEAR SPECIFIC GRAVITY, URINE 1.020 1.010 - 1.025 PH URINE 6.0 5.0 - 7.0 PROTEIN, URINE NEGATIVE NEGATIVE mg/dl GLUCOSE, URINE NEGATIVE NEGATIVE mg/dl KETONES, URINE 15 (A) NEGATIVE mg/dl BILIRUBIN, URINE SMALL (A) NEGATIVE BLOOD, URINE DIPSTICK NEGATIVE NEGATIVE NITRITES, URINE NEGATIVE NEGATIVE UROBILINOGEN, URINE 1.0 0.2 - 1.0 E.U./dL LEUKOCYTE ESTERASE, URINE TRACE (A) NEGATIVE URINE MICROSCOPIC Result Value Ref Range WBC, URINE 1 TO 5 NEGATIVE /HPF RBC, URINE NEGATIVE NEGATIVE /HPF Epithelial Cells UA TOO NUMEROUS TO COUNT /HPF Mucus 2+ (A) NEGATIVE BACTERIA, URINE 2+ (A) NEGATIVE CRYSTALS, URINE NONE NONE CASTS, URINE NONE NONE /LPF COMMENT, URINE POSSIBLY CONTAMINATED SPECIMEN, CULTURE MUST BE ORDERED SEPARATELY IF DEEMED NECESSARY. Radiographic Imaging No orders to display Procedures: Procedures Patient has a left thumb 2.5 cm laceration. Laceration repair done by Dr. Leon. Patient was cleaned, prepped, draped in normal sterile fashion. The patient was anesthetized with [3cc of 1 percent lidocaine]. Patient had good anesthetic effect. Patient was cleaned with Hibiclens, patient was copiously irrigated with sterile water, approximately 100 mL. Using 4-0 nylon suture, patient had 4 simple interrupted sutures placed. Patient toleratedprocedure well without difficulty. Patient was cleaned; bacitracin and dry dressing was placed. Sutures will be removed in 7 9 days. Moderate Sedation Procedure: No ED Summary/MDM patient had 4 sutures placed. Patient's tetanus shot is up-to-date. Bacitracin and dry dressing place. Sutures will be removed in 7-9 days. Work note was given. Patient is antibiotic ointment 3-4 times a day at home. Patient acutely clean and dry during the day at work. No questions at discharge. Clinical Impression: 1. Laceration of left thumb, initial encounter 2. 2.5 center left thumb laceration No follow-ups on file. New Prescriptions No medications on file Discontinued Medications No medications on file An After Visit Summary was printed and given to the patient with above information. . . Vishal Leon DO 05/14/21 0233 * Araceli Kennedy RN - 05/14/2021 1:50 AM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 Exercise per Session: Stress: Feeling of Stress : Social Connections: Frequency of Communication with Friends and Family: Frequency of Social Gatherings with Friends and Family: Attends [employer]ism Services: Active Member of Clubs or Organizations: Attends Club or Organization Meetings: Marital Status: Intimate Partner Violence: Fear of Current or Ex-Partner: Emotionally Abused: Physically Abused: Sexually Abused: Social History Tobacco Use Smoking Status Current Every Day Smoker Packs/day: 0.50 Start date: 05/23/2000 Smokeless Tobacco Never Used Social History Substance and Sexual Activity Alcohol Use Not Currently Social History Substance and Sexual Activity Drug Use Not Currently Allergies: Patient has no known allergies. Home Medications: Current Outpatient Medications: naltrexone (Vivitrol) 380 MG Recon Susp injection, Inject 4 mL intramuscularly every 28 days., Disp: 1 Each, Rfl: 11 faMOTIdine (Pepcid) 20 MG tablet, Take 2 tablets by mouth 2 times daily for 10 days., Disp: 40 tablet, Rfl: 0 polyethylene glycol (MiraLax) 17 g Pack packet, Take 1 packet by mouth daily for 7 days., Disp: 7 packet, Rfl: 0 varenicline (Chantix Continuing ) 1 MG tablet, Take 1 tablet by mouth 2 times daily., Disp: 60 tablet, Rfl: 0 varenicline (Chantix Starting ) 0.5 MG X 11 & 1 MG X 42 Misc tablet, Take 0.5mg daily for 3 days (days 1-3), then 0.5mg two times a day for 4 days (days 4-7), then 1mg two times a day, Disp: 1 Each, Rfl: 0 Current Facility-Administered Medications: naltrexone (VIVITROL) IM injection 380 mg, 380 mg, Intramuscular, Once (In Clinic), Ender Collins, STRAIGHT KNIFE CUTTER MACHINE-AGER TENDER ROS: Review of Systems Constitutional: Negative for activity change, appetite change, chills, fatigue and fever. Respiratory: Negative for cough, chest tightness, shortness of breath and wheezing. Cardiovascular: Negative for chest pain, palpitations and leg swelling. Gastrointestinal: Negative for abdominal pain, constipation, diarrhea, nausea and vomiting. Skin: Negative for color change and wound. Neurological: Negative for dizziness, tremors, facial asymmetry, weakness, light-headedness, numbness and headaches. Psychiatric/Behavioral: Negative for agitation, behavioral problems, sleep disturbance and suicidalideas. The patient is not nervous/anxious. Physical Examination: Vital Signs: BP 106/68 (BP Location: Left arm, BP Position: Sitting) Pulse 78 Temp 97.5 F (36.4 C) (Temporal) Ht 1.6 m (5' 3 ) Wt 78.6 kg (173 lb 3.2 oz) SpO2 99% BMI 30.68 kg/m Smoking Status Current Every Day Smoker Physical Exam Constitutional: General: She is awake. Appearance: Normal appearance. Cardiovascular: Rate and Rhythm: Normal rate. Pulses: Normal pulses. Pulmonary: Effort: Pulmonary effort is normal. No accessory muscle usage, prolonged expiration or respiratory distress. Musculoskeletal: Right lower leg: No edema. Left lower leg: No edema. Skin: General: Skin is warm and dry. Capillary Refill: Capillary refill takes less than 2 seconds. Neurological: Mental Status: She is alert and oriented to person, place, and time. Motor: Motor function is intact. Coordination: Coordination is intact. Psychiatric: Mood and Affect: Mood normal. Speech: Speech normal. Behavior: Behavior normal. Behavior is cooperative. Thought Content: Thought content normal. Cognition and Memory: Cognition normal. Judgment: Judgment normal. Laboratory and Additional Data Reviewed: Results for orders placed or performed during the hospital encounter of 11/08/20 CBC, EDIF, PLATELET Result Value Ref Range WBC (WHITE BLOOD COUNT) 7.0 3.6 - 11.0 10*3/uL RBC 4.24 4.0 - 5.4 10*6/uL HEMOGLOBIN (HGB) 12.8 12.0 - 16.0 G/DL HEMATOCRIT (HCT) 37.0 36.0 - 48.0 % MEAN CELL VOLUME 87.3 80.0 - 100.0 FL Mean Cell HGB 30.2 26.0 - 35.0 PG MEAN CELL HGB CONCENTRATION 34.7 27.0 - 37.0 G/DL RBC DISTRIBUTION 13.7 11.5 - 14.5 % PLATELET COUNT 244 130 - 400 10*3/uL MEAN PLATELET VOLUME 7.8 7.4 - 11.0 FL DIFFERENTIAL TYPE AUTO DIFF % NEUTROPHILS 60.1 37.0 - 75.0 % LYMPHOCYTE 28.4 20.0 - 55.0 % MONOCYTE % 8.1 0.0 - 10.0 % EOSINOPHIL % 2.7 0.0 - 11.0 % BASOPHIL % 0.7 0.0 - 2.0 % Absolute Neutrophil Count 4.2 1 - 6 10*3/uL LYMPHOCYTES, ABSOLUTE 2.00 1.2 - 3.4 10*3/uL MONOCYTES, ABSOLUTE 0.6 0.0 - 0.7 10*3/uL ABSOLUTE EOSINOPHIL COUNT 0.20 0 - 0 10*3/uL ABSOLUTE BASOPHIL COUNT 0.0 0 - 0 10*3/uL LIPASE Result Value Ref Range LIPASE 66 23 - 300 U/L COMPREHENSIVE METABOLIC PANEL Result Value Ref Range GLUCOSE 93 70 - 100 MG/DL BUN 12 7.0 - 20.0 MG/DL CREATININE SERUM 0.69 (L) 0.7 - 1.2 MG/DL SODIUM 138 137 - 145 MMOL/L POTASSIUM 3.9 3.5 - 5.1 MMOL/L CHLORIDE 107 98 - 107 MMOL/L CALCIUM 9.2 8.4 - 10.2 MG/DL PROTEIN, TOTAL 6.9 6.3 - 8.2 GM/DL ALBUMIN 4.1 3.5 - 5.0 G/dl BILIRUBIN, TOTAL 0.1 (L) 0.2 - 1.3 MG/DL AST 19 14 - 36 IU/L ALKALINE PHOSPHATASE 56 38 - 126 IU/L CARBON DIOXIDE (CO2) 25 22 - 30 MMOL/L A/G Ratio 1.5 1.3 - 2.2 RATIO ALT 13 <35 IU/L ESTIMATED GFR, NON AMER >60 ml/min/1.73sq.m ESTIMATED GFR, >60 ml/min/1.73sq.m GFR COMMENT Average GFR for 30-39 years old = 109. URINALYSIS, MACRO Result Value Ref Range COLOR, URINE YELLOW YELLOW APPEARANCE, URINE CLEAR CLEAR SPECIFIC GRAVITY, URINE 1.025 1.010 - 1.025 PH URINE 7.5 (H) 5.0 - 7.0 PROTEIN, URINE NEGATIVE NEGATIVE mg/dl GLUCOSE, URINE NEGATIVE NEGATIVE mg/dl KETONES, URINE TRACE (A) NEGATIVE mg/dl BILIRUBIN, URINE NEGATIVE NEGATIVE BLOOD, URINE DIPSTICK NEGATIVE NEGATIVE NITRITES, URINE NEGATIVE NEGATIVE UROBILINOGEN, URINE 0.2 0.2 - 1.0 E.U./dL LEUKOCYTE ESTERASE, URINE TRACE (A) NEGATIVE HCG QUALITATIVE, URINE Result Value Ref Range HCG, QUALITATIVE, URINE NEGATIVE URINE MICROSCOPIC Result Value Ref Range WBC, URINE 1 TO 5 NEGATIVE /HPF RBC, URINE NEGATIVE NEGATIVE /HPF Epithelial Cells UA 20 TO 30 /HPF Mucus 2+ (A) NEGATIVE BACTERIA, URINE 2+ (A) NEGATIVE CRYSTALS, URINE NONE NONE CASTS, URINE NONE NONE /LPF COMMENT, URINE POSSIBLY CONTAMINATED SPECIMEN, CULTURE MUST BE ORDERED SEPARATELY IF DEEMED NECESSARY. No images are attached to the encounter. Assessment and Plan: Elba Jo is a 30 y.o. female that presents for follow up. Opioid abuse in remission. Current management with Vivitrol injection every 28 days. Tolerating well. No se. No cravings. No recent use. -UDS is neg and appropriate. -OARRS reviewed and appropriate. Will get Vivitrol injection today. Fu in 28 days. -Vivitrol injection -Smoking cessation. Call the office for any questions or concerns. I did have discussion that if any medications are not covered or is not able to get the medications to call the office and let us know so other alternative/arrangements can be made. Elba was seen today for medication management. Diagnoses and all orders for this visit: Opioid dependence in remission - POCT ALERE DRUG SCREEN - naltrexone (VIVITROL) IM injection 380 mg [place] Serra [facility]* CANDACE MOELLER - 11/08/2020 11:46 PM EDT Patient provided discharge instructions and education to follow up with PCP. Patient verbalized understanding. Patient left this ED ambulatory with friend at side. Respirations were easy and unlabored and gait steady. * Adri Christie RN - 11/08/2020 10:[address] Mott at bedside * Adri Christie RN - 11/08/2020 9:53 PM EDT Patient verbalizes Headache 4/10 and is tolerable at this time * Ting Mott MD - 11/08/2020 9:26 PM EDT Emergency Department Report [facility] Service Date:.11/08/20 PCP: Ender Collins Chief Complaint: Chief Complaint Patient presents with Abdominal Pain pt reports right upper abd pain that radiates to the right side starting today. BRIAN Jo is a 30 y.o. female presents to the ED today due to right upper quadrant abdominal pain which started earlier this morning. She describes it as sharp and dull in nature. She has no radiation of the pain. Nothing makes it better or worse. She denies any nausea vomiting. She does not have any diarrhea but does have some constipation. Last menstrual period was a week ago. She denies any urinary symptoms. She denies any fever or upper respiratory symptoms. Patient states she's had this pain before but nobody is ever found out why. She denies any pelvic pain or vaginal discharge. Review of Systems: Review of Systems Constitutional: Negative. HENT: Negative. Eyes: Negative. Respiratory: Negative. Cardiovascular: Negative. Gastrointestinal: Positive for abdominal pain and constipation. Negative for abdominal distention, anal bleeding, blood in stool, diarrhea, nausea, rectal pain and vomiting. Endocrine: Negative. Genitourinary: Negative. Musculoskeletal: Negative. Skin: Negative. Allergic/Immunologic: Negative. Neurological: Negative. Hematological: Negative. All other systems reviewed and are negative. Past Medical History: Past Medical History: Diagnosis Date Hepatitis Past Surgical History: Past Surgical History: Procedure Laterality Date SECTION 2014 WISDOM TEETH EXTRACTION 2006 Allergies: No Known Allergies Medications: Patient's Medications New Prescriptions FAMOTIDINE (PEPCID) 20 MG TABLET Take 2 tablets by mouth 2 times daily for 10 days. POLYETHYLENE GLYCOL (MIRALAX) 17 G PACK PACKET Take 1 packet by mouth daily for 7 days. Previous Medications MELATONIN 5 MG CAPSULE Take 1 capsule by mouth at bedtime. NALTREXONE (VIVITROL) 380 MG RECON SUSP INJECTION Inject 4 mL intramuscularly every 28 days. TRAZODONE 50 MG TABLET Take 1-2 tablets by mouth every evening at 6 PM. VARENICLINE (CHANTIX CONTINUING ) 1 MG TABLET Take 1 tablet by mouth 2 times daily. VARENICLINE (CHANTIX STARTING MONTH ) 0.5 MG X 11 & 1 MG X 42 MISC TABLET Take 0.5mg daily for 3 days (days 1-3), then 0.5mg two times a day for 4 days (days 4-7), then 1mg two times a day Modified Medications No medications on file Discontinued Medications No medications on file Family History: Family History Problem Relation Age of Onset Stroke Father Stroke Paternal Grandfather Social History: Social History Socioeconomic History Marital status: Single Spouse name: Not on file Number of children: Not on file Years of education: Not on file Highest education level: Not on file Occupational History Not on file Tobacco Use Smoking status: Current Every Day Smoker Packs/day: 0.50 Start date: 05/23/2000 Smokeless tobacco: Never Used Vaping Use Vaping Use: Never used Substance and Sexual Activity Alcohol use: Not Currently Drug use: Not Currently Sexual activity: Not on file Other Topics Concern Not on file Social History Narrative Not on file Social Determinants of Health Financial Resource Strain: Difficulty of Paying Living Expenses: Food Insecurity: Worried About Running Out of Food in the Last Year: Ran Out of Food in the Last Year: Transportation Needs: Lack of Transportation (Medical): Lack of Transportation (Non-Medical): Physical Activity: Days of Exercise per Week: Minutes of Exercise per Session: Stress: Feeling of Stress : Social Connections: Frequency of Communication with Friends and Family: Frequency of Social Gatherings with Friends and Family: Attends Mormonism Services: Active Member of Clubs or Organizations: Attends Club or Organization Meetings: Marital Status: Intimate Partner Violence: Fear of Current or Ex-Partner: Emotionally Abused: Physically Abused: Sexually Abused: Physical Exam: Physical Exam Vitals and nursing note reviewed. Constitutional: General: She is not in acute distress. Appearance: She is not toxic-appearing or diaphoretic. HENT: Head: Normocephalic. Right Ear: External ear normal. Left Ear: External ear normal. Mouth/Throat: Mouth: Mucous membranes are moist. Cardiovascular: Rate and Rhythm: Normal rate and regular rhythm. Pulses: Normal pulses. Heart sounds: Normal heart sounds. No murmur heard. No friction rub. No gallop. Pulmonary: Effort: Pulmonary effort is normal. No respiratory distress. Breath sounds: Normal breath sounds. No stridor. No wheezing, rhonchi or rales. Chest: Chest wall: No tenderness. Abdominal: General: Abdomen is flat. There is no distension. Palpations: Abdomen is soft. There is no mass. Tenderness: There is abdominal tenderness. There is no right CVA tenderness, left CVA tenderness, guarding or rebound. Hernia: No hernia is present. Musculoskeletal: General: No swelling. Cervical back: No rigidity. Skin: Findings: No rash. Neurological: General: No focal deficit present. Mental Status: She is alert and oriented to person, place, and time. Cranial Nerves: No cranial nerve deficit. Sensory: No sensory deficit. Motor: No weakness. Vital Signs During ED Visit Patient Vitals for the past 24 hrs: BP Temp Temp src Pulse Resp SpO2 11/08/20 2317 115/56 69 17 98 % 11/08/20 2125 132/66 98.1 F (36.7 C) Oral 88 16 97 % Orders/Results: Orders Placed This Encounter CT ABDOMEN/PELVIS WITH CONTRAST CBC, EDIF, PLATELET LIPASE COMPREHENSIVE METABOLIC PANEL faMOTIdine (PEPCID) injection 20 mg iohexol (OMNIPAQUE) 350 MG/ML injection 75 mL sodium chloride 0.9% IV solution 70 mL faMOTIdine (Pepcid) 20 MG tablet polyethylene glycol (MiraLax) 17 g Pack packet URINALYSIS, MACRO HCG QUALITATIVE, URINE URINE MICROSCOPIC Results for orders placed or performed during the hospital encounter of 11/08/20 CBC, EDIF, PLATELET Result Value Ref Range WBC (WHITE BLOOD COUNT) 7.0 3.6 - 11.0 10*3/uL RBC 4.24 4.0 - 5.4 10*6/uL HEMOGLOBIN (HGB) 12.8 12.0 - 16.0 G/DL HEMATOCRIT (HCT) 37.0 36.0 - 48.0 % MEAN CELL VOLUME 87.3 80.0 - 100.0 FL Mean Cell HGB 30.2 26.0 - 35.0 PG MEAN CELL HGB CONCENTRATION 34.7 27.0 - 37.0 G/DL RBC DISTRIBUTION 13.7 11.5 - 14.5 % PLATELET COUNT 244 130 - 400 10*3/uL MEAN PLATELET VOLUME 7.8 7.4 - 11.0 FL DIFFERENTIAL TYPE AUTO DIFF % NEUTROPHILS 60.1 37.0 - 75.0 % LYMPHOCYTE 28.4 20.0 - 55.0 % MONOCYTE % 8.1 0.0 - 10.0 % EOSINOPHIL % 2.7 0.0 - 11.0 % BASOPHIL % 0.7 0.0 - 2.0 % Absolute Neutrophil Count 4.2 1 - 6 10*3/uL LYMPHOCYTES, ABSOLUTE 2.00 1.2 - 3.4 10*3/uL MONOCYTES, ABSOLUTE 0.6 0.0 - 0.7 10*3/uL ABSOLUTE EOSINOPHIL COUNT 0.20 0 - 0 10*3/uL ABSOLUTE BASOPHIL COUNT 0.0 0 - 0 10*3/uL LIPASE Result Value Ref Range LIPASE 66 23 - 300 U/L COMPREHENSIVE METABOLIC PANEL Result Value Ref Range GLUCOSE 93 70 - 100 MG/DL BUN 12 7.0 - 20.0 MG/DL CREATININE SERUM 0.69 (L) 0.7 - 1.2 MG/DL SODIUM 138 137 - 145 MMOL/L POTASSIUM 3.9 3.5 - 5.1 MMOL/L CHLORIDE 107 98 - 107 MMOL/L CALCIUM 9.2 8.4 - 10.2 MG/DL PROTEIN, TOTAL 6.9 6.3 - 8.2 GM/DL ALBUMIN 4.1 3.5 - 5.0 G/dl BILIRUBIN, TOTAL 0.1 (L) 0.2 - 1.3 MG/DL AST 19 14 - 36 IU/L ALKALINE PHOSPHATASE 56 38 - 126 IU/L CARBON DIOXIDE (CO2) 25 22 - 30 MMOL/L A/G Ratio 1.5 1.3 - 2.2 RATIO ALT 13 <35 IU/L ESTIMATED GFR, NON AMER >60 ml/min/1.73sq.m ESTIMATED GFR, >60 ml/min/1.73sq.m GFR COMMENT Average GFR for 30-39 years old = 109. URINALYSIS, MACRO Result Value Ref Range COLOR, URINE YELLOW YELLOW APPEARANCE, URINE CLEAR CLEAR SPECIFIC GRAVITY, URINE 1.025 1.010 - 1.025 PH URINE 7.5 (H) 5.0 - 7.0 PROTEIN, URINE NEGATIVE NEGATIVE mg/dl GLUCOSE, URINE NEGATIVE NEGATIVE mg/dl KETONES, URINE TRACE (A) NEGATIVE mg/dl BILIRUBIN, URINE NEGATIVE NEGATIVE BLOOD, URINE DIPSTICK NEGATIVE NEGATIVE NITRITES, URINE NEGATIVE NEGATIVE UROBILINOGEN, URINE 0.2 0.2 - 1.0 E.U./dL LEUKOCYTE ESTERASE, URINE TRACE (A) NEGATIVE HCG QUALITATIVE, URINE Result Value Ref Range HCG, QUALITATIVE, URINE NEGATIVE URINE MICROSCOPIC Result Value Ref Range WBC, URINE 1 TO 5 NEGATIVE /HPF RBC, URINE NEGATIVE NEGATIVE /HPF Epithelial Cells UA 20 TO 30 /HPF Mucus 2+ (A) NEGATIVE BACTERIA, URINE 2+ (A) NEGATIVE CRYSTALS, URINE NONE NONE CASTS, URINE NONE NONE /LPF COMMENT, URINE POSSIBLY CONTAMINATED SPECIMEN, CULTURE MUST BE ORDERED SEPARATELY IF DEEMED NECESSARY. Radiographic Imaging CT ABDOMEN/PELVIS WITH CONTRAST Final Result IMPRESSION: No obstructing stones, appendicitis, or diverticulitis. No discrete focal bowel wall or stomach wall thickening. Heterogeneous uterus with sliver of endometrial canal fluid. Focus of air within the cervical canal and vaginal canal. Correlate clinically for underlying pelvic inflammation versus other etiology. Procedures: Procedures ED Summary/MDM Patient is afebrile and there is no signs of sepsis or bacteremia. She has no rebound or guarding or peritoneal signs on exam. She has no signs of acute abdomen. Urinalysis is negative for UTI. Urinepregnancy is negative. She does not have any pelvic pain or vaginal discharge and did not feel pelvic workups indicated. CBC CMP and lipase are normal. We discussed CT scan of abdomen and pelvis. I told her given her lab work is normal CT scan with the most likely low yield. Told her about the increased radiation exposure with a CT scan. She did want the CT abdomen and pelvis. CT scan was read byradiology. No obstructing stone, or signs of appendicitis or diverticulitis. Heterogeneous uterus with a sliver of endometrial canal fluid. Correlate clinically with pelvic inflammation. Patient has no pelvic pain no vaginal discharge. All of her pain is in the epigastric region. I do not feel pelvic exam indicated in the ER. She is to follow-up with her medical driver. She will call for an appointment. She is also follow up with her primary doctor. Patient started on Pepcid. She is also given MiraLAX for constipation. She has close follow-ups indicated and is comfortable going home. If worsening symptoms come back to the ER Clinical Impression: 1. Epigastric pain 2. Constipation, unspecified constipation type 3. Right ovarian cyst No follow-ups on file. New Prescriptions FAMOTIDINE (PEPCID) 20 MG TABLET Take 2 tablets by mouth 2 times daily for 10 days. POLYETHYLENE GLYCOL (MIRALAX) 17 G PACK PACKET Take 1 packet by mouth daily for 7 days. Discontinued Medications No medications on file An After Visit Summary was printed and given to the patient with above information. . . Ting Mott MD 11/08/20 4396 [facility]* Instructions* Ting Mott MD - 11/08/2020 Call your doctor and VIDEO PRODUCTION COORDINATOR for follow-up. Increase fluids and fiber in her diet. If worsening symptoms come back to the ER. CT scan showed ovarian cyst and some endometrial fluid so a VIDEO PRODUCTION COORDINATOR follow-up is indicated. * Attachments The following attachments cannot be sent through Care Everywhere. * Abdominal Pain (Sammarinese) * Constipation ([facility]) (Sammarinese) * Ovarian Cyst: Functional (Sammarinese) documented in this [facility]05-[facility]21 History of Present illness Narrative* Cecilia Vargas - 10/05/2020 9:50 AM EDT Pt denied any concerns prior to injection. Administered 380 MG VIVITROL into pts right gluteus. Pt tolerated injection well. * Ender Collins APRN-BARBARA - 10/05/2020 9:50 AM EDT Follow Up Visit Elba Jo [id number] 1990 10/05/2020 Chief Complaint Patient presents with Medication Management VIVITROL History of Present Illness: Elba Jo is a 30 y.o. female presenting for follow up. Here for vivitrol injection. Injection every 28 days for opioid abuse in remission. Has been doing well on current management. No se from management. No adverse effects. No site injection complications. Denies any cravings. No recent use or relapse. Asking about the VIDEO PRODUCTION COORDINATOR referral that was placed last visit. Nothing acute today. History: Past Medical History: Diagnosis Date Hepatitis Past Surgical History: Procedure Laterality Date SECTION 2014 WISDOM TEETH EXTRACTION 2007 Family History Problem Relation Age of Onset Stroke Father Stroke Paternal Grandfather Social History Socioeconomic History Marital status: Single Spouse name: Not on file Number of children: Not on file Years of education: Not on file Highest education level: Not on file Occupational History Not on file Tobacco Use Smoking status: Current Every Day Smoker Packs/day: 0.50 Start date: 05/23/2000 Smokeless tobacco: Never Used Substance and Sexual Activity Alcohol use: Not on file Drug use: Not on file Sexual activity: Not on file Other Topics Concern Not on file Social History Narrative Not on file Social Determinants of Health Financial Resource Strain: Difficulty of Paying Living Expenses: Not on file Food Insecurity: Worried About Running Out of Food in the Last Year: Not on file Ran Out of Food in the Last Year: Not on file Transportation Needs: Lack of Transportation (Medical): Not on file Lack of Transportation (Non-Medical): Not on file Physical Activity: Days of Exercise per Week: Not on file Minutes of Exercise per Session: Not on file Stress: Feeling of Stress : Not on file Social Connections: Frequency of Communication with Friends and Family: Not on file Frequency of Social Gatherings with Friends and Family: Not on file Attends Mormonism Services: Not on file Active Member of Clubs or Organizations: Not on file Attends Club or Organization Meetings: Not on file Marital Status: Not on file Intimate Partner Violence: Fear of Current or Ex-Partner: Not on file Emotionally Abused: Not on file Physically Abused: Not on file Sexually Abused: Not on file Social History Tobacco Use Smoking Status Current Every Day Smoker Packs/day: 0.50 Start date: 05/23/2000 Smokeless Tobacco Never Used Social History Substance and Sexual Activity Alcohol Use None Social History Substance and Sexual Activity Drug Use Not on file Allergies: Patient has no known allergies. Home Medications: Current Outpatient Medications: Melatonin 5 MG capsule, Take 1 capsule by mouth at bedtime., Disp: 30 capsule, Rfl: 3 naltrexone (Vivitrol) 380 MG Recon Susp injection, Inject 4 mL intramuscularly every 28 days., Disp: 1 Each, Rfl: 11 traZODone 50 MG tablet, Take 1-2 tablets by mouth every evening at 6 PM., Disp: 60 tablet, Rfl: 3 Current Facility-Administered Medications: naltrexone (VIVITROL) IM injection 380 mg, 380 mg, Intramuscular, Once (In Clinic), Ender Collins, STRAIGHT KNIFE CUTTER MACHINE-AGER TENDER ROS: Review of Systems Constitutional: Negative for activity change, appetite change, chills, fatigue and fever. Respiratory: Negative for cough, chest tightness, shortness of breath and wheezing. Cardiovascular: Negative for chest pain, palpitations and leg swelling. Gastrointestinal: Negative for abdominal pain, constipation, diarrhea, nausea and vomiting. Skin: Negative for color change and wound. Neurological: Negative for dizziness, tremors, facial asymmetry, weakness, light-headedness, numbness and headaches. Psychiatric/Behavioral: Negative for agitation, behavioral problems, sleep disturbance and suicidalideas. The patient is not nervous/anxious. Physical Examination: Vital Signs: BP 106/64 (BP Location: Right arm, BP Position: Sitting) Temp 96.6 F (35.9 C) (Temporal) Ht 1.6m (5' 3 ) Wt 79.8 kg (176 lb) BMI 31.18 kg/m Smoking Status Current Every Day Smoker Physical Exam Constitutional: General: She is awake. Appearance: Normal appearance. Cardiovascular: Rate and Rhythm: Normal rate. Pulses: Normal pulses. Pulmonary: Effort: Pulmonary effort is normal. No accessory muscle usage, prolonged expiration or respiratory distress. Musculoskeletal: Right lower leg: No edema. Left lower leg: No edema. Skin: General: Skin is warm and dry. Capillary Refill: Capillary refill takes less than 2 seconds. Neurological: Mental Status: She is alert and oriented to person, place, and time. Motor: Motor function is intact. Coordination: Coordination is intact. Psychiatric: Mood and Affect: Mood normal. Speech: Speech normal. Behavior: Behavior normal. Behavior is cooperative. Thought Content: Thought content normal. Cognition and Memory: Cognition normal. Judgment: Judgment normal. Laboratory and Additional Data Reviewed: Results for orders placed or performed in visit on 08/17/20 POCT [facility] DRUG SCREEN Result Value Ref Range Marijuana (THC), poct Negative COCAINE (ROXANNE), POCT Negative Opiate (OPI), poct Negative Methamphetamine (mAMP/MET), poct Negative Amphetamine (AMP), poct Negative Barbiturates (BAR), poct Negative Methadone (MTD), poct Negative Ecstasy (MDMA), poct Negative Oxycodone (OXY), poct Negative Phencyclidine (PCP), poct Negative Propoxyphene (PPX), poct Negative OXAZEPAM (BZO),POCT Negative Buprenorphine Glucuronide (BUPG),poct Negative Nortripyline (TCA), poct Negative No images are attached to the encounter. Assessment and Plan: Elba Jo is a 30 y.o. female that presents for follow up. Opioid abuse in remission. Current management with Vivitrol injection every 28 days. Tolerating well. No se. No cravings. No recent use. -UDS is neg and appropriate. -OARRS reviewed and appropriate. Will get Vivitrol injection today. Asking about status of VIDEO PRODUCTION COORDINATOR referral. Will have office staff check into this and fu with the pt. Call the office for any questions or concerns. I did have discussion that if any medications are not covered or is not able to get the medications to call the office and let us know so other alternative/arrangements can be made. Elba was seen today for medication management. Diagnoses and all orders for this visit: Opioid dependence in remission - POCT ALERE DRUG SCREEN - naltrexone (VIVITROL) IM injection 380 mg VIR[place]IA Serra [facility] No data available for this section [facility]* Diagnosis Opioid dependence in remission- Primary Opioid type dependence, in remission [facility]* Diagnosis Epigastric pain- Primary Abdominal pain, epigastric Constipation, unspecified constipation type Right ovarian cyst Other and unspecified ovarian cyst [facility]* Diagnosis Opioid dependence in remission- Primary Opioid type dependence, in remission [facility]* Diagnosis Closed nondisplaced fracture of base of fifth metacarpal bone of left hand, initial encounter- Primary [facility]* Diagnosis Viral syndrome- Primary Unspecified viral infection, in conditions classified elsewhere and of unspecified site [facility]* Diagnosis Laceration of left thumb, initial encounter- Primary [facility]* Diagnosis Laceration of left thumb without foreign body without damage to nail, subsequent encounter- Primary [facility]* Diagnosis PTSD (post-traumatic stress disorder)- Primary Posttraumatic stress disorder [facility]* Diagnosis Diarrhea, unspecified type- Primary [facility]* Diagnosis Acute cystitis without hematuria- Primary Acute cystitis Cyst of left ovary Other and unspecified ovarian cyst documented [facility]* Diagnosis Opioid dependence in remission- Primary Opioid type dependence, in remission [facility]* Diagnosis Onset Date Resolution Status Encounter for psychiatric assessment acute Suicidal ideation acute [facility] Work Phone: Evaluation note* Diagnosis Onset Date Resolution Status Encounter for psychiatric assessment acute Major depressive disorder, r ecurrent episode with mixed features acute PTSD (post-traumatic stress disorder) acute Suicidal ideation acute [facility] Work Phone: Evaluation note* Diagnosis Right wrist pain- Primary Pain in joint, forearm Ganglion cyst of joint of finger of right hand documented in this encounter [employer] Work Phone: evaluation note* Diagnosis Insect bite of neck, initial encounter- Primary Concern about STD in female without diagnosis Person with feared complaint in whom no diagnosis was made documented in this encounter [employer] Phone: evaluation note* Diagnosis Nausea and vomiting, unspecified vomiting type- Primary documented in this encounter [employer] Phone: evaluation note* Diagnosis Onset Date Resolution Status Major depressive disorder, r ecurrent episode with mixed features acute PTSD (post-traumatic stress disorder) acute [facility] Work Phone: Hospital Discharge instructions* Attachments The following attachments cannot be sent through Care Everywhere. * Viral Infections (Sammarinese) [facility] Attachments The following attachments cannot be sent through Care Everywhere. * PTSD (Post-Traumatic Stress Disorder) (Sammarinese) [facility]* Attachments The following attachments cannot be sent through Care Everywhere. * Diarrhea (Sammarinese) [facility]* Attachments The following attachments cannot be sent through Care Everywhere. * UTI (Urinary Tract Infection): Female (Sammarinese) [facility] Additional Instructions Regular diet. No activity restrictions.[facility] Work Phone: Hospital Discharge instructions* Attachments The following attachments cannot be sent through Care Everywhere. * Insect Stings and Bites (Sammarinese) * STI (Sammarinese) [facility] Work Phone: Hospital Discharge instructions* Attachments The following attachments cannot be sent through Care Everywhere. * Nausea and Vomiting (Sammarinese) documented in this [facility] [employer] [facility] Work Phone: Hospital Discharge instructions No data available for this section [facility] No data available for this section [facility] for referral (narrative)* Consultation (Urgent) Status Reason Specialty Diagnoses / Procedures Referred By Contact Referred To Contact New Request Family Medicine Diagnoses Epigastric pain Constipation, unspecified constipation type Right ovarian cyst Ting Mott MD [address] [place] [address] Ender Collins, STRAIGHT KNIFE CUTTER MACHINE-AGER TENDER [address] [place] [address] Electronically signed by Ting Mott MD at [facility] for referral (narrative)* Consultation (Urgent) Status Reason Specialty Diagnoses / Procedures Referred By Contact Referred To Contact New Request Orthopaedics Diagnoses Closed nondisplaced fracture of base of fifth metacarpal bone of left hand, initial encounter Drake Calloway DO [address] [place] [address] Iggy North MD [address] [place] [id number] Electronically signed by Drake Calloway DO at [facility] for referral (narrative)* Consultation (Urgent) - New Request Specialty Diagnoses / Procedures Referred By Bertha pinedo Referred To Contact Family Medicine Diagnoses Viral syndrome Indra Diaz MD [address] [place] [phone] Ender Collins, STRAIGHT KNIFE CUTTER MACHINE-AGER TENDER [address] [place] [address] Referral ID Status Reason Start Date Expiration Date V isits Requested Visits Authorized [id number] New Request 04/28/2021 05/23/2022 1 1 [facility] Consultation (Routine) - New Request Specialty Diagnoses / Procedures Referred By Bertha pinedo Referred To Contact JEWELRY DRILL OPERATOR Diagnoses Cyst of left ovary Francisco Maldonado MD [address] [place] [address] Aurea Chao, DO [address] [place] [address] Referral ID Status Reason Start Date Expiration Date V isits Requested Visits Authorized [id number] New Request 09/03/2021 09/28/2022 1 1 * Radiology (Emergency) - Closed Specialty Diagnoses / Procedures Referred By Bertha pinedo Referred To Contact Procedures US TRANSVAGINAL WITH DOPPLER Francisco Maldonado MD [address] [place] [address] Referral ID Status Reason Start Date Expiration Date Visits Re quested Visits Authorized [id number] Closed 09/03/2021 09/28/2022 1 1 [facility] Summary Purpose Family History No Family History Records Found Relationship Condition Age at Onset Recorded Date/T phu father Cerebrovascular accident (CVA) Unknown Relationship Condition Age at Onset Recorded Date/T phu father Cerebrovascular accident (CVA) Unknown grandparent Myocardial infarction Unknown Advance Directives No Advanced Directives Records FoundDocuments on File Type Date Recorded Patient Order Worker Expl anation ACP-Advance Directive ACP-Power of Talent Sourcing Specialist Advance Directive Response Recorded Date/ Time Advance Directives No November 28 11:07pm Discharge Instructions * Instructions* Eusebia Escudero, FLOWER - AGER TENDER - 03/07/2020 Return to the Emergency Department for any new or concerning symptoms, changes in your current symptoms, fever, or if you feel you are worsening. * Attachments The following attachments cannot be sent through Care Everywhere. * Heroin Use and Withdrawal: General Info (Sammarinese) documented in this encounter Assessments Diagnosis Heroin withdrawal (HCC) Drug withdrawal Diagnosis Encounter for medical examination to establish care- Primary Opioid dependence in remission Opioid type dependence, in remission Diagnosis Insomnia, unspecified type- Primary Hx of intravenous drug use in remission Other, mixed, or unspecified nondependent drug abuse, in remission High risk heterosexual behavior Problems related to high-risk sexual behavior Chronic hepatitis C with hepatic coma Diagnosis Opioid dependence in remission- Primary Opioid type dependence, in remission Chronic hepatitis C with hepatic coma Diagnosis Opioid dependence in remission- Primary Opioid type dependence, in remission Diagnosis Opioid dependence in remission- Primary Opioid type dependence, in remission Encounter for well woman exam with routine gynecological exam History of Present Illness * Ender Collins, STRAIGHT KNIFE CUTTER MACHINE-AGER TENDER - 05/23/2020 1:30 PM EST New Patient Visit Elba Jo [id number] 1990 05/23/2020 Chief Complaint Patient presents with Medication Management Pt here for MAT intake, and 3rd vivitrol injection History of Present Illness: Elba Jo is a 29 y.o. female presenting for an evaluation to alverto as a new pt in the MAT program. Here today to get est in the MAT program. Initial intake was done by Araceli IRVING. Please see the intake information that was established related to her drug abuse hx that has got her to where she is today. All of the program details were provided by Araceli. Handouts were given and folder with all of theinformation pertaining to the MAT program, guidelines, rules, and expectations. She verbalizes understanding. It was identified that she would be a good candidate for the MAT program. I did meet with her and all questions were answered. Discussed the details of the MAT program and she verbalizes understanding. Currently staying at sober living house in [place]. Most recently has been getting Vivitrol injection. Is due for her next vivitrol injection. She denies any opioid or illicit substance abuse since March. Has been doing well on current management with Vivitrol injection. No cravings. No recent use. No se from the med management. No adverse effects. Has been feeling ok. No evidence of opioid or other withdraw at time of exam. Consoling is set up with [facility] in [place]. Just had recent BW done in March. History: Past Medical History: Diagnosis Date Hepatitis Past Surgical History: Procedure Laterality Date SECTION 2014 WISDOM TEETH EXTRACTION 2007 Family History Problem Relation Age of Onset Stroke Father Stroke Paternal Grandfather Social History Socioeconomic History Marital status: Single Spouse name: Not on file Number of children: Not on file Years of education: Not on file Highest education level: Not on file Occupational History Not on file Social Needs Financial resource strain: Not on file Food insecurity Worry: Not on file Inability: Not on file Transportation needs Medical: Not on file Non-medical: Not on file Tobacco Use Smoking status: Current Every Day Smoker Packs/day: 0.50 Start date: 05/23/2000 Smokeless tobacco: Never Used Substance and Sexual Activity Alcohol use: Not on file Drug use: Not on file Sexual activity: Not on file Lifestyle Physical activity Days per week: Not on file Minutes per session: Not on file Stress: Not on file Relationships Social connections Talks on phone: Not on file Gets together: Not on file Attends muslim service: Not on file Active member of club or organization: Not on file Attends meetings of clubs or organizations: Not on file Relationship status: Not on file Intimate partner violence Fear of current or ex partner: Not on file Emotionally abused: Not on file Physically abused: Not on file Forced sexual activity: Not on file Other Topics Concern Not on file Social History Narrative Not on file Social History Tobacco Use Smoking Status Current Every Day Smoker Packs/day: 0.50 Start date: 05/23/2000 Smokeless Tobacco Never Used Social History Substance and Sexual Activity Alcohol Use None Social History Substance and Sexual Activity Drug Use Not on file Allergies: Patient has no known allergies. Home Medications: Current Outpatient Medications: Melatonin 5 MG capsule, Take by mouth., Disp: , Rfl: Naltrexone (VIVITROL IM), Inject intramuscularly., Disp: , Rfl: traZODone 50 MG tablet, Take 50 mg by mouth At bedtime., Disp: , Rfl: naltrexone (Vivitrol) 380 MG Recon Susp injection, Inject 4 mL intramuscularly every 28 days., Disp: 1 Each, Rfl: 11 Current Facility-Administered Medications: naltrexone (VIVITROL) IM injection 380 mg, 380 mg, Intramuscular, Once (In Clinic), Ender Collins, STRAIGHT KNIFE CUTTER MACHINE-AGER TENDER ROS: Review of Systems Constitutional: Negative for activity change, appetite change, chills, fatigue and fever. Respiratory: Negative for cough, chest tightness, shortness of breath and wheezing. Cardiovascular: Negative for chest pain, palpitations and leg swelling. Gastrointestinal: Negative for abdominal pain, constipation, diarrhea, nausea and vomiting. Skin: Negative for color change and wound. Neurological: Negative for dizziness, tremors, facial asymmetry, weakness, light-headedness, numbness and headaches. Psychiatric/Behavioral: Negative for agitation, behavioral problems, sleep disturbance and suicidalideas. The patient is not nervous/anxious. Physical Examination: Vital Signs: BP 140/58 Pulse 90 Temp 98.1 F (36.7 C) (Temporal) Ht 1.613 m (5' 3.5 ) Wt 74 kg (163 lb 3.2 oz) BMI 28.46 kg/m Smoking Status Current Every Day Smoker Physical Exam Constitutional: General: She is awake. Appearance: Normal appearance. Cardiovascular: Rate and Rhythm: Normal rate. Pulses: Normal pulses. Pulmonary: Effort: Pulmonary effort is normal. No accessory muscle usage, prolonged expiration or respiratory distress. Musculoskeletal: Right lower leg: No edema. Left lower leg: No edema. Skin: General: Skin is warm and dry. Capillary Refill: Capillary refill takes less than 2 seconds. Neurological: Mental Status: She is alert and oriented to person, place, and time. Motor: Motor function is intact. Coordination: Coordination is intact. Psychiatric: Mood and Affect: Mood normal. Speech: Speech normal. Behavior: Behavior normal. Behavior is cooperative. Thought Content: Thought content normal. Cognition and Memory: Cognition normal. Judgment: Judgment normal. Laboratory and Additional Data Reviewed: No results found for this or any previous visit. No images are attached to the encounter. Assessment and Plan: Elba Jo is a 29 y.o. female that presented for evaluation to get est in the MAT program. Hx of opioid abuse. Currently at sober living house. Has been getting out pt MAT management with Vivitrol injection. She has been doing well. Due for her next vivitrol injection. No se. Has been tolerating well and controlling cravings. No se. -UDS as noted. Neg for anything. -OARRs reviwed. Appropriate and compliant. Est with consoling at [facility]. -aware that will need to remain compliant in consoling to be active in the program. bw is up to date. Fu in 28 days. MAT. Will make a separate fu for PCP. Call the office for any questions or concerns. I did have discussion that if any medications are not covered or is not able to get the medications to call the office and let us know so other alternative/arrangements can be made. Elba was seen today for medication management. Diagnoses and all orders for this visit: Encounter for medical examination to establish care Opioid dependence in remission - POCT [facility] DRUG SCREEN - POCT URINE - naltrexone (VIVITROL) IM injection 380 mg - naltrexone (Vivitrol) 380 MG Recon Susp injection; Inject 4 mL intramuscularly every 28 days. V[place] Serra documented in this encounter* Ender Collins APRN-CNP - 06/14/2020 1:30 PM EST Established Patient New Problem Elba Jo [id number] 1990 06/14/2020 Chief Complaint Patient presents with Establish Care History of Present Illness: Elba Jo is a 29 y.o. female is an established pt to the [facility] for new complaint to get est as a PCP pt. Is currently followed as a pt in the MAT program but would like to be a PcP pt as well. Insomnia- not able to fall asleep or stay asleep. Some night able to fall asleep other nights not able to sleep at all. It is affecting her scheduled and her emotions. Affecting her work and home life. No problems with the meds. Has been taking as prescribed. No se. Began taking the medications about 2 months ago. When she firsted started the meds they seemed to help more and now not helping as much. Thinks that dose adjustment of the meds would help. -current management with trazodone 50 mg and Melatonin 5 mg at bedtime. Soon before she was went to inpt rehab she thinks that she was exposed to HIV. In pt rehab neg for HIV. However this was check right after possible exposure 3+ months ago. Asking about having updated repeat bw. Hep C Asking about possible tx for this. currently in the MAT program managed with Vivitrol. Most recent bw done in March and reviewed. History: Past Medical History: Diagnosis Date Hepatitis Past Surgical History: Procedure Laterality Date SECTION 2013 WISDOM TEETH EXTRACTION 2007 Family History Problem Relation Age of Onset Stroke Father Stroke Paternal Grandfather Social History Socioeconomic History Marital status: Single Spouse name: Not on file Number of children: Not on file Years of education: Not on file Highest education level: Not on file Occupational History Not on file Social Needs Financial resource strain: Not on file Food insecurity Worry: Not on file Inability: Not on file Transportation needs Medical: Not on file Non-medical: Not on file Tobacco Use Smoking status: Current Every Day Smoker Packs/day: 0.50 Start date: 05/23/2000 Smokeless tobacco: Never Used Substance and Sexual Activity Alcohol use: Not on file Drug use: Not on file Sexual activity: Not on file Lifestyle Physical activity Days per week: Not on file Minutes per session: Not on file Stress: Not on file Relationships Social connections Talks on phone: Not on file Gets together: Not on file Attends muslim service: Not on file Active member of club or organization: Not on file Attends meetings of clubs or organizations: Not on file Relationship status: Not on file Intimate partner violence Fear of current or ex partner: Not on file Emotionally abused: Not on file Physically abused: Not on file Forced sexual activity: Not on file Other Topics Concern Not on file Social History Narrative Not on file Social History Tobacco Use Smoking Status Current Every Day Smoker Packs/day: 0.50 Start date: 05/23/2000 Smokeless Tobacco Never Used Social History Substance and Sexual Activity Alcohol Use None Social History Substance and Sexual Activity Drug Use Not on file Allergies: Patient has no known allergies. Home Medications: Current Outpatient Medications: Melatonin 5 MG capsule, Take 1 capsule by mouth at bedtime., Disp: 30 capsule, Rfl: 3 Naltrexone (VIVITROL IM), Inject intramuscularly., Disp: , Rfl: naltrexone (Vivitrol) 380 MG Recon Susp injection, Inject 4 mL intramuscularly every 28 days., Disp: 1 Each, Rfl: 11 traZODone 50 MG tablet, Take 1-2 tablets by mouth every evening at 6 PM., Disp: 60 tablet, Rfl: 3 ROS: Review of Systems Constitutional: Negative for activity change, appetite change, chills, fatigue and fever. Respiratory: Negative for cough, chest tightness, shortness of breath and wheezing. Cardiovascular: Negative for chest pain, palpitations and leg swelling. Gastrointestinal: Negative for abdominal pain, constipation, diarrhea, nausea and vomiting. Skin: Negative for color change and wound. Neurological: Negative for dizziness, tremors, facial asymmetry, weakness, light-headedness, numbness and headaches. Psychiatric/Behavioral: Positive for sleep disturbance. Negative for agitation, behavioral problemsand suicidal ideas. The patient is not nervous/anxious. Physical Examination: Vital Signs: BP 99/62 (BP Location: Right arm, BP Position: Sitting) Pulse 92 Temp 98.3 F (36.8 C) (Temporal) Ht 1.6 m (5' 3 ) Wt 76.3 kg (168 lb 3.2 oz) BMI 29.80 kg/m Smoking Status Current Every Day Smoker Physical Exam Constitutional: General: She is awake. Appearance: Normal appearance. Cardiovascular: Rate and Rhythm: Normal rate and regular rhythm. Pulses: Normal pulses. Heart sounds: Normal heart sounds. Pulmonary: Effort: Pulmonary effort is normal. No accessory muscle usage, prolonged expiration or respiratory distress. Breath sounds: No decreased breath sounds or wheezing. Musculoskeletal: Right lower leg: No edema. Left lower leg: No edema. Skin: General: Skin is warm and dry. Capillary Refill: Capillary refill takes less than 2 seconds. Neurological: Mental Status: She is alert and oriented to person, place, and time. Motor: Motor function is intact. Coordination: Coordination is intact. Psychiatric: Mood and Affect: Mood normal. Speech: Speech normal. Behavior: Behavior normal. Behavior is cooperative. Thought Content: Thought content normal. Cognition and Memory: Cognition normal. Judgment: Judgment normal. Laboratory and Additional Data Reviewed: Results for orders placed or performed in visit on 05/23/20 [facility] Result Value Ref Range Marijuana (THC), poct Negative COCAINE (ROXANNE), POCT Negative Opiate (OPI), poct Negative Methamphetamine (mAMP/MET), poct Negative Amphetamine (AMP), poct Negative Barbiturates (BAR), poct Negative Methadone (MTD), poct Negative Ecstasy (MDMA), poct Negative Oxycodone (OXY), poct Negative Phencyclidine (PCP), poct Negative Propoxyphene (PPX), poct Negative OXAZEPAM (BZO),POCT Negative Buprenorphine Glucuronide (BUPG),poct Negative Nortripyline (TCA), poct Negative POCT URINE Result Value Ref Range POCT URINE negative No images are attached to the encounter. Assessment and Plan: Elba Jo is a 29 y.o. female that presented for new complaint to get est as a new PCP pt. Insomnia- diff to fall asleep and stay asleep. Feels that meds have helped initially but not as good now. Feels could be increased. Hx of iv drug abuse. Possible HIV exposure. Hx of Hep c asking about tx Will get updated bw. Will get updated bw. Fu with normal chronic apts. Fu as needed. Call the office for any questions or concerns. I did have discussion that if any medications are not covered or is not able to get the medications to call the office and let us know so other alternative/arrangements can be made. Elba was seen today for establish care. Diagnoses and all orders for this visit: Insomnia, unspecified type - Melatonin 5 MG capsule; Take 1 capsule by mouth at bedtime. - traZODone 50 MG tablet; Take 1-2 tablets by mouth every evening at 6 PM. Hx of intravenous drug use in remission - COMPREHENSIVE METABOLIC PANEL; Future - CBC, EDIF, PLATELET; Future - HEPATITIS A, B, C; Future - HIV 1 AND 2 ANTIBODIES; Future - HEPATITIS C BY PCR, QUANT; Future High risk heterosexual behavior - COMPREHENSIVE METABOLIC PANEL; Future - CBC, EDIF, PLATELET; Future - HEPATITIS A, B, C; Future - HIV 1 AND 2 ANTIBODIES; Future - HEPATITIS C BY PCR, QUANT; Future Chronic hepatitis C with hepatic coma - HEPATITIS C BY PCR, QUANT; Future [place] Serra documented in this encounter* Ender Collins APRN-CNP - 06/20/2020 2:00 PM EST Follow Up Visit Elba Jo [id number] 1990 06/20/2020 Chief Complaint Patient presents with Medication Management opioid dependence in remission. Pt is requesting her bw results History of Present Illness: Elba Jo is a 29 y.o. female presenting for follow up. Here for vivitrol injection. Injection every 28 days for opioid abuse in remission. Has been doing well on current management. No se from management. No adverse effects. No site injection complications. Denies any cravings. No recent use or relapse. bw done last visit and would like to review. CMP- WNL CBC- WNL HIV- NEG HEP- A neg. Indicating not immune. Discussed immunization B pos indicating immunity. C reactive. Levels not detected. Hx of hep C. Asking for tx. Asking for referral. No acute concerns. History: Past Medical History: Diagnosis Date Hepatitis Past Surgical History: Procedure Laterality Date SECTION 2014 WISDOM TEETH EXTRACTION 2006 Family History Problem Relation Age of Onset Stroke Father Stroke Paternal Grandfather Social History Socioeconomic History Marital status: Single Spouse name: Not on file Number of children: Not on file Years of education: Not on file Highest education level: Not on file Occupational History Not on file Social Needs Financial resource strain: Not on file Food insecurity Worry: Not on file Inability: Not on file Transportation needs Medical: Not on file Non-medical: Not on file Tobacco Use Smoking status: Current Every Day Smoker Packs/day: 0.50 Start date: 05/23/2000 Smokeless tobacco: Never Used Substance and Sexual Activity Alcohol use: Not on file Drug use: Not on file Sexual activity: Not on file Lifestyle Physical activity Days per week: Not on file Minutes per session: Not on file Stress: Not on file Relationships Social connections Talks on phone: Not on file Gets together: Not on file Attends muslim service: Not on file Active member of club or organization: Not on file Attends meetings of clubs or organizations: Not on file Relationship status: Not on file Intimate partner violence Fear of current or ex partner: Not on file Emotionally abused: Not on file Physically abused: Not on file Forced sexual activity: Not on file Other Topics Concern Not on file Social History Narrative Not on file Social History Tobacco Use Smoking Status Current Every Day Smoker Packs/day: 0.50 Start date: 05/23/2000 Smokeless Tobacco Never Used Social History Substance and Sexual Activity Alcohol Use None Social History Substance and Sexual Activity Drug Use Not on file Allergies: Patient has no known allergies. Home Medications: Current Outpatient Medications: Melatonin 5 MG capsule, Take 1 capsule by mouth at bedtime., Disp: 30 capsule, Rfl: 3 naltrexone (Vivitrol) 380 MG Recon Susp injection, Inject 4 mL intramuscularly every 28 days., Disp: 1 Each, Rfl: 11 traZODone 50 MG tablet, Take 1-2 tablets by mouth every evening at 6 PM., Disp: 60 tablet, Rfl: 3 Current Facility-Administered Medications: naltrexone (VIVITROL) IM injection 380 mg, 380 mg, Intramuscular, Once (In Clinic), Ender Collins APRN-BARBARA ROS: Review of Systems Constitutional: Negative for activity change, appetite change, chills, fatigue and fever. Respiratory: Negative for cough, chest tightness, shortness of breath and wheezing. Cardiovascular: Negative for chest pain, palpitations and leg swelling. Gastrointestinal: Negative for abdominal pain, constipation, diarrhea, nausea and vomiting. Skin: Negative for color change and wound. Neurological: Negative for dizziness, tremors, facial asymmetry, weakness, light-headedness, numbness and headaches. Psychiatric/Behavioral: Negative for agitation, behavioral problems, sleep disturbance and suicidalideas. The patient is not nervous/anxious. Physical Examination: Vital Signs: BP 116/62 (BP Location: Left arm, BP Position: Sitting) Pulse 78 Temp 98 F (36.7 C) (Temporal) Ht 1.6 m (5' 3 ) Wt 75.4 kg (166 lb 3.2 oz) BMI 29.44 kg/m Smoking Status Current Every Day Smoker Physical Exam Constitutional: General: She is awake. Appearance: Normal appearance. Cardiovascular: Rate and Rhythm: Normal rate. Pulses: Normal pulses. Pulmonary: Effort: Pulmonary effort is normal. No accessory muscle usage, prolonged expiration or respiratory distress. Musculoskeletal: Right lower leg: No edema. Left lower leg: No edema. Skin: General: Skin is warm and dry. Capillary Refill: Capillary refill takes less than 2 seconds. Neurological: Mental Status: She is alert and oriented to person, place, and time. Motor: Motor function is intact. Coordination: Coordination is intact. Psychiatric: Mood and Affect: Mood normal. Speech: Speech normal. Behavior: Behavior normal. Behavior is cooperative. Thought Content: Thought content normal. Cognition and Memory: Cognition normal. Judgment: Judgment normal. Laboratory and Additional Data Reviewed: Results for orders placed or performed in visit on 06/14/20 HEPATITIS C BY PCR, QUANT Result Value Ref Range Hepatitis C QN HCV Not Detected TEST INFORMATION Comment HIV 1 AND 2 ANTIBODIES Result Value Ref Range HIV-1/HIV-2 ANTIBODY NONREACTIVE NONREACTIVE HEPATITIS A, B, C Result Value Ref Range Hep A AB (IGG + IGM) NEGATIVE NEGATIVE Hep B Surf AG NEGATIVE NEGATIVE HEP B CORE AB,TOTAL(IGG+IGM) NEGATIVE NEGATIVE Hep B Surf AB POSITIVE POSITIVE HEP C AB REACTIVE (A) NEGATIVE CBC, EDIF, PLATELET Result Value Ref Range WBC (WHITE BLOOD COUNT) 6.5 3.6 - 11.0 10*3/uL RBC 4.41 4.0 - 5.4 10*6/uL HEMOGLOBIN (HGB) 13.3 12.0 - 16.0 G/DL HEMATOCRIT (HCT) 38.8 36.0 - 48.0 % MEAN CELL VOLUME 87.9 80.0 - 100.0 FL Mean Cell HGB 30.1 26.0 - 35.0 PG MEAN CELL HGB CONCENTRATION 34.3 27.0 - 37.0 G/DL RBC DISTRIBUTION 13.5 11.5 - 14.5 % PLATELET COUNT 267 130.0 - 400.0 10*3/uL MEAN PLATELET VOLUME 8.5 7.4 - 11.0 FL DIFFERENTIAL TYPE AUTO DIFF % NEUTROPHILS 66.6 37.0 - 75.0 % LYMPHOCYTE 23.7 20.0 - 55.0 % MONOCYTE % 6.8 0.0 - 10.0 % EOSINOPHIL % 2.0 0.0 - 11.0 % BASOPHIL % 0.9 0.0 - 2.0 % Absolute Neutrophil Count 4.3 1.4 - 6.5 10*3/uL LYMPHOCYTES, ABSOLUTE 1.50 1.2 - 3.4 10*3/uL MONOCYTES, ABSOLUTE 0.4 0.0 - 0.7 10*3/uL ABSOLUTE EOSINOPHIL COUNT 0.10 0.0 - 0.7 10*3/uL ABSOLUTE BASOPHIL COUNT 0.1 0.0 - 0.2 10*3/uL COMPREHENSIVE METABOLIC PANEL Result Value Ref Range GLUCOSE 78 70 - 100 MG/DL BUN 15 7 - 20 MG/DL CREATININE SERUM 0.80 0.7 - 1.2 MG/DL SODIUM 139 137 - 145 MMOL/L POTASSIUM 3.8 3.5 - 5.1 MMOL/L CHLORIDE 104 98 - 107 MMOL/L CALCIUM 8.9 8.4 - 10.2 MG/DL PROTEIN, TOTAL 7.5 6.3 - 8.2 GM/DL ALBUMIN 4.4 3.5 - 5.0 G/dl BILIRUBIN, TOTAL <0.1 (L) 0.2 - 1.3 MG/DL AST 25 14 - 36 IU/L ALKALINE PHOSPHATASE 50 38 - 126 IU/L CARBON DIOXIDE (CO2) 27 22 - 30 MMOL/L A/G Ratio 1.4 1.3 - 2.2 RATIO ALT 13 <35 IU/L ESTIMATED GFR, NON AMER >60 ml/min/1.73sq.m ESTIMATED GFR, >60 ml/min/1.73sq.m GFR COMMENT Average GFR for 30-39 years old = 109. No images are attached to the encounter. Assessment and Plan: Elba Jo is a 29 y.o. female that presents for follow up. Opioid abuse in remission. Current management with Vivitrol injection every 28 days. Tolerating well. No se. No cravings. No recent use. -UDS is neg and appropriate. -OARRS reviewed and appropriate. Reviewed BW today. -interested in Hep A vaccination series starting next visit -asking for tx for hep C. Referral placed. Will get Vivitrol injection today. Call the office for any questions or concerns. I did have discussion that if any medications are not covered or is not able to get the medications to call the office and let us know so other alternative/arrangements can be made. Elba was seen today for medication management. Diagnoses and all orders for this visit: Opioid dependence in remission - AMB REFERRAL TO INFECTIOUS DISEASE - naltrexone (VIVITROL) IM injection 380 mg Chronic hepatitis C with hepatic coma - AMB REFERRAL TO INFECTIOUS DISEASE [place] [facility] documented in this encounter* Ender Collins APRN-CNP - 07/21/2020 11:30 AM EST Follow Up Visit Elba Jo [id number] 1990 07/21/2020 Chief Complaint Patient presents with Medication Management opioid dependence in remission History of Present Illness: Elba Jo is a 30 y.o. female presenting for follow up. Here for vivitrol injection. Injection every 28 days for opioid abuse in remission. Has been doing well on current management. No se from management. No adverse effects. No site injection complications. Denies any cravings. No recent use or relapse. No acute concerns. History: Past Medical History: Diagnosis Date Hepatitis Past Surgical History: Procedure Laterality Date SECTION 2013 WISDOM TEETH EXTRACTION 2007 Family History Problem Relation Age of Onset Stroke Father Stroke Paternal Grandfather Social History Socioeconomic History Marital status: Single Spouse name: Not on file Number of children: Not on file Years of education: Not on file Highest education level: Not on file Occupational History Not on file Tobacco Use Smoking status: Current Every Day Smoker Packs/day: 0.50 Start date: 05/23/2000 Smokeless tobacco: Never Used Substance and Sexual Activity Alcohol use: Not on file Drug use: Not on file Sexual activity: Not on file Other Topics Concern Not on file Social History Narrative Not on file Social Determinants of Health Financial Resource Strain: Difficulty of Paying Living Expenses: Not on file Food Insecurity: Worried About Running Out of Food in the Last Year: Not on file Ran Out of Food in the Last Year: Not on file Transportation Needs: Lack of Transportation (Medical): Not on file Lack of Transportation (Non-Medical): Not on file Physical Activity: Days of Exercise per Week: Not on file Minutes of Exercise per Session: Not on file Stress: Feeling of Stress : Not on file Social Connections: Frequency of Communication with Friends and Family: Not on file Frequency of Social Gatherings with Friends and Family: Not on file Attends Mormonism Services: Not on file Active Member of Clubs or Organizations: Not on file Attends Club or Organization Meetings: Not on file Marital Status: Not on file Intimate Partner Violence: Fear of Current or Ex-Partner: Not on file Emotionally Abused: Not on file Physically Abused: Not on file Sexually Abused: Not on file Social History Tobacco Use Smoking Status Current Every Day Smoker Packs/day: 0.50 Start date: 05/23/2000 Smokeless Tobacco Never Used Social History Substance and Sexual Activity Alcohol Use None Social History Substance and Sexual Activity Drug Use Not on file Allergies: Patient has no known allergies. Home Medications: Current Outpatient Medications: Melatonin 5 MG capsule, Take 1 capsule by mouth at bedtime., Disp: 30 capsule, Rfl: 3 naltrexone (Vivitrol) 380 MG Recon Susp injection, Inject 4 mL intramuscularly every 28 days., Disp: 1 Each, Rfl: 11 traZODone 50 MG tablet, Take 1-2 tablets by mouth every evening at 6 PM., Disp: 60 tablet, Rfl: 3 Current Facility-Administered Medications: naltrexone (VIVITROL) IM injection 380 mg, 380 mg, Intramuscular, Once (In Clinic), Ender L Collins, STRAIGHT KNIFE CUTTER MACHINE-AGER TENDER ROS: Review of Systems Constitutional: Negative for activity change, appetite change, chills, fatigue and fever. Respiratory: Negative for cough, chest tightness, shortness of breath and wheezing. Cardiovascular: Negative for chest pain, palpitations and leg swelling. Gastrointestinal: Negative for abdominal pain, constipation, diarrhea, nausea and vomiting. Skin: Negative for color change and wound. Neurological: Negative for dizziness, tremors, facial asymmetry, weakness, light-headedness, numbness and headaches. Psychiatric/Behavioral: Negative for agitation, behavioral problems, sleep disturbance and suicidalideas. The patient is not nervous/anxious. Physical Examination: Vital Signs: BP 114/62 (BP Location: Right arm, BP Position: Sitting) Pulse 94 Temp 97.9 F (36.6 C) (Temporal) Ht 1.6 m (5' 3 ) Wt 75.8 kg (167 lb) SpO2 99% BMI 29.58 kg/m Smoking Status Current Every Day Smoker Physical Exam Constitutional: General: She is awake. Appearance: Normal appearance. Cardiovascular: Rate and Rhythm: Normal rate. Pulses: Normal pulses. Pulmonary: Effort: Pulmonary effort is normal. No accessory muscle usage, prolonged expiration or respiratory distress. Musculoskeletal: Right lower leg: No edema. Left lower leg: No edema. Skin: General: Skin is warm and dry. Capillary Refill: Capillary refill takes less than 2 seconds. Neurological: Mental Status: She is alert and oriented to person, place, and time. Motor: Motor function is intact. Coordination: Coordination is intact. Psychiatric: Mood and Affect: Mood normal. Speech: Speech normal. Behavior: Behavior normal. Behavior is cooperative. Thought Content: Thought content normal. Cognition and Memory: Cognition normal. Judgment: Judgment normal. Laboratory and Additional Data Reviewed: Results for orders placed or performed in visit on 06/20/20 POCT ALERE DRUG SCREEN Result Value Ref Range Marijuana (THC), poct Negative COCAINE (ROXANNE), POCT Negative Opiate (OPI), poct Negative Methamphetamine (mAMP/MET), poct Negative Amphetamine (AMP), poct Negative Barbiturates (BAR), poct Negative Methadone (MTD), poct Negative Ecstasy (MDMA), poct Negative Oxycodone (OXY), poct Negative Phencyclidine (PCP), poct Negative Propoxyphene (PPX), poct Negative OXAZEPAM (BZO),POCT Negative Buprenorphine Glucuronide (BUPG),poct Negative Nortripyline (TCA), poct Negative No images are attached to the encounter. Assessment and Plan: Elba Jo is a 30 y.o. female that presents for follow up. Opioid abuse in remission. Current management with Vivitrol injection every 28 days. Tolerating well. No se. No cravings. No recent use. -UDS is neg and appropriate. -OARRS reviewed and appropriate. Will get Vivitrol injection today. Call the office for any questions or concerns. I did have discussion that if any medications are not covered or is not able to get the medications to call the office and let us know so other alternative/arrangements can be made. Elba was seen today for medication management. Diagnoses and all orders for this visit: Opioid dependence in remission - POCT ALERE DRUG SCREEN - naltrexone (VIVITROL) IM injection 380 mg [place] documented in this encounter* Ender Collins APRN-CNP - 08/17/2020 2:10 PM EDT Follow Up Visit Elba Jo [id number] 1990 08/17/2020 Chief Complaint Patient presents with Medication Management opioid dependence VIVITROL Schedule Test/Referral Pt states there were prevoius abnormalities with cervix and was never fully tested. pt is requesting referral to OBGYN for further evaluation History of Present Illness: Elba Jo is a 30 y.o. female presenting for follow up. Here for vivitrol injection. Injection every 28 days for opioid abuse in remission. Has been doing well on current management. No se from management. No adverse effects. No site injection complications. Denies any cravings. No recent use or relapse. Asking for referral or a list of VIDEO PRODUCTION COORDINATOR providers. Was seen by VIDEO PRODUCTION COORDINATOR in the past and during exam was found to have abnormal cells and was suppose to have a procedure to have this addressed further. Would like to have this addressed now. History: Past Medical History: Diagnosis Date Hepatitis Past Surgical History: Procedure Laterality Date SECTION 2013 WISDOM TEETH EXTRACTION 2006 Family History Problem Relation Age of Onset Stroke Father Stroke Paternal Grandfather Social History Socioeconomic History Marital status: Single Spouse name: Not on file Number of children: Not on file Years of education: Not on file Highest education level: Not on file Occupational History Not on file Tobacco Use Smoking status: Current Every Day Smoker Packs/day: 0.50 Start date: 05/23/2000 Smokeless tobacco: Never Used Substance and Sexual Activity Alcohol use: Not on file Drug use: Not on file Sexual activity: Not on file Other Topics Concern Not on file Social History Narrative Not on file Social Determinants of Health Financial Resource Strain: Difficulty of Paying Living Expenses: Not on file Food Insecurity: Worried About Running Out of Food in the Last Year: Not on file Ran Out of Food in the Last Year: Not on file Transportation Needs: Lack of Transportation (Medical): Not on file Lack of Transportation (Non-Medical): Not on file Physical Activity: Days of Exercise per Week: Not on file Minutes of Exercise per Session: Not on file Stress: Feeling of Stress : Not on file Social Connections: Frequency of Communication with Friends and Family: Not on file Frequency of Social Gatherings with Friends and Family: Not on file Attends Mormonism Services: Not on file Active Member of Clubs or Organizations: Not on file Attends Club or Organization Meetings: Not on file Marital Status: Not on file Intimate Partner Violence: Fear of Current or Ex-Partner: Not on file Emotionally Abused: Not on file Physically Abused: Not on file Sexually Abused: Not on file Social History Tobacco Use Smoking Status Current Every Day Smoker Packs/day: 0.50 Start date: 05/23/2000 Smokeless Tobacco Never Used Social History Substance and Sexual Activity Alcohol Use None Social History Substance and Sexual Activity Drug Use Not on file Allergies: Patient has no known allergies. Home Medications: Current Outpatient Medications: Melatonin 5 MG capsule, Take 1 capsule by mouth at bedtime., Disp: 30 capsule, Rfl: 3 naltrexone (Vivitrol) 380 MG Recon Susp injection, Inject 4 mL intramuscularly every 28 days., Disp: 1 Each, Rfl: 11 traZODone 50 MG tablet, Take 1-2 tablets by mouth every evening at 6 PM., Disp: 60 tablet, Rfl: 3 ROS: Review of Systems Constitutional: Negative for activity change, appetite change, chills, fatigue and fever. Respiratory: Negative for cough, chest tightness, shortness of breath and wheezing. Cardiovascular: Negative for chest pain, palpitations and leg swelling. Gastrointestinal: Negative for abdominal pain, constipation, diarrhea, nausea and vomiting. Skin: Negative for color change and wound. Neurological: Negative for dizziness, tremors, facial asymmetry, weakness, light-headedness, numbness and headaches. Psychiatric/Behavioral: Negative for agitation, behavioral problems, sleep disturbance and suicidalideas. The patient is not nervous/anxious. Physical Examination: Vital Signs: BP 106/70 (BP Location: Right arm, BP Position: Sitting) Pulse 92 Temp 97.9 F (36.6 C) (Temporal) Ht 1.6 m (5' 3 ) Wt 80.1 kg (176 lb 9.6 oz) SpO2 99% BMI 31.28 kg/m Smoking Status Current Every Day Smoker Physical Exam Constitutional: General: She is awake. Appearance: Normal appearance. Cardiovascular: Rate and Rhythm: Normal rate. Pulses: Normal pulses. Pulmonary: Effort: Pulmonary effort is normal. No accessory muscle usage, prolonged expiration or respiratory distress. Musculoskeletal: Right lower leg: No edema. Left lower leg: No edema. Skin: General: Skin is warm and dry. Capillary Refill: Capillary refill takes less than 2 seconds. Neurological: Mental Status: She is alert and oriented to person, place, and time. Motor: Motor function is intact. Coordination: Coordination is intact. Psychiatric: Mood and Affect: Mood normal. Speech: Speech normal. Behavior: Behavior normal. Behavior is cooperative. Thought Content: Thought content normal. Cognition and Memory: Cognition normal. Judgment: Judgment normal. Laboratory and Additional Data Reviewed: Results for orders placed or performed in visit on 07/21/20 POCT ALERE DRUG SCREEN Result Value Ref Range Marijuana (THC), poct Negative COCAINE (ROXANNE), POCT Negative Opiate (OPI), poct Negative Methamphetamine (mAMP/MET), poct Negative Amphetamine (AMP), poct Negative Barbiturates (BAR), poct Negative Methadone (MTD), poct Negative Ecstasy (MDMA), poct Negative Oxycodone (OXY), poct Negative Phencyclidine (PCP), poct Negative Propoxyphene (PPX), poct Negative OXAZEPAM (BZO),POCT Negative Buprenorphine Glucuronide (BUPG),poct Negative Nortripyline (TCA), poct Negative No images are attached to the encounter. Assessment and Plan: Elba Jo is a 30 y.o. female that presents for follow up. Opioid abuse in remission. Current management with Vivitrol injection every 28 days. Tolerating well. No se. No cravings. No recent use. -UDS is neg and appropriate. -OARRS reviewed and appropriate. Will get Vivitrol injection today. Asking for referral or a list of VIDEO PRODUCTION COORDINATOR providers. Was seen by VIDEO PRODUCTION COORDINATOR in the past and during exam was found to have abnormal cells and was suppose to have a procedure to have this addressed further. Would like to have this addressed now. -referral to VIDEO PRODUCTION COORDINATOR placed. Call the office for any questions or concerns. I did have discussion that if any medications are not covered or is not able to get the medications to call the office and let us know so other alternative/arrangements can be made. Elba was seen today for medication management and schedule test/referral. Diagnoses and all orders for this visit: Opioid dependence in remission - POCT ALERE DRUG SCREEN - naltrexone (VIVITROL) IM injection 380 mg Encounter for well woman exam with routine gynecological exam - AMB REFERRAL TO GYNECOLOGY [place] [facility] * Cecilia Vargas - 08/17/2020 2:10 PM EDT Pt denied any concerns prior to injection . Administered 380 MG VIVITROL into pts left gluteus. Pt tolerated injection well. 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 Diagnoses Encounter for well woman exam with routine gynecological exam Ender Collins APRN-CNP [address] [place] [address] Chief Complaint and Reason for Visit Chief Complaint Mental Health Eval Reason for Visit Encounter for psychi atric assessment Suicidal ideation Chief Complaint Mental Health Eval Reason for Visit Encounter for psychi atric assessment Major depressive disorder, recurrent episode with mixed features PTSD (post-traumatic stress disorder) Suicidal ideation Chief Complaint MDD Reason for Visit Major depressive dis order, recurrent episode with mixed features PTSD (post-traumatic stress disorder) Additional Source Comments INFORMATION SOURCE (unrecogn ized section and content) DATE CREATED AUTHOR 11/26/2017 [facility] DATE CREATED AUTHOR AUTHOR'S ORGANIZ ATION 05/14/2018 [facility] DATE CREATED AUTHOR AUTHOR'S ORGANIZ ATION 11/23/2019 [facility] DATE CREATED AUTHOR AUTHOR'S ORGANIZ ATION 03/21/2020 [facility] DATE CREATED AUTHOR AUTHOR'S ORGANIZ ATION 05/24/2021 [facility] DATE CREATED AUTHOR AUTHOR'S ORGANIZ ATION 11/13/2022 [facility] DATE CREATED AUTHOR AUTHOR'S ORGANIZ ATION 01/20/2023 [facility] DATE CREATED AUTHOR AUTHOR'S ORGANIZ ATION 03/17/2023 [facility] DATE CREATED AUTHOR AUTHOR'S ORGANIZ ATION 04/19/2023 [facility] DATE CREATED AUTHOR AUTHOR'S ORGANIZ ATION 06/16/2023 [facility] DATE CREATED AUTHOR AUTHOR'S ORGANIZ ATION 10/18/2023 [facility] DATE CREATED AUTHOR AUTHOR'S ORGANIZ ATION 10/24/2023 [facility] DATE CREATED AUTHOR AUTHOR'S ORGANIZ ATION 11/08/2023 [facility] DATE CREATED AUTHOR AUTHOR'S ORGANIZ ATION 07/18/2024 [facility] Reason for Visit (unrecogniz ed section and content) Reason Comments Withdrawal pt states that she h as been withdrawaling from heroin for 3 days Reason Comments Medication Management Pt here for MAT in take, and 3rd vivitrol injection Reason Comments Establish Care Reason Comments Medication Management opioid dependence in remission. Pt is requesting her bw results Reason Comments Medication Management opioid dependence in remission Reason Comments Medication Management opioid dependence VIVITROL Schedule Test/Referral Pt states there w ere prevoius abnormalities with cervix and was never fully tested. pt is requesting referral to OBGYN for further evaluation Reason Comments Medication Management VIVITROL Reason Comments Abdominal Pain pt reports right upp er abd pain that radiates to the right side starting today. Reason Comments Medication Management opioid dependence Reason Comments Hand Pain ambulates to ED room 1 with report of left hand, 5th digit pain and swelling x2 days, NKI Reason Comments Anxiety Patient reports ches t pain and sob , she reports that she experience a trauma on Nov and she also concern for STD's and HIV. Reason Comments Laceration Patient was using a cerated kitchen knife to attempt to open a can patient cut left thumb. Bleeding controlled edges well approximated. incident about 30 minutes prior to arrival. 12/09 tingling pain. tetanus within 7 years. Reason Comments Suture Removal 05/14 pt cut her LT thumb with a cerated knife attempting to open a lid on a can. Pt is here to have her sutures removed Reason Comments Suicidal patient states she i s having relationship issues, thinks everyone is out to get me , feels helpless , feels alone Reason Comments Diarrhea pt reports diarrhea, cough, off and on headache x 3 days, pt states that she was sent home from work with covid like symptoms and would like to be checked. tylenol taken at 0230. Reason Comments Urinary Pain Abdominal Pain Concern for uti, has bladder pressure. Also LLQ pain for about a week with some diarrhea Reason Comments Wrist Pain Tingling and pain in right wrist intermittently since starting her job in April Reason Comments Insect Bite To back of neck time s two days Reason Comments Other Pt states she is hav ing an allergic reaction to atb given today in ER. Addendum Note - Ching Hernandes - 06/20/2020 2:00 PM EST Miscellaneous Notes (unrecog nized section and content) Addended by: CHING HERNANDES on: 06/20/2020 03:12 PM Modules accepted: Orders documented in this encounter Scheduled Active and Recently Administ ered Medications (unrecognized section and content) Medication Order 11/06/2020 11/07/2020 11/08/2020 faMOTIdine (PEPCID) injection 20 mg (COMPLETED) 20 mg, Intravenous, ONCE, 1 dose, On Fri11/08/20 at 2200, Administer by slow IV push at a rate not to exceed 10mg/min 2140 (Given - Provid er: Adri Christie RN) iohexol (OMNIPAQUE) 350 MG/ML injection 75 mL (COMPLETED) 75 mL, Intravenous, ONCE, 1 dose, On Fri11/08/20 at 2315, Extravasation Risk, Radiology Procedure 2235 (Given - Radiol ogy - Provider: Yael Fall) sodium chloride 0.9% IV solution 70 mL (COMPLETED) 70 mL, Intravenous, ONCE, 1 dose, On Fri11/08/20 at 2315, Radiology Procedure 2235 ($$New Bag$$ - Provider: Yael Fall) Scheduled Medication Order 12/04/2020 12/05/2020 12/06/2020 naproxen (NAPROSYN) tablet 500 mg (COMPLETED) 500 mg, Oral, ONCE, 1 dose, On Fri12/06/20 at 1830 1813 (Given - Provid er: Raine Rivas RN) Scheduled Medication Order 05/12/2021 05/13/2021 05/14/2021 bacitracin ointment 1 Application 1 Application, Topical, ONCE, 1 dose, On Fri05/14/21 at 0300, Apply to left thumb, telfa, dry dressing 0300 (Canceled Entry - Provider: System Discharge - Comment: Automatically canceled at discontinue of medication order) Scheduled Medication Order 09/01/2021 09/02/2021 09/03/2021 ibuprofen (MOTRIN) tablet 800 mg (COMPLETED) 800 mg, Oral, ONCE, 1 dose, On Fri09/03/21 at 1030, Give with food 1003 (Given - Provid er: Raine Rivas RN) phenazopyridine (PYRIDIUM) tablet 200 mg (COMPLETED) 200 mg, Oral, ONCE, 1 dose, On Fri09/03/21 at 1100 1020 (Given - Provid er: Raine Rvias RN) sulfamethoxazole-trimethoprim (BACTRIM DS) 800-160 MG per tablet 1 tablet (COMPLETED) 1 tablet, Oral, ONCE, 1 dose, On Fri09/03/21 at 1100 1020 (Given - Provid er: Raine Rivas RN) Scheduled Medication Order 11/05/2022 11/06/2022 11/07/2022 azithromycin (ZITHROMAX) tablet 1,000 mg (COMPLETED) 1,000 mg, Oral, ONCE, 1 dose, On Tania 11/07/22 at 1204, Antimicrobial Indications: STD infection 1215 (Given - Provid er: Pascual Ramirez LPN) cefTRIAXone (ROCEPHIN) injection 500 mg (COMPLETED) 500 mg, IntraMUSCular, ONCE, 1 dose, On Tania 11/07/22 at 1204, Antimicrobial Indications: STD infection 1209 (Given - Provid er: Pascual Ramirez LPN) metroNIDAZOLE (FLAGYL) tablet 2,000 mg (COMPLETED) 2,000 mg, Oral, ONCE, 1 dose, On Tania 11/07/22 at 1204, Antimicrobial Indications: STD infection 1215 (Given - Provid er: Pascual Ramirez LPN) No Frequency Medication Order 11/05/2022 11/06/2022 11/07/2022 sterile water injection (COMPLETED) 1 dose, Starting on Tania 11/07/22 at 1210, Until Tania 11/07/22 at 1215, Sahley, Lacraysha: cabinet override, Ashley, Lacraysha: cabinet override 1215 (Given - Provid er: Pascual Ramirez LPN) Scheduled Medication Order 11/05/2022 11/06/2022 11/07/2022 0.9 % sodium chloride bolus (COMPLETED) 1,000 mL (12.6 mL/kg), IntraVENous, at 495.9 mL/hr, Administer over 121 Minutes, ONCE, On Tania 11/07/22 at 1339, For 1 dose 1400 (New Bag - Prov ider: Fam Montero RN)1500 (Stopped - Provider: Radha Green RN) ondansetron (ZOFRAN) injection 4 mg (COMPLETED) 4 mg, IntraVENous, ONCE, 1 dose, On Tania 11/07/22 at 1339 1400 (Given - Provid er: Fam Montero RN) Care Teams (unrecognized sec tion and content) Solutions Architect Consultant Relationship Specialty Start Date End Date Ender Collins, STRAIGHT KNIFE CUTTER MACHINE-AGER TENDER [address] [place] [address] PCP - General Family Medicine 2/19/21 Solutions Architect Consultant Relationship Specialty Start Date End Date Ender Collins, STRAIGHT KNIFE CUTTER MACHINE-AGER TENDER [address] [place] [address] PCP - General Family Medicine 07/21/20 Solutions Architect Consultant Relationship Specialty Start Date End Date Ender Collins, STRAIGHT KNIFE CUTTER MACHINE-AGER TENDER [address] [place] [address] PCP - General Family Medicine 07/21/20 Solutions Architect Consultant Relationship Specialty Start Date End Date Ender Collins, STRAIGHT KNIFE CUTTER MACHINE-AGER TENDER [address] [place] [address] PCP - General Family Medicine 07/21/20 Solutions Architect Consultant Relationship Specialty Start Date End Date Ender Collins, STRAIGHT KNIFE CUTTER MACHINE-AGER TENDER [address] [place] [address] PCP - General Family Medicine 07/21/20 Solutions Architect Consultant Relationship Specialty Start Date End Date Ender Collins, STRAIGHT KNIFE CUTTER MACHINE-AGER TENDER [address] [place] [address] PCP - General Family Medicine 07/21/20 Solutions Architect Consultant Relationship Specialty Start Date End Date Ender Collins, STRAIGHT KNIFE CUTTER MACHINE-AGER TENDER [address] [place] [address] PCP - General Family Medicine 07/21/20 Team Status: Active Member Role Status Dates PHYSICIAN NO FAMILY Primary Care Provider Active Talha Paez , DO Emergency Provider Active Shirley Abarca MD Admit Provider, Attending Pr ovider Active Team Status: Active Member Role Status Dates PHYSICIAN NO FAMILY Primary Care Provider Active Team Status: Inactive Member Role Status Dates PHYSICIAN NO FAMILY Primary Care Provider Active Talha Paez , DO Emergency Provider Active Shirley Abarca MD Admit Provider, Attending Pr ovider Active Solutions Architect Consultant Relationship Specialty Start Date End Date None, None PCP - General 11/07/22 Solutions Architect Consultant Relationship Specialty Start Date End Date None, None PCP - General 11/07/22 Solutions Architect Consultant Relationship Specialty Start Date End Date Obey Carl, STRAIGHT KNIFE CUTTER MACHINE - AGER TENDER [address] [place] [address] PCP - General Nurse Practitioner 09/27/21 Team Status: Inactive Member Role Status Dates PHYSICIAN NO FAMILY Primary Care Provider Active Baljinder Espino MD Admit Provider, Attending Provider Active Goals (unrecognized section and content) Goals may be documented in a n alternate section No data available for this section No data available for this section No data available for this section No data available for this section No data available for this section No data available for this section No data available for this section No data available for this section No data available for this section Ordered Prescriptions (unrec ognized section and content) Prescription Sig Dispensed Refills Start Date End Da te ibuprofen (ADVIL;MOTRIN) 800 MG tablet Take 1 tablet by mouth every 8 hours as needed for Pain or Fever (take with food) 30 tablet 0 06/18/2022 06/28/2022 Prescription Sig Dispensed Refills Start Date End Da te cephALEXin (KEFLEX) 500 MG capsule Take 2 capsules by mouth 2 times daily 40 capsule 0 11/07/2022 Prescription Sig Dispensed Refills Start Date End Da te ondansetron (ZOFRAN-ODT) [address] 1 tablet under the tongue 3 times daily as needed for Nausea or Vomiting 21 tablet 0 11/07/2022 11/14/2022 FOR RECORDS PERTAINING TO PATIENTS WHO ARE OR HAVE BEEN ENROLLED IN A CHEMICAL DEPENDENCY/SUBSTANCEABUSE PROGRAM, SOME INFORMATION MAY BE OMITTED. This clinical summary was aggregated from multiple sources. Caution should be exercised in using it in the provision of clinical care. This summary normalizes information from multiple sources, and as a consequence, information in this document may materially change the coding, format and clinical context of patient data. In addition, data may be omitted in some cases. CLINICAL DECISIONS SHOULD BE BASED ON THE PRIMARY CLINICAL RECORDS. [email or web address] provides no warranty or guarantee of the accuracy or completeness of information in this document.
--- NOTE | 2024-08-06 22:17 | ED.ABDPAIN1 ---
HPI - Abdominal Pain General Chief Complaint: Abdominal Pain Stated Complaint: ABDOMINAL PAIN Time Seen by Provider: 08/06/24 22:00 Source: patient Mode of arrival: walk-in Limitations: no limitations History of Present Illness HPI narrative: cc = right upper abd pain Started 3 days ago - sharp RUQ pain, worse with deep breath and turning of the torso. Nausea but no vomiting. urination and BMs do not change the patient's symptoms. No fever or chills. No blood in urine or stool. No relief with OTC antacids. No prior history of gallstones or biliary colic. She is uncertain about Related Data Home Medications ?Medication ?Instructions ?Recorded ?Confirmed olanzapine 10 mg tablet (Zyprexa) 10 mg PO BID 04/01/23 04/01/23 sertraline 50 mg tablet (Zoloft) 50 mg PO DAILY 04/01/23 04/01/23 Previous Rx's ?Medication ?Instructions ?Recorded ciprofloxacin HCl 500 mg tablet 500 mg PO BID #10 tabs 08/07/24 (Cipro) hyoscyamine sulfate 0.125 mg 0.125 mg PO Q6H PRN abdominal pain 08/07/24 sublingual tablet (Levsin/SL) #20 tabs ondansetron 4 mg disintegrating 4 mg PO Q6H PRN nausea and 08/07/24 tablet vomiting #20 tabs Allergies Allergy/AdvReac Type Severity Reaction Status Date / Time No Known Drug Allergies Allergy Verified 08/06/24 21:32 PFSH PFSH Social History Smoking status: Current every day smoker Little interest or pleasure in doing things: not at all Feeling down, depressed, or hopeless: not at all Exam Narrative Exam Narrative: Nurses notes and vital signs reviewed and patient is not hypoxic. afebrile General: Well-appearing and in no apparent distress. Skin: Warm, dry, no pallor noted. No rash. Head: Normocephalic, atraumatic. Eye: Pupils are equal, round and EOMI. No scleral icterus. Cardiovascular: Regular Rate and Rhythm without murmur, gallop or rub. Respiratory: No accessory muscle use or respiratory distress. Lungs are clear to auscultation, no wheezing, rales or rhonchi Back: No midline thoracic or lumbar vertebral tenderness. No CVA tenderness Musculoskeletal: normal ROM, no calf or popliteal tenderness, no lower extremity edema/swelling GI: Abdomen is soft, non-distended. Normal bowel sounds. No masses appreciated. Focal right upper quadrant tenderness to palpation with guarding. No rebound or rigidity noted. Neurological: A&O x4. No cranial nerve dysfunction observed. No truncal ataxia. Moves all extremities. Sensation intact. Psychiatric: Cooperative and interactive. Normal mood and affect. Constitutional Vital Signs, click to edit/add: Last Vital Signs Temp 98.2 F 08/06/24 21:32 Pulse 75 08/07/24 00:40 Resp 16 08/07/24 00:40 BP 122/70 08/07/24 00:40 Pulse Ox 100 08/07/24 00:40 O2 Del Method Room Air 08/07/24 00:40 Course Vital Signs Vital signs: Vital Signs Temperature 98.2 F 08/06/24 21:32 Pulse Rate 86 08/06/24 21:32 Respiratory Rate 16 08/06/24 21:32 Blood Pressure 119/67 08/06/24 21:32 Pulse Oximetry 100 08/06/24 21:32 Oxygen Delivery Method Room Air 08/06/24 21:32 Temperature 98.2 F 08/06/24 21:32 Pulse Rate 75 08/07/24 00:40 Respiratory Rate 16 08/07/24 00:40 Blood Pressure 122/70 08/07/24 00:40 Pulse Oximetry 100 08/07/24 00:40 Oxygen Delivery Method Room Air 08/07/24 00:40 MDM - Abdominal Pain MDM Narrative Medical decision making narrative: Patient is uncertain about - urine will be obtained and ordered -if negative, the patient will undergo CT scanning of the abdomen pelvis. Ultrasound is not available at this time -only for emergencies associated with testicular or ovarian torsion or ectopic . Peripheral IV established and blood drawn and sent for testing. She was ordered to receive oral dissolvable Zofran and Levsin for her nausea and pain. Urine was negative so she was sent for CT scanning of the abdomen pelvis. Urinalysis revealed acute urinary tract infection so she received a dose of Cipro while she was awaiting the results of her lab CT testing. She still had significant pain after taking the Zofran and Levsin, so she was ordered to receive IV Toradol. CT, per radiologist, did not reveal any worrisome findings that would require immediate surgery or hospitalization and also could not find anything to account for the patient's pain. Blood testing was unremarkable. I spoke to the patient about her test results. The plan for the patient is to be discharged home with prescription for Cipro for her UTI, prescription for additional Zofran and Levsin to take on a scheduled basis rather than as needed basis and adjustment of her diet to be clear liquid diet only for the next 24 hours and then advance to soft bland foods in the 24 hours after that She can see her PCP for follow-up. Emergency department turn if she worsens Lab Data Attestation: I reviewed the patient's lab results. Labs: Lab Results 08/06/24 08/06/24 Range/Units 21:50 22:25 WBC 11.6 H (4.0-11.0) 10^3/uL RBC 4.59 (4.20-5.40) 10^6/uL Hgb 13.2 (12.0-16.0) g/dL Hct 39.6 (36.0-48.0) % MCV 86.3 (81.0-99.0) fL MCH 28.8 (26.7-34.0) pg MCHC 33.3 (29.9-35.2) g/dL RDW 13.0 (11.0-15.0) % Plt Count 301 (150-450) 10^3/uL MPV 10.2 (9.5-13.5) fL Neut % (Auto) 64.2 (43.0-75.0) % Lymph % (Auto) 26.3 (20.5-60.0) % Phillips % (Auto) 6.8 (1.7-12.0) % Eos % (Auto) 1.8 (0.9-7.0) % Baso % (Auto) 0.5 (0.2-2.0) % Neut # (Auto) 7.4 H (1.4-6.5) 10^3/uL Lymph # (Auto) 3.1 (1.2-3.8) 10^3/uL Phillips # (Auto) 0.8 (0.3-0.8) 10^3/uL Eos # (Auto) 0.2 (0.0-0.7) 10^3/uL Baso # (Auto) 0.1 (0.0-0.1) 10^3/uL Abs Immat Gran (auto) 0.05 H (0.00-0.03) 10^3/uL Imm/Tot Granulo (auto) 0.4 (0.0-0.5) % Sodium 137 (136-145) mmol/L Potassium 3.7 (3.5-5.1) mmol/L Chloride 101 (98-107) mmol/L Carbon Dioxide 25.7 (21.0-32.0) mmol/L Anion Gap 14.0 BUN 12.0 (7.0-18.0) mg/dL Creatinine 0.89 (0.55-1.02) mg/dL Est GFR ( Amer) >60 (>=60 mL/min/1.73m^2) Est GFR (Non-Af Amer) >60 (>=60 mL/min/1.73m^2) BUN/Creatinine Ratio 13.5 Glucose 81 (74-106) mg/dL Calcium 8.7 (8.5-10.1) mg/dL Total Bilirubin 0.2 (0.2-1.0) mg/dL AST 13 L (15-37) U/L ALT 29 (14-59) U/L Alkaline Phosphatase 67 (46-116) U/L Total Protein 7.5 (6.4-8.2) g/dL Albumin 3.7 (3.4-5.0) g/dL Globulin 3.8 g/dL Albumin/Globulin Ratio 1.0 Lipase 29.0 (16.0-77.0) U/L Urine Color Lt. yellow (YELLOW) Urine Clarity Clear (CLEAR) Urine pH 6.0 (5.0-9.0) Ur Specific [place] 1.010 (1.005-1.025) Urine Protein Negative (NEG/TRACE) mg/dL Urine Glucose (UA) Negative (NEGATIVE) mg/dL Urine Ketones Negative (NEGATIVE) mg/dL Urine Occult Blood Negative (NEGATIVE) Urine Nitrite Negative (NEGATIVE) Urine Bilirubin Negative (NEGATIVE) Urine Urobilinogen 0.2 (0.2-1.0) EU/dL Ur Leukocyte Esterase Small A (NEGATIVE) Urine RBC 0-2 (0-2) #/HPF Urine WBC 2-5 A (NONE SEEN) #/HPF Ur Squamous Epith Cells Moderate A (NONE/RARE) #/LPF Urine Crystals None seen (None Seen) #/HPF Urine Bacteria Moderate A (NONE SEEN) #/HPF Urine Casts None seen (NONE SEEN) #/LPF Urine Mucus None seen (NONE SEEN) Ur Culture Indicated? Yes-[facility] – [place] Urine HCG, Qual Negative (NEGATIVE) Imaging Data CT scan - abdomen: Radiologist's impression: Assessment:: 1. Contracted gallbladder. #2 no cholecystitis or pancreatitis. #3 mild enteritis and mild mesenteric adenitis. #4 normal appendix is well-seen #5 multiple small follicular cysts in the right and left ovary #6 no free fluid or free air #7 no abscess or hematoma #8 fluid-filled bladder with no features of cystitis #9 no features to suggest UTI or pyelonephritis #10 no acute process seen in the right upper quadrant Discharge Plan Discharge Chief Complaint: Abdominal Pain Clinical Impression: Abdominal pain, UTI (urinary tract infection) Patient Disposition: Home, Self-Care Time of Disposition Decision: 01:23 Prescriptions / Home Meds: New ciprofloxacin HCl [Cipro] 500 mg tablet 500 mg PO BID Qty: 10 0RF hyoscyamine sulfate [Levsin/SL] 0.125 mg tablet, sublingual 0.125 mg PO Q6H PRN (Reason: abdominal pain) Qty: 20 0RF ondansetron 4 mg tablet,disintegrating 4 mg PO Q6H PRN (Reason: nausea and vomiting) Qty: 20 0RF No Action sertraline [Zoloft] 50 mg tablet 50 mg PO DAILY olanzapine [Zyprexa] 10 mg tablet 10 mg PO BID Print Language: Bulgarian Instructions: Urinary Tract Infection in Women (ED), Abdominal Pain (ED) Referrals: Physician,Non-Staff, MD [Primary Care Provider] - 1 week
[2024-08-06 22:27] LABS: Basophils Absolute Auto 0.1 10^3/uL (0.0-0.1); Basophils Percent Auto 0.5 % (0.2-2.0); Eosinophils Absolute Auto 0.2 10^3/uL (0.0-0.7); Eosinophils Percent Auto 1.8 % (0.9-7.0); Hematocrit 39.6 % (36.0-48.0); Hemoglobin 13.2 g/dL (12.0-16.0); Immature Granulocytes Abs Auto 0.05 10^3/uL (0.00-0.03); Immature Granulocytes Pct Auto 0.4 % (0.0-0.5); Lymphocytes Absolute Auto 3.1 10^3/uL (1.2-3.8); Lymphocytes Percent Auto 26.3 % (20.5-60.0); Mean Corpuscular HGB Conc 33.3 g/dL (29.9-35.2); Mean Corpuscular Hemoglobin 28.8 pg (26.7-34.0); Mean Corpuscular Volume 86.3 fL (81.0-99.0); Mean Platelet Volume 10.2 fL (9.5-13.5); Monocytes Absolute Auto 0.8 10^3/uL (0.3-0.8); Monocytes Percent Auto 6.8 % (1.7-12.0); Neutrophils Absolute Auto 7.4 10^3/uL (1.4-6.5); Neutrophils Percent Auto 64.2 % (43.0-75.0); Platelet Count 301 10^3/uL (150-450); Red Blood Count 4.59 10^6/uL (4.20-5.40); White Blood Count 11.6 10^3/uL (4.0-11.0)
[2024-08-06 22:31] LABS: Bilirubin Urine NEGATIVE (NEGATIVE); Blood Urine NEGATIVE (NEGATIVE); Clarity Urine CLEAR (CLEAR); Color Urine LT. YELLOW (YELLOW); Glucose Urine UA NEGATIVE (NEGATIVE); Ketones Urine NEGATIVE (NEGATIVE); Leukocyte Esterase Urine SMALL (NEGATIVE); Nitrite Urine NEGATIVE (NEGATIVE); Protein Urine NEGATIVE (NEG/TRACE); Urobilinogen Urine 0.2 EU/dL (0.2-1.0)
[2024-08-06 22:32] LABS: HCG Qualitative Urine* NEGATIVE (NEGATIVE); Internal Control Within Normal Limits
[2024-08-06 22:37] LABS: Carbon Dioxide 25.7 mmol/L (21.0-32.0); Chloride 101 mmol/L (98-107); Estimated GFR (African America >60 (>=60 mL/min/1.73m^2); Glucose 81 mg/dL (74-106); Potassium 3.7 mmol/L (3.5-5.1); Sodium 137 mmol/L (136-145)
[2024-08-06 22:38] LABS: Bacteria Urine MODERATE #/HPF (NONE SEEN); Cast Seen? NONE SEEN #/LPF (NONE SEEN); Crystals Seen? None Seen #/HPF (None Seen); Mucus Urine NONE SEEN (NONE SEEN); RBC Urine 0-2 #/HPF (0-2); Squamous Epithelial Cell Urine MODERATE #/LPF (NONE/RARE); Urine Culture Indicated YES-FRMC
[2024-08-06 22:38] LABS: Alanine Aminotransferase 29 U/L (14-59); Albumin Level 3.7 g/dL (3.4-5.0); Alkaline Phosphatase 67 U/L (46-116); Aspartate Amino Transferase 13 U/L (15-37); BUN Creatinine Ratio 13.5; Bilirubin Total 0.2 mg/dL (0.2-1.0); Calcium 8.7 mg/dL (8.5-10.1); Estimated GFR (Non-African Ame >60 (>=60 mL/min/1.73m^2); Globulin 3.8 g/dL; Total Protein 7.5 g/dL (6.4-8.2)
[2024-08-06] MEDS: ONDANSETRON 4 MG RAPDIS TABLET SL (22:39)
[2024-08-06] MEDS: HYOSCYAMINE SULFATE 0.125 MG TAB.SUBL SL (22:39)
[2024-08-06] MEDS: CIPROFLOXACIN IN 5 % DEXTROSE 400 MG/200 ML PREMIX 200 MG IV (23:32)
[2024-08-06] MEDS: KETOROLAC TROMETHAMINE 30 MG/ML VIAL IVP (23:32)
[2024-08-07 00:40] VITALS: BP 122/70; PULSE 75; O2SAT 100
[2024-08-07 01:34] VITALS: BP 116/68; PULSE 77; O2SAT 97
== END 2024-08-07 01:37 | disposition home or self-care (01) ==
PROVIDERS: Emergency Provider Emergency Medicine
DX: N39.0 Urinary tract infection, site not specified (principal); R10.11 Right upper quadrant pain; F17.200 Nicotine dependence, unspecified, uncomplicated
CPT/HCPCS: 36415; 74176; 74177; 80053; 81001; 83690; 84703; 85025; 87086; 96365; 96375; 99283; J0744; J1885; Q0162; Q9967

== ENCOUNTER 2024-08-07 19:37 | Emergency (ER) | payer SELFPAY ==
--- OUTSIDE RECORDS SUMMARY | 2024-08-07 19:45 | XMS_ITS | CCD ---
Author Organization [facility] Care Team Providers Care Design Engineer Products Name Role Phone TING BRANTLEY Unavailable Unavailable NO FAMILY DOCTOR, NO FAMILY DOCTOR Unavailable Unavailable Unavailable Primary Care Provider Unavailabl e MESERET, OBEY Referring Unavailable MESERET, OBEY Referring Unavailable MESERET, OBEY Referring Unavailable MESERET, OBEY Referring Unavailable Ender Collins Primary Care Provider Dennis CRENSHAW-Ender JIMENEZ Primary Care Provider Ender Kauffman Primary Care Provider NO FAMILY, PHYSICIAN Primary Care Provider Unava ilable DO Talha Paez Emergency Provider [phone] MD Shirley Abarca Admit Provider [phone] MD Shirley Abarca Attending Provider Unavailable Primary Care Provider Unavailabl e None, None Primary Care Provider Unavailabl e NONE, NONE Primary Care Unavailable NONE, NONE Primary Care Unavailable Meseret BALE STACKER - CATH LAB MANAGER, Obey Primary Care Provider MESERET, OBEY Primary Care Unavailable MESERET, OBEY Referring Unavailable MESERET, OBEY Referring Unavailable MESERET, OBEY Primary Care Unavailable NO FAMILY, PHYSICIAN Primary Care Provider Unava ilable MD Baljinder Epsino Admit Provider MD Baljinder Espino Attending Provider [...] Care Unavailable RANI FIELD Primary Care Physician RANI FIELD Attending Unavailable RANI FIELD Admitting Unavailable Driss Wright Attending Unavailable MIKE HUITRON Attending Unavailable Sydnie Perdue Attending Unavailable Vishal PEDERSON Attending Unavailable RANI FIEDL Attending Unavailable RANI FIELD R Admitting Unavailable [...] day(s), # 21 cap(s), Refills(s) 0, Pharmacy: [facility]/pharmacy #[id number], 160, cm, 12/08/23 10:02:00 EDT, Height/Length [...] 0, (swish and spit; do not swallow), [facility]/pharmacy #[id number], 160, cm, 12/08/23 10:02:00 EDT, Height/Length Dosing, 91, kg, 12/08/23 10:02:00 EDT, Weight Dosing Start Date: 12/08/23 Stop Date: 12/22/23 Status: Ordered cyclobenzaprine hydrochloride 10 mg oral tablet (4 sources) Muscle Relaxant Start: 07-02-2023 take 1 tablet by mouth three times daily cyclobenzaprine 10 mg Tab 10 mg = 1 tab(s), Oral, TID, # 14 tab(s), Refills(s) 0, Pharmacy: [facility]/pharmacy #[id number], 160, cm, 07/02/23 21:09:00 EST, Height/Length [...] hours on and 12 hours off daily, [facility]/pharmacy #[id number], 160, cm, 07/02/23 21:09:00 EST, Height/Length Dosing, 96.6, kg, 07/02/23 21:09:00 EST, Weight Dosing Start Date: 07/02/23 Status: Ordered 12 hr loratadine 5 mg / pseudoephedrine sulfate 120 mg extended release oral tablet (1 source) alpha-Adrenergic Agonist Start: 11-24-2023 End: 12-04-2023 loratadine-pseud oephedrine 5 mg-120 mg ER Tab 1 tab(s), Oral, q12hr for 10 day(s), 20 tab(s), Refill(s) 0, [facility]/pharmacy #[id number], 160, cm, 11/24/23 15:45:00 EDT, Height/Length [...] day(s), # 20 tab(s), Refills(s) 0, Pharmacy: [facility]/pharmacy #[id number], 160, cm, 07/02/23 21:09:00 EST, Height/Length [...] day(s), # 9 tab(s), Refills(s) 0, Pharmacy: [facility]/pharmacy #6173, 160, cm, 10/15/23 13:35:00 EDT, Height/Length [...] day(s), # 21 tab(s), Refills(s) 0, Pharmacy: [facility]/pharmacy #[id number], 160, cm, 11/24/23 15:45:00 EDT, Height/Length Dosing, 90.5, kg, 11/24/23 15:45:00 EDT, Weight Dosing Start Date: 11/24/23 Stop Date: 12/01/23 Status: Ordered Start: 10-13-2023 End: 10-18-2023 take 2 tablets by mouth once daily predniSONE 20 mg Tab 40 mg = 2 tab(s), Oral, Daily, X 5 day(s), # 10 tab(s), Refills(s) 0, Pharmacy: [facility]/pharmacy #[id number], 160, cm, 10/13/23 18:26:00 EDT, Height/Length [...] End: 05-03-2021 azithromycin 250 MG tablet T laivia 500 mg X1 then 250 mg PO [...] (FLAGYL) tablet 2,000 mg polyethylene glycol 3350 07655 mg powder for oral solution (4 sources) [...] MD Transcribed by: KEO Technologist: YONY Flores [facility] Blood Gas Art, with Eliza Francisco [place] 07-15-2024 a/A Ratio Art 87.70 % Normal >=0.80 [facility] Comment on above: Performed By: #### 4 [id number] #### [facility] [address] [place] [address] AaDO2 Art 13.5 mmHg Normal 5.0-15.0 [facility] Comment on above: Performed By: #### 4 [id number] #### [facility] [address] [place] [address] Allens Test Positive Normal [facility] Comment on above: Performed By: #### 4 [id number] #### [facility] [address] [place] [address] Base Excess Arterial -2.3 mmol/L Low >=2.8 [facility] Comment on above: Performed By: #### 4 [id number] #### [facility] [address] [place] [address] cCa2+ Art 4.66 mg/dL Normal 4.40-5.30 [facility] Comment on above: Performed By: #### 4 [id number] #### [facility] [address] [place] [address] cCl- Art 108.0 mmol/L Normal 101.0-111.0 [facility] Comment on above: Performed By: #### 4 [id number] #### [facility] [address] [place] [address] cGlu Art 87 mg/dL Normal 55-99 [facility] Comment on above: Performed By: #### 4 [id number] #### [facility] [address] [place] [address] cK+ Art 3.8 mmol/L Normal 3.5-5.3 [facility] Comment on above: Performed By: #### 4 [id number] #### [facility] [address] [place] [address] cLac Art .5 mmol/L Normal .5-2.2 [facility] Comment on above: Performed By: #### 4 [id number] #### [facility] [address] [place] [address] inside horticultural specialty grower+ Art 138.0 mmol/L Normal 135.0-145.0 [facility] Comment on above: Performed By: #### 4 [id number] #### [facility] [address] [place] [address] Drawn by WMP Invalid Interpretation Code [facility] Comment on above: Performed By: #### 4 [id number] #### [facility] [address] [place] [address] FCOHb Art 1.0 % Low 1.5-4.9 [facility] Comment on above: Result Comment: Refe rence range Nonsmoker <1.5% Smoker <5.0% Heavy Smoker <9.0% Performed By: #### 4 [id number] #### [facility] [address] [place] [address] FIO2 BG 21 Invalid Interpretation Code [facility] Comment on above: Performed By: #### 4 [id number] #### [facility] [address] [place] [address] FMetHb Art <1.0 Normal 0.0-1.9 [facility] Comment on above: Performed By: #### 4 [id number] #### [facility] [address] [place] [address] FO2Hb Art 97.7 % Normal 92.0-100.0 [facility] Comment on above: Performed By: #### 4 [id number] #### [facility] [address] [place] [address] HCO3 (Bld) [Moles/Vol] 22.5 mmol/L Normal 22.0-26.0 [facility] Comment on above: Performed By: #### 4 [id number] #### [facility] [address] [place] [address] Hemoglobin (Bld) [Mass/Vol] 12.8 g/dL Normal 12.0-16.0 [facility] Comment on above: Performed By: #### 4 [id number] #### [facility] [address] [place] [address] Oxygen saturation in Blood 98.9 % Normal 95.0-100.0 [facility] Comment on above: Performed By: #### 4 [id number] #### [facility] [address] [place] [address] P CO2 Arterial 33.1 mmHg Low 35.0-45.0 [facility] Comment on above: Performed By: #### 4 [id number] #### [facility] [address] [place] [address] P O2 Arterial 96.6 mmHg Normal 80.0-100.0 [facility] Comment on above: Performed By: #### 4 [id number] #### [facility] [address] [place] [address] pH Arterial 7.421 Normal 7.350-7.450 [facility] Comment on above: Performed By: #### 4 [id number] #### [facility] [address] [place] [address] Sample Site L Radial Normal [facility] Comment on above: Performed By: #### 4 [id number] #### [facility] [address] [place] [address] Sample Type Arterial Draw Normal [facility] Comment on above: Performed By: #### 4 [id number] #### [facility] [address] [place] [address] ED Clinical Summaryon 2024 ED Clinical Summary ED Clinical Summary [address] [address] ED Clinical Summary Person Information Name: DECLANMACKENZIEELBA/[facility] Age: 34 Years : 1990 Sex: Female Language: Comoran PCP: NONE, XXXX Marital Status: Single Visit [...] 07/15/2024 22:09:20 07/15/2024 22:09:20 07/15/2024 22:09:20 ADDRESS: [address] [place] [id number] [facility] DOC NOTES: MEDICAL INFORMATION: Prescriptions Given: [...] exposure to carbon monoxide; Sebaceous cyst Normal [facility] ED Note-Physicianon 07-15-19 25 ED [...] Vaping, 07 (more content not included)... Normal [facility] Comment on above: Result Comment: Elec tronically Signed By: Kobe Alcala DO\.br\Date and Time Signed: 07/15/24 22:28 EST ED Patient Summaryon 025 ED Patient Summary ED Patient Summary [place] [id number] Patient Discharge Instructions Person Information Name: ELBA JO Age: 34 Years Arrival Date: 07/15/2024 18:07:57 Discharge Diagnosis: Accidental exposure to carbon monoxide; Sebaceous cyst Primary Care Physician: NONE, XXXX Provider Information Primary Provider: Kobe Alcala DO Advanced Mill Tender Warm Up:Mark The exam and treatment you received in the Emergency Department were for an urgent problem and are not intended as complete care. It is important that you follow up with a doctor, nurse practitioner, or physician???s social research assistant for ongoing care. If your symptoms [...] opioids can be used to help relieve mdcwlpkm-tr-qvhfdd pain and are often prescribed following a [...] opioids in (more content not included)... Normal [facility] FT Blood GasesOrdered By: River [...] - 2.2 mmol/L FT Resp Auto SS inside horticultural specialty grower+ Art 138.0 mmol/L Normal 135.0 - 145.0 [...] 12.8 g/dL Normal 12.0 - 16.0 gm/dL [facility] Resp Auto SS P CO2 Arterial 33.1 mm[Hg] Low 35.0 - 45.0 mmHg [facility] Resp Auto SS P O2 Arterial 96.6 mm[Hg] Normal 80.0 - 100.0 mmHg [facility] Resp Auto SS pH (Bld) 7.421 [pH] Normal 7.350 - 7.450 [facility] Resp Auto SS Sample Site L Radial (07/15/24 8:24 PM) Normal [facility] Resp Auto SS Sample Type Arterial Draw (07/15/24 8:24 PM) Normal [facility] Resp Auto SS SEROLOGYOrdered By: Antelmo ly on 07-15-2024 HCG.beta subunit (U) [Moles/Vol] Negative Normal [facility] Man Sero U BetaHcg Qualon 07-15-2024 HCG.beta subunit (U) [Moles/Vol] Negative Normal [facility] Comment on above: Performed By: #### 2 [id number] #### [facility] [address] [place] [address] ED Clinical Summaryon 2024 ED Clinical Summary ED Clinical Summary [address] [address] ED Clinical Summary Person Information Name: ELBA JO Emily/[facility] Age: 34 Years : 1990 Sex: Female Language: Com[place]an PCP: NONE, XXXX Marital Status: Single Visit [...] 07/10/2024 03:10:38 07/10/2024 03:10:38 07/10/2024 03:10:38 ADDRESS: [address] [place] [id number] PHYS DOC NOTES: MEDICAL INFORMATION: Prescriptions Given: PATIENT EDUCATION INFORMATION: Instructions: Follow up: DIAGNOSIS: Normal [facility] ED Patient Education Noteon 07-10-2024 ED Patient Education Note ED Patient Education Note Normal [facility] ED Patient Summaryon 025 ED Patient Summary ED Patient Summary [place] [id number] Patient Discharge Instructions Person Information Name: ELBA JO Age: 34 Years Arrival Date: 07/10/2024 02:05:10 Discharge Diagnosis: Primary Care Physician: NONE, XXXX Provider Information Primary Provider: Advanced Mill Tender Warm Up:None The exam and treatment you received in the Emergency Department were for an urgent problem and are not intended as complete care. It is important that you follow up with a doctor, nurse practitioner, or physician???s social research assistant for ongoing care. If your symptoms [...] opioids can be used to help relieve wtqwsdra-nm-najxot pain and are often prescribed following a [...] be struggling with addiction, tell your health hearing care practitioner and ask for guidance or call [facility]S National Helpline at 2-942-094-PJNK. v Source: [place] Department of Health and Human Services/Center for Disease Control & Prevention [facility] Medicatio (more content not included)... Normal [facility] Ambulatory Visit Summaryon 0 12-08-2023 [...] containing substance Duration: 7 Days Pickup at [facility]/pharmacy #6173 New chlorhexidine topical (Peridex 0.12% Liquid) 15 Milliliter By Mouth 2 times a day Pain, dental Broken tooth BMI 35.0-35.9,adult Vapes nicotine containing substance Duration: 14 Days (swish and spit; do not swallow) Pickup at [facility]/pharmacy #6173 [facility] [address] [place], [place] [phone] Allergies No Known Allergies Problems Ongoing - [...] Follow these instructions at home: ? Take hhwk-vny-otejhns and prescription medicines only as told by your dentist. ? Eat a soft diet for two weeks or as directed by your dentist. ? [place] the tooth with a soft toothbrush after [...] care provider (more content not included)... Normal [facility] Family Medicine Office/Clini c Noteon [...] with voice recognition software. Occasional wrong-word or ?nsump-o-smyf? substitutions may have occurred due to the [...] day(s), # 21 cap(s), Refills(s) 0, Pharmacy: [facility]/pharmacy #6173, 160, cm, 12/08/23 10:02:00 EDT, Height/Length Dosing, 91, kg, 12/08/23 10:02:00 EDT, Weight Dosing chlorhexidine topical, 0.018 gm, 15 mL, Oral, BID for 14 day(s), 420 mL, Refill(s) 0, (swish and spit; do not swallow), [facility]/pharmacy #6173, 160, cm, 12/08/23 10:02:00 EDT, Height/Length Dosing, 91, kg, 12/08/23 10:02:00 EDT, Weight Dosing 2. Broken tooth (S02.5XXA: Fracture of tooth (traumatic), initial encounter for closed fracture) See above Ordered: amoxicillin, 500 mg = 1 cap(s), Oral, TID, X 7 day(s), # 21 cap(s), Refills(s) 0, Pharmacy: [facility]/pharmacy #6173, 160, cm, 12/08/23 10:02:00 EDT, Height/Length Dosing, 91, kg, 12/08/23 10:02:00 EDT, Weight Dosing chl (more content not included)... [facility] Comment on above: Result Comment: Elec tronically Signed By: Carlos ALVAREZ, Wilberto Sloan\.br\Date and Time Signed: 12/08/23 10:19 EDT Patient Letter FTon 2023 Patient Letter [facility] Patient Letter [facility] [address], [place] [phone] December 08, 2023 ELBA JO [address] [place] [address] : 1990 Please excuse ELBA JO from work . Date and/or Time of Absence: From: 12/08/23 To: 12/09/23 May return to work on: 12/09/23 Restrictions: None Comments: Please excuse due to an acute illness. Provider Signature: Wilberto Gonzalez PA-C Physician Electrician'S Helper [facility] [address] [place] [address] [facility] ED Note-Physicianon 11-25-19 ED Note-Physician Basic Information [...] for 10 day(s), 20 tab(s), Refill(s) 0, [facility]/pharmacy #[id number], 160, cm, 11/24/23 15:45:00 EDT, Height/Length Dosing, 90.5, kg, 11/24/23 15:45:00 EDT, Weight Dosing predniSONE, 60 mg = 3 tab(s), Oral, Daily, X 7 day(s), # 21 tab(s), Refills(s) 0, Pharmacy: [facility]/pharmacy #6173, 160, cm, 11/24/23 15:45:00 EDT, Height/Length [...] 3 days 11/27/2023 EDT [address] [place] [phone] Business (1) Additional Instructions: Patient Education Sinus [...] made to ensure accuracy, however, inadvertently computerized opto mechanical engineer mistakes may be present. Appropriate healthcare PPE [...] available. Diagnostic Results No qualifying data available. [facility] Comment on above: Result Comment: Elec tronically Signed By: Charles Eid PA-C\.br\Date and Time Signed: 11/24/23 16:35 EDT\.br\Electronically Co-Signed By: Ting Kennedy DO\.br\Date and Time Co-Signed: 11/25/23 07:27 EDT Consent for Treatmenton 11-01 Consent for Treatment [id number] Normal [facility] Discharge Instructionson Discharge Instructions [id number]#[id number] Normal [facility] ED Clinical Summaryon 2023 ED Clinical Summary (Inserted Image. Keerthi ble to display) [place] [id number] ED Clinical Summary Person Information Name: ELBA JO Emily/[facility] Age: 33 Years : 1990 Sex: Female Language: Comoran PCP: RANI FIELD NP Marital Status: Single [...] 11/24/2023 16:53:33 11/24/2023 16:53:33 11/24/2023 16:53:33 ADDRESS: [address] [place] [phone] [facility] DOC NOTES: MEDICAL INFORMATION: Prescriptions Given: New Medications [facility]/pharmacy #6173, [address] [place] [id number], [phone] loratadine-pseudoephedrine (loratadine-pseudoephedrin e 5 mg-120 mg ER Tab) 1 Tablets By Mouth every 12 hours for 10 Days. Refills: 0. predniSONE (predniSONE 20 mg Tab) 3 Tablets By Mouth every day for 7 Days. Refills: 0. PATIENT EDUCATION INFORMATION: Instructions: Sinus Infection, Adult Follow up: With: Address: When: RANI FIELD [address] [place], [place] [address] [place] [phone] Business (1) In 3 days 11/27/2023 DIAGNOSIS: Sinusitis Normal [facility] ED Patient Education Noteon 11-24-2023 [...] ? Medicines that treat allergies (antihistamines). ? Wjyg-rif-zlleacs pain relievers. ? If caused by bacteria, [...] home: Medicines ? Take, use, or apply fyss-lro-htvudrk and prescription medicines only as told by [...] and water are not available, use hand break out man. ? Do not smoke. Avoid being around people who are smoking (secondhand smoke). ? Keep all follow-up visits. This is important. Contact a health care provider if: ? You have a fever. ? Your symptoms get (more content not included)... Normal [facility] ED Patient Summaryon 024 ED Patient Summary (Inserted Image. Keerthi ble to display) [address] [address] Patient Discharge Instructions Person Information Name: ELBA JO Age: 33 Years Arrival Date: 11/24/2023 15:35:16 Discharge Diagnosis: Sinusitis Primary Care Physician: RANI FIELD NP Provider Information Primary Provider: Ting Kennedy DO Advanced Mill Tender Warm Up:Charles Eid PA-C The exam and treatment you received in the Emergency Department were for an urgent problem and are not intended as complete care. It is important that you follow up with a doctor, nurse practitioner, or physician?s social research assistant for ongoing care. If your symptoms [...] Follow-up Instructions: With: Address: When: RANI FIELD [address] [place], [place] [phone] Business (1) In 3 days 11/27/2023 In the event that this physician does not participate in your insurance network, please consult with your insurance company to find a nearby participating provider. Patient Education Materials: Sinus Infection, Adult A MESSAGE TO ALL PATIENTS REGARDING OPIOIDS PRESCRIPTION OPIOIDS: WHAT YOU NEED TO KNOW Prescription opioids can be used to help relieve hwuuskni-tf-pqleii pain and are often prescribed following a [...] be struggling with addiction, tell your health hearing care practitioner and ask for guidance or call [employer]?S National Helpline at 8-080-127-HELP. v (more content not included)... Normal [facility] Prescriptions/Work Noteson 0 11-24-2023 Prescriptions/Work Notes [id number] Normal [facility] HIV Screen 4th Generation wR fxon 11-08-2023 HIV 1+2 Ab+HIV1 p24 Ag IA Ql Non-Reactive Invalid Interpretation Code Non Reactive [facility] Comment on above: Result Comment: HIV Negative HIV-1/HIV-2 antibodies and HIV-1 p24 antigen were NOT detected. There is no laboratory evidence of HIV infection. Performed at: [facility] [id number] PhD Irina Bronson Performed By: #### 9 [id number] ####[facility] [address] [place] [address] CBC w/ Auto Diffon 4 Basophils/100 WBC (Bld) 0.9 % Normal 0.0-2.0 [facility] Comment on above: Performed By: #### 2 [id number] #### [facility] [address] [place] [address] Basophils/Leukocytes Auto (Bld) [Pure # fraction] 0.1 E9/L Normal 0.0-0.2 [facility] Comment on above: Performed By: #### 2 [id number] #### [facility] [address] [place] [address] Eosinophils (Bld) [#/Vol] 0.1 E9/L Normal 0.0-0.5 [facility] Comment on above: Performed By: #### 2 [id number] #### [facility] [address] [place] [address] Eosinophils/100 WBC (Bld) 1.9 % Normal 0.0-8.0 [facility] Comment on above: Performed By: #### 2 [id number] #### [facility] [address] [place] [address] Erythrocyte distribution width (RBC) [Ratio] 13.7 % Normal 10.9-14.2 [facility] Comment on above: Performed By: #### 2 [id number] #### [facility] [address] [place] [address] Hematocrit (Bld) [Volume fraction] 39.9 % Normal 34.0-46.0 [facility] Comment on above: Performed By: #### 2 [id number] #### [facility] [address] [place] [address] Hemoglobin (Bld) [Mass/Vol] 13.6 g/dL Normal 12.0-16.0 [facility] Comment on above: Performed By: #### 2 [id number] #### [facility] [address] [place] [address] Lymphocytes (Bld) [#/Vol] 1.9 E9/L Normal 1.0-4.0 [facility] Comment on above: Performed By: #### 2 [id number] #### [facility] [address] [place] [address] Lymphocytes/100 WBC (Bld) 32.4 % Normal 14.0-50.0 [facility] Comment on above: Performed By: #### 2 [id number] #### [facility] [address] [place] [address] MCH (RBC) [Entitic mass] 28.8 pg Normal 27.0-34.0 [facility] Comment on above: Performed By: #### 2 [id number] #### [facility] [address] [place] [address] MCHC (RBC) [Mass/Vol] 34.2 g/dL Normal 31.4-36.0 [facility] Comment on above: Performed By: #### 2 [id number] #### [facility] [address] [place] [address] MCV (RBC) [Entitic vol] 84.4 fL Normal 80.0-100.0 [facility] Comment on above: Performed By: #### 2 [id number] #### [facility] [address] [place] [address] Monocytes (Bld) [#/Vol] 0.4 E9/L Normal 0.2-1.0 [facility] Comment on above: Performed By: #### 2 506998 #### [facility] [address] [place] [address] Neutrophils (Bld) [#/Vol] 3.5 E9/L Normal 2.0-7.5 [facility] Comment on above: Performed By: #### 2 997488 #### [facility] [address] [place] [address] Neutrophils/100 WBC (Bld) 58.4 % Normal 36.0-75.0 [facility] Comment on above: Performed By: #### 2 350952 #### [facility] [address] [place] [address] Platelet mean volume (Bld) [Entitic vol] 8.8 fL Normal 6.4-10.8 [facility] Comment on above: Performed By: #### 2 402820 #### [facility] [address] [place] [address] Platelets (Bld) [#/Vol] 278.0 E9/L Normal 150.0-500.0 [facility] Comment on above: Performed By: #### 2 194289 #### [facility] [address] [place] [address] RBC (Bld) [#/Vol] 4.7 E12/L Normal 4.3-5.9 [facility] Comment on above: Performed By: #### 2 702168 #### [facility] [address] [place] [address] WBC corrected for nucl RBC Auto (Bld) [#/Vol] 6.0 E9/L Normal 4.0-11.0 [facility] Comment on above: Performed By: #### 2 159484 #### [facility] [address] [place] [address] CHEMISTRYOrdered By: SYSTEM SYSTEM on 06-07-2024 25-hydroxyvitamin [...] 11-07-2023 Albumin [Mass/Vol] 4.4 g/dL Normal 3.3-5.0 [facility] Comment on above: Performed By: #### 2 356363 #### [facility] [address] [place] [address] Albumin/Globulin (S) [Mass conc ratio] 1.4 Normal 1.1-2.2 [facility] Comment on above: Performed By: #### 2 864777 #### [facility] [address] [place] [address] ALP [Catalytic activity/Vol] 60 Int._Unit/L Normal 21-98 [facility] Comment on above: Performed By: #### 2 583738 #### [facility] [address] [place] [address] ALT No additional P-5'-P [Catalytic activity/Vol] 11 Int._Unit/L Normal 6-46 [facility] Comment on above: Performed By: #### 2 882009 #### [facility] [address] [place] [address] Anion gap [Moles/Vol] 9 mmol/L Normal 6-16 [facility] Comment on above: Performed By: #### 2 395439 #### [facility] [address] [place] [address] AST [Catalytic activity/Vol] 11 Int._Unit/L Normal 5-43 [facility] Comment on above: Performed By: #### 2 393519 #### [facility] [address] [place] [address] Bilirubin [Mass/Vol] 0.2 mg/dL Normal 0.0-1.1 [facility] Comment on above: Performed By: #### 2 341929 #### [facility] [address] [place] [address] Calcium [Mass/Vol] 9.2 mg/dL Normal 8.9-11.1 [facility] Comment on above: Performed By: #### 2 877447 #### [facility] [address] [place] [address] Chloride [Moles/Vol] 108 mmol/L Normal 101-111 [facility] Comment on above: Performed By: #### 2 909442 #### [facility] [address] [place] [address] CO2 [Moles/Vol] 27 mmol/L Normal 21-31 [facility] Comment on above: Performed By: #### 2 853500 #### [facility] [address] [place] [address] Creatinine [Mass/Vol] 0.8 mg/dL Normal 0.5-1.3 [facility] Comment on above: Performed By: #### 2 674562 #### [facility] [address] [place] [address] Globulin (S) [Mass/Vol] 3.1 g/dL Normal 1.4-4.0 [facility] Comment on above: Performed By: #### 2 878572 #### [facility] [address] [place] [address] Glucose [Mass/Vol] 94 mg/dL Normal 55-199 [facility] Comment on above: Performed By: #### 2 456812 #### [facility] [address] [place] [address] Potassium [Moles/Vol] 4.2 mmol/L Normal 3.5-5.3 [facility] Comment on above: Performed By: #### 2 266391 #### [facility] [address] [place] [address] Protein [Mass/Vol] 7.5 g/dL Normal 6.0-7.8 [facility] Comment on above: Performed By: #### 2 594408 #### [facility] [address] [place] [address] Sodium [Moles/Vol] 140 mmol/L Normal 135-145 [facility] Comment on above: Performed By: #### 2 552770 #### [facility] [address] [place] [address] Urea nitrogen [Mass/Vol] 11 mg/dL Normal 5-21 [facility] Comment on above: Performed By: #### 2 375561 #### [facility] [address] [place] [address] Urea nitrogen/Creatinine [Mass ratio] 14 No Units Normal 10-20 [facility] Comment on above: Performed By: #### 2 443578 #### [facility] [address] [place] [address] Consent for Treatmenton Consent for Treatment [id number]#1.00TIFF Normal [facility] HEMATOLOGYOrdered By: SYSTEM SYSTEM on [...] 11-07-2023 Cholesterol [Mass/Vol] 161 mg/dL Normal 120-200 [facility] Comment on above: Performed By: #### 2 706169 #### [facility] [address] [place] [address] Cholesterol in HDL [Mass/Vol] 37 mg/dL Invalid Interpretation Code [facility] Comment on above: Result Comment: '>= 60 LOW RISK' '<= 40 HIGH RISK' Performed By: #### 2 875720 #### [facility] [address] [place] [address] Cholesterol in LDL [Mass/Vol] 108 mg/dL Normal <=129 [facility] Comment on above: Performed By: #### 2 512194 #### [facility] [address] [place] [address] Cholesterol in VLDL [Mass/Vol] 19 mg/dL Normal 7-40 [facility] Comment on above: Performed By: #### 2 003727 #### [facility] [address] [place] [address] Triglyceride [Mass/Vol] 97 mg/dL Normal <=149 [facility] Comment on above: Performed By: #### 2 008968 #### [facility] [address] [place] [address] Physician Orderon 11-07-2023 Physician Order [id number]#1.00TIFF Normal [facility] TSH With T4fr Reflexon 11-06 TSH Qn 2.57 m[IU]/L Normal 0.34-5.60 [facility] Comment on above: Performed By: #### 1 [id number] #### [facility] [address] [place] [address] Vitamin D 25 Hydroxyon 11-06 25-hydroxyvitamin D3 [Mass/Vol] 22.6 ng/mL Low 30.0-100.0 [facility] Comment on above: Performed By: #### 5 [id number] #### [facility] [address] [place] [address] eGFRon 11-07-2023 eGFR 98 mL/min/1.73 m2 Normal >=59 [facility] Comment on above: Order Comment: Order added by Discern Expert. Performed By: #### 1 [id number] #### [facility] [address] [place] [address] Registrationon 10-21-2023 Registration [id number]#1.00TIFF Sandra Zepeda [facility] Family Medicine Office/Clini c Noteon 10-18-2023 Family [...] with voice recognition artificial intelligence software, specifically Geni, Queryday and or [email or web address]. Substitutions may have occurred due to the [...] discomfort. She is not using any treatment ptqr-ugb-pkqxnhp at this time. She does note that [...] Zofran to help with nausea. Rest, fluids. [place] diet. Follow-up with PCP if not gradually [...] pharyngitis, unspecified) Ordered: Influenza Type A&B POC 24479 Follow-up With When Contact Information EMIR RIVAS, RANI Fan, [facility] Only if needed [address] [place] [address]- Additional Instructions: 1 week if no improvement [...] Yes, 05/ (more content not included)... Normal [facility] Comment on above: Result Comment: Elec tronically Signed By: WIONA Perdue APRN, Sydnie Torres\.br\Date and Time Signed: 10/18/23 12:18 EDT Family Medicine Office/Clini c Noteon 10-16-2023 Family Medicine Office/Clinic Note Chief Complaint sore throat HPI Staff 33 year old female here for sore throat and difficulty swallowing for a few days. Pt has white patches in throat. History of Present Illness Reviewed and agree with above documented HPI by medical records tech. Portions of this record may have been created with voice recognition artificial intelligence software, specifically Geni, Queryday and or [email or web address]. Substitutions may have occurred due to the inherent limitations of voice recognition and artificial intelligence software. Patient is a 33-year-old female who presents to [facility], for sore throat, patient states symptoms [...] placed on antibiotics. 33-year-old female presents to [facility], for acute pharyngitis, symptoms started a few [...] When Contact Information EMIR RIVAS, RANI Fan, [facility] [address] [place] [address]- Additional Instructions: Patient Education BMI for Adults Pharyngitis, Kmdx-rl-Btyt Problem List/Past Medical History Ongoing Acute pharyngitis [...] unspecified formul (more content not included)... Normal [facility] Comment on above: Result Comment: [...] these instructions at home: Medicines ? Take soeg-hgk-zsllqab and prescription medicines only as told by [...] and water are not available, use hand break out man. ? Do not touch your eyes, nose, [...] provider. Document Revised: 08/15/2021 Document Reviewed: 08/15/2021 [employer] Patient Education ? 2022 [employer] Nutrition BMI for Adults What is [...] identify possi (more content not included)... Normal [facility] Patient Education Infectious Disease Upper [...] to help relieve symptoms, such as: ? Cvgh-lwn-cvbqaji cold medicines. ? Cough suppressants. Coughing is [...] other clear broths. General instructions ? Take wcro-gte-ufdjkez and prescription medicines only as told by [...] and water are not available, use hand break out man. ? Avoid touching your mouth, face, eyes, [...] Get help (more content not included)... Normal [facility] Ambulatory Visit Summaryon 0 10-15-2023 [...] you for choosing us for your care. [facility] Provider Letteron 10-15-2023 Provider Letter (Inserted Image. Keerthi ble to display) October 15, 2023 ELBA JO [address] [place] [address] : 1990 To Whom It May Concern, Please excuse above patient from work. Date of Illness: From: 10/15/2023 To: 10/16/2023 May Return to Work On: 10/17/2023 Sincerely, [facility] [address] [place] [address], [facility] [address] [facility] Ambulatory Visit Summaryon 0 10-13-2023 Ambulatory Visit [...] for choosing us for your care. Normal [facility] XR Hip Bilat 2 Views [...] mGy = na DAP = na Normal [facility] XR Spine Lumbosacral 2 or [...] mGy = na DAP = na Normal [facility] Consent for Treatmenton 02-0 Consent for Treatment [id number]#1.00TIFF Normal [facility] Discharge Instructionson Discharge Instructions [id number]#1.00TIFF Normal [facility] ED Clinical Summaryon 2023 ED Clinical Summary (Inserted Image. Keerthi ble to display) [place] [id number] ED Clinical Summary Person Information Name: ELBA JO Mita Diaz/[facility]uan Jose Age: 33 Years : 1990 Sex: Female Language: Comoran PCP: NONE, XXXX Marital Status: Single Visit [...] 07/02/2023 23:44:23 07/02/2023 23:44:23 07/02/2023 23:44:23 ADDRESS: [address] [place], [place] [id number] PHYS DOC NOTES: MEDICAL INFORMATION: Prescriptions Given: New Medications [facility]/pharmacy #[id number], [address], [place] [id number], [phone] cyclobenzaprine (cyclobenzaprine 10 mg Tab) 1 Tablets [...] Adult Follow up: With: Address: When: [facility], [address] [place] [address] [place] [address] Business (1) In 5 days 07/07/2023 DIAGNOSIS: Low back pain Normal [facility] ED Note-Physicianon 07-03-19 ED Note-Physician [...] and Complexity of Problems Differential Diagnosis: [] [facility] Data External documents reviewed: N/A My [...] TID, # 14 tab(s), Refills(s) 0, Pharmacy: [facility]/pharmacy #[id number], 160, cm, 07/02/23 21:09:00 EST, Height/Length Dosing, 96.6, kg, 07/02/23 21:09:00 EST, Weight Dosing lidocaine topical, 1 patch(es), Patch, TransDermal, Once, Stop date 07/02/23 22:52:00 EST, STAT, Start date 07/02/23 22:52:00 EST lidocaine topical, 1 patch(es), Topical, Daily, 7 patch(es), Refill(s) 0, apply 12 hours on and 12 hours off daily, [facility]/pharmacy #[id number], 160, cm, 07/02/23 21:09:00 EST, Height/Length Dosing, 96.6, kg, 07/02/23 21:09:00 EST, Weight Dosing naproxen, 500 mg = 1 tab(s), Oral, BID, X 10 day(s), # 20 tab(s), Refills(s) 0, Pharmacy: [facility]/pharmacy #[id number], 160, cm, 07/02/23 21:09:00 EST, Height/Length [...] COREY FITZGERALD In 5 days 07/07/2023 EST [address] [place] [address] [place] (1) Additional Instructions: Patient Education Acute Back [...] Yellow2 ( (more content not included)... Normal [facility] Comment on above: Result Comment: [...] Managing pain, stiffness, and swelling ? Take sngj-sbq-ozurgwk and prescription medicines only as told by [...] day. ? 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 Normal [facility] ED Patient Summaryon 024 ED Patient Summary (Inserted Image. Keerthi ble to display) [address] [address] Patient Discharge Instructions Person Information Name: ELBA JO Age: 33 Years Arrival Date: 07/02/2023 21:01:45 Discharge Diagnosis: Low back pain Primary Care Physician: NONE, XXXX Provider Information Primary Provider: Driss Wright DO [employer] Warm Up:Mark The exam and treatment you received in the Emergency Department were for an urgent problem and are not intended as complete care. It is important that you follow up with a doctor, nurse practitioner, or physician?s social research assistant for ongoing care. If your symptoms become worse or you do not improve as expected and you are unable to reach your usual health care provider, you should return to the Emergency Department. We are available 24 hours a day. ELBA JO has been given the following list of patient education materials, prescriptions and follow-up instructions: Follow-up Instructions: With: Address: When: [facility], [address] [place], [place] [address] [address] Business (1) In 5 days 07/07/2023 In the event that this physician does not participate in your insurance network, please consult with your insurance company to find a nearby participating provider. Patient Education Materials: Acute Back Pain, Adult A MESSAGE TO ALL PATIENTS REGARDING OPIOIDS PRESCRIPTION OPIOIDS: WHAT YOU NEED TO KNOW Prescription opioids can be used to help relieve xxurcbdv-et-pfyjll pain and are often prescribed following a [...] be struggling with addiction, tell your health hearing care practitioner and ask for guidance or call SAM[employer]?S National Helpline at 7-757-172-HELP. v Source: [place] Depar (more content not included)... Normal [facility] Physician Orderon 07-03-2023 Physician Order [id number]#1.00TIFF Normal [facility] U BetaHcg Qualon 07-03-2023 HCG.beta subunit (U) [Moles/Vol] Negative Normal [facility] Comment on above: Performed By: #### 2 [id number], [id number] ####[facility] [address] [facility] [place] [address] UA With Cult Reflexon 2023 Bacteria LM Ql (Urine sed) 1+ /HPF Abnormal Trace [facility] Comment on above: Performed By: #### 2 8809562, [id number] ####[facility] [address] [place] [address] Bilirubin Ql (U) Negative Normal Negative [facility] Comment on above: Performed By: #### 2 9488904, [id number] ####[facility] [address] [facility] [place] [address] Clarity (U) SL CLOUDY Invalid Interpretation Code [facility] Comment on above: Performed By: #### 2 3412544, [id number] ####[facility] [address] [facility] [place] [address] Color (U) YELLOW Normal Yellow [facility] Comment on above: Performed By: #### 2 5668088, [id number] ####[facility] [address] [place] [address] Epithelial cells.squamous LM.HPF (Urine sed) [#/Area] 5-8 Normal 0-2 [facility] Comment on above: Performed By: #### 2 9580765, [id number] ####[facility] [address] [place] [address] Glucose Test strip (U) [Mass/Vol] Negative Normal Negative [facility] Comment on above: Performed By: #### 2 4547067, [id number] ####[facility] [address] [place] [address] Hemoglobin Ql (U) 1+ Abnormal Negative [facility] Comment on above: Performed By: #### 2 6409807, [id number] ####[facility] [address] [place] [address] Ketones (U) [Mass/Vol] Negative Normal Negative [facility] Comment on above: Performed By: #### 2 5174516, [id number] ####[facility] [address] [place] [address] [place].plasma/Lithiu m.RBC (Bld) [Mass ratio] 0-3 Normal 0-3 [facility] Comment on above: Performed By: #### 2 7348738, [id number] ####[address] [address] Mucus Ql (Urine sed) 1+ Normal [facility] Comment on above: Performed By: #### 2 4760267, [id number] ####[facility] [address] [place] [address] Nitrite Ql (U) Negative Normal Negative [facility] Comment on above: Performed By: #### 2 3015720, [id number] ####[facility] [address] [place] [address] pH (U) 6.0 [pH] Invalid Interpretation Code 5.0-9.0 [facility] Comment on above: Performed By: #### 2 5252963, [id number] ####[facility] [address] [place] [address] Protein (U) [Mass/Vol] Negative Normal Negative [facility] Comment on above: Performed By: #### 2 2086370, [id number] ####[facility] [address] [place] [address] Specific gravity (U) [Rel density] 1.025 Invalid Interpretation Code 1.005-1.030 [facility] Comment on above: Performed By: #### 2 8496597, [id number] ####[facility] [address] [place] [address] Type of Urine collection method Clean Catch Normal [facility] Comment on above: Performed By: #### 2 9451153, [id number] ####[facility] [address] [place] [address] Urobilinogen Qn (U) 0.2 {John'U}/dL Normal 0.0-1.0 [facility] Comment on above: Performed By: #### 2 5794442, [id number] ####[facility] [address] [place], [place] [id number] WBC Auto Ql (U) Negative Normal Negative [facility] Comment on above: Performed By: #### 2 2308935, [id number] ####[address] [address] WBC LM.HPF (Urine sed) [#/Area] 0-5 Normal 0-5 [facility] Comment on above: Performed By: #### 2 3827662, [id number] ####[address] [address] Consent for Treatmenton 06-04 Consent for Treatment [id number]#1.00TIFF Normal [facility] PAP [id number] Age Gdlnon 2024 IGP Aptima HPV ACOG Note Invalid Interpretation Code [facility] Comment on above: Result Comment: TEST S RESULT FLAG UNITS REF RANGE LAB Clinician Provided Cytology Information Source.............Cervix No. of containers..01 ThinPrep Vial Age Algo ACOG Kirsty... FLAG LEGEND: L-Low Normal,H-High Normal,LL-Alert Low,HH-Alert High <-Panic Low,>-Panic High,A-Abnormal,AA-Critical Abnormal Performed at: 01 =G [employer] [address] [facility], [place] [address] Lauren Perez MD, Performed at: =G [employer] [address] [place], [place] [id number] MD Ana Aguilar Performed By: #### 2 [id number], [id number] ####[facility] [address] [place] [address] PAP [id number] 05-13-2023 Cytology report Cyto stain Doc (Cvx/Vag) Note Invalid Interpretation Code [facility] Comment on above: Result Comment: TEST S RESULT FLAG UNITS REF RANGE LAB DIAGNOSIS: 02 NEGATIVE FOR INTRAEPITHELIAL LESION OR MALIGNANCY. Specimen adequacy: 02 Satisfactory for evaluation. No endocervical component is identified. Performed by: 02 Patience Alvarenga, Field Service Rep (ASCP) . 02 Note: Note 02 The [...] <-Panic Low,>-Panic High,A-Abnormal,AA-Critical Abnormal Performed at: [address] [address] Lauren Perez MD, Performed By: #### 2 [id number], [id number] ####[address] [place] [address] [place] [address] HPV 16+18+31+33+35+39+45+ 51+52+56+58+59+66+68 DNA Probe+sig amp Ql (Cvx) Negative Invalid Interpretation Code Negative [facility] Comment on above: Result Comment: This nucleic acid amplification test detects fourteen high-risk HPV types (16,18,31,33,35,39,45,51,52,56,58,59,66,68) without differentiation. Performed at: WB [address] [id number] MD Ana Aguilar Performed at: =G [address] [id number] MD Ana Aguilar Performed By: #### 2 [id number], [id number] ####[address] [place] [address] [address] [place] [address] NuSwab Vaginitis Plus (VG+)o n 05-12-2023 A. vaginae DNA KAY+probe Ql (Vag fld) High - 2 Abnormal [facility] Comment on above: Performed By: #### 1 [id number] ####[facility] [address] [place] [address] Bacterial vaginosis associated bacterium 2 DNA KAY+probe Ql (Vag fld) High - 2 Abnormal [facility] Comment on above: Performed By: #### 1 [id number] ####[facility] [address] [place] [address] C. albicans DNA KAY+probe Ql (Vag fld) Negative Invalid Interpretation Code Negative [facility] Comment on above: Result Comment: This test was developed and its performance characteristics determined by [facility]. It has not been cleared or approved by the Food and Drug Administration. Performed By: #### 1 [id number] ####[address] [address] C. glabrata DNA KAY+probe Ql (Vag fld) Negative Invalid Interpretation Code Negative [facility] Comment on above: Result Comment: This test was developed and its performance characteristics determined by [facility]. It has not been cleared or approved by the Food and Drug Administration. Performed By: #### 1 [id number] ####[address] [address] C. trachomatis DNA KAY+probe Ql (Vag fld) Negative Invalid Interpretation Code Negative [facility] Comment on above: Performed By: #### 1 [id number] ####[address] [address] Megasphaera sp type 1 DNA KAY+probe Ql (Vag fld) High - 2 Abnormal [facility] Comment on above: Result Comment: [...] and Drug Administration. Performed By: #### 1 [id number] ####[address] [place] [address] N. gonorrhoeae DNA KAY+probe Ql (Vag fld) Negative Invalid Interpretation Code Negative [facility] Comment on above: Result Comment: Perf ormed at: =G [facility] [address] [place] [id number] MD Ana Aguilar Performed By: #### 1 [id number] ####[facility] [address] [place] [address] T. vaginalis DNA KAY+probe Ql (Vag fld) Negative Invalid Interpretation Code Negative [facility] Comment on above: Performed By: #### 1 [id number] ####[facility] [address] [place] [address] PAP [phone] Age Gdlnon 2024 [employer] BRUSH-SPATULA Normal F [facility] Comment on above: Performed By: #### 2 [id number], [id number] ####[address] [place] [address] Gynecological Body Site CERVIX Normal [facility] Comment on above: Performed By: #### 2 [id number], [id number] ####[facility] [address] [place] [address] Physician Orderon 05-08-2023 Physician Order [id number]#[id number] Normal [facility] Coding Summaryon 03-15-2023 Coding Summary HTMLBase 64 KqpcxeemBNc5mLo+PGhlYWQ+PE 9OIVZzW48aaSIrwN2bH1XJTJyQ NzqqKWFZWDvNFwTxaiKnNY0omY NjZXJu IC8+UL7bPALaGwuaiMSly3I5eX U9F45lez0vHOkrlYA1HPKgZoDm rwmuu4cgsMx2LXxsXrnfBlXj XMUnyE69YKR8hD00Zk51kKTymA Zsp2znjUb7QnOqSEKcRDB3uUho SSwds2DcJKXhO39giDVcj6Q2 FFTcpWfqaVVsYtBzwZI3kQ0eWS qrtvhtp3tokfzeXtw4jo61lCKx k3J7aMR4O4JpicS9IVLwkPBr LdiiaPRSzG0hpxpba1mvcpitMe XdKAOhIPm7OJl0ZNLfoRqwJiNy EP00NTT0NSPxapQvS2SzPYPm bBvwRzG9w6Z1Pa2NO8OIKxyiP5 VNTUFSWTwvdGQ+WT10nr96G9Mv UjgyNcq1QSYsPSN4sFD0aH2j GPJoBVrzs7V1lBC9B0SafzFflb 8zb0wvPIJyLGgrI22iyNDoj3N1 VEUfkMJ0QOQzeDwoFlJqiA26 Oyc+OFHcrRlgn2VxHggrk2vok4 ancZs6XpoeILFmhtIezZjnDDQ3 z1CcFl7bOCYqnDB6jVX7bH0f OqDlGiU0SNfsE637NgOuzFCvGe zgD58hY1IbhIB+YJQyZmv4MOId wVbnSR6zD0SgPDTdbwdwxQNc pOgiTP6vXGAnhrxpZEGhuA2qRV XjS8m7NyAdExT2SSjzX3AuIOSs iwirFw69oW8hLiJhMhA8NDnr L9TbdnC2OEEwtDQbWDpiYUV6F5 8tc7G9VBGuSITtCZO8xKJ6zR1o bGlnbjogbGVmdDsgdmVydGlj HAuyONuuJ658EUMewXpbMiDeGC luZyBEYXRlOiAgMTAvMTQvMjAy MzwvdGQ+HRVvIWO5qDtzCEPo nCChGUtwQj7acAdcqCzrWT5fGF JkzhfnFIGptP2fIXMfbZXliLye SE5vKBJuuiuae989RyQxGYB8 IZEjgAHeN4NtvK5xFeDcWGZdXI IsH8KrsGPwWLwrT197FDeyErA4 XBCmchVlU1DzEVQeaNdpTyM8 m5Y2Ca2Ix0TknigsX1MfoGNrAe WpZvtpGQx3K1ZpEmyvfSZ+PC90 ZSTkAS05MOr8DKO4sMftAJlk RKViN4TazH9mPbZkQXLfGYNiIy c+PHRhYmxlIHdpZHRoPScxMDAl IjRbxTpvFC1uPn0zIDJwIEEt nLsgoGWuCvOud3xqXFJyJZmxSB 0jrIfxH8ZegHR8ZIIit8x4Xt91 K96jL1GgcTA+NIQawVS8pGA2 nC3xLhAxNmG0NTvxB247OrNmdV AqTkikh4gyl1plsPr0DaD1RSCs pkCzoGdoYWN5q8XsPd44J42l IHdpZHRoPSIxNSUiIHZhbGlnbj 9mmV5pEd9+GZYmvSM6xDI3sQ4r OgOsVsD4OTsuD607SpRpvETx Ozwnn1dlk1dkqYe1ZeTpDYRwqr RgaEyaSKM5i7HlLq57H3HkeNve e2VfTnv0yu03gMHwh9F6eKK6 X5NvMWCacbyxqPZdcXwcBW4iVF TunfwjQNSsjJ5jPUYzO3h4VqJl EwN3VYtxA5GdjhC8TRTbsWPy CXPtzIWXyS7pyyssw2nzcbqyLc HhTDKwHBd9NXu9PLXfuRayVzQq EXO7OfP7ZDC1nEFxzL8wrIgr arhueW8aQdb+UOJ2iDXocZCCTB 1lOjwvdGQ+BSZzAHQ5wVloAYsu XMBkcP2zEHTcD4r4TnViEbU0 UAtpE0ScmjH1CWJitHXeBPEooC LRcF7mqaiwi4evimhmNcWwHUCb NLa7ZXz2EHWwoCfzHwVhXTZ8 FmQ0KJL8fLVymC8wnBfmzxmgmF 9wOyc+EtnvtUwtMLL4AXh5B5Rq Zzo1HBMswIynFN2vaHVqEIvm My3izWkuaZwxRH8iHKIduzhnw0 01PtXie7xfOTKxtPKaRHwdYCU7 N80nh0M3VKSuDVUsFDC3nYU0 rA9dbVlibojhzCBadBhbmoMuwJ tfHJgfJFlpM570NGCyoPffRjUx RFy5C2LwXtm4CUYelBrwIM0o mSKfTLglBm6vhYeceGtkMP1qPX Dyiacvi030RyYun3nsCGVikQOh RBkaZMR0A35cp1X0XJTpTOPn ELD4xED7yN5jmEaqvlrrrUBugU pegwSvfDupUTlcZJxnM842MYDi gEzxQwIexEl7Q2CpHnz4PRZq wJnlGS4usFLxBVimFh0wmVtmqV ylUY9uWJFkvyxnz791HmBpp1te EHDqcBBgDQqqXOY6T04uy1M9 DBNcQAIuZBP8pBZ0dT1cqUuwtw ogbGVmdDsgdmVydGljYWwtYWxp L341ZDEopUauZyYxcQdjzwLz AQuxSRc8F8RqAufypUA+PC90YW VsGC50iWBfkWKfy2tfjDg8KsZt EAUeUVL5nIevMEigg0UrCZHg K97eqWLfz2E5KZKywHinwQDnHe KoyCX5jU8eLYgwrcxyr1fkrdyy Sryss6xapk50vC71J22gXAvl NFAxKURkXZVxGZLubPlxry3qcO 9wIi8+PDXlzAK2aRP4fR1xIOZi PkG0BUwoR060EcIaxDHqNbfq r1cqh2hrpUl0AfZ3CPBzknVfxW wmNJO8y8CcOq95F41hUEfdKFYn KXNuOZFpFGYzpTfvkn7ejA3o Ii8+FQIltYP6lXI4cC4mZvCaFx D5LWihD505FhOthCFpWuloY93z Q1PggOR+HZJoCec1NCPtgWvg WH8dzRZfKDfzXz1vFTD0NmZlBx HyHGouA4GcSDJwonnmuhitgDL2 MPCjOATouL81Kt9plCqbWCAu yASKgA2dpiygp3vitrxoClPoOD BpJKb8UZd5PJPueKgiPmRtVJE0 MbQ0EZB0qUBstP1oyEjjplut yM7gF0IqNFVjuiyeYn14cB9hEu DkPfX8JVbnZsk+L6pFC5tFRyji PFnVSIWMPPNIVVyZEX27OA02 vBKis4B3sDQ7Q2NhPTIclejebx aosQJ3FGPrYHPtmV38mSBvIIzn Kg2vv5V5t284ESRxUMGylF69 Wk2fvIthYHNqoPSVvB4voykct5 qrdkynBbGtIQLaBHj1VKf0WZDv sOcpImIuDLX0QsH8PYI7xKQb qK5vvStsykozwC9fQyd+MDEvMj MtFAq0WAmunXD+QMElCFR8wAvz BSbeNQEyhG1lFZWgE4l5TjId JwP4BWgoS6DtAOElqbzsXd84rJ 3iCoZdHvL7OHteE9BwppH4SUSz zJHxQHbcCLR7G00wi4W5BHXj ZZFkMHU5xSC7sI7nyWbboblonQ QniCcvdaCvaUmfUTszIIicI257 INDcwJlmRxR8OUvrUKGvWW38 UP43bENed4C3lFX4W9ObVJBisp pbranejAQ1VVKfWDLicO19aOHs AZahEr4er4J5l447ZSUkGGRj oB66Uv8uiCiqSKOfxDAAxW6jts ktf3lgnljdGiLyRGSlZGv7SYr5 JLWjhIvoUnFaSNF2FhT8JQC6 zMLbjH2jvNhvglyosK9jZrq+Rk SZCWmSMR82AZ11fBEbi0V5mIX8 O7KsJWYeminexodbiBG5SEEv KHJoqW69gUNhYDilNb2gz6K8j2 09PVUvOSQgtA73Bt4eaPtjCXGk nXKVyX4elzhln3pyfafwEkSo CDCqJYn0TIw6IWTznCcaDmDfRH L4UaG1OCR3dFEtwR7lvKfhmjsk xI9lUux+HD2khjqkylT9BR51 LE04N8BsFvsyiNRkdPY+PHRhYm xlIHdpZHRoPScxMDAlJyBzdHls YV9hSe3uIAJeLZZnyVvcjKLw LtDrg7neJTBvRFmzOH5vbPtfZ4 CeyPK2BHFkd3d1Er03Q38qC3Lw dXA+MUWztWM5cMV1fF4hRqIf VcQ4DHzmB389OjOdoWPhSnrtn1 vfh5llzQs0KcDxKUOyzvSxlOfx RGK4p1BqOs46J08eVHneJPUq DWAvVVKyREIpiTwumu9kaZ0rXv 8+DJMscBM5jBJ2wZ5hBjQlKoW2 YYbfT568LsHlqHHwPwqnH24j R2GdyCS+VILrHvb7UJDanVxkXC 9bfQDuXWveLd8tTYG2RfVuXkKn CJkhD1TqULYuftwjxsmmtTT8 YPIcXKOysS55Ic7tbYajTn6xDW IzQFK6ORPqiUCwI7JbqD4vShJt UKVaVUUfQ9ZsuCTrUDafZ643 QXmkRjV1FBSbefHsW2SwCIUoeJ oyDnN9q4L7Qk2HpMsukRBaAD0i EdBhXIt3M5EhJuw9PQGpdVhb YJ4cuGUsGNfuDr9irQjpvFwkAT 6mINNwyjlmj335UuYuy4llCODy tPZtYFgpIZH5X72od4L7TPZx VKOnJMF3mOX6cA9qeMuyhfnzfQ ZpvTkdtbAifHxaRTuwEAqfH568 SLLrpFtqVhTBTfy0J9HnPjl9 TCBhyYsgRU7tzLSgUXjoAq9pnX icoTeaDE7lJVOtccnje054BmYm i7rcSXAyaOQxPNrkPAG1G49r z5C6IXGmEVQtYFH4yGM6qB1koV lnbjogbGVmdDsgdmVydGljYWwt PBabP720WFUvtBznEl4PVdw1 M5PrZkx7AORdzRelDS4muFDnBR fpOj3sxJkcdHqmWY9qLHXzbgjt u902KtVsr9teHNStaVJrCUtz LXY0P04dh7U4QQYwZHTmVTO4yA Q5rH3tjCmzfsgvlGOqxObzvzQb gMomYCglAMnxJ563NXCbrCey PlBheWVyOjwvdGQ+AQ59pi77I6 BcJgusDaf4UNOjFDH9jPM6lK7q MOUcBHdhy3C0mYA5D6HyokRi ci1 (more content not included)... [facility] Consent Formson 03-10-2023 Consent Forms [id number]#1.00OTGTIFF [facility] Outside Recordson 03-10-2023 Outside Records [id number]#1.00OTGTIFF Normal [facility] Transfer Noteon 03-10-2023 Transfer Note [id number][facility] .Auto Diff 1on 03-09-2023 Auto Tensas % 6 % Normal 1-12 [facility] Comment on above: Performed By: #### 5 [id number], [id number], [id number] #### [facility] (DEFAULT) [address] [place] [address] Baso Abs# 0.1 x10 Normal 0.0-0.2 [facility] Comment on above: Performed By: #### 5 [id number], [id number], [id number] #### [facility] (DEFAULT) [address] [place] [address] Basophils/100 WBC (Bld) 0.8 % Normal 0.2-2.0 [facility] Comment on above: Performed By: #### 5 [id number], [id number], [id number] #### [facility] (DEFAULT) [address] [place] [address] Eos Abs# 0.2 x10 Normal 0.0-0.4 [facility] Comment on above: Performed By: #### 5 [id number], [id number], [id number] #### [facility] (DEFAULT) [address] [place] [address] Eosinophils/100 WBC (Bld) 1.4 % Normal 0.9-4.0 [facility] Comment on above: Performed By: #### 5 [id number], [id number], [id number] #### [facility] (DEFAULT) [address] [place] [address] Lymph Abs# 2.7 x10 Normal 1.3-2.9 [facility] Comment on above: Performed By: #### 5 [id number], [id number], [id number] #### [facility] (DEFAULT) [address] [place] [address] Lymphocytes/100 WBC (Bld) 25 % Normal 14-48 [facility] Comment on above: Performed By: #### 5 [id number], [id number], [id number] #### [facility] (DEFAULT) [address] [place] [address] Tensas Abs# 0.6 x10 Normal 0.0-0.8 [facility] Comment on above: Performed By: #### 5 [id number], [id number], [id number] #### [facility] (DEFAULT) [address] [place] [address] Neut Abs# 7.3 x10 Normal 1.5-9.2 [facility] Comment on above: Performed By: #### 5 [id number], [id number], [id number] #### [facility] (DEFAULT) [address] [place] [address] Neutrophils/100 WBC (Bld) 67 % Normal 44-88 [facility] Comment on above: Performed By: #### 5 [id number], [id number], [id number] #### [facility] (DEFAULT) [address] [place] [address] Acet Levelon 03-09-2023 Acetaminoph Lvl <10 Normal 10-30 [facility] Comment on above: Order Comment: Urine Source: Voided Performed By: #### 5 [id number], [id number], [id number] #### [facility] (DEFAULT) [address] [place] [address] CBC w/ Auto Diffon Erythrocyte distribution width (RBC) [Ratio] 16.6 % High 11.5-15.0 [facility] Comment on above: Order Comment: Urine Source: Voided Performed By: #### 5 [id number], [id number], [id number] #### [facility] (DEFAULT) [address] [place] [address] Hematocrit (Bld) [Volume fraction] 41.3 % High 33.7-40.4 [facility] Comment on above: Order Comment: Urine Source: Voided Performed By: #### 5 [id number], [id number], [id number] #### [facility] (DEFAULT) [address] [place] [address] Hemoglobin (Bld) [Mass/Vol] 14.2 g/dL Normal 11.3-15.9 [facility] Comment on above: Order Comment: Urine Source: Voided Performed By: #### 5 [id number], [id number], [id number] #### [facility] (DEFAULT) [address] [place] [address] Man Diff? Auto Invalid Interpretation Code [facility] Comment on above: Order Comment: Urine Source: Voided Performed By: #### 5 [id number], [id number], [id number] #### [facility] (DEFAULT) [address] [place] [address]774 MCH (RBC) [Entitic mass] 29 pg Normal 24-34 [facility] Comment on above: Order Comment: Urine Source: Voided Performed By: #### 5 [id number], [id number], [id number] #### [facility] (DEFAULT) [address] [place] [address] MCHC (RBC) [Mass/Vol] 34 g/dL Normal 26-37 [facility] Comment on above: Order Comment: Urine Source: Voided Performed By: #### 5 [id number], [id number], [id number] #### [facility] (DEFAULT) [address] [place] [address] 47040 MCV (RBC) [Entitic vol] 83 fL Normal 81-100 [facility] Comment on above: Order Comment: Urine Source: Voided Performed By: #### 5 [id number], [id number], [id number] #### [facility] (DEFAULT) [address] [place] [address] 11296 Platelet 310 x10 Normal 138-427 [facility] Comment on above: Order Comment: Urine Source: Voided Performed By: #### 5 [id number], [id number], [id number] #### [facility] (DEFAULT) [address] [place] [address] 88843 Platelet mean volume (Bld) [Entitic vol] 7.7 fL Normal 6.3-10.2 [facility] Comment on above: Order Comment: Urine Source: Voided Performed By: #### 5 [id number], [id number], [id number] #### [facility] (DEFAULT) [address] [place] [address] RBC 4.95 x10 Normal 3.70-5.30 [facility] Comment on above: Order Comment: Urine Source: Voided Performed By: #### 5 [id number], [id number], [id number] #### [facility] (DEFAULT) [address] [place] [address] WBC 10.9 x10 High 3.5-10.5 [facility] Comment on above: Order Comment: Urine Source: Voided Performed By: #### 5 [id number], [id number], [id number] #### [facility] (DEFAULT) [address] [place] [address] CMP Standardon 03-09-2023 eGFR Non AA >60 Invalid Interpretation Code [facility] Comment on above: Order Comment: Urine Source: Voided Performed By: #### 5 [id number], [id number], [id number] #### [facility] (DEFAULT) [address] [place] [address] eGFR AA >60 Invalid Interpretation Code [facility] Comment on above: Order Comment: Urine Source: Voided Performed By: #### 5 [id number], [id number], [id number] #### [facility] (DEFAULT) [address] [place] [address] 50554 Albumin [Mass/Vol] 4.4 g/dL Normal 3.5-5.0 [facility] Comment on above: Order Comment: Urine Source: Voided Performed By: #### 5 [id number], [id number], [id number] #### [facility] (DEFAULT) [address] [place] [address] 31615 Albumin/Globulin [Mass ratio] 1.2 {ratio} Low 1.4-2.6 [facility] Comment on above: Order Comment: Urine Source: Voided Performed By: #### 5 [id number], [id number], [id number] #### [facility] (DEFAULT) [address] [place] [address] 11951 Alk Phos 57 IU/L Normal 32-91 [facility] Comment on above: Order Comment: Urine Source: Voided Performed By: #### 5 [id number], [id number], [id number] #### [facility] (DEFAULT) [address] [place] [address] 54450 ALT [Catalytic activity/Vol] 27.0 U/L Normal 14.0-54.0 [facility] Comment on above: Order Comment: Urine Source: Voided Performed By: #### 5 [id number], [id number], [id number] #### [facility] (DEFAULT) [address] [place] [address] 54258 Anion gap [Moles/Vol] 10.3 mmol/L Normal 5.0-19.0 [facility] Comment on above: Order Comment: Urine Source: Voided Performed By: #### 5 [id number], [id number], [id number] #### [facility] (DEFAULT) [address] [place] [address] 07515 AST [Catalytic activity/Vol] 22 U/L Normal 15-41 [facility] Comment on above: Order Comment: Urine Source: Voided Performed By: #### 5 [id number], [id number], [id number] #### [facility] (DEFAULT) [address] [place] [address] 26077 Bili Total 0.2 mg/dL Low 0.3-1.2 [facility] Comment on above: Order Comment: Urine Source: Voided Performed By: #### 5 [id number], [id number], [id number] #### [facility] (DEFAULT) [address] [place] [address] 16142 Calcium [Mass/Vol] 9.6 mg/dL Normal 8.9-10.3 [facility] Comment on above: Order Comment: Urine Source: Voided Performed By: #### 5 [id number], [id number], [id number] #### [facility] (DEFAULT) [address] [place] [address] 36270 Chloride [Moles/Vol] 107 mmol/L Normal 101-111 [facility] Comment on above: Order Comment: Urine Source: Voided Performed By: #### 5 [id number], [id number], [id number] #### [facility] (DEFAULT) [address] [place] [address] 29310 CO2 [Moles/Vol] 27 mmol/L Normal 21-32 [facility] Comment on above: Order Comment: Urine Source: Voided Performed By: #### 5 [id number], [id number], [id number] #### [facility] (DEFAULT) [address] [place] [address] 92148 Creatinine [Mass/Vol] 0.77 mg/dL Normal 0.60-1.30 [facility] Comment on above: Order Comment: Urine Source: Voided Performed By: #### 5 0052815, [id number], [id number] #### [facility] (DEFAULT) [address] [place] [address] 83851 Globulin (S) [Mass/Vol] 3.6 g/dL Normal 1.5-4.3 [facility] Comment on above: Order Comment: Urine Source: Voided Performed By: #### 5 [id number], [id number], [id number] #### [facility] (DEFAULT) [address] [place] [address] 91680 Glucose [Mass/Vol] 102.0 mg/dL Normal 74.0-118.0 [facility] Comment on above: Order Comment: Urine Source: Voided Performed By: #### 5 [id number], [id number], [id number] #### [facility] (DEFAULT) [address] [place] [address] 32052 Osmolality 280 mOsm/L Invalid Interpretation Code [facility] Comment on above: Order Comment: Urine Source: Voided Performed By: #### 5 [id number], [id number], [id number] #### [facility] (DEFAULT) [address] [place] [address] 31348 Potassium [Moles/Vol] 4.3 mmol/L Normal 3.6-5.1 [facility] Comment on above: Order Comment: Urine Source: Voided Performed By: #### 5 [id number], [id number], [id number] #### [facility] (DEFAULT) [address] [place] [address] 00811 Protein [Mass/Vol] 8.0 g/dL Normal 6.5-8.1 [facility] Comment on above: Order Comment: Urine Source: Voided Performed By: #### 5 [id number], [id number], [id number] #### [facility] (DEFAULT) [address] [place] [address] 48072 Sodium [Moles/Vol] 140.0 mmol/L Normal 136.0-144.0 [facility] Comment on above: Order Comment: Urine Source: Voided Performed By: #### 5 [id number], [id number], [id number] #### [facility] (DEFAULT) [address] [place] [address] 19196 Urea nitrogen [Mass/Vol] 14 mg/dL Normal 8-26 [facility] Comment on above: Order Comment: Urine Source: Voided Performed By: #### 5 5552501, [id number], [id number] #### [facility] (DEFAULT) [address] [place] [address] 69671 Urea nitrogen/Creatinine [Mass ratio] 18.1 mg/mg High 4.6-16.2 [facility] Comment on above: Order Comment: Urine Source: Voided Performed By: #### [id number], [id number] #### [facility] (DEFAULT) [address] [place] [id number] Cholesterol [Mass/volume] in Serum or PlasmaOrdered By: Baljinder Espino on 03-09-2023 Cholesterol [Mass/Vol] 170 mg/dL 140-200 [facility] Comment on above: Chol less than 200 m g/dl low riskChol 201-239 mg/dl borderline riskChol 240 mg/dl and greater high risk Cholesterol in LDL Calc [Mas s/Vol]Ordered By: Baljinder Espino on 03-09-2023 Cholesterol in LDL [Mass/Vol] 83 mg/dL 0-100 [facility] Comment on above: LDL ATP III CLASSIFI CATIONLDL less than 100 mg/dL OptimalLDL 100-129 mg/dL Near or above optimalLDL 130-159 mg/dL Borderline highLDL 160-189 mg/dL HighLDL greater than 189 mg/dL Very high Cholesterol in VLDL Calc [Ma ss/Vol]Ordered By: Baljinder Espino on 03-09-2023 Cholesterol in VLDL [Mass/Vol] 35 mg/dL [facility] ED Clinical Summaryon 2022 ED Clinical Summary [facility] Emergency Department [address] [place] [address] [id number] ED Clinical Summary PERSON INFORMATION Name: ELBA JO Age: 32 Years Sex: FEMALE : 1990 MRN: Acct#: Visit Reason: Psychiatric problem; PSYCH EVAL Arrival: 03/08/2023 20:38:00 Discharge: 03/09/2023 01:25:00 LOS: 000 04:47 Check In: 03/08/2023 20:38:00 Checkout:03/09/2023 01:25:00 Address: [address] [place] [id number] PCP: Provider, None PROVIDER INFORMATION Provider Role Assigned Unassigned Aravind Arnold DO ED Provider 03/08/2023 20:39:09 Khushboo Daniel [employer] Nurse 03/08/2023 20:46:22 VITALS INFORMATION Vital Sign [...] Disch /Transfer to Psychiatric Facility Discharge Location: [facility] PATIENT EDUCATION INFORMATION Instructions: Follow-Up: DIAGNOSIS: 1:Depression; 2:Mood swings; 3:Blood pressure elevated without history of HTN; 4:Alcoholism in recovery; 5:Drug abuse in remission Patient Understands: Yes - Patient/family/caregiver verbalizes understanding of instructions given Comment: [facility] ED Patient Education Noteon 03-09-2023 ED Patient Education Note Education Materials [facility] ED Patient Summaryon 023 ED Patient Summary [facility] Emergency Department [address] [place] [id number] PATIENT DISCHARGE INSTRUCTIONS Patient Information Name: ELBA JO Age: 32 Years Date of : 1990 [facility]: [id number] Reason For Visit: Psychiatric problem; PSYCH EVAL Arrival Time: 03/08/2023 20:38:00 Primary Care Physician: Provider, None Attending Physician: Aravind Arnold DO Comment: Visit Diagnosis: Diagnoses This Visit Alcoholism in recovery (F10.21) Blood pressure elevated without history of HTN (R03.0) Depression (F32.A) 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 If you received any narcotics, sedation, or [...] and treatment you received today in the [facility] Emergency Department were for an urgent problem and are not intended as complete care. It is important for you to follow up with a doctor, nurse practitioner, or physician?s social research assistant for ongoing care. If your symptoms [...] so we can reach you if necessary. [facility] Emergency Department has provided you with a complete list of medications post discharge. Please inform your php software engineer/provider of your visit and for further instruction [...] Disease Control and Prevention January 2014 Normal [facility] Ethanol.on 03-09-2023 Ethanol Level <5.0 Normal 0.0-5.0 [facility] Comment on above: Order Comment: Jeannine potts is currently on the phone with hotline. I will poke after. 03/08/2023 21:51:29 EDT I had asked Elizabet Cavazos Cardiac Nurse Practitioner to call when patient is done. 03/08/2023 21:55:00 EDT Performed By: #### 2 [id number] #### [facility] (DEFAULT) [address] [place] [address] Lipid Panelon 03-09-2023 Cholesterol [Mass/Vol] 170 mg/dL Normal 140-200 [facility] Comment on above: Result Comment: Chol less than 200 mg/dl low risk Chol 201-239 mg/dl borderline risk Chol 240 mg/dl and greater high risk Performed By: #### L IPID, [id number], [id number] #### [facility] [address] [place] [address] [place] Cholesterol in HDL [Mass/Vol] 52 mg/dL Normal 23-92 [facility] Comment on above: Result Comment: HDL CHOL ATP-III CLASSIFICATION Cardiovascular Risk HDL > or equal to 60 mg/dL LOW HDL < 40 mg/dL HIGH Performed By: #### L IPID, TSH3 wRFLX, [id number] #### [facility] [address] [place] [address] [place] Cholesterol.total/Cho lesterol in HDL [Mass ratio] 3.3 {ratio} Normal <5.0 [facility] Comment on above: Performed By: #### L IPID, TSH3 wRFLX, [id number] #### [facility] [address] [place] [address] [place] LDL Cholesterol,Calculate d 83 mg/dL Normal 0-100 [facility] Comment on above: Result Comment: LDL ATP III CLASSIFICATION LDL less than 100 mg/dL Optimal LDL 100-129 mg/dL Near or above optimal LDL 130-159 mg/dL Borderline high LDL 160-189 mg/dL High LDL greater than 189 mg/dL Very high Performed By: #### L IPID, TSH3 wRFLX, [id number] #### [facility] [address] [place] [address] [place] Triglyceride w/Reflex 177 mg/dL High 0-149 [facility] Comment on above: Result Comment: TRIG ATP III CLASSIFICATION TRIG less than 150 mg/dL Normal TRIG 150-199 mg/dL Borderline high TRIG 200-500 mg/dL High TRIG greater than 500 mg/dL Very high Standard traceable to the Center for Disease Conrtrol and Prevention (CDC) test method. Performed By: #### L IPID, TSH3 wRFLX, [id number] #### [facility] [address] [place] [address] [place] VLDL CHOLESTEROL 35 mg/dL Normal [facility] Comment on above: Performed By: #### L IPID, TSH3 wRFLX, [id number] #### [facility] [address] [place] [address] [facility] Test Urine 1on U Preg Negative Normal [facility] Comment on above: Performed By: #### 5 [id number], [id number], [id number] #### [facility] (DEFAULT) [address] [place] [address] 87045 U Preg Internal Control Pass Normal [facility] Comment on above: Performed By: #### 5 [id number], [id number], [id number] #### [facility] (DEFAULT) [address] [place] [address] 34018 Salicylateon 03-09-2023 Salicylate Lvl <4.0 Normal 0.0-30.0 [facility] Comment on above: Order Comment: Urine Source: Voided Performed By: #### 5 [id number], [id number], [id number] #### [facility] (DEFAULT) [address] [place] [address] Serum or plasma high density lipoprotein (HDL) cholesterol measurementOrdered By: Baljinder Espino on 03-09-2023 Cholesterol in HDL [Mass/Vol] 52 mg/dL 23-92 [facility] Comment on above: HDL CHOL ATP-III CLA SSIFICATION Cardiovascular RiskHDL > or equal to 60 mg/dL LOWHDL < 40 mg/dL HIGH Serum or plasma total choles terol/high density lipoprotein (HDL) cholesterol mass ratOrdered By: Baljinder Espino on 03-09-2023 Cholesterol.total/Cho lesterol in HDL [Mass ratio] 3.3 {ratio} <5.0 [facility] Thyroid Stim Hormone w/Rflxo n 03-09-2023 Thyroid Stim Hormone w/Rflx 2.69 u[iU]/mL Normal 0.45-5.33 [facility] Comment on above: Performed By: #### L IPID, TSH3 wRFLX, [id number] #### [facility] [address] Thyrotropin [Units/volume] i n Serum or PlasmaOrdered By: Baljinder Espino on 03-09-2023 TSH Qn 2.69 m[IU]/L 0.45-5.33 [facility] Triage Panel 12on 03-09-2023 Triage Internal Control Pass Normal [facility] Comment on above: Order Comment: Urine Source: Voided Performed By: #### 5 [id number], [id number], [id number] #### [facility] (DEFAULT) [address] [place] [address] 91723 U Amph Scr Negative [facility] Comment on above: Order Comment: Urine Source: Voided Performed By: #### 5 [id number], [id number], [id number] #### [facility] (DEFAULT) [address] [place] [address] 09327 U Yojana Scr Negative Normal [facility] Comment on above: Order Comment: Urine Source: Voided Performed By: #### 5 [id number], [id number], [id number] #### [facility] (DEFAULT) [address] [place] [address] 54298 U Benzodia Scr Negative Normal [facility] Comment on above: Order Comment: Urine Source: Voided Performed By: #### 5 [id number], [id number], [id number] #### [facility] (DEFAULT) [address] [place] [address] 44653 U Cannab Scrn Negative [facility] Comment on above: Order Comment: Urine Source: Voided Performed By: #### 5 [id number], [id number], [id number] #### [facility] (DEFAULT) [address] [place] [address] 21681 U Cocaine Scr Negative [facility] Comment on above: Order Comment: Urine Source: Voided Performed By: #### 5 [id number], [id number], [id number] #### [facility] (DEFAULT) [address] [place] [address] 31640 U Methadone Scr Negative [facility] Comment on above: Order Comment: Urine Source: Voided Performed By: #### 5 [id number], [id number], [id number] #### [facility] (DEFAULT) [address] [place] [address] 98570 U Methamp Scrn Negative [facility] Comment on above: Order Comment: Urine Source: Voided Performed By: #### 5 [id number], [id number], [id number] #### [facility] (DEFAULT) [address] [place] [address] 11999 U Opiate Scr Negative [facility] Comment on above: Order Comment: Urine Source: Voided Performed By: #### 5 [id number], [id number], [id number] #### [facility] (DEFAULT) [address] [place] [address] 62273 U Oxycod Scr Negative [facility] Comment on above: Order Comment: Urine Source: Voided Performed By: #### 5 [id number], [id number], [id number] #### [facility] (DEFAULT) [address] [place] [address] 14207 U Phencyclidine Scr Negative [facility] Comment on above: Order Comment: Urine Source: Voided Performed By: #### 5 [id number], [id number], [id number] #### [facility] (DEFAULT) [address] [place] [address] 78862 U Propoxyphene Scr Negative Normal [facility] Comment on above: Order Comment: Urine Source: Voided Performed By: #### 5 [id number], [id number], [id number] #### [facility] (DEFAULT) [address] [place] [address] 55344 U Tricyclic Antidepress Scr Negative Normal [facility] Comment on above: Order Comment: [...] PPX Propoxyphene (Norpropoxyphene): 300 ng/mL THC Cannabinoids (00-twq-7-carboxy- -THC): 50 ng/mL TCA Tricyclic-Antidepressants (Desipramine): 300 ng/mL Performed By: #### 5 [id number], [id number], [id number] #### [facility] (DEFAULT) [address] [place] [address] 60911 Urine Source Clean Catch [facility] Comment on above: Order Comment: Urine Source: Voided Performed By: #### 5 [id number], [id number], [id number] #### [facility] (DEFAULT) [address] [place] [address]14 Triglyceride [Mass/volume] i n Serum or PlasmaOrdered By: Baljinder Espino on 03-09-2023 Triglyceride [Mass/Vol] 177 mg/dL 0-149 [facility] Comment on above: TRIG ATP III CLASSIF ICATIONTRIG less than 150 mg/dL NormalTRIG 150-199 mg/dL Borderline highTRIG 200-500 mg/dL High TRIG greater than 500 mg/dL Very highStandard traceable to the Center for Disease Conrtrol and Prevention (CDC) test method. UA Gjwqi4ox 03-09-2023 UA Bacteria Trace [facility] Comment on above: Order Comment: Urina lysis Microscopic order added on by [employer] Expert Rules system. Performed By: #### 5 [id number], [id number], [id number] #### [facility] (DEFAULT) [address] [place] [address] UA Mucous Trace [facility] Comment on above: Order Comment: Urina lysis Microscopic order added on by [employer] Expert Rules system. Performed By: #### 5 [id number], [id number], [id number] #### [facility] (DEFAULT) [address] [place] [address] UA RBC 0-2 [facility] Comment on above: Order Comment: Urina lysis Microscopic order added on by [employer] Expert Rules system. Performed By: #### 5 [id number], [id number], [id number] #### [facility] (DEFAULT) [address] [place] [address] UA Squam Epi Rare [facility] Comment on above: Order Comment: Urina lysis Microscopic order added on by [employer] Expert Rules system. Performed By: #### 5 [id number], [id number], [id number] #### [facility] (DEFAULT) [address] [place] [address] UA WBC 0-2 [facility] Comment on above: Order Comment: Urina lysis Microscopic order added on by [employer] Rules system. Performed By: #### 5 [id number], [id number], [id number] #### [facility] (DEFAULT) [address] [place] [address] UA w Culture if Ind Standard on 03-09-2023 Breakpoint UA [facility] Comment on above: Performed By: #### 5 [id number], [id number], [id number] #### [facility] (DEFAULT) [address] [place] [address] Color (U) Yellow [facility] Comment on above: Performed By: #### 5 [id number], [id number], [id number] #### [facility] (DEFAULT) [address] [place] [address] Culture? Not Indicated Invalid Interpretation Code [facility] Comment on above: Result Comment: Resu lt created by rule GL_MAGR_ADD_UA_CULT Result created by rule GL_MAGR_ADD_UA_CULT1 Result created by rule GL_MAGR_ADD_UA_CULT Result created by rule GL_MAGR_ADD_UA_CULT1 Result created by rule GL_MAGR_ADD_UA_CULT1 Performed By: #### 5 [id number], [id number], [id number] #### [facility] (DEFAULT) [address] [place] [address] Glucose (U) [Mass/Vol] Negative Normal [facility] Comment on above: Performed By: #### 5 [id number], [id number], [id number] #### [facility] (DEFAULT) [address] [place] [address] Ketones Ql (U) Negative Normal [facility] Comment on above: Performed By: #### 5 [id number], [id number], [id number] #### [facility] (DEFAULT) [address] [place] [address] Micro? Indicated Invalid Interpretation Code [facility] Comment on above: Result Comment: Resu lt created by rule GL_MAGR_ADD_UA_MICRO Performed By: #### 5 [id number], [id number], [id number] #### [facility] (DEFAULT) [address] [place] [address] UA Bilirubin Negative Normal [facility] Comment on above: Performed By: #### 5 [id number], [id number], [id number] #### [facility] (DEFAULT) [address] [place] [address] UA Blood TRACE Abnormal NEGATIVE [facility] Comment on above: Performed By: #### 5 [id number], [id number], [id number] #### [facility] (DEFAULT) [address] [place] [address] UA Clarity CLEAR Normal CLEAR [facility] Comment on above: Performed By: #### 5 [id number], [id number], [id number] #### [facility] (DEFAULT) [address] [place] [address] 14150 UA Leuk Est Negative Normal NEGATIVE [facility] Comment on above: Performed By: #### 5 [id number], [id number], [id number] #### [facility] (DEFAULT) [address] [place] [address] 73981 UA Nitrite Negative Normal NEGATIVE [facility] Comment on above: Performed By: #### 5 [id number], [id number], [id number] #### [facility] (DEFAULT) [address] [place] [address] 53394 UA pH 6.0 Normal 5-8 [facility] Comment on above: Performed By: #### 5 [id number], [id number], [id number] #### [facility] (DEFAULT) [address] [place] [address] 84247 UA Protein Negative Normal NEGATIVE [facility] Comment on above: Performed By: #### 5 [id number], [id number], [id number] #### [facility] (DEFAULT) [address] [place] [address] 19675 UA Spec Grav 1.025 Normal 1.001-1.035 [facility] Comment on above: Performed By: #### 5 [id number], [id number], [id number] #### [facility] (DEFAULT) [address] [place] [address] 33387 UA Urobilinogen 0.2 mg/dL Normal 0.2-1.0 [facility] Comment on above: Performed By: #### 5 [id number], [id number], [id number] #### [facility] (DEFAULT) [address] [place] [address] 25013 Vitamin D 25 Hydroxy Totalon 03-09-2023 Vitamin D 25 Hydroxy Total 25.0 ng/mL Low 30-100 [facility] Comment on above: Result Comment: VARGHESE MIN D STATUS 25(OH)VITAMIN D RANGE (ng/mL) Deficient <20 Insufficient 20 to <30 Sufficient 30 to 100 Reference: Aj Herrera, Tony INFANTE, et al. Evaluation,treatment, and prevention of vitamin D deficiency; an Endocrine Society clinical practice guideline. JCEM. 2010; 96(7):1911-30. PERFORMED BY: [facility] [address] [place] [address] PATHOLOGIST MATERIALS PLANNER/PRODUCTION PLANNER ESTEBAN MALDONADO M.D. Performed By: #### L IPID, TSH3 wRFLX, [id number] #### [facility] [address] Vitamin D+Metabolites [Mass/ volume] in Serum or PlasmaOrdered By: Baljinder Espino on 03-09-2023 Vitamin D+Metabolites [Mass/Vol] 25.0 ng/mL 30-100 [facility] Comment on above: VITAMIN D STATUS 25( [place])VITAMIN D RANGE (ng/mL) Deficient <20 Insufficient 20 to <30Sufficient 30 to 100Reference: Aj Herrrea, Tony INFANTE, et al. Evaluation,treatment, and prevention of vitamin D deficiency; an Endocrine Society clinical practice guideline. JCEM. 2010; 96(7):1911-30. Transfer Noteon 03-08-2023 Transfer Note 2056 - called Ruben Zamarripa is currently speaking with the patient's nurse, Capri. Marilou then spoke with the patient. Marilou is going to have the counselor call back. 2124 - Linda Bradley, [facility] counselor, called back and spoke with the nurse and the patient. 2248 - all labs were faxed to the [facility] 0028 - Linda called back with acceptance from Dr. Espino, Psychiatrist, to [facility] 1 [facility] rm 15 bed 1... report #[phone].....Linda couldn't get the DC car until 1pm tomorrow so she thought [...] Signed on: 03/09/2023 01:22 EDT] Elizabet Cavazos [facility] HCV RNA,Quant,PCRon 01-21-20 23 HCV RNA,Quant Not detected [facility] Comment on above: Result Comment: INTERPRETIVE INFORMATION: [...] (HCT/P). Performed By: #### H CV #### [facility] [address] [place], [place] [address] Stencil Cutter: Hernesto Hinton MD [facility] [address] [place] [address] Stencil Cutter: Drake Zelaya MD HCV RNA,Quant,PCRon 01-18-20 [address] .[address]MA Normal [facility] Comment on above: Performed By: #### H CVQN #### [address] [address] Stencil Cutter: Hernesto Hinton MD [facility] [address] [place] [address] [place] [address] Stencil Cutter: Drake Zelaya MD Hepatitis Acute [facility] 01-16 Hep A Ab,IgM Non-Reactive Normal [facility] Comment on above: Performed By: #### C BC, HCG, CP #### [facility] [address] [place] [address] [place], [place] [id number] Stencil Cutter: Drake Zelaya MD #### HIVCMB, PHEP, TREP #### [address] [address] Stencil Cutter: Hernesto Hinton MD Hep B Core Ab,IgM Non-Reactive Normal [facility] Comment on above: Performed By: #### C BC, HCG, CP #### [address] [place], [place] 3080483 Stencil Cutter: Drake Zelaya MD #### HIVCMB, PHEP, TREP #### [address] [address] Stencil Cutter: Hernesto Hinton MD Hep B Surf Ag Non-Reactive Normal [facility] Comment on above: Performed By: #### C BC, HCG, CP #### [facility] [address] [place] [address] [place] [address] Stencil Cutter: Drake Zelaya MD #### HIVCMB, PHEP, TREP #### [address] [address] Stencil Cutter: Hernesto Hinton MD Hep C Ab Reactive Abnormal [facility] Comment on above: Result Comment: The [...] By: #### C BC, HCG, CP #### [facility] [address] [place] [address] [place] [address] Stencil Cutter: Drake Zelaya MD #### HIVCMB, PHEP, TREP #### [place] [place], [place] 2987308 Stencil Cutter: Hernesto Hinton MD T.pallidum Ab Screenon 01-165 T.pallidum Ab Screen Non-Reactive Normal NR [facility] Comment on above: Result Comment: T. pallidum antibodies are not detected. There is no serological evidence of infection with T. pallidum (early primary syphilis cannot be excluded). Retest in 2-4 weeks if syphilis is clinically suspect. Performed By: #### C BC, HCG, CP #### [address] [place] [address] Stencil Cutter: Drake Zelaya MD #### HIVCMB, PHEP, TREP #### [facility] [employer] [facility] [place], [place] 3356[address] Stencil Cutter: Hernesto Hinton MD CBCon 7 Erythrocyte distribution width (RBC) [Ratio] 14.3 % Normal 11.8-14.4 [facility] Comment on above: Performed By: #### C BC, HCG, CP #### [address] [place] [address] Stencil Cutter: Drake Zelaya MD #### HIVCMB, PHEP, TREP #### [facility] [employer] [facility] [place], [place] [address] Stencil Cutter: Hernesto Hinton MD Hematocrit (Bld) [Volume fraction] 43.9 % Normal 36.3-47.1 [facility] Comment on above: Performed By: #### C BC, HCG, CP #### [address] [place] [address] Stencil Cutter: Drake Zelaya MD #### HIVCMB, PHEP, TREP #### [address] [id number] Stencil Cutter: Hernesto Hinton MD Hemoglobin (Bld) [Mass/Vol] 14.6 g/dL Normal 11.9-15.1 [facility] Comment on above: Performed By: #### C BC, HCG, CP #### [address] [place] [id number] Stencil Cutter: Drake Zelaya MD #### HIVCMB, PHEP, TREP #### [address] [id number] Stencil Cutter: Hernesto Hinton MD MCH (RBC) [Entitic mass] 28.0 pg Normal 25.2-33.5 [facility] Comment on above: Performed By: #### C BC, HCG, CP #### [address] [place] [address] Stencil Cutter: Drake Zelaya MD #### HIVCMB, PHEP, TREP #### [address] [id number] Stencil Cutter: Hernesto Hinton MD MCHC (RBC) [Mass/Vol] 33.3 g/dL Normal 28.4-34.8 [facility] Comment on above: Performed By: #### C BC, HCG, CP #### [address] [place] [address] Stencil Cutter: Drake Zelaya MD #### HIVCMB, PHEP, TREP #### [address] [id number] Stencil Cutter: Hernesto Hinton MD MCV (RBC) [Entitic vol] 84.3 fL Normal 82.6-102.9 [facility] Comment on above: Performed By: #### C BC, HCG, CP #### [facility] [address] [place] [address] [address] [place], [place] [phone] Stencil Cutter: Drake Zelaya MD #### HIVCMB, PHEP, TREP #### [address] [place] [place] [address] Stencil Cutter: Hernesto Hinton MD NRBC Automated 0.0 per [address] [facility] Comment on above: Performed By: #### C BC, HCG, CP #### [facility] [address] [place] [address] [address] [phone] Stencil Cutter: Drake Zelaya MD #### HIVCMB, PHEP, TREP #### [address] [address] Stencil Cutter: Hernesto Hinton MD Platelet mean volume (Bld) [Entitic vol] 11.4 fL Normal 8.1-13.5 [facility] Comment on above: Performed By: #### C BC, HCG, CP #### [address] [place] [phone] Stencil Cutter: Drake Zelaya MD #### HIVCMB, PHEP, TREP #### [address] [id number] Stencil Cutter: Hernesto Hinton MD Platelets (Bld) [#/Vol] 237 10*3/uL Normal 138-453 [facility] Comment on above: Performed By: #### C BC, HCG, CP #### [facility] [address] [place] [address] [address] [phone] Stencil Cutter: Drake Zelaya MD #### HIVCMB, PHEP, TREP #### [facility] [address] [place] [address] Stencil Cutter: Hernesto Hinton MD RBC (Bld) [#/Vol] 5.21 10*6/uL High 3.95-5.11 [facility] Comment on above: Performed By: #### C BC, HCG, CP #### [address] [place], [place] 6326283 Stencil Cutter: Drake Zelaya MD #### HIVCMB, PHEP, TREP #### [address] [address] Stencil Cutter: Hernesto Hinton MD WBC (Bld) [#/Vol] 6.3 10*3/uL Normal 3.5-11.3 [facility] Comment on above: Performed By: #### C BC, HCG, CP #### [address] [place] [phone] Stencil Cutter: Drake Zelaya MD #### HIVCMB, PHEP, TREP #### [address] [address] Stencil Cutter: Hernesto Hinton MD Comp Metabolic Profon 2022 Albumin [Mass/Vol] 4.4 g/dL Normal 3.5-5.2 [facility] Comment on above: Performed By: #### C BC, HCG, CP #### [address] [place] [address] Stencil Cutter: Drake Zelaya MD #### HIVCMB, PHEP, TREP #### [address] [address] Stencil Cutter: Hernesto Hinton MD Albumin/Glob Ratio 1.4 Normal 1.0-2.5 [facility] Comment on above: Performed By: #### C BC, HCG, CP #### [address] [place], [place] [id number] Stencil Cutter: Drake Zelaya MD #### HIVCMB, PHEP, TREP #### [address] [place], [place] [address] Stencil Cutter: Hernesto Hinton MD Alkaline Phos 55 U/L Normal 35-104 [facility] Comment on above: Performed By: #### C BC, HCG, CP #### [facility] [address] [place], [place] 5[address]83 Stencil Cutter: Drake Zelaya MD #### HIVCMB, PHEP, TREP #### [address] [place], [place] 2565508 Stencil Cutter: Hernesto Hinton MD ALT [Catalytic activity/Vol] 8 U/L Normal 5-33 [facility] Comment on above: Performed By: #### C BC, HCG, CP #### [address] [place] [address] Stencil Cutter: Drake Zelaya MD #### HIVCMB, PHEP, TREP #### [address] [phone] Stencil Cutter: Hernesto Hinton MD Anion gap [Moles/Vol] 9 mmol/L Normal 9-17 [facility] Comment on above: Performed By: #### C BC, HCG, CP #### [facility] [address] [place] [address] [place] [address] Stencil Cutter: Drake Zelaya MD #### HIVCMB, PHEP, TREP #### [address] [place], [place] 0137[address] Stencil Cutter: Hernesto Hinton MD AST [Catalytic activity/Vol] 13 U/L Normal <32 [facility] Comment on above: Performed By: #### C BC, HCG, CP #### [facility] [address] [place] [address] [place] [address] Stencil Cutter: Drake Zelaya MD #### HIVCMB, PHEP, TREP #### [address] [place], [place] 8944[address] Stencil Cutter: Hernesto Hinton MD Bilirubin [Mass/Vol] 0.3 mg/dL Normal 0.3-1.2 [facility] Comment on above: Performed By: #### C BC, HCG, CP #### [facility] [address] [place] [address] [place] [address] Stencil Cutter: Drake Zelaya MD #### HIVCMB, PHEP, TREP #### [address] [id number] Stencil Cutter: Hernesto Hinton MD BUN/CRE Ratio 11 Normal 9-20 [facility] Comment on above: Performed By: #### C BC, HCG, CP #### [facility] [address] [place] [address] [place] [address] Stencil Cutter: Drake Zelaya MD #### HIVCMB, PHEP, TREP #### [address] [phone] Stencil Cutter: Hernesto Hinton MD Calcium [Mass/Vol] 9.5 mg/dL Normal 8.6-10.4 [facility] Comment on above: Performed By: #### C BC, HCG, CP #### [address] [place] [address] Stencil Cutter: Drake Zelaya MD #### HIVCMB, PHEP, TREP #### [address] [place], [place] 1447908 Stencil Cutter: Hernesto Hinton MD Chloride [Moles/Vol] 105 mmol/L Normal 98-107 [facility] Comment on above: Performed By: #### C BC, HCG, CP #### [facility] [address] [place], [place] 1772983 Stencil Cutter: Drake Zelaya MD #### HIVCMB, PHEP, TREP #### [address] [place], [place] 1156608 Stencil Cutter: Hernesto Hinton MD CO2 [Moles/Vol] 25 mmol/L Normal 20-31 [facility] Comment on above: Performed By: #### C BC, HCG, CP #### [address] [place], [place] 2432983 Stencil Cutter: Drake Zelaya MD #### HIVCMB, PHEP, TREP #### [address] [place], [place] 0537[address] Stencil Cutter: Hernesto Hinton MD Creatinine [Mass/Vol] 0.8 mg/dL Normal 0.5-0.9 [facility] Comment on above: Performed By: #### C BC, HCG, CP #### [address] [place] [address] Stencil Cutter: Drake Zelaya MD #### HIVCMB, PHEP, TREP #### [address] [address] [place], [place] 7026[address] Stencil Cutter: Hernesto Hinton MD GFR/1.73 sq M.predicted among non-blacks MDRD (S/P/Bld) [Vol rate/Area] mL/min/{1.73_m2} Normal >60 [facility] Comment on above: Result Comment: These [...] By: #### C BC, HCG, CP #### [address] [place], [place] [id number] Stencil Cutter: Drake Zelaya MD #### HIVCMB, PHEP, TREP #### [id number] [place], [place] [id number] Stencil Cutter: Hernesto Hinton MD Glucose [Mass/Vol] 90 mg/dL Normal 70-99 [facility] Comment on above: Performed By: #### C BC, HCG, CP #### [facility] [address] [place] [address] [address] [place], [place] [id number] Stencil Cutter: Drake Zelaya MD #### HIVCMB, PHEP, TREP #### [id number] [place], [place] [id number] Stencil Cutter: Hernesto Hinton MD Potassium [Moles/Vol] 4.4 mmol/L Normal 3.7-5.3 [facility] Comment on above: Performed By: #### C BC, HCG, CP #### [address] [place], [place] [id number] Stencil Cutter: Drake Zelaya MD #### HIVCMB, PHEP, TREP #### [address] [id number] Stencil Cutter: Hernesto Hinton MD Protein [Mass/Vol] 7.5 g/dL Normal 6.4-8.3 [facility] Comment on above: Performed By: #### C BC, HCG, CP #### [address] [place], [place] [id number] Stencil Cutter: Drake Zelaya MD #### HIVCMB, PHEP, TREP #### [address] [id number] Stencil Cutter: Hernesto Hinton MD Sodium [Moles/Vol] 139 mmol/L Normal 135-144 [facility] Comment on above: Performed By: #### C BC, HCG, CP #### [facility] [address] [place] [address] Stencil Cutter: Drake Zelaya MD #### HIVCMB, PHEP, TREP #### [facility] [employer] [address] [place] [address] Stencil Cutter: Hernesto Hinton MD Urea nitrogen [Mass/Vol] 9 mg/dL Normal 6-20 [facility] Comment on above: Performed By: #### C BC, HCG, CP #### [facility] [address] [place] [address] Stencil Cutter: Drake Zelaya MD #### TONYACMDipak, PHEP, TREP #### [id number] [place] [address] Stencil Cutter: Hernesto Hinton MD HCG Screen, Bloodon 01-15-20 23 HCG Screen, Blood Negative Normal NEG [facility] Comment on above: Result Comment: Spec imens with hCG levels near the threshold of the test (25 mIU/mL) may give a negative or indeterminate result. In such cases, another test should be performed with a new specimen in 48-72 hours. If early is suspected clinically in this setting, correlation with quantitative serum b-hCG level is suggested. [facility] has confirmed the use of plasma for this test. This has not been cleared or approved by the U.S. Food and Drug Administration. The FDA has determined that such clearance is not necessary. Performed By: #### C BC, HCG, CP #### [facility] [address] [place] [address] Stencil Cutter: Drake Zelaya MD #### HIVCMDipak, PHEP, TREP #### [facility] [address] [place] [address] Stencil Cutter: Hernesto Hinton MD HIV Ag/Abon 01-14-2023 HIV Ag/Ab Non-Reactive Normal NR [facility] Comment on above: Result Comment: No l aboratory evidence of HIV infection. If acute HIV infection is suspected, consider testing for HIV-1 RNA. Performed By: #### C BC, HCG, CP #### [facility] [address] [place] [address] Stencil Cutter: Drake Zelaya MD #### HIVCMB, PHEP, TREP #### [address] [id number] Stencil Cutter: Hernesto Hinton MD C.trachomatis N.gonorrhoeae DNA ,Urineon 11-12-2022 Chlamydia trachomatis DNA, Urine Negative Normal Negative [facility] Neisseria gonorrhoeae DNA, Urine Negative Normal Negative [facility] Trichomonas vaginalis by [employer] on 11-09-2022 T. vaginalis Amplified Negative Normal Negative [facility] Comment on above: Result Comment: This test was developed and its performance characteristics determined by [employer] It has not been cleared or approved [...] or for other forensic purposes. Performed By: [employer] [address] [place] [id number] Software Consultant: Alfa Looney MD, PhD Performed By: #### [id number] #### [facility] [address] [place] [address] Culture, Urineon 11-07-2022 Culture, Urine ORDER#: [id number] OR DERED BY: NATI OCHOA SOURCE: Urine Clean Catch COLLECTED: 11/07/22 12:00 ANTIBIOTICS AT MATTY.: RECEIVED : 11/07/22 17:07 Culture, Urine FINAL 11/08/22 20:25 Cult,Urine: NO SIGNIFICANT GROWTH Performed at [address] [address] ([phone] Normal [facility] Comment on above: Performed By: #### C XURN #### [facility] [address] [place] [address] POC Urine QualOrde red By: Pascual Ramirez on 11-07-2022 Beta HCG ( test) Ql (U) Negative Negative [facility] [employer] Lot Number [id number] [facility] [employer] Negative QC Pass/Fail Pass [facility] Positive QC Pass/Fail Pass [facility] Music Connect [facility] [employer] Trichomonas vaginalis by [employer] on 11-07-2022 Specimen source Nom (Unsp spec) Urine Normal [facility] Comment on above: Performed By: #### [id number] #### [facility] [address] [place] [address] Urinalysis, reflex to cultur mirtha 11-07-2022 Urine Reflexed to Culture Yes Normal [facility] Comment on above: Performed By: #### U AR #### [facility] [address] [place] [address] Bilirubin Ql (U) Negative Normal Negative [facility] Comment on above: Performed By: #### U AR #### [facility] [address] [place] [address] Clarity (U) SL CLOUDY Abnormal Clear [facility] Comment on above: Performed By: #### U AR #### [facility] [address] [place] [address] Color (U) Yellow Normal Straw/Norton [facility] Comment on above: Performed By: #### U AR #### [facility] [address] [place] [address] Glucose Ql (U) Negative Normal Negative [facility] Comment on above: Performed By: #### U AR #### [facility] [address] [place] [address] Hemoglobin Ql (U) Negative Normal Negative [facility] Comment on above: Performed By: #### U AR #### [facility] [address] [place] [address] Ketones Ql (U) Negative Normal Negative [facility] Comment on above: Performed By: #### U AR #### [facility] [address] [place] [address] Leukocyte esterase Test strip Ql (U) TRACE Abnormal Negative [facility] Comment on above: Performed By: #### U AR #### [facility] [address] [place] [address] Nitrite Ql (U) Negative Normal Negative [facility] Comment on above: Performed By: #### U AR #### [facility] [address] [place] [address] pH (U) 6.0 [pH] Normal 5.0-9.0 [facility] Comment on above: Performed By: #### U AR #### [facility] [address] [place] [address] Protein Ql (U) Negative Normal Negative [facility] Comment on above: Performed By: #### U AR #### [facility] [address] [place] [address] Specific gravity (U) [Rel density] >=1.030 Normal 1.005-1.03 [facility] Comment on above: Performed By: #### U AR #### [facility] [address] [place] [address] Urobilinogen Qn (U) 0.2 {John'U}/dL Normal < 2.0 [facility] Comment on above: Performed By: #### U AR #### [facility] [address] [place] [address] Urine Microscopicon 11-08-19 23 Urine Bacteria FEW Abnormal Negative [facility] Comment on above: Performed By: #### U JAD #### [facility] [address] [place] [address] Urine Epithelial Cells Auto 20-50 Normal 0-5 [facility] Comment on above: Performed By: #### U JAD #### [facility] [address] [place] [address] Urine Hyaline Casts Auto 5-10 Normal 0-5 [facility] Comment on above: Performed By: #### U JAD #### [facility] [address] [place] [address] Urine RBC Auto 3-5 Abnormal 0-5 [facility] Comment on above: Performed By: #### U JAD #### [facility] [address] [place] [address] Urine WBC Auto 50-100 Abnormal 0-5 [facility] Comment on above: Performed By: #### U JAD #### [facility] [address] [place] [address] XR WRIST RIGHT (MIN 3 VIEWS) on [...] Ting Graff MD 06/18/22 Final result Normal [facility] Normal wrist radiogr aphs [facility] EXAMINATION: 3 XRAY VIEWS OF THE RIGHT WRIST 06/18/2022 11:44 am COMPARISON: None. HISTORY: ORDERING SYSTEM PROVIDED HISTORY: wrist pain TECHNOLOGIST PROVIDED HISTORY: Reason for exam:->wrist pain Is the patient ?->No What reading provider will be dictating this exam?->CRC FINDINGS: Carpal bones and alignment are maintained. Distal radius and ulna are intact. No acute fracture or dislocation. [facility] Ting Graff MD - 06/18/2022 EXAMINATION: [...] fracture or dislocation. IMPRESSION: Normal wrist radiographs [facility] Phone: Radiology Study observation (narrative) [facility] Phone: XR WRIST RIGHT (MIN 3 VIEWS) Ordered By: Ting Graff on 06-18-2022 [facility] Phone: COVID-19 SOFIAOrdered By: Ab jamar Abarca on 12-01-2021 SARS-CoV+SARS-CoV-2 (COVID-19) Ag IA.rapid Ql (Resp) Negative Negative [facility] Comment on above: This is a duplicate Nicole SARS Antigen (LOU) result to be used for statistical tracking purpose only. No Panel InformationOrdered By: Gordon Abarca on 12-01-2021 SARS Antigen (LFIA) [facility] COVID-19 SOFIAOrdered By: Florian Paez on 11-29-2021 SARS-CoV+SARS-CoV-2 (COVID-19) Ag IA.rapid Ql (Resp) Negative Negative [facility] Comment on above: This is a duplicate Nicole SARS Antigen (LOU) result to be used for statistical tracking purpose only. No Panel InformationOrdered By: Talha Paez on 11-29-2021 SARS Antigen (LFIA) [facility] Amphetamine Screen Ql (U)Ord ered By: Talha Paez on 11-28-2021 Amphetamines Ql (U) Negative Negative [facility] Automated erythrocytes count in urine sediment (number/area)Ordered By: Talha Paez on 11-28-2021 RBC Auto (Urine sed) [#/Area] 1-2 [HPF] [facility] Automated leukocytes count i n urine sediment (number/area)Ordered By: Talha Paez on 11-28-2021 WBC Auto (Urine sed) [#/Area] 5-9 [HPF] [facility] Barbiturates [Presence] in U rineOrdered By: Talha Paez on 11-28-2021 Barbiturates Ql (U) Negative Negative [facility] Basophils Auto (Bld) [#/Vol] Ordered By: Talha Paez on 11-28-2021 Basophils (Bld) [#/Vol] 0.0 10*3/uL 0.0-0.2 [facility] Basophils/100 WBC Auto (Bld) Ordered By: Talha Paez on 11-28-2021 Basophils/100 WBC (Bld) 0.7 % [facility] Benzodiazepines [Presence] i n UrineOrdered By: Talha Paez on 11-28-2021 Benzodiazepines Ql (U) Negative Negative [facility] Bilirubin Test strip Ql (U)O rdered By: Talha Paez on 11-28-2021 Bilirubin Ql (U) Negative Negative [facility] Blood hemoglobin measurement (mass/volume)Ordered By: Talha Paez on 11-28-2021 Hemoglobin (Bld) [Mass/Vol] 13.9 g/dL 11.8-15.4 [facility] Blood leukocytes automated c ount (number/volume)Ordered By: Talha Paez on 11-28-2021 WBC (Bld) [#/Vol] 7.0 10*3/uL 4.5-11.0 [facility] Body fluid albumin measureme nt (mass/volume)Ordered By: Talha Paez on 11-28-2021 Albumin (Body fld) [Mass/Vol] 4.3 g/dL 3.2-5.5 [facility] Cannabinoids [Presence] in U rine by Screen methodOrdered By: Talha Paez on 11-28-2021 Cannabinoids Screen Ql (U) Positive Negative [facility] Comment on above: These are unconfirme d results and should not be used for legal purposes. Drug Cut-Off Concentration: AMPH 1000 ng/mL YOJANA 200 ng/mL WERNER 200 ng/mL COCM 300 ng/mL OP 300 ng/mL PCP 25 ng/mL THC 20 ng/mL Cholesterol [Mass/volume] in Serum or PlasmaOrdered By: Gordon Abarca on 11-28-2021 Cholesterol [Mass/Vol] 170 mg/dL 140-200 [facility] Comment on above: Chol less than 200 m g/dl low risk Chol 201-239 mg/dl borderline risk Chol 240 mg/dl and greater high risk Cholesterol in LDL Calc [Mas s/Vol]Ordered By: Gordon Abarca on 11-28-2021 Cholesterol in LDL [Mass/Vol] 105 mg/dL 0-100 [facility] Comment on above: LDL ATP III CLASSIFI CATION LDL less than 100 mg/dL Optimal LDL 100-129 mg/dL Near or above optimal LDL 130-159 mg/dL Borderline high LDL 160-189 mg/dL High LDL greater than 189 mg/dL Very high Cholesterol in VLDL Calc [Ma ss/Vol]Ordered By: Gordon Abarca on 11-28-2021 Cholesterol in VLDL [Mass/Vol] 34 mg/dL [facility] Color Auto (U)Ordered By: Florian Paez on 11-28-2021 Color (U) Yellow Yellow [facility] Creatinine and Glomerular fi ltration rate.predicted panel (S/P/Bld)Ordered By: Talha Paez on 11-28-2021 Creatinine [Mass/Vol] 0.77 mg/dL 0.44-1.03 [facility] Eosinophils Auto (Bld) [#/Vo l]Ordered By: Talha Paez on 11-28-2021 Eosinophils (Bld) [#/Vol] 0.1 10*3/uL 0.0-0.45 [facility] Eosinophils/100 WBC Auto (Bl d)Ordered By: Talha Paez on 11-28-2021 Eosinophils/100 WBC (Bld) 1.9 % [facility] Erythrocyte distribution wid th Auto (RBC) [Ratio]Ordered By: Talha Paez on 11-28-2021 Erythrocyte distribution width (RBC) [Ratio] 14.6 % 11.9-15.3 [facility] Estimated glomerular filtrat ion rate (GFR) non- AmericanOrdered By: Talha Paez on 11-28-2021 GFR/1.73 sq M.predicted among non-blacks MDRD (S/P/Bld) [Vol rate/Area] > 60 mL/Min [facility] Globulin Calc (S) [Mass/Vol] Ordered By: Talha Paez on 11-28-2021 Globulin (S) [Mass/Vol] 2.9 g/dL [facility] HCG ( test) IA.rapi d Ql (U)Ordered By: Talha Paez on 11-28-2021 HCG ( test) Ql (U) Negative [facility] Hematocrit Auto (Bld) [Volum e fraction]Ordered By: Talha Paez on 11-28-2021 Hematocrit (Bld) [Volume fraction] 41.9 % 34.0-46.4 [facility] Ketones Auto test strip (U) [Mass/Vol]Ordered By: Talha Paez on 11-28-2021 Ketones (U) [Mass/Vol] Negative Negative [facility] Laboratory - Drug toxicology Ordered By: Talha Paez on 11-28-2021 Opiates Ql (U) Negative Negative [facility] Laboratory - Hematology and Cell countsOrdered By: Talha Paez on 11-28-2021 Nucleated RBC/100 WBC (Bld) [Ratio] 0.1 % 0-0.5 [facility] Laboratory - UrinalysisOrder ed By: Talha Paez on 11-28-2021 Hyaline casts LM Ql (Urine sed) 0-8 [LPF] [facility] Lymphocytes Auto (Bld) [#/Vo l]Ordered By: Talha Paez on 11-28-2021 Lymphocytes (Bld) [#/Vol] 2.3 10*3/uL 1.00-4.8 [facility] Lymphocytes/100 WBC Auto (Bl d)Ordered By: Talha Paez on 11-28-2021 Lymphocytes/100 WBC (Bld) 32.9 % [facility] MCH Auto (RBC) [Entitic mass ]Ordered By: Talha Paez on 11-28-2021 MCH (RBC) [Entitic mass] 29.1 pg 24.7-34.3 [facility] MCHC Auto (RBC) [Mass/Vol]Or dered By: Talha Paez on 11-28-2021 MCHC (RBC) [Mass/Vol] 33.2 g/dL 32.0-35.0 [facility] MCV Auto (RBC) [Entitic vol] Ordered By: Talha Paez on 11-28-2021 MCV (RBC) [Entitic vol] 87.9 fL 80-100 [facility] Monocytes Auto (Bld) [#/Vol] Ordered By: Talha Paez on 11-28-2021 Monocytes (Bld) [#/Vol] 0.3 10*3/uL 0.0-0.8 [facility] Monocytes/100 WBC Auto (Bld) Ordered By: Talha Paez on 11-28-2021 Monocytes/100 WBC (Bld) 5.0 % [facility] Neutrophils Auto (Bld) [#/Vo l]Ordered By: Talha Paez on 11-28-2021 Neutrophils (Bld) [#/Vol] 4.2 10*3/uL 1.8-7.7 [facility] Neutrophils/100 WBC Auto (Bl d)Ordered By: Talha Paez on 11-28-2021 Neutrophils/100 WBC (Bld) 59.5 % [facility] Nitrite Test strip Ql (U)Ord ered By: Talha Paez on 11-28-2021 Nitrite Ql (U) Negative Negative [facility] No Panel InformationOrdered By: Gordon Abarca on 11-28-2021 25-Hydroxy Vitamin D Total 30.3 ng/mL 30-100 [facility] Comment on above: VITAMIN D STATUS 25( [place])VITAMIN D RANGE (ng/mL) Deficient <20 Insufficient 20 to <30 Sufficient 30 to 100 Reference: Alexy MF,Aj NC, Tony INFANTE, et al. Evaluation,treatment, and prevention of vitamin D deficiency; an Endocrine Society clinical practice guideline. JCEM. 2010; 96(7):1911-30. No Panel InformationOrdered By: Talha Paez on 11-28-2021 Estimated GFR () > 60 mL/Min [facility] Comment on above: GFR estimated refere nce range: According to KDOQI guidelines, <60 ml/min/1.73m2 is sufficient to diagnose a patient with chronic kidney disease. Pharmacy Creatinine Clearance (Chem 105.15 [facility] Phencyclidine Screen Ql (U)O rdered By: Talha Paez on 11-28-2021 Phencyclidine Ql (U) Negative Negative [facility] Platelet mean volume Auto (B ld) [Entitic vol]Ordered By: Talha Paez on 11-28-2021 Platelet mean volume (Bld) [Entitic vol] 9.0 fL 6.3-10.7 [facility] Platelets Auto (Bld) [#/Vol] Ordered By: Talha Paez on 11-28-2021 Platelets (Bld) [#/Vol] 267 10*3/uL 150-450 [facility] Protein Auto test strip (U) [Mass/Vol]Ordered By: Talha Paez on 11-28-2021 Protein (U) [Mass/Vol] Negative Negative [facility] Protein [Mass/volume] in Ser um or PlasmaOrdered By: Talha Paez on 11-28-2021 Protein [Mass/Vol] 7.2 g/dL 6.1-7.9 [facility] RBC Auto (Bld) [#/Vol]Ordere d By: Talha Paez on 11-28-2021 RBC (Bld) [#/Vol] 4.76 10*6/uL 3.60-5.00 [facility] Serum or plasma alanine pitts otransferase measurement without P-5'-P (enzymatic activiOrdered By: Talha Paez on 11-28-2021 ALT No additional P-5'-P [Catalytic activity/Vol] 14 U/L 10-60 [facility] Serum or plasma albumin/glob ulin mass ratioOrdered By: Talha Paez on 11-28-2021 Albumin/Globulin [Mass ratio] 1.5 {ratio} [facility] Serum or plasma alkaline nikhil sphatase measurement (enzymatic activity/volume)Ordered By: Talha Paez on 11-28-2021 ALP [Catalytic activity/Vol] 46 U/L 32-92 [facility] Serum or plasma aspartate am inotransferase measurement (enzymatic activity/volume)Ordered By: Talha Paez on 11-28-2021 AST [Catalytic activity/Vol] 17 U/L 10-42 [facility] Serum or plasma calcium zacarias urement (mass/volume)Ordered By: Talha Paez on 11-28-2021 Calcium [Mass/Vol] 9.0 mg/dL 8.2-10.2 [facility] Serum or plasma chloride edilberto surement (moles/volume)Ordered By: Talha Paez on 11-28-2021 Chloride [Moles/Vol] 103 mmol/L 95-114 [facility] Serum or plasma ethanol zacarias urement (mass/volume)Ordered By: Talha Paez on 11-28-2021 Ethanol [Mass/Vol] mg/dL [facility] Ethanol [Mass/Vol] TNP [facility] Comment on above: Test not performed Serum or plasma glucose zacarias urement (mass/volume)Ordered By: Talha Paez on 11-28-2021 Glucose [Mass/Vol] 86 mg/dL 70-100 [facility] Comment on above: ADA recommended refe rence range Random Glucose Reference Range is dependent on time and content of last meal. Glucose of more than 200 mg/dL in a nonstressed, ambulatory subject supports the diagnosis of Diabetes Mellitus. Serum or plasma high density lipoprotein (HDL) cholesterol measurementOrdered By: Gordon Abarca on 11-28-2021 Cholesterol in HDL [Mass/Vol] 31 mg/dL 35-85 [facility] Comment on above: HDL CHOL ATP-III CLA SSIFICATION Cardiovascular Risk HDL > or equal to 60 mg/dL LOW HDL < 40 mg/dL HIGH Serum or plasma potassium me asurement (moles/volume)Ordered By: Talha Paez on 11-28-2021 Potassium [Moles/Vol] 3.5 mmol/L 3.5-5.1 [facility] Serum or plasma sodium measu rement (moles/volume)Ordered By: Talha Paez on 11-28-2021 Sodium [Moles/Vol] 138 mmol/L 136-146 [facility] Serum or plasma total biliru bin measurement (mass/volume)Ordered By: Talha Paez on 11-28-2021 Bilirubin [Mass/Vol] 0.2 mg/dL 0.3-1.2 [facility] Serum or plasma total carbon dioxide measurement (moles/volume)Ordered By: Talha Paez on 11-28-2021 CO2 [Moles/Vol] 26.3 mmol/L 22.0-30.0 [facility] Serum or plasma total choles terol/high density lipoprotein (HDL) cholesterol mass ratOrdered By: Gordon Abarca on 11-28-2021 Cholesterol.total/Cho lesterol in HDL [Mass ratio] 5.5 {ratio} [facility] Serum or plasma urea nitroge n measurement (mass/volume)Ordered By: Talha Paez on 11-28-2021 Urea nitrogen [Mass/Vol] 6 mg/dL 9- [facility] Specific gravity Auto test s trip (U) [Rel density]Ordered By: Talha Paez on 11-28-2021 Specific gravity (U) [Rel density] 1.010 1.001-1.030 [facility] Squamous epithelial cells de tection in urine sediment by light microscopyOrdered By: Talha Peaz on 11-28-2021 Epithelial cells.squamous LM Ql (Urine sed) 3-4 [HPF] [facility] TSH DL <= 0.005 mIU/L QnOrde red By: Gordon Abarca on 11-28-2021 TSH Qn 2.00 m[IU]/L 0.45-5.33 [facility] Triglyceride [Mass/volume] i n Serum or PlasmaOrdered By: Gordon Abarca on 11-28-2021 Triglyceride [Mass/Vol] 171 mg/dL 35-149 [facility] Comment on above: TRIG ATP III CLASSIF ICATION TRIG less than 150 mg/dL Normal TRIG 150-199 mg/dL Borderline high TRIG 200-500 mg/dL High TRIG greater than 500 mg/dL Very high Standard traceable to the Center for Disease Conrtrol and Prevention (CDC) test method. Urine bacteria detection by automated methodOrdered By: Talha Paez on 11-28-2021 Bacteria Auto Ql (U) 1+ None Seen [facility] Urine clarity by refractomet ry automatedOrdered By: Talha Paez on 11-28-2021 Clarity Refractometry automated (U) Clear Clear [facility] Urine cocaine detectionOrder ed By: Talha Paez on 06-29-2022 Cocaine Ql (U) Negative Negative [facility] Urine culture routineOrdered By: Talha Paez on 11-28-2021 Bacteria identified Cx Nom (U) 2 Days [facility] Urine glucose measurement by automated test strip (mass/volume)Ordered By: Talha Paez on 11-28-2021 Glucose Auto test strip (U) [Mass/Vol] Normal mg/dL Normal [facility] Urine hemoglobin detection b y automated test stripOrdered By: Talha Paez on 11-28-2021 Hemoglobin Auto test strip Ql (U) 1+ Negative [facility] Urine leukocyte esterase det ection by automated test stripOrdered By: Talha Paez on 11-28-2021 Leukocyte esterase Auto test strip Ql (U) 1+ Negative [facility] Urobilinogen Auto test strip (U) [Mass/Vol]Ordered By: Talha Paez on 11-28-2021 Urobilinogen (U) [Mass/Vol] Normal mg/dL Normal [facility] pH Auto test strip (U)Ordere d By: Talha Paez on 11-28-2021 pH (U) 6.0 [pH] 5.0-9.0 [facility] [facility] ( test) Ql (U)o n 09-03-2021 [facility] HCG QUALITATIVE, URINEon HCG ( test) Ql (U) Negative [facility] No Panel Informationon 09-03 Interpretation and review of laboratory results Abnormal [facility] URINALYSIS, MACROon 09-04-19 22 Bilirubin Ql (U) Negative NEGATIVE [facility] Clarity (U) CLEAR CLEAR [facility] Color (U) YELLOW YELLOW [facility] Glucose Test strip (U) [Mass/Vol] Negative NEGATIVE mg/dl [facility] Hemoglobin Ql (U) Negative NEGATIVE [facility] Ketones (U) [Mass/Vol] Negative NEGATIVE mg/dl [facility] Leukocyte esterase Test strip Ql (U) SMALL Abnormal NEGATIVE [facility] Nitrite Ql (U) Negative NEGATIVE [facility] pH (U) 7.0 [pH] [facility] Protein Ql (U) 30 mg/dl Abnormal NEGATIVE [facility] Specific gravity (U) [Rel density] 1.020 [facility] Urobilinogen (U) [Mass/Vol] 0.2 mg/dL [facility] URINE MICROSCOPICon 09-04-19 22 Bacteria LM.HPF (Urine sed) [#/Area] 1+ Abnormal NEGATIVE [facility] Casts LM.LPF (Urine sed) [#/Area] NONE NONE /LPF [facility] Crystals LM Nom (Urine sed) NONE NONE [facility] Epithelial cells LM Ql (Urine sed) 20 TO 30 /HPF [facility] Mucus Ql (Urine sed) TRACE Abnormal NEGATIVE [facility] RBC LM.HPF (Urine sed) [#/Area] Negative NEGATIVE /HPF [facility] Urine sediment comments LM Constantine (Urine sed) POSSIBLY CONTAMINATED SPECIMEN, CULTURE MUST BE ORDERED SEPARATELY IF DEEMED NECESSARY. [facility] WBC LM.HPF (Urine sed) [#/Area] '5 TO 10 NEGATIVE /HPF [facility] US Pelvis transvaginalon IMPRESSION: Cystic lesion [...] have the typical appearance of an ectopic [facility] Radiology Study observation (narrative) [facility] US Pelvis transvaginalOrdere d By: Drake Alvarenga on 09-03-2021 [facility] Work Phone: INFLUENZA A AND B, PCRon FLUAV and FLUBV Ag IF Nom (Unsp spec) Negative NEGATIVE [facility] FLUBV Ag IA Ql (Unsp spec) Negative NEGATIVE [facility] Comment on above: TESTING PERFORMED BY KAY [facility] NOVEL CORONAVIRUS LAB 1 - NA SOPHARYNGEALon 07-30-2021 NARRATIVE -1 This test was perfor med using isothermal KAY and has been approved as Emergency Use Authorization (EUA) for the qualitative detection [id number] nucleic acid. [facility] SARS-CoV-2 (COVID-19) RNA KAY+probe Ql (Unsp spec) Not detected NOT DETECTED [facility] Comment on above: Negative results do [...] patient is critically ill or clinically deteriorating. [facility] No Panel Informationon 04-28 Interpretation and review of laboratory results Abnormal [facility] URINALYSIS, MACROon 04-28-20 21 Bilirubin Ql (U) SMALL Abnormal NEGATIVE [facility] Clarity (U) CLEAR CLEAR [facility] Color (U) YELLOW YELLOW [facility] Glucose Test strip (U) [Mass/Vol] Negative NEGATIVE mg/dl [facility] Hemoglobin Ql (U) Negative NEGATIVE [facility] Ketones (U) [Mass/Vol] 15 mg/dL Abnormal NEGATIVE [facility] Leukocyte esterase Test strip Ql (U) TRACE Abnormal NEGATIVE [facility] Nitrite Ql (U) Negative NEGATIVE [facility] pH (U) 6.0 [pH] [facility] Protein Ql (U) Negative NEGATIVE mg/dl [facility] Specific gravity (U) [Rel density] 1.020 [facility] Urobilinogen (U) [Mass/Vol] 1.0 mg/dL [facility] URINE MICROSCOPICon 04-28-20 21 Bacteria LM.HPF (Urine sed) [#/Area] 2+ Abnormal NEGATIVE [facility] Casts LM.LPF (Urine sed) [#/Area] NONE NONE /LPF [facility] Crystals LM Nom (Urine sed) NONE NONE [facility] Epithelial cells LM Ql (Urine sed) TOO NUMEROUS TO COUNT /HPF [facility] Mucus Ql (Urine sed) 2+ Abnormal NEGATIVE [facility] RBC LM.HPF (Urine sed) [#/Area] Negative NEGATIVE /HPF [facility] Urine sediment comments LM Constantine (Urine sed) POSSIBLY CONTAMINATED SPECIMEN, CULTURE MUST BE ORDERED SEPARATELY IF DEEMED NECESSARY. [facility] WBC LM.HPF (Urine sed) [#/Area] 1 TO 5 NEGATIVE /HPF [facility] XR CHEST AP PORTABLEon 04-28 EXAM: [...] with improved penetration or a CT chest. [facility] Radiology Study observation (narrative) [facility] XR CHEST AP PORTABLEOrdered By: Krishna Mccormick on 04-28-2021 [facility] Work Phone: POCT ALERE DRUG SCREENOrdere d By: Cecilia Vargas on 01-04-2021 Amphetamine (AMP), poct Negative [facility] Barbiturates (BAR), poct Negative [facility] Buprenorphine Glucuronide (BUPG),poct Negative [facility] COCAINE (ROXANNE), POCT Negative [facility] Ecstasy (MDMA), poct Negative [facility] Interpretation and review of laboratory results Normal [facility] Marijuana (THC), poct Negative [facility] Comment on above: temp 96 urine was no t witnessed Methadone (MTD), poct Negative [facility] Methamphetamine (mAMP/MET), poct Negative [facility] Nortripyline (TCA), poct Negative [facility] Opiate (OPI), poct Negative [facility] OXAZEPAM (BZO),POCT Negative [facility] Oxycodone (OXY), poct Negative [facility] Phencyclidine (PCP), poct Negative [facility] Propoxyphene (PPX), poct Negative [facility] POCT ALERE DRUG SCREENon All internal control s were present [facility] XR HAND LEFT 3+ VIEWSOrdered By: Drake Calloway on 12-06-2020 IMPRESSION: Suspecte d nondisplaced fracture at the base of the proximal fifth phalanx. [facility] EXAM: XR HAND LEFT 3 + VIEWS HISTORY: Pain and swelling fifth and fourth knuckles. No injury or trauma. COMPARISON: None. TECHNIQUE: 3 views of the left hand are performed. FINDINGS: There is irregularity at the base of the proximal fifth phalanx, suggesting a nondisplaced fracture. The remaining bony structures are unremarkable. Normal soft tissues. [facility] User, Interfaces 12/06/2020 6:00 PM EDT [...] the base of the proximal fifth phalanx. [facility] POCT ALERE DRUG SCREENOrdere d By: Ender Collins on 11-30-2020 Amphetamine (AMP), poct Negative [facility] Barbiturates (BAR), poct Negative [facility] Buprenorphine Glucuronide (BUPG),poct Negative [facility] COCAINE (ROXANNE), POCT Negative [facility] Ecstasy (MDMA), poct Negative [facility] Interpretation and review of laboratory results Normal [facility] Marijuana (THC), poct Negative [facility] Comment on above: temp 94 urine was no t witnessed Methadone (MTD), poct Negative [facility] Methamphetamine (mAMP/MET), poct Negative [facility] Nortripyline (TCA), poct Negative [facility] Opiate (OPI), poct Negative [facility] OXAZEPAM (BZO),POCT Negative [facility] Oxycodone (OXY), poct Negative [facility] Phencyclidine (PCP), poct Negative [facility] Propoxyphene (PPX), poct Negative [facility] All internal control s were present [facility] CBC, EDIF, PLATELETOrdered B y: Ting Mott on 11-08-2020 ABSOLUTE BASOPHIL COUNT 0.0 10*3/uL 0.0 - 0.2 10*3/uL [facility] Basophils/100 WBC (Bld) 0.7 % 0.0 - 2.0 % [facility] Differential cell count method Nom (Bld) AUTO DIFF % [facility] Eosinophils (Bld) [#/Vol] 0.20 10*3/uL 0.0 - 0.7 10*3/uL [facility] Eosinophils/100 WBC (Bld) 2.7 % 0.0 - 11.0 % [facility] Erythrocyte distribution width (RBC) [Ratio] 13.7 % 11.5 - 14.5 % [facility] Hematocrit (Bld) [Volume fraction] 37.0 % 36.0 - 48.0 % [facility] Hemoglobin (Bld) [Mass/Vol] 12.8 g/dL [facility] Lymphocytes (Bld) [#/Vol] 2.00 10*3/uL 1.2 - 3.4 10*3/uL [facility] Lymphocytes/100 WBC (Bld) 28.4 % 20.0 - 55.0 % [facility] MCH (RBC) [Entitic mass] 30.2 pg 26.0 - 35.0 PG [facility] MCHC (RBC) [Mass/Vol] 34.7 g/dL [facility] MCV (RBC) [Entitic vol] 87.3 fL [facility] Monocytes (Bld) [#/Vol] 0.6 10*3/uL 0.0 - 0.7 10*3/uL [facility] Monocytes/100 WBC (Bld) 8.1 % 0.0 - 10.0 % [facility] Neutrophils (Bld) [#/Vol] 4.2 10*3/uL 1.4 - 6.5 10*3/uL [facility] Neutrophils/100 WBC (Bld) 60.1 % 37.0 - 75.0 % [facility] Platelet mean volume (Bld) [Entitic vol] 7.8 fL [facility] Platelets (Bld) [#/Vol] 244 10*3/uL 130.0 - 400.0 10*3/uL [facility] RBC (Bld) [#/Vol] 4.24 10*6/uL 4.0 - 5.4 10*6/uL [facility] WBC (Bld) [#/Vol] 7.0 10*3/uL 3.6 - 11.0 10*3/uL [facility] COMPREHENSIVE METABOLIC PANE LOrdered By: Tnig Mott on 11-08-2020 Albumin [Mass/Vol] 4.1 G/dl 3.5 - 5.0 G/dl [facility] Albumin/Globulin [Mass ratio] 1.5 {ratio} [facility] ALP [Catalytic activity/Vol] 56 U/L [facility] ALT [Catalytic activity/Vol] 13 U/L <35 IU/L [facility] AST [Catalytic activity/Vol] 19 U/L [facility] Bilirubin [Mass/Vol] 0.1 mg/dL Low [facility] Calcium [Mass/Vol] 9.2 mg/dL [facility] Chloride [Moles/Vol] 107 mmol/L [facility] Comment on above: Please note: Triglyc eride levels of 600mg/dL or higher may positively bias chloride results by approximately 2.1 mmol CO2 [Moles/Vol] 25 mmol/L [facility] Creatinine [Mass/Vol] 0.69 mg/dL Low [facility] GFR COMMENT Average GFR for 30-3 9 years old = 109. [facility] Comment on above: Chronic Kidney disea se, GFR = <60. Kidney failure, GFR = <15. The GFR estimate is not adjusted for extreme body surface area or acute process, nor has it been validated for women or ethnic groups other than and . GFR/1.73 sq M.predicted among blacks MDRD (S/P/Bld) [Vol rate/Area] mL/min/{1.73_m2} ml/min/1.73s q.m [facility] GFR/1.73 sq M.predicted among non-blacks MDRD (S/P/Bld) [Vol rate/Area] mL/min/{1.73_m2} ml/min/1.73s q.m [facility] Glucose post fast [Mass/Vol] 93 mg/dL [facility] Comment on above: NORMAL <100 mg/dL PREDIABETES 101-126 mg/dL DIABETES 126 mg/dL or higher Interpretation and review of laboratory results Abnormal [facility] Potassium [Moles/Vol] 3.9 mmol/L [facility] Protein [Mass/Vol] 6.9 g/dL [facility] Sodium [Moles/Vol] 138 mmol/L [facility] Urea nitrogen [Mass/Vol] 12 mg/dL [facility] CT ABDOMEN/PELVIS WITH CONTR ASTOrdered By: Ting Mott on 11-08-2020 IMPRESSION: No obstr ucting stones, appendicitis, or diverticulitis. No discrete focal bowel wall or stomach wall thickening. Heterogeneous uterus with sliver of endometrial canal fluid. Focus of air within the cervical canal and vaginal canal. Correlate clinically for underlying pelvic inflammation versus other etiology. [facility] EXAMINATION: CT ABDOMEN/PELVIS WITH CONTRAST HISTORY: Epigastric [...] right ovarian cyst. No acute bony abnormality. [facility] User, Interfaces - 11/08/2020 11:30 PM EDT [...] for underlying pelvic inflammation versus other etiology. [facility] HCG ( test) Ql (U)O rdered By: Ting Mott on 11-08-2020 [facility] HCG QUALITATIVE, URINEOrdere d By: Ting Mott on 11-08-2020 HCG ( test) Ql (U) Negative [facility] LIPASEOrdered By: Ting Mott on 11-08-2020 Lipase [Catalytic activity/Vol] 66 U/L 23 - 300 U/L [facility] No Panel InformationOrdered By: Tign Mott on 11-08-2020 [facility] Interpretation and review of laboratory results Abnormal [facility] URINALYSIS, MACROOrdered By: Ting Mott on 11-08-2020 Bilirubin Ql (U) Negative NEGATIVE [facility] Clarity (U) CLEAR CLEAR [facility] Color (U) YELLOW YELLOW [facility] Glucose Test strip (U) [Mass/Vol] Negative NEGATIVE mg/dl [facility] Hemoglobin Ql (U) Negative NEGATIVE [facility] Ketones (U) [Mass/Vol] TRACE Abnormal NEGATIVE mg/dl [facility] Leukocyte esterase Test strip Ql (U) TRACE Abnormal NEGATIVE [facility] Nitrite Ql (U) Negative NEGATIVE [facility] pH (U) 7.5 [pH] High [facility] Protein Ql (U) Negative NEGATIVE mg/dl [facility] Specific gravity (U) [Rel density] 1.025 [facility] Urobilinogen (U) [Mass/Vol] 0.2 mg/dL [facility] URINE MICROSCOPICOrdered By: Ting Mott on 11-08-2020 Bacteria LM.HPF (Urine sed) [#/Area] 2+ Abnormal NEGATIVE [facility] Casts LM.LPF (Urine sed) [#/Area] NONE NONE /LPF [facility] Crystals LM Nom (Urine sed) NONE NONE [facility] Epithelial cells LM Ql (Urine sed) 20 TO 30 /HPF [facility] Mucus Ql (Urine sed) 2+ Abnormal NEGATIVE [facility] RBC LM.HPF (Urine sed) [#/Area] Negative NEGATIVE /HPF [facility] Urine sediment comments LM Constantine (Urine sed) POSSIBLY CONTAMINATED SPECIMEN, CULTURE MUST BE ORDERED SEPARATELY IF DEEMED NECESSARY. [facility] WBC LM.HPF (Urine sed) [#/Area] 1 TO 5 NEGATIVE /HPF [facility] POCT ALERE DRUG SCREENOrdere d By: Ender Collins on 10-05-2020 Amphetamine (AMP), poct Negative [facility] Barbiturates (BAR), poct Negative [facility] Buprenorphine Glucuronide (BUPG),poct Negative [facility] COCAINE (ROXANNE), POCT Negative [facility] Ecstasy (MDMA), poct Negative [facility] Interpretation and review of laboratory results Normal [facility] Marijuana (THC), poct Negative [facility] Comment on above: Temp 96 urine was no t witnessed Methadone (MTD), poct Negative [facility] Methamphetamine (mAMP/MET), poct Negative [facility] Nortripyline (TCA), poct Negative [facility] Opiate (OPI), poct Negative [facility] OXAZEPAM (BZO),POCT Negative [facility] Oxycodone (OXY), poct Negative [facility] Phencyclidine (PCP), poct Negative [facility] Propoxyphene (PPX), poct Negative [facility] All internal control s were present [facility] POCT ALERE DRUG SCREENon Amphetamine (AMP), poct Negative [facility] Barbiturates (BAR), poct Negative [facility] Buprenorphine Glucuronide (BUPG),poct Negative [facility] COCAINE (ROXANNE), POCT Negative [facility] Ecstasy (MDMA), poct Negative [facility] Interpretation and review of laboratory results Normal [facility] Marijuana (THC), poct Negative [facility] [...] System All internal control s were present [facility] POCT ALERE DRUG SCREENon Amphetamine (AMP), poct Negative [facility] Barbiturates (BAR), poct Negative [facility] Buprenorphine Glucuronide (BUPG),poct Negative [facility] COCAINE (ROXANNE), POCT Negative [facility] Ecstasy (MDMA), poct Negative [facility] Interpretation and review of laboratory results Normal [facility] Methadone (MTD), poct Negative [facility] Methamphetamine (mAMP/MET), poct Negative [facility] Nortripyline (TCA), poct Negative [facility] Opiate (OPI), poct Negative [facility] OXAZEPAM (BZO),POCT Negative [facility] Oxycodone (OXY), poct Negative [facility] Phencyclidine (PCP), poct Negative [facility] Propoxyphene (PPX), poct Negative [facility] All internal control s are positive [facility] POCT ALERE DRUG SCREENon Amphetamine (AMP), poct Negative [facility] Barbiturates (BAR), poct Negative [facility] Buprenorphine Glucuronide (BUPG),poct Negative [facility] COCAINE (ROXANNE), POCT Negative [facility] Ecstasy (MDMA), poct Negative [facility] Interpretation and review of laboratory results Normal [facility] Marijuana (THC), poct Negative [facility] Methadone (MTD), poct Negative [facility] Methamphetamine (mAMP/MET), poct Negative [facility] Nortripyline (TCA), poct Negative [facility] Opiate (OPI), poct Negative [facility] OXAZEPAM (BZO),POCT Negative [facility] Oxycodone (OXY), poct Negative [facility] Phencyclidine (PCP), poct Negative [facility] Propoxyphene (PPX), poct Negative [facility] All internal control s are positive [facility] HCV, QN, RT-PCRon 06-16-2020 HEPATITIS C QN Not detected Normal [facility] Comment on above: Result Comment: Unit : IU/mL Performed By: #### A CBC, CMPF, GHIV #### [place] [address] #### LHCVRT #### Testing performed at [facility] TEST INFORMATION Comment Normal [facility] Comment on above: Result Comment: (NOT E) The quantitative range of this assay is 15 IU/mL to 100 million IU/mL. PERFORMED AT [facility] Performed By: #### A CBC, CMPF, GHIV #### [place] [address] #### LHCVRT #### Testing performed at [facility] HEP PANEL A,B,Con 06-15-2020 HEP A AB TOTAL Negative Normal NEGATIVE [facility] Comment on above: Performed By: #### A HEPP #### [place] [address] HEP B CORE AB Negative Normal NEGATIVE [facility] Comment on above: Performed By: #### A HEPP #### [place] [address] HEP B SURFACE AB Positive Normal POSITIVE [facility] Comment on above: Result Comment: Clinical Interpretation of Immune Status Negative: patient is considered to be not immune to infection with HBV Intermediate: unable to determine if anti-HBs is present at levels consistent with immunity Positive: anti-HBs detected, patient is considered to be immune to infection with HBV Performed By: #### A HEPP #### [place] [address] HEP C AB Reactive Abnormal NEGATIVE [facility] Comment on above: Result Comment: HCV Ab IgG detected, patient is presumed to be infected, state or associated disease not determined Performed By: #### A HEPP #### [place] [address] HEP B SURFACE AG Negative Normal NEGATIVE [facility] Comment on above: Performed By: #### A HEPP #### [place] [address] CBCon 06-14-2020 ABSOLUTE BAS 0.1 10*3/uL Normal 0.0-0.2 [facility] Comment on above: Result Comment: Test ing performed at [place] [address] Performed By: #### A CBC, CMPF, GHIV #### [place] [address] #### LHCVRT #### Testing performed at [facility] ABSOLUTE EOS 0.10 10*3/uL Normal 0.0-0.7 [facility] Comment on above: Performed By: #### A CBC, CMPF, GHIV #### [place] [address] #### LHCVRT #### Testing performed at [facility] ABSOLUTE NEUTROPHIL COUNT 4.3 10*3/uL Normal 1.4-6.5 [facility] Comment on above: Performed By: #### A CBC, CMPF, GHIV #### [place] [address] #### LHCVRT #### Testing performed at [facility] Basophils/100 WBC (Bld) 0.9 % Normal 0.0-2.0 [facility] Comment on above: Performed By: #### A CBC, CMPF, GHIV #### [place] [address] #### LHCVRT #### Testing performed at [facility] DTYPE AUTO DIFF Normal [facility] Comment on above: Performed By: #### A CBC, CMPF, GHIV #### [place] [address] #### LHCVRT #### Testing performed at [facility] Eosinophils/100 WBC (Bld) 2.0 % Normal 0.0-11.0 [facility] Comment on above: Performed By: #### A CBC, CMPF, GHIV #### [place] [address] #### LHCVRT #### Testing performed at [facility] Lymphocytes (Bld) [#/Vol] 1.50 10*3/uL Normal 1.2-3.4 [facility] Comment on above: Performed By: #### A CBC, CMPF, GHIV #### [place] [address] #### LHCVRT #### Testing performed at [facility] Lymphocytes/100 WBC (Bld) 23.7 % Normal 20.0-55.0 [facility] Comment on above: Performed By: #### A CBC, CMPF, GHIV #### [place] [address] #### LHCVRT #### Testing performed at [facility] Monocytes (Bld) [#/Vol] 0.4 10*3/uL Normal 0.0-0.7 [facility] Comment on above: Performed By: #### A CBC, CMPF, GHIV #### [place] [address] #### LHCVRT #### Testing performed at [facility] Monocytes/100 WBC (Bld) 6.8 % Normal 0.0-10.0 [facility] Comment on above: Performed By: #### A CBC, CMPF, GHIV #### [place] [address] #### LHCVRT #### Testing performed at [facility] Neutrophils/100 WBC (Bld) 66.6 % Normal 37.0-75.0 [facility] Comment on above: Performed By: #### A CBC, CMPF, GHIV #### [place] [address] #### LHCVRT #### Testing performed at [facility] Erythrocyte distribution width (RBC) [Ratio] 13.5 % Normal 11.5-14.5 [facility] Comment on above: Performed By: #### A CBC, CMPF, GHIV #### [place] [address] #### LHCVRT #### Testing performed at [facility] Hematocrit (Bld) [Volume fraction] 38.8 % Normal 36.0-48.0 [facility] Comment on above: Performed By: #### A CBC, CMPF, GHIV #### [place] [address] #### LHCVRT #### Testing performed at [facility] Hemoglobin (Bld) [Mass/Vol] 13.3 g/dL Normal 12.0-16.0 [facility] Comment on above: Performed By: #### A CBC, CMPF, GHIV #### [place] [address] #### LHCVRT #### Testing performed at [facility] MCH (RBC) [Entitic mass] 30.1 pg Normal 26.0-35.0 [facility] Comment on above: Performed By: #### A CBC, CMPF, GHIV #### [place] [address] #### LHCVRT #### Testing performed at [facility] MCHC (RBC) [Mass/Vol] 34.3 g/dL Normal 27.0-37.0 [facility] Comment on above: Performed By: #### A CBC, CMPF, GHIV #### [place] [address] #### LHCVRT #### Testing performed at [facility] MCV (RBC) [Entitic vol] 87.9 fL Normal 80.0-100.0 [facility] Comment on above: Performed By: #### A CBC, CMPF, GHIV #### [place] [address] #### LHCVRT #### Testing performed at [facility] Platelet mean volume (Bld) [Entitic vol] 8.5 fL Normal 7.4-11.0 [facility] Comment on above: Result Comment: Test ing performed at [place] [address] Performed By: #### A CBC, CMPF, GHIV #### [place] [address] #### LHCVRT #### Testing performed at [facility] Platelets (Bld) [#/Vol] 267 10*3/uL Normal 130.0-400.0 [facility] Comment on above: Performed By: #### A CBC, CMPF, GHIV #### [place] [address] #### LHCVRT #### Testing performed at [facility] RBC (Bld) [#/Vol] 4.41 10*6/uL Normal 4.0-5.4 [facility] Comment on above: Performed By: #### A CBC, CMPF, GHIV #### [place] [address] #### LHCVRT #### Testing performed at [facility] WBC (Bld) [#/Vol] 6.5 10*3/uL Normal 3.6-11.0 [facility] Comment on above: Performed By: #### A CBC, CMPF, GHIV #### Testing performed at [address] [address] #### LHCVRT #### Testing performed at [facility] CBC, EDIF, PLATELETon 2020 ABSOLUTE BASOPHIL COUNT 0.1 10*3/uL 0 - 0.2 10*3/uL [facility] Comment on above: Testing performed at [place] [address] Basophils/100 WBC (Bld) 0.9 % 0 - 2 % [facility] Differential cell count method Nom (Bld) AUTO DIFF % [facility] Eosinophils (Bld) [#/Vol] 0.10 10*3/uL 0 - 0.7 10*3/uL [facility] Eosinophils/100 WBC (Bld) 2.0 % 0 - 11 % [facility] Erythrocyte distribution width (RBC) [Ratio] 13.5 % 11.5 - 14.5 % [facility] Hematocrit (Bld) [Volume fraction] 38.8 % 36 - 48 % [facility] Hemoglobin (Bld) [Mass/Vol] 13.3 g/dL [facility] Lymphocytes (Bld) [#/Vol] 1.50 10*3/uL 1.2 - 3.4 10*3/uL [facility] Lymphocytes/100 WBC (Bld) 23.7 % 20 - 55 % [facility] MCH (RBC) [Entitic mass] 30.1 pg 26 - 35 PG [facility] MCHC (RBC) [Mass/Vol] 34.3 g/dL [facility] MCV (RBC) [Entitic vol] 87.9 fL [facility] Monocytes (Bld) [#/Vol] 0.4 10*3/uL 0 - 0.7 10*3/uL [facility] Monocytes/100 WBC (Bld) 6.8 % 0 - 10 % [facility] Neutrophils (Bld) [#/Vol] 4.3 10*3/uL 1.4 - 6.5 10*3/uL [facility] Neutrophils/100 WBC (Bld) 66.6 % 37 - 75 % [facility] Platelet mean volume (Bld) [Entitic vol] 8.5 fL [facility] Platelets (Bld) [#/Vol] 267 10*3/uL 130 - 400 10*3/uL [facility] RBC (Bld) [#/Vol] 4.41 10*6/uL 4 - 5.4 10*6/uL [facility] WBC (Bld) [#/Vol] 6.5 10*3/uL 3.6 - 11 10*3/uL [facility] CMP FASTINGon 06-14-2020 A:G RATIO 1.4 RATIO Normal 1.3-2.2 [facility] Comment on above: Performed By: #### A CBC, CMPF, GHIV #### [place] [address] #### LHCVRT #### Testing performed at [facility] ALBUMIN 4.4 G/dl Normal 3.5-5.0 [facility] Comment on above: Performed By: #### A CBC, CMPF, GHIV #### [place] [address] #### LHCVRT #### Testing performed at [facility] ALP [Catalytic activity/Vol] 50 U/L Normal 38-126 [facility] Comment on above: Performed By: #### A CBC, CMPF, GHIV #### [place] [address] #### LHCVRT #### Testing performed at [facility] ALT [Catalytic activity/Vol] 13 U/L Normal <35 [facility] Comment on above: Performed By: #### A CBC, CMPF, GHIV #### [place] [address] #### LHCVRT #### Testing performed at [facility] AST [Catalytic activity/Vol] 25 U/L Normal 14-36 [facility] Comment on above: Performed By: #### A CBC, CMPF, GHIV #### Testing performed at [place] [id number] #### LHCVRT #### Testing performed at [facility] Bilirubin [Mass/Vol] mg/dL Low 0.2-1.3 [facility] Comment on above: Performed By: #### A CBC, CMPF, GHIV #### [place] [address] #### LHCVRT #### Testing performed at [facility] Calcium [Mass/Vol] 8.9 mg/dL Normal 8.4-10.2 [facility] Comment on above: Performed By: #### A CBC, CMPF, GHIV #### [place] [address] #### LHCVRT #### Testing performed at [facility] Chloride [Moles/Vol] 104 mmol/L Normal 98-107 [facility] Comment on above: Result Comment: Moni begum note: Triglyceride levels of 600mg/dL or higher may positively bias chloride results by approximately 2.1 mmol Performed By: #### A CBC, CMPF, GHIV #### [place] [address] #### LHCVRT #### Testing performed at [facility] CO2 [Moles/Vol] 27 mmol/L Normal 22-30 [facility] Comment on above: Performed By: #### A CBC, CMPF, GHIV #### [place] [address] #### LHCVRT #### Testing performed at [facility] Creatinine [Mass/Vol] 0.80 mg/dL Normal 0.7-1.2 [facility] Comment on above: Performed By: #### A CBC, CMPF, GHIV #### [place] [address] #### LHCVRT #### Testing performed at [facility] EST. GFR, >60 Normal [facility] Comment on above: Performed By: #### A CBC, CMPF, GHIV #### [place] [address] #### LHCVRT #### Testing performed at [facility] EST. GFR,Non >60 Normal [facility] Comment on above: Performed By: #### A CBC, CMPF, GHIV #### [place] [address] #### LHCVRT #### Testing performed at [facility] GFR Information Average GFR for 30-3 9 years old = 109. Normal [facility] Comment on above: Result Comment: Payroll Benefits Clerk demetrio Kidney disease, GFR = <60. Kidney failure, GFR = <15. The GFR estimate is not adjusted for extreme body surface area or acute process, nor has it been validated for women or ethnic groups other than and . Testing performed at [place] [address] Performed By: #### A CBC, CMPF, GHIV #### [place] [address] #### LHCVRT #### Testing performed at [facility] Glucose [Mass/Vol] 78 mg/dL Normal 70-100 [facility] Comment on above: Result Comment: NORMAL <100 mg/dL PREDIABETES 101-126 mg/dL DIABETES 126 mg/dL or higher Performed By: #### A CBC, CMPF, GHIV #### [place] [address] #### LHCVRT #### Testing performed at [facility] Potassium [Moles/Vol] 3.8 mmol/L Normal 3.5-5.1 [facility] Comment on above: Performed By: #### A CBC, CMPF, GHIV #### [place] [address] #### LHCVRT #### Testing performed at [facility] Protein [Mass/Vol] 7.5 g/dL Normal 6.3-8.2 [facility] Comment on above: Performed By: #### A CBC, CMPF, GHIV #### [place] [address] #### LHCVRT #### Testing performed at [facility] Sodium [Moles/Vol] 139 mmol/L Normal 137-145 [facility] Comment on above: Performed By: #### A CBC, CMPF, GHIV #### [place] [address] #### LHCVRT #### Testing performed at [facility] Urea nitrogen [Mass/Vol] 15 mg/dL Normal 7-20 [facility] Comment on above: Performed By: #### A CBC, CMPF, GHIV #### [place] [address] #### LHCVRT #### Testing performed at [facility] COMPREHENSIVE METABOLIC PANE [place] 06-14-2020 Albumin [Mass/Vol] 4.4 G/dl 3.5 - 5 G/dl [facility] Albumin/Globulin [Mass ratio] 1.4 {ratio} [facility] ALP [Catalytic activity/Vol] 50 U/L [facility] ALT [Catalytic activity/Vol] 13 U/L <35 IU/L [facility] AST [Catalytic activity/Vol] 25 U/L [facility] Bilirubin [Mass/Vol] mg/dL Low [facility] Calcium [Mass/Vol] 8.9 mg/dL [facility] Chloride [Moles/Vol] 104 mmol/L [facility] Comment on above: Please note: Triglyc eride levels of 600mg/dL or higher may positively bias chloride results by approximately 2.1 mmol CO2 [Moles/Vol] 27 mmol/L [facility] Creatinine [Mass/Vol] 0.80 mg/dL [facility] GFR/1.73 sq M predicted among blacks MDRD (S/P/Bld) [Vol rate/Area] mL/min/{1.73_m2} ml/min/1.73s q.m [facility] GFR/1.73 sq M predicted among non-blacks MDRD (S/P/Bld) [Vol rate/Area] Average GFR for 30-39 years old = 109. [email or web address] Comment on above: Chronic Kidney disea se, GFR = <60. Kidney failure, GFR = <15. The GFR estimate is not adjusted for extreme body surface area or acute process, nor has it been validated for women or ethnic groups other than and . Testing performed at [place] [address] GFR/1.73 sq M predicted among non-blacks MDRD (S/P/Bld) [Vol rate/Area] mL/min/{1.73_m2} ml/min/1.73s q.m [facility] [employer] [facility] Glucose post fast [Mass/Vol] 78 mg/dL [facility] Comment on above: NORMAL <100 mg/dL PREDIABETES 101-126 mg/dL DIABETES 126 mg/dL or higher Interpretation and review of laboratory results Abnormal [facility] Potassium [Moles/Vol] 3.8 mmol/L [facility] Protein [Mass/Vol] 7.5 g/dL [facility] Sodium [Moles/Vol] 139 mmol/L [facility] Urea nitrogen [Mass/Vol] 15 mg/dL [facility] HIV 1 AND 2 ANTIBODIESon HIV 1+2 Ab IA Ql NONREACTIVE NONREACTIVE [facility] Comment on above: Testing performed at [place] [address] HIV 1,2 ABon 06-14-2020 HIV 1,2 Non-Reactive Normal NONREACTIVE [facility] Comment on above: Result Comment: Test ing performed at [place] [address] Performed By: #### A CBC, CMPF, GHIV #### [place] [address] #### LHCVRT #### Testing performed at [facility] HCV RNA,Quant,PCRon 03-21-20 HCV RNA,Quant,PCR Specimen Description [...] HCV genotypes 1-6. Report Status FINAL 03/21/2020 [facility] Comment on above: Performed By: #### H CVQ #### [facility] [employer] [address] [place] [address] Stencil Cutter: Hernesto Hinton MD [facility] [address] [place] [address] Stencil Cutter: Iftikhar Mcgrath MD Basic Metabolic Panelon 03-02 Anion gap [Moles/Vol] 9 mmol/L 9 - 17 mmol/L [place] Bun/Cre Ratio 15 [place] Calcium [Mass/Vol] 9.5 mg/dL 8.6 - 10. 4 mg/dL [place] Chloride [Moles/Vol] 107 mmol/L 98 - 10 7 mmol/L [place] CO2 [Moles/Vol] 25 mmol/L 20 - 31 mmol/L [place] Creatinine [Mass/Vol] 0.67 mg/dL 0.5 - 0.9 mg/dL [place] GFR >60 >60 mL/min [place] GFR Non- >60 >60 mL/min [place] Glucose [Mass/Vol] 107 mg/dL High 70 - 99 mg/dL [place] Interpretation and review of laboratory results Abnormal [place] Potassium [Moles/Vol] 4.6 mmol/L 3.7 - 5.3 mmol/L [place] Sodium [Moles/Vol] 141 mmol/L 135 - 144 mmol/L [place] Urea nitrogen [Mass/Vol] 10 mg/dL 6 - 20 mg/dL [place] Basic Metabolic Profon 03-17 (cont.) [facility] Comment on above: Result Comment: Aver age GFR for 30-39 years old: 107 mL/min/1.73sq m Chronic Kidney Disease: <60 mL/min/1.73sq m Kidney failure: <15 mL/min/1.73sq m eGFR calculated using average adult body mass. Additional eGFR calculator available at: http://www.[employer]/multiple_crcl_2012.htm Performed By: #### B MP #### [facility] [address] [place] [id number] Stencil Cutter: Iftikhar Mcgrath MD #### GLYHGB #### [address] [id number] Stencil Cutter: Hernesto Hinton MD Anion gap [Moles/Vol] 9 mmol/L Normal 9-17 [facility] Comment on above: Performed By: #### B MP #### [address] [place] [id number] Stencil Cutter: Iftikhar Mcgrath MD #### GLYHGB #### [address] [id number] Stencil Cutter: Hernesto Hinton MD BUN/CRE Ratio 15 Normal 9-20 [facility] Comment on above: Performed By: #### B MP #### [address] [place] [id number] Stencil Cutter: Iftikhar Mcgrath MD #### GLYHGB #### [address] [id number] Stencil Cutter: Hernesto Hinton MD Calcium [Mass/Vol] 9.5 mg/dL Normal 8.6-10.4 [facility] Comment on above: Performed By: #### B MP #### [address] [place], [place] [id number] Stencil Cutter: Iftikhar Mcgrath MD #### GLYHGB #### [address] [place] [address] Stencil Cutter: Hernesto Hinton MD Chloride [Moles/Vol] 107 mmol/L Normal 98-107 [facility] Comment on above: Performed By: #### B MP #### [facility] [address] [place] [address] Stencil Cutter: Iftikhar Mcgrath MD #### GLYHGB #### [address] [address] Stencil Cutter: Hernesto Hinton MD CO2 [Moles/Vol] 25 mmol/L Normal 20-31 [facility] Comment on above: Performed By: #### B MP #### [address] [place], [place] [id number] Stencil Cutter: Iftikhar Mcgrath MD #### GLYHGB #### [address] [address] Stencil Cutter: Hernesto Hinton MD Creatinine [Mass/Vol] 0.67 mg/dL Normal 0.50-0.90 [facility] Comment on above: Performed By: #### B MP #### [facility] [address] [place] [address] [place] [address] Stencil Cutter: Iftikhar Mcgrath MD #### GLYHGB #### [address] [address] Stencil Cutter: Hernesto Hinton MD GFR, Amer >60 Normal >60 [facility] Comment on above: Performed By: #### B MP #### [facility] [address] [place] [address] [place] [address] Stencil Cutter: Iftikhar Mcgrath MD #### GLYHGB #### [address] [address] Stencil Cutter: Hernesto Hinton MD GFR,non Amer >60 Normal >60 [facility] Comment on above: Performed By: #### B MP #### [facility] [address] [place], [place] [id number] Stencil Cutter: Iftikhar Mcgrath MD #### GLYHGB #### [address] [address] Stencil Cutter: Hernesto Hinton MD Glucose [Mass/Vol] 107 mg/dL High 70-99 [facility] Comment on above: Performed By: #### B MP #### [facility] [address] [place], [place] [id number] Stencil Cutter: Iftikhar Mcgrath MD #### GLYHGB #### [address] [address] Stencil Cutter: Hernesto Hinton MD Potassium [Moles/Vol] 4.6 mmol/L Normal 3.7-5.3 [facility] Comment on above: Performed By: #### B MP #### [facility] [address] [place], [place] [id number] Stencil Cutter: Iftikhar Mcgrath MD #### GLYHGB #### [address] [address] Stencil Cutter: Hernesto Hinton MD Sodium [Moles/Vol] 141 mmol/L Normal 135-144 [facility] Comment on above: Performed By: #### B MP #### [facility] [address] [place] [address] Dr. [place], [place] [phone] Stencil Cutter: Iftikhar Mcgrath MD #### GLYHGB #### [address] [address] Stencil Cutter: Hernesto Hinton MD Staging: Normal [facility] Comment on above: Result Comment: Stag e 1: Some kidney damage normal GFR Stage 2: Mild kidney damage GFR 60-89 Stage 3: Moderate kidney damage GFR 30-59 Stage 4: Severe kidney damage GFR 15-29 Stage 5: Severe kidney damage GFR <15 ESRD - chronic treatment by dialysis or transplant Performed By: #### B MP #### [facility] [address] [place], [place] [id number] Stencil Cutter: Iftikhar Mcgrath MD #### GLYHGB #### [place] [address] [place] [address] Stencil Cutter: Hernesto Hinton MD Urea nitrogen [Mass/Vol] 10 mg/dL Normal 6-20 [facility] Comment on above: Performed By: #### B MP #### [facility] [address] [place], [place] [phone] Stencil Cutter: Iftikhar Mcgrath MD #### GLYHGB #### [address] [address] Stencil Cutter: Hernesto Hinton MD Hemoglobin A1Con 03-17-2020 HbA1c (Bld) [Mass fraction] 111 mg/dL Normal [facility] Comment on above: Result Comment: The ADA and AACC recommend providing the estimated average glucose result to permit better patient understanding of their HBA1c result. Performed By: #### B MP #### [address] [place], [place] [id number] Stencil Cutter: Iftikhar Mcgrath MD #### GLYHGB #### [address] [address] Stencil Cutter: Hernesto Hinton MD HbA1c (Bld) [Mass fraction] 5.5 % Normal 4.0-6.0 [facility] Comment on above: Performed By: #### B MP #### [facility] [address] [place] [address] Dr. [place], [place] [id number] Stencil Cutter: Iftikhar Mcgrath MD #### GLYHGB #### [place] [address] [place] [address] Stencil Cutter: Hernesto Hinton MD Glucose [Mass/Vol] 111 mg/dL [place] Comment on above: The ADA and AACC rec ommend providing the estimated average glucose result to permit better patient understanding of their HBA1c result. HbA1c (Bld) [Mass fraction] 5.5 % 4 - 6 % [place] Metabolic Panelon 03-17-2020 GFR/1.73 sq M predicted among non-blacks MDRD (S/P/Bld) [Vol rate/Area] [place] Comment on above: Stage 1: Some [...] body mass. Additional eGFR calculator available at: http://www.[employer]ur[employer]/multiple_crcl_2012.htm CBCon 03-08-2020 Erythrocyte distribution width (RBC) [Ratio] 14.3 % Normal 11.8-14.4 [facility] Comment on above: Performed By: #### C BC, HCG, CP #### [facility] [address] [place] [address] [place] [address] Stencil Cutter: Iftikhar Mcgrath MD #### HIVCMB #### [facility] [employer] [address] [place] [address] Stencil Cutter: Hernesto Hinton MD Hematocrit (Bld) [Volume fraction] 49.2 % High 36.3-47.1 [facility] Comment on above: Performed By: #### C BC, HCG, CP #### [facility] [address] [place] [address] [place] [address] Stencil Cutter: Iftikhar Mcgrath MD #### HIVCMB #### [place] [address] [place], [place] [phone] Stencil Cutter: Hernesto Hinton MD Hemoglobin (Bld) [Mass/Vol] 16.4 g/dL High 11.9-15.1 [facility] Comment on above: Performed By: #### C BC, HCG, CP #### [address] [place] [address] Stencil Cutter: Iftikhar Mcgrath MD #### HIVCMB #### [address] [phone] Stencil Cutter: Hernesto Hinton MD MCH (RBC) [Entitic mass] 27.7 pg Normal 25.2-33.5 [facility] Comment on above: Performed By: #### C BC, HCG, CP #### [address] [place] [phone] Stencil Cutter: Iftikhar Mcgrath MD #### HIVCMB #### [address] [id number] Stencil Cutter: Hernesto Hinton MD MCHC (RBC) [Mass/Vol] 33.3 g/dL Normal 28.4-34.8 [facility] Comment on above: Performed By: #### C BC, HCG, CP #### [address] [place] [phone] Stencil Cutter: Iftikhar Mcgrath MD #### HIVCMB #### [address] [phone] Stencil Cutter: Hernesto Hinton MD MCV (RBC) [Entitic vol] 83.2 fL Normal 82.6-102.9 [facility] Comment on above: Performed By: #### C BC, HCG, CP #### [address] [place] [address] Stencil Cutter: Iftikhar Mcgrath MD #### HIVCMB #### [address] [phone] Stencil Cutter: Hernesto Hinton MD NRBC Automated 0.0 per [address] [facility] Comment on above: Performed By: #### C BC, HCG, CP #### [facility] [address] [place] [phone] Stencil Cutter: Iftikhar Mcgrath MD #### HIVCMB #### [address] [phone] Stencil Cutter: Hernesto Hinton MD Platelet mean volume (Bld) [Entitic vol] 10.8 fL Normal 8.1-13.5 [facility] Comment on above: Performed By: #### C BC, HCG, CP #### [address] [place] [phone] Stencil Cutter: Iftikhar Mcgrath MD #### HIVCMB #### [address] [phone] Stencil Cutter: Hernesto Hinton MD Platelets (Bld) [#/Vol] 299 10*3/uL Normal 138-453 [facility] Comment on above: Performed By: #### C BC, HCG, CP #### [address] [place] [phone] Stencil Cutter: Iftikhar Mcgrath MD #### HIVCMB #### [address] [phone] Stencil Cutter: Hernesto Hinton MD RBC (Bld) [#/Vol] 5.91 10*6/uL High 3.95-5.11 [facility] Comment on above: Performed By: #### C BC, HCG, CP #### [address] [place] [address] Stencil Cutter: Iftikhar Mcgrath MD #### HIVCMB #### [place] [address] [place], [place] [id number] Stencil Cutter: Hernesto Hinton MD WBC (Bld) [#/Vol] 9.1 10*3/uL Normal 3.5-11.3 [facility] Comment on above: Performed By: #### C BC, HCG, CP #### [facility] [address] [place] [address] Stencil Cutter: Iftikhar Mcgrath MD #### HIVCMB #### [facility] [address] [place] [address] Stencil Cutter: Hernesto Hinton MD Erythrocyte distribution width (RBC) [Ratio] 14.3 % 11.8 - 14.4 % [place] Hematocrit (Bld) [Volume fraction] 49.2 % High 36.3 - 47.1 % [place] Hemoglobin (Bld) [Mass/Vol] 16.4 g/dL High 11.9 - 15.1 g/dL [place] Interpretation and review of laboratory results Abnormal [place] MCH (RBC) [Entitic mass] 27.7 pg 25.2 - 33.5 pg [place] MCHC (RBC) [Mass/Vol] 33.3 g/dL 28.4 - 34.8 g/dL [place] MCV (RBC) [Entitic vol] 83.2 fL 82.6 - 102.9 fL [place] Platelet mean volume (Bld) [Entitic vol] 10.8 fL 8.1 - 13.5 fL [place] Platelets (Bld) [#/Vol] 299 10*3/uL [place] RBC (Bld) [#/Vol] 5.91 10*6/uL High 3.95 - 5.1 1 m/uL [place] WBC (Bld) [#/Vol] 9.1 10*3/uL [place] WBC (Bld) [#/Vol] 0.0 10*3/uL 0.0 per 10 0 WBC [place], [place] Comp Metabolic Profon 2019 (cont.) Normal [facility] Comment on above: Result Comment: Aver age GFR for 30-39 years old: 107 mL/min/1.73sq m Chronic Kidney Disease: <60 mL/min/1.73sq m Kidney failure: <15 mL/min/1.73sq m eGFR calculated using average adult body mass. Additional eGFR calculator available at: http://www.[employer]ur[employer]/multiple_crcl_2012.htm Performed By: #### C BC, HCG, CP #### [address] [place] [address] Stencil Cutter: Iftikhar Mcgrath MD #### HIVCMB #### [place] [address] [place], [place] [phone] Stencil Cutter: Hernesto Hinton MD Albumin [Mass/Vol] 5.0 g/dL Normal 3.5-5.2 [facility] Comment on above: Performed By: #### C BC, HCG, CP #### [address] [place] [address] Stencil Cutter: Iftikhar Mcgrath MD #### HIVCMB #### [place] [address] [place], [place] 1750508 Stencil Cutter: Hernesto Hinton MD Albumin/Globulin [Mass ratio] 1.4 {ratio} Normal 1.0-2.5 [facility] Comment on above: Performed By: #### C BC, HCG, CP #### [address] [place] [address] Stencil Cutter: Iftikhar Mcgrath MD #### HIVCMB #### [place] [address] [place], [place] [phone] Stencil Cutter: Hernesto Hinton MD Alkaline Phos 68 U/L Normal 35-104 [facility] Comment on above: Performed By: #### C BC, HCG, CP #### [address] [place] [address] Stencil Cutter: Iftikhar Mcgrath MD #### HIVCMB #### [address] [address] Stencil Cutter: Hernesto Hinton MD ALT [Catalytic activity/Vol] 11 U/L Normal 5-33 [facility] Comment on above: Performed By: #### C BC, HCG, CP #### [facility] [address] [place], [place] [id number] Stencil Cutter: Iftikhar Mcgrath MD #### HIVCMB #### [address] [address] Stencil Cutter: Hernesto Hinton MD Anion gap [Moles/Vol] 17 mmol/L Normal 9-17 [facility] Comment on above: Performed By: #### C BC, HCG, CP #### [facility] [address] [place], [place] [phone] Stencil Cutter: Iftikhar Mcgrath MD #### HIVCMB #### [address] [address] Stencil Cutter: Hernesto Hinton MD AST [Catalytic activity/Vol] 11 U/L Normal <32 [facility] Comment on above: Performed By: #### C BC, HCG, CP #### [facility] [address] [place] [address] [place], [place] [phone] Stencil Cutter: Iftikhar Mcgrath MD #### HIVCMB #### [address] [address] Stencil Cutter: Hernesto Hinton MD Bilirubin Ql (U) 0.52 mg/dL Normal 0.3-1.2 [facility] Comment on above: Performed By: #### C BC, HCG, CP #### [facility] [address] [place] [address] [place], [place] [phone] Stencil Cutter: Iftikhar Mcgrath MD #### HIVCMB #### [address] [address] Stencil Cutter: Hernesto Hinton MD BUN/CRE Ratio 22 High 9-20 [facility] Comment on above: Performed By: #### C BC, HCG, CP #### [facility] [address] [place], [place] [phone] Stencil Cutter: Iftikhar Mcgrath MD #### HIVCMB #### [address] [phone] Stencil Cutter: Hernesto Hinton MD Calcium [Mass/Vol] 9.9 mg/dL Normal 8.6-10.4 [facility] Comment on above: Performed By: #### C BC, HCG, CP #### [facility] [address] [address] [place], [place] [id number] Stencil Cutter: Iftikhar Mcgrath MD #### HIVCMB #### [address] [id number] Stencil Cutter: Hernesto Hinton MD Chloride [Moles/Vol] 103 mmol/L Normal 98-107 [facility] Comment on above: Performed By: #### C BC, HCG, CP #### [address] [place], [place] [id number] Stencil Cutter: Iftikhar Mcgrath MD #### HIVCMB #### [address] [address] Stencil Cutter: Hernesto Hinton MD CO2 [Moles/Vol] 19 mmol/L Low 20-31 [facility] Comment on above: Performed By: #### C BC, HCG, CP #### [facility] [address] [place], [place] 489[address]83 Stencil Cutter: Iftikhar Mcgrath MD #### HIVCMB #### [address] [address] Stencil Cutter: Hernesto Hinton MD Creatinine [Mass/Vol] 1.43 mg/dL High 0.50-0.90 [facility] Comment on above: Performed By: #### C BC, HCG, CP #### [facility] [address] [place], [place] [id number] Stencil Cutter: Iftikhar Mcgrath MD #### HIVCMB #### [address] [address] Stencil Cutter: Hernesto Hinton MD GFR, Amer 52 mL/min Low >60 [facility] Comment on above: Performed By: #### C BC, HCG, CP #### [facility] [address] [place], [place] 2643583 Stencil Cutter: Iftikhar Mcgrath MD #### HIVCMB #### [address] [address] Stencil Cutter: Hernesto Hinton MD GFR,non Amer 43 mL/min Low >60 [facility] Comment on above: Performed By: #### C BC, HCG, CP #### [facility] [address] [place], [place] 8[address] Stencil Cutter: Iftikhar Mcgrath MD #### HIVCMB #### [address] [address] Stencil Cutter: Hernesto Hinton MD Glucose [Mass/Vol] 159 mg/dL High 70-99 [facility] Comment on above: Performed By: #### C BC, HCG, CP #### [facility] [address] [place], [place] [address] Stencil Cutter: Iftikhar Mcgrath MD #### HIVCMB #### [address] [address] Stencil Cutter: Hernesto Hinton MD Potassium [Moles/Vol] 3.5 mmol/L Low 3.7-5.3 [facility] Comment on above: Performed By: #### C BC, HCG, CP #### [facility] [address] [place], [place] [address] Stencil Cutter: Iftikhar Mcgrath MD #### HIVCMB #### [address] [place], [place] 2684908 Stencil Cutter: Hernesto Hinton MD Protein [Mass/Vol] 8.7 g/dL High 6.4-8.3 [facility] Comment on above: Performed By: #### C BC, HCG, CP #### [address] [place], [place] [address]6683 Stencil Cutter: Iftikhar Mcgrath MD #### HIVCMB #### [address] [id number] Stencil Cutter: Hernesto Hinton MD Sodium [Moles/Vol] 139 mmol/L Normal 135-144 [facility] Comment on above: Performed By: #### C BC, HCG, CP #### [address] [place] [address] Stencil Cutter: Iftikhar Mcgrath MD #### HIVCMB #### [address] [id number] Stencil Cutter: Hernesto Hinton MD Staging: Normal [facility] Comment on above: Result Comment: Stag e 1: Some kidney damage normal GFR Stage 2: Mild kidney damage GFR 60-89 Stage 3: Moderate kidney damage GFR 30-59 Stage 4: Severe kidney damage GFR 15-29 Stage 5: Severe kidney damage GFR <15 ESRD - chronic treatment by dialysis or transplant Performed By: #### C BC, HCG, CP #### [address] [place], [place] [address]83 Stencil Cutter: Iftikhar Mcgrath MD #### HIVCMB #### [address] [place], [place] [address] Stencil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 Maldonado MD Work Phone: [facility] 07-30-2021 03:38-0500 Systolic blood pressure 115 mm[Hg] Francisco Maldonado MD Work Phone: [facility] 06-19-2021 16:22-0500 Body temperature 98.4 [degF] Francisco Maldonado MD Work Phone: [facility] 06-19-2021 16:22-0500 Diastolic blood pressure 75 mm[Hg] Francisco Maldonado MD Work Phone: [facility] 06-19-2021 16:22-0500 Heart rate 88 /min Francisco Maldonado MD Work Phone: [facility] 06-19-2021 16:22-0500 Respiratory rate 16 /min Francisco Maldonado MD Work Phone: [facility] 06-19-2021 16:22-0500 SaO2% (BldA) [Mass fraction] 98 % Francisco Maldonado MD Work Phone: [employer] 06-19-2021 16:22-0500 Systolic blood pressure 127 mm[Hg] Francisco Maldonado MD Work Phone: [employer] [facility] 05-23-2021 11:17-0500 Body height 160 cm Ender Collins BALE STACKER-CATH LAB MANAGER Work Phone: [employer] [facility] 05-23-2021 11:17-0500 Body mass index (BMI) [Ratio] 32.45 kg/m2 Ender Collins BALE STACKER-CATH LAB MANAGER Work Phone: [employer] 05-23-2021 11:17-0500 Body temperature 96.8 [degF] Ender Dennis BALE STACKER-CATH LAB MANAGER Work Phone: [employer] 05-23-2021 11:17-0500 Body weight 83.1 kg Ender Dennis BALE STACKER-CATH LAB MANAGER Work Phone: [employer] 05-23-2021 11:17-0500 Diastolic blood pressure 62 mm[Hg] Ender Dennis BALE STACKER-CATH LAB MANAGER Work Phone: [employer] 05-23-2021 11:17-0500 Heart rate 98 /min Ender Collins BALE STACKER-CATH LAB MANAGER Work Phone: [employer] 05-23-2021 11:17-0500 SaO2% (BldA) [Mass fraction] 98 % Ender Collins BALE STACKER-CATH LAB MANAGER Work Phone: [employer] 05-23-2021 11:17-0500 Systolic blood pressure 116 mm[Hg] Ender Collins BALE STACKER-CATH LAB MANAGER Work Phone: [employer] 05-14-2021 01:59-0500 Body temperature 98.1 [degF] Vishal Pay DO Work Phone: [employer] 05-14-2021 01:59-0500 Diastolic blood pressure 61 mm[Hg] Vishal Pay DO Work Phone: [facility] 05-14-2021 01:59-0500 Heart rate 77 /min Vishal Pay DO Work Phone: [facility] 05-14-2021 01:59-0500 Respiratory rate 18 /min Vishal Pay DO Work Phone: [facility] 05-14-2021 01:59-0500 SaO2% (BldA) [Mass fraction] 97 % Vishal Pay DO Work Phone: [facility] 05-14-2021 01:59-0500 Systolic blood pressure 125 mm[Hg] Vishal Pay DO Work Phone: [facility] 04-28-2021 20:53-0500 Diastolic blood pressure 66 mm[Hg] Indra Diaz MD Work Phone: 4(785)623-836089 [place] [address] 04-28-2021 20:53-0500 Heart rate 84 /min Indra Diaz MD Work Phone: 6(045)008-284789 [place] [address] 04-28-2021 20:53-0500 Respiratory rate 16 /min Indra Diaz MD Work Phone: 1(211)418-963589 [place] [address] 04-28-2021 20:53-0500 SaO2% (BldA) [Mass fraction] 100 % Indra Diaz MD Work Phone: 7(331)587-202889 [place] [address] 04-28-2021 20:53-0500 Systolic blood pressure 125 mm[Hg] Indra Diaz MD Work Phone: 8(586)940-727989 [place] [address] 04-28-2021 18:39-0500 Body height 160 cm Indra Diaz MD Work Phone: 5(554)350-975989 [place] [address] 04-28-2021 18:39-0500 Body mass index (BMI) [Ratio] 31 kg/m2 Indra Diaz MD Work Phone: 7(248)521-086949 [place] [address] 04-28-2021 18:39-0500 Body weight 79.38 kg Indra Diaz MD Work Phone: 0(786)[phone] [place] [address] 04-28-2021 18:38-0500 Body temperature 97.7 [degF] Indra Diaz MD Work Phone: [facility] [employer] [facility] 01-04-2021 15:16-0400 Body height 160 cm Edner Collins APRN-CATH LAB MANAGER Work Phone: [employer] [facility] 01-04-2021 15:16-0400 Body mass index (BMI) [Ratio] 30.26 kg/m2 Ender Collins APRN-CATH LAB MANAGER Work Phone: [employer] [facility] 01-04-2021 15:16-0400 Body temperature 98.4 [degF] Ender Collins APRN-CATH LAB MANAGER Work Phone: [employer] [facility] 01-04-2021 15:16-0400 Body weight 77.47 kg Ender Collins APRN-CATH LAB MANAGER Work Phone: [employer] [facility] 01-04-2021 15:16-0400 Diastolic blood pressure 78 mm[Hg] Ender Dennis TUCKERN-CATH LAB MANAGER Work Phone: [employer] [facility] 01-04-2021 15:16-0400 Heart rate 85 /min Ender Collins APRN-CATH LAB MANAGER Work Phone: [employer] [facility] 01-04-2021 15:16-0400 SaO2% (BldA) [Mass fraction] 99 % Ender Collins APRN-CATH LAB MANAGER Work Phone: [employer] [facility] 01-04-2021 15:16-0400 Systolic blood pressure 112 mm[Hg] Ender Dennis BALE STACKER-CATH LAB MANAGER Work Phone: [employer] [facility] 12-06-2020 17:10-0400 Body height 160 cm Drake Calloway DO Work Phone: [facility] 12-06-2020 17:08-0400 Body temperature 97.7 [degF] Drake Calloway DO Work Phone: [facility] 12-06-2020 17:08-0400 Diastolic blood pressure 66 mm[Hg] Drake Calloway DO Work Phone: [facility] 12-06-2020 17:08-0400 Heart rate 74 /min Drake Calloway DO Work Phone: [facility] 12-06-2020 17:08-0400 Respiratory rate 16 /min Drake Calloway DO Work Phone: [facility] 12-06-2020 17:08-0400 SaO2% (BldA) [Mass fraction] 99 % Drake Calloway DO Work Phone: [facility] 12-06-2020 17:08-0400 Systolic blood pressure 124 mm[Hg] Drake Calloway DO Work Phone: [facility] 11-30-2020 13:22-0400 Body height 160 cm Ender Collins APRN-CATH LAB MANAGER Work Phone: [facility] 11-30-2020 13:22-0400 Body mass index (BMI) [Ratio] 30.68 kg/m2 Ender Collins BALE STACKER-CATH LAB MANAGER Work Phone: [facility] 11-30-2020 13:22-0400 Body temperature 97.5 [degF] Ender Collins BALE STACKER-CATH LAB MANAGER Work Phone: [facility] 11-30-2020 13:22-0400 Body weight 78.56 kg Ender Collins BALE STACKER-CATH LAB MANAGER Work Phone: [facility] 11-30-2020 13:22-0400 Diastolic blood pressure 68 mm[Hg] Ender Collins APRN-CATH LAB MANAGER Work Phone: [facility] 11-30-2020 13:22-0400 Heart rate 78 /min Ender Collins BALE STACKER-CATH LAB MANAGER Work Phone: [facility] 11-30-2020 13:22-0400 SaO2% (BldA) [Mass fraction] 99 % Ender Collins BALE STACKER-CATH LAB MANAGER Work Phone: [facility] 11-30-2020 13:22-0400 Systolic blood pressure 106 mm[Hg] Ender Collins BALE STACKER-CATH LAB MANAGER Work Phone: [facility] [employer] [facility] 11-08-2020 23:17-0400 Diastolic blood pressure 56 mm[Hg] Ting Mott MD Work Phone: [facility] 11-08-2020 23:17-0400 Heart rate 69 /min Ting Mott MD Work Phone: [facility] 11-08-2020 23:17-0400 Respiratory rate 17 /min Ting Mott MD Work Phone: [facility] 11-08-2020 23:17-0400 SaO2% (BldA) [Mass fraction] 98 % Ting Mott MD Work Phone: [facility] 11-08-2020 23:17-0400 Systolic blood pressure 115 mm[Hg] Ting Mott MD Work Phone: [facility] 11-08-2020 21:25-0400 Body temperature 98.1 [degF] Ting Mott MD Work Phone: [facility] 10-05-2020 09:54-0400 Body height 160 cm Ender Collins BALE STACKER-CATH LAB MANAGER Work Phone: [facility] 10-05-2020 09:54-0400 Body mass index (BMI) [Ratio] 31.18 kg/m2 Ender Collins BALE STACKER-CATH LAB MANAGER Work Phone: [facility] 10-05-2020 09:54-0400 Body temperature 96.6 [degF] Ender Collins APRN-CATH LAB MANAGER Work Phone: [facility] 10-05-2020 09:54-0400 Body weight 79.83 kg Ender Collins BALE STACKER-CATH LAB MANAGER [facility] [employer] [facility] 10-05-2020 09:54-0400 Diastolic blood pressure 64 mm[Hg] Ender Collins BALE STACKER-CATH LAB MANAGER Work Phone: [facility] 10-05-2020 09:54-0400 Systolic blood pressure 106 mm[Hg] Ender Collins BALE STACKER-CATH LAB MANAGER Work Phone: [facility] 08-17-2020 14:27-0400 BMI (Body Mass Index) 31.28 kg/m2 [facility] 08-17-2020 14:27-0400 Body Temperature 97.9 [degF] [facility] 08-17-2020 14:27-0400 Body weight 80.11 kg [facility] 08-17-2020 14:27-0400 BP Diastolic 70 mm[Hg] [facility] 08-17-2020 14:27-0400 BP Systolic 106 mm[Hg] [facility] 08-17-2020 14:270400 Height 160 cm [facility] 08-17-2020 14:27-0400 Pulse (Heart Rate) 92 /min [facility] 08-17-2020 14:27-0400 Pulse Oximetry 99 % [facility] 07-21-2020 12:09-0500 Body temperature [facility] Comment on above: temperature is 96, collection was not wi tnessed 07-21-2020 11:27-0500 BMI (Body Mass Index) 29.58 kg/m2 [facility] 07-21-2020 11:27-0500 Body Temperature 97.9 [degF] [facility] 07-21-2020 11:27-0500 Body weight 75.75 kg [facility] 07-21-2020 11:27-0500 BP Diastolic 62 mm[Hg] [facility] 07-21-2020 11:27-0500 BP Systolic 114 mm[Hg] [facility] 07-21-2020 11:27-0500 Height 160 cm [facility] 07-21-2020 11:27-0500 Pulse (Heart Rate) 94 /min [facility] 07-21-2020 11:27-0500 Pulse Oximetry 99 % [facility] 06-20-2020 14:01-0500 BMI (Body Mass Index) 29.44 kg/m2 [facility] 06-20-2020 14:01-0500 Body Temperature 98.01 [degF] [facility] 06-20-2020 14:01-0500 Body weight 75.39 kg [facility] 06-20-2020 14:01-0500 BP Diastolic 62 mm[Hg] [facility] 06-20-2020 14:01-0500 BP Systolic 116 mm[Hg] [facility] 06-20-2020 14:01-0500 Height 160 cm [facility] 06-20-2020 14:01-0500 Pulse (Heart Rate) 78 /min [facility] 06-20-2020 14:01-0500 Pulse Oximetry 98 % [facility] 06-14-2020 13:43-0500 BMI (Body Mass Index) 29.8 kg/m2 [facility] 06-14-2020 13:43-0500 Body Temperature 98.29 [degF] [facility] 06-14-2020 13:43-0500 Body weight 76.3 kg [facility] 06-14-2020 13:43-0500 BP Diastolic 62 mm[Hg] [facility] 06-14-2020 13:43-0500 BP Systolic 99 mm[Hg] [facility] 06-14-2020 13:43-0500 Height 160 cm [facility] 06-14-2020 13:43-0500 Pulse (Heart Rate) 92 /min [facility] 06-14-2020 13:43-0500 Pulse Oximetry 98 % [facility] 05-23-2020 14:00-0500 BMI (Body Mass Index) 28.46 kg/m2 [facility] 05-23-2020 14:00-0500 Body Temperature 98.1 [degF] [facility] 05-23-2020 14:00-0500 Body weight 74.03 kg [facility] 05-23-2020 14:00-0500 BP Diastolic 58 mm[Hg] [facility] 05-23-2020 14:00-0500 BP Systolic 140 mm[Hg] [facility] 05-23-2020 14:00-0500 Height 161.3 cm [facility] 05-23-2020 14:00-0500 Pulse (Heart Rate) 90 /min [facility] 05-23-2020 14:00-0500 Pulse Oximetry 99 % [facility] 03-07-2020 11:52-0400 BP Diastolic 62 mm[Hg] [facility] [place] 03-07-2020 11:52-0400 BP Systolic 118 mm[Hg] [place] 03-07-2020 11:52-0400 Pulse (Heart Rate) 71 /min [place], [place] 03-07-2020 11:52-0400 Pulse Oximetry 100 % [place] 03-07-2020 11:52-0400 Respiratory Rate 18 /min [facility] [employer] [place] 03-07-2020 09:39-0400 BMI (Body Mass Index) 26.57 kg/m2 [facility] [place] 03-07-2020 09:39-0400 Body Temperature 97.5 [degF] [facility] [employer] [place] 03-07-2020 09:39-0400 Body weight 68.04 kg [place] 03-07-2020 09:39-0400 Height 160 cm [place] Encounters Encounter Date Encounter Type Care Provider Facility Start: 07-15-2024 End: 07-15-2024 Emergency department patient visit Bernadette Ramirez [facility] Start: 07-10-2024 End: 07-10-2024 Emergency department patient visit Luis Eduardo Goss [facility] Start: 03-01-2024 End: 03-01-2024 ambulatory [facility] Facility:[facility] Start: 12-08-2023 End: 12-08-2023 ambulatory Wilberto Gonzalez Facility:[facility] Start: 12-08-2023 End: 12-08-2023 Patient encounter procedure Wilberto Gonzalez [facility] Start: 11-24-2023 End: 11-24-2023 Emergency department patient visit Ting Kennedy [facility] Start: 11-07-2023 End: 11-07-2023 ambulatory RANI FIELD [facility] Start: 11-07-2023 End: 11-07-2023 Patient encounter procedure RANI FIELD [facility] Start: 10-15-2023 End: 10-16-2023 ambulatory Sydnie X Orzech Facility:[facility] Start: 10-15-2023 End: 10-15-2023 Patient encounter procedure Sydnie X Orzech [facility] Start: 10-13-2023 End: 10-14-2023 ambulatory MIKE HUITRON Facility[facility] Start: 10-13-2023 End: 10-13-2023 Lab Drop off MIKE HUITRON [facility] Start: 10-13-2023 End: 10-13-2023 Patient encounter procedure MIKE REAVESTIZ [facility] Start: 10-13-2023 End: 10-14-2023 ambulatory Vishal PEDERSON Facility:[facility] Start: 07-03-2023 End: 07-04-2023 ambulatory RANI FIELD Facility:[facility] Start: 07-03-2023 End: 07-03-2023 Patient encounter procedure RANI FIELD [facility] Start: 07-02-2023 End: 07-03-2023 Emergency department patient visit Driss Wright Facility[facility] Start: 05-07-2023 End: 05-08-2023 ambulatory RANI FIELD Facility[facility] Start: 04-17-2023 ambulatory Analisa NIA VIKAS [facility] Start: 03-09-2023 End: 03-11-2023 ambulatory Baljinder Espino Facility:[facility] Start: 03-09-2023 End: 03-11-2023 Evaluation and management of inpatient PHYSICIAN CLEMENTINE KNUTSON [facility] Work Phone: Start: 03-08-2023 End: 03-09-2023 Emergency department patient visit Aravind Dot Arnold Facility:[facility] Start: 03-08-2023 ambulatory Gordon Negrete acility:[facility] Start: 01-17-2023 End: 01-18-2023 ambulatory [facility] Start: 01-14-2023 End: 01-15-2023 ambulatory OBEY Sheehan [facility] Start: 01-14-2023 End: 01-14-2023 Subsequent hospital visit by physician Obey Carl BALE STACKER - CATH LAB MANAGER Work Phone: [facility] Start: 11-07-2022 End: 11-07-2022 Emergency department patient visit NONE NONE [facility] Start: 11-07-2022 End: 11-07-2022 Emergency department patient visit NONE NONE [facility] ED Comment on above: Nausea and vomiting, unspecified vomiting type (Primary Dx) Start: 11-07-2022 End: 11-07-2022 Emergency department patient visit None None [facility] ED Comment on above: Insect bite of neck, initial encounter (Primary Dx); Concern about STD in female without diagnosis Start: 06-18-2022 End: 06-18-2022 Emergency department patient visit NONE NONE [facility] Start: 06-18-2022 End: 01-17-2023 Emergency department patient visit [facility] ED Comment on above: Right wrist pain (Pr imary Dx); Ganglion cyst of joint of finger of right hand Start: 11-29-2021 End: 12-01-2021 Evaluation and management of inpatient PHYSICIAN [facility] Start: 09-03-2021 End: 09-03-2021 Emergency department patient visit Francisco Maldonado MD Work Phone: [facility] Start: 07-30-2021 End: 07-30-2021 Emergency department patient visit Francisco Maldonado MD Work Phone: [facility] Start: 06-19-2021 End: 06-19-2021 Emergency department patient visit Francisco Maldonado MD Work Phone: [facility] Start: 05-23-2021 End: 05-23-2021 Office outpatient visit 15 minutes Ender Collins BALE STACKER-CATH LAB MANAGER Work Phone: [facility] Comment on above: Laceration of left t humb without foreign body without damage to nail, subsequent encounter (Primary Dx) Start: 05-14-2021 End: 05-14-2021 Emergency department patient visit Vishal Leon DO Work Phone: [facility] Start: 04-28-2021 End: 04-28-2021 Emergency department patient visit Indra Diaz MD Work Phone: [facility] Start: 01-04-2021 End: 01-04-2021 Office outpatient visit 15 minutes Ender Collins BALE STACKER-CATH LAB MANAGER Work Phone: [facility] Comment on above: Opioid dependence in remission (Primary Dx) Start: 12-06-2020 End: 12-06-2020 Emergency department patient visit Drake Calloway DO Work Phone: [facility] Emergency Medicine Start: 11-30-2020 End: 11-30-2020 Office outpatient visit 15 minutes Ender Collins BALE STACKER-CATH LAB MANAGER Work Phone: [facility] Comment on above: Opioid dependence in remission (Primary Dx) Start: 11-08-2020 End: 11-08-2020 Emergency department patient visit Ting Mott MD Work Phone: [facility] Emergency Medicine Start: 10-05-2020 End: 10-05-2020 Office outpatient visit 15 minutes Ender Collins BALE STACKER-CATH LAB MANAGER Work Phone: [facility] Comment on above: Opioid dependence in remission (Primary Dx) Start: 08-17-2020 End: 08-17-2020 Office outpatient visit 15 minutes Ender Collins Work Phone: [employer] [facility] Comment on above: Opioid dependence in remission (Primary Dx); Encounter for well woman exam with routine gynecological exam Start: 07-21-2020 End: 07-21-2020 Office outpatient visit 15 minutes Ender Collins Work Phone: [facility] [facility] Comment on above: Opioid dependence in remission (Primary Dx) Start: 06-20-2020 End: 06-20-2020 Office outpatient visit 15 minutes Ender Collins Work Phone: [facility] [facility] Comment on above: Opioid dependence in remission (Primary Dx); Chronic hepatitis C with hepatic coma Start: 06-14-2020 End: 06-14-2020 Office outpatient visit 25 minutes Ender Collins Work Phone: [facility] [facility] Comment on above: Insomnia, unspecifie d type (Primary Dx); Hx of intravenous drug use in remission; High risk heterosexual behavior; Chronic hepatitis C with hepatic coma Start: 05-23-2020 End: 05-23-2020 Office outpatient new 30 minutes Ender Collins Work Phone: [facility] [facility] Comment on above: Encounter for medica l examination to establish care (Primary Dx); Opioid dependence in remission Start: 03-17-2020 End: 03-18-2020 Patient encounter procedure [facility] Start: 03-17-2020 End: 03-17-2020 Subsequent hospital visit by physician [facility] Start: 03-16-2020 End: 03-17-2020 Patient encounter procedure [facility] Start: 03-16-2020 End: 03-16-2020 Subsequent hospital visit by physician [facility] Start: 03-15-2020 End: 03-16-2020 Patient encounter procedure [facility] Start: 03-15-2020 End: 03-15-2020 [facility] Start: 03-08-2020 End: 03-09-2020 Patient encounter procedure [facility] Start: 03-08-2020 End: 03-08-2020 Subsequent [facility] Start: 03-07-2020 End: 03-07-2020 Emergency department patient visit [facility] Comment on above: Heroin withdrawal (H CC) (Primary Dx) Start: 10-08-2017 End: 10-08-2017 Emergency department patient visit TING BRANTLEY Facility:[id number] Start: 02-26-2017 End: 02-26-2017 Emergency department patient visit [facility] Procedures Date Procedure Procedure Detail Performing Clinician Start: 11-07-2022 Iadna trichomonas va ginalis amplified probe tech Nati Ochoa BALE STACKER [employer] Work Phone: Start: 11-07-2022 End: 11-07-2022 Urine test visual color cmprsn methandre Ochoa BALE STACKER [employer] Work Phone: Start: 11-07-2022 Microscopic observat ion [...] direct optical obs pr date Ender Collins BALE STACKER-CATH LAB MANAGER Work Phone: Start: 12-06-2020 Radex hand minimum 3 views Drake Calloway DO Work Phone: Start: 11-30-2020 Drug test prsmv read direct optical obs pr date Ender Collins BALE STACKER-CATH LAB MANAGER Work Phone: Start: 11-08-2020 Ct abdomen & [...] direct optical obs pr date Ender Collins BALE STACKER-CATH LAB MANAGER Work Phone: Start: 08-17-2020 Drug test prsmv [...] Iadna hepatitis c qu ant & reverse opto mechanical engineer OBEY MESERET Start: 03-17-2020 Basic metabolic pane [...] Screening for malign ant neoplasm of cervix [facility] Start: 03-11-2023 [facility] Start: 03-09-2023 Referral to Health Policy Nurse [facility] Start: 03-09-2023 Hospital admission [facility] Start: 12-31-2022 Influenza vaccination B [facility] Start: 01-31-2022 Influenza vaccination INFLUENZ A VACCINE (Season Ended) [facility] Start: 12-31-2021 Influenza vaccination Flu vaccine (# 1) [facility] Start: 11-28-2021 Bacteria identified in Urine by Culture Urine Culture [facility] Start: 02-20-2021 End: 02-20-2021 Patient encounter procedure 02/20/2021 Office Visit FUNCTIONAL SKILLS TUTOR Aurea Chao, [address] [address] [facility] [employer]AL [employer]S [employer] [place] Start: 02-01-2021 End: 02-01-2021 Patient encounter procedure 02/01/2021 Office Visit Family Medicine Ender Collins, BALE STACKER-CATH LAB MANAGER [address] [place] [address] [facility] Start: 01-31-2021 Influenza vaccination A [facility] Start: 12-28-2020 End: 12-28-2020 Patient encounter procedure 12/28/2020 Office Visit Family Medicine Ender Collins, BALE STACKER-CATH LAB MANAGER [address] [place] [address] [phone] [facility] Start: 11-30-2020 End: 11-30-2020 Patient encounter procedure 11/30/2020 Office Visit Family Ender James BALE STACKER-CATH LAB MANAGER [address] [place] [address] [phone] [facility] Start: 11-02-2020 End: 11-02-2020 Patient encounter procedure 11/02/2020 Office Visit Family Ender James BALE STACKER-CATH LAB MANAGER [address] [place] [address] [phone] [facility] Start: 08-17-2020 End: 08-17-2020 Office Visit 08/17/2020 Office Visit Family Medicine Ender Collins, BALE STACKER-CATH LAB MANAGER [address] [place] [address] [phone] [facility] Start: 07-18-2020 End: 07-18-2020 Office Visit 07/18/2020 Office Visit Family Medicine Ender Collins, BALE STACKER-CATH LAB MANAGER [address] [place] [address] [phone] [facility] Start: 06-20-2020 End: 06-20-2020 Office Visit 06/20/2020 Office Visit Family Medicine Ender Collins, BALE STACKER-CATH LAB MANAGER [address] [place] [address] [phone] [facility] Start: 06-14-2020 End: 06-14-2020 Office Visit 06/14/2020 Office Visit Family Medicine Ender Collins, BALE STACKER-CATH LAB MANAGER [address] [place] [address] [phone] [facility] Start: 02-01-2020 Influenza vaccination [place], [place] Start: 2018 Screening for malign ant neoplasm of cervix [facility] Start: 05-25-2016 Screening for malign ant neoplasm of cervix [facility] Start: 2009 Screening for malign ant neoplasm of cervix [facility] Start: 2007 DTaP/Tdap/Td vaccine (1 - Tdap) DTaP/Tdap/Td vaccine (1 - Tdap) [facility] Start: 2007 DTaP/Tdap/Td vaccine (2 - Tdap) DTaP/Tdap/Td vaccine (2 - Tdap) [facility] Start: 2007 Third diphtheria, tetanus and acellular pertussis (DTaP) vaccination TDAP (ADULT) [facility] Start: 2006 Tetanus vaccination TETANUS [facility] Start: 2004 COVID-19 VACCINE (1) COVID-19 VACCIN E (1) [facility] Start: 2001 HIV screening HIV SCREENING DISCUSSION [facility] Start: 2000 COVID-19 VACCINE (1) COVID-19 VACCIN E (1) [facility] Start: 2000 Depression Screen Depression Screen [facility] Start: 1994 PNEUMOCOCCAL VACCINE SERIES (1 of 2 - PPSV23) PNEUMOCOCCAL VACCINE SERIES (1 of 2 - PPSV23) [facility] Start: 1993 COVID-19 VACCINE (1) COVID-19 VACCIN E (1) [facility] Start: 1989 Varicella vaccine (1 of 2 - 2-dose childhood series) Varicella vaccine (1 of 2 - 2-dose childhood series) [facility] Start: 1988 COVID-19 Vaccine (#1) COVID-19 Vacci ne (#1) [facility] Start: 1988 Hepatitis C antibody , confirmatory test HEPATITIS C VIRUS SCREENING [facility] Bacteria identified in Urine by Culture [facility] Work Phone: End: 11-07-2022 C.trachomatis N.gonorrhoeae DNA, Urine C.trachomatis N.gonorrhoeae DNA, Urine Microbiology Routine One Time for 1 Occurrences starting 11/07/2022 until 11/07/2022 [facility] Work Phone: Comment on above: One Time for 1 Occur rences starting 11/07/2022 until 11/07/2022 End: 01-14-2023 CBC panel - Blood by Automated count [facility] [employer] Phone: Comment on above: Once for 1 Occurrenc es starting 01/14/2023 until 01/14/2023 CHLAMYDIA/GONOCOCCUS , KAY CHLAMYDIA/GONOCOCCUS, KAY Microbiology STAT 04/28/2021 6:55 PM EST [facility] End: 01-14-2023 Comprehensive metabolic 2000 panel - Serum or Plasma [facility] Comment on above: Once for 1 Occurrenc es starting 01/14/2023 until 01/14/2023 HCG ( test) Ql (U) POCT URINE Point of Care Testing Routine Opioid dependence in remission Ordered: 05/23/2020 [facility] Comment on above: Ordered: 05/23/2020 End: 01-14-2023 HCG Qualitative, Serum [facility] Comment on above: Once for 1 Occurrenc es starting 01/14/2023 until 01/14/2023 HCV RNA KAY+probe DL = 5 iU/mL Qn HEPATITIS C BY PCR, QUANT Lab Routine Hx of intravenous drug use in remission High risk heterosexual behavior Chronic hepatitis C with hepatic coma 06/14/2020 2:31 PM [facility] HEPATITIS A, B, C HEPATITIS A, B , C Lab Routine Hx of intravenous drug use in remission High risk heterosexual behavior 06/14/2020 2:31 PM [facility] End: 03-17-2020 Hepatitis C RNA, quantitative, PCR Hepatitis C RNA, quantitative, PCR Lab Routine Once for 1 Occurrences starting 03/17/2020 until 03/17/2020 [place] Comment on above: Once for 1 Occurrenc es starting 03/17/2020 until 03/17/2020 Hepatitis C RNA, quantitative, PCR Hepatitis C RNA, quantitative, PCR Lab Routine 03/17/2020 8:30 AM EDT [place], [place] End: 01-14-2023 Hepatitis Panel, Acute [facility] Comment on above: Once for 1 Occurrenc es starting 01/14/2023 until 01/14/2023 End: 01-14-2023 HIV Screen [facility] Comment on above: Once for 1 Occurrenc es starting 01/14/2023 until 01/14/2023 Iadna trichomonas vaginalis amplified probe tech Trichomonas vaginalis RNA, Qualitative, TMA, Pap Vial Microbiology STAT 11/07/2022 12:06 PM EDT [facility] [employer] Work Phone: End: 11-07-2022 Microscopic urinalysis [facility] Phone: Comment on above: Once for 1 Occurrenc es starting 11/07/2022 until 11/07/2022 Patient Education Depression, Ad ult (DC) [facility] DC Instructions [facility] Work Phone: Patient referral [facility] Work Phone: POCT ALERE DRUG SCREEN POCT ALER E DRUG SCREEN Point of Care Testing Routine Opioid dependence in remission Ordered: 05/23/2020 [facility] Comment on above: Ordered: 05/23/2020 Postop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 department Note* ENRICO Bishop - 04/28/2021 7:10 PM EST X-ray at bedside * Indra Diaz MD - 04/28/2021 7:07 PM EST Emergency Department Report [facility] Service Date:.04/28/21 PCP: Ender [...] was expressing random thoughts. [facility] History of Present illness Narrative* Ender Collins, FLOWER-CATH LAB MANAGER - 01/04/2021 3:30 PM EDT Follow Up Visit Elba Jo [id number] 1990 01/04/2021 Chief Complaint Patient presents with [...] SCREEN Ender Collins APRN-BARBARA [facility] Emergency department Note* Raine Rivas RN [...] 12/06/2020 5:08 PM EDT Emergency Department Report [facility] Service Date:.12/06/20 PCP: Ender [...] Calloway DO 12/06/20 1830 documented in this [facility]07-07-[facility] Emergency department Note* Lin Kennedy RN - 12/06/2020 4:40 PM EDT Patient was not in waiting room when called to triage documented in this [facility]07-07-2021 Hospital Discharge instructions* Instructions* Drake Calloway [...] You may find a provider through the [employer] Physician Referral Service by calling [phone] or by visiting [email or web address] Thank You for choosing the [facility] Emergency Department! * Attachments The following attachments cannot be sent through Care Everywhere. * Hand Fracture (Comoran) documented in this [facility]07-01-2021 History of Present illness Narrative* Cecilia Vargas - 11/30/2020 1:20 PM EDT Pt denied any concerns prior to injection. Administered 380 MG VIVITROL into pts right gluteus. Pt tolerated injection well. * Dennis Ender Jerod, BALE STACKER-CATH LAB MANAGER - 11/30/2020 1:20 PM EDT Follow Up Visit Elba Jo [id number] 1990 11/30/2020 Chief Complaint Patient presents with [...] mg, Intramuscular, Once (In Clinic), Ender Collins, BALE STACKER-CATH LAB MANAGER ROS: Review of Systems Constitutional: Negative for [...] 380 mg [place] Serra [facility] Emergency [facility] Note* CANDACE MOELLER - [...] 11/08/2020 9:26 PM EDT Emergency Department Report [facility] Service Date:.11/08/20 PCP: Ender [...] ER. 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 She will call for an appointment. She [...] information. . . Ting Mott MD 11/08/20 4087 [facility] Hospital Discharge instructions* Instructions* Ting Mott MD - 11/08/2020 Call your doctor and PLANT SUPERVISOR for follow-up. Increase fluids and fiber in her diet. If worsening symptoms come back to the ER. CT scan showed ovarian cyst and some endometrial fluid so a PLANT SUPERVISOR follow-up is indicated. * Attachments The following attachments cannot be sent through Care Everywhere. * Abdominal Pain (Comoran) * Constipation ([facility]) ([place]) * Ovarian Cyst: Functional ([place]) documented in this [facility]05-06-2021 History of Present illness Narrative* Cecilia Vargas - 10/05/2020 9:50 AM EDT Pt denied any concerns prior to injection. Administered 380 MG VIVITROL into pts right gluteus. Pt tolerated injection well. * Ender Collins APRN-BARBARA - 10/05/2020 9:50 AM EDT Follow Up Visit Elba Jo [id number] 1990 10/05/2020 Chief Complaint Patient presents with [...] recent use or relapse. Asking about the PLANT SUPERVISOR referral that was placed last visit. Nothing [...] mg, Intramuscular, Once (In Clinic), Ender Collins, BALE STACKER-CATH LAB MANAGER ROS: Review of Systems Constitutional: Negative for [...] Vivitrol injection today. Asking about status of PLANT SUPERVISOR referral. Will have office staff check into [...] 380 mg [place] Serra documented in this encounterSouth[facility] Centeral[facility] + Plan note No data available for this section [facility]* Diagnosis Opioid dependence in remission- Primary Opioid type dependence, in remission documented in this encounter [facility]* Diagnosis Epigastric pain- Primary Abdominal pain, epigastric Constipation, unspecified constipation type Right ovarian cyst Other and unspecified ovarian cyst documented in this encounter [facility]* Diagnosis Opioid dependence in remission- Primary Opioid type dependence, in remission documented in this encounter [facility]* Diagnosis Closed nondisplaced fracture of base of fifth metacarpal bone of left hand, initial encounter- Primary documented in this encounter [facility]* Diagnosis Viral syndrome- Primary Unspecified viral infection, in conditions classified elsewhere and of unspecified site documented in this encounter [facility]* Diagnosis Laceration of left thumb, initial encounter- Primary documented in this encounter [facility]* Diagnosis Laceration of left thumb without foreign body without damage to nail, subsequent encounter- Primary documented in this encounter [facility]* Diagnosis PTSD (post-traumatic stress disorder)- Primary Posttraumatic stress disorder [facility]* Diagnosis Diarrhea, unspecified type- Primary documented in this encounter [facility]* Diagnosis Acute cystitis without hematuria- Primary Acute cystitis Cyst of left ovary Other and unspecified ovarian cyst documented in this encounter [facility]* Diagnosis Opioid dependence in remission- Primary Opioid type dependence, in remission documented in this encounter [facility]* Diagnosis Onset Date Resolution Status Encounter for psychiatric assessment acute Suicidal ideation acute [facility] Work Phone: Evaluation note* Diagnosis Onset Date Resolution Status Encounter for psychiatric assessment acute Major depressive disorder, r ecurrent episode with mixed features acute PTSD (post-traumatic stress disorder) acute Suicidal ideation acute [facility] Work Phone: Evaluation note* Diagnosis Right wrist pain- Primary Pain in joint, forearm Ganglion cyst of joint of finger of right hand documented in this encounter [employer] Work Phone: evaluation note* Diagnosis Insect bite of neck, initial encounter- Primary Concern about STD in female without diagnosis Person with feared complaint in whom no diagnosis was made documented in this encounter [facility] Phone: evaluation note* Diagnosis Nausea and vomiting, unspecified vomiting type- Primary documented in this encounter [facility] Phone: evaluation note* Diagnosis Onset Date Resolution Status Major depressive disorder, r ecurrent episode with mixed features acute PTSD (post-traumatic stress disorder) acute [facility] Work Phone: Hospital Discharge instructions* Attachments The following attachments cannot be sent through Care Everywhere. * Viral Infections ([place]) [facility]* Attachments The following attachments cannot be sent through Care Everywhere. * PTSD (Post-Traumatic Stress Disorder) ([place]) documented [facility] this [facility]* Attachments The following attachments cannot be sent through Care Everywhere. * Diarrhea ([place]) documented [facility] this [facility]* Attachments The following attachments cannot be sent through Care Everywhere. * UTI (Urinary Tract Infection): Female (Comoran) documented in this [facility] Additional Instructions Regular diet. No activity restrictions.[facility] Work Phone: Hospital Discharge instructions* Attachments The following attachments cannot be sent through Care Everywhere. * Insect Stings and Bites ([place]oran) * STI ([place]) documented [facility] Work Phone: Hospital Discharge instructions* Attachments The following attachments cannot be sent through Care Everywhere. * Nausea and Vomiting ([place]an) documented in this encounterBON [facility] Work Phone: Hospital Discharge instructions No data available for this section [facility] No data available for this section [facility] for referral (narrative)* Consultation (Urgent) Status Reason Specialty Diagnoses / Procedures Referred By Contact Referred To Contact New Request Family Medicine Diagnoses Epigastric pain Constipation, unspecified constipation type Right ovarian cyst Ting Mott MD [address] [place] [address] Ender Collins, BALE STACKER-CATH LAB MANAGER [address] [place] [address] Electronically signed by Ting Mott MD at [facility] for referral (narrative)* Consultation (Urgent) Status Reason Specialty Diagnoses / Procedures Referred By Contact Referred To Contact New Request Orthopaedics Diagnoses Closed nondisplaced fracture of base of fifth metacarpal bone of left hand, initial encounter Drake Calloway DO [address] [place] [address] Iggy North MD [address] [place] [id number] Electronically signed by Drake Calloway DO at [facility] for referral (narrative)* Consultation (Urgent) - New Request Specialty Diagnoses / Procedures Referred By Bertha pinedo Referred To Contact Family Medicine Diagnoses Viral syndrome Indra Diaz MD [address] [place] [phone] Ender Collins, BALE STACKER-CATH LAB MANAGER [address] [place] [address] Referral ID Status Reason Start Date Expiration Date V isits Requested Visits Authorized [id number] New Request 04/28/2021 05/23/2022 1 [facility] Consultation (Routine) - New Request Specialty Diagnoses / Procedures Referred By Bertha pinedo Referred To Contact FUNCTIONAL SKILLS TUTOR Diagnoses Cyst of left ovary Francisco Maldonado MD [address] [place] [address] Aurea Chao, DO [address] [place] [address] Referral ID Status Reason Start Date Expiration Date V isits Requested Visits Authorized [id number] New Request 09/03/2021 09/28/2022 1 1 * Radiology (Emergency) - Closed Specialty Diagnoses / Procedures Referred By Bertha pinedo Referred To Contact Procedures US TRANSVAGINAL WITH DOPPLER Francisco Maldonado MD [address] [place] [address] Referral ID Status Reason Start Date Expiration Date Visits Re quested Visits Authorized [id number] Closed 09/03/2021 09/28/2022 1 1 [facility] Summary Purpose Family History No Family History Records Found Relationship Condition Age at Onset Recorded Date/T puh father Cerebrovascular accident (CVA) Unknown Relationship Condition Age at Onset Recorded Date/T phu father Cerebrovascular accident (CVA) Unknown grandparent Myocardial infarction Unknown Advance Directives No Advanced Directives Records FoundDocuments on File Type Date Recorded 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 * Attachments The following attachments cannot be sent through Care Everywhere. * Heroin Use and Withdrawal: General Info (Comoran) documented in this encounter Assessments Diagnosis Heroin [...] History of Present Illness * Ender Collins, BALE STACKER-CATH LAB MANAGER - 05/23/2020 1:30 PM EST New Patient Visit Elba Jo [id number] 1990 05/23/2020 Chief Complaint Patient presents with [...] Currently staying at sober living house in [place]. Most recently has been getting Vivitrol injection. [...] set up with [facility] in [place]. Just had recent BW done in March. [...] file Gets together: Not on file Attends methodist service: Not on file Active member of [...] mg, Intramuscular, Once (In Clinic), Ender Collins, BALE STACKER-CATH LAB MANAGER ROS: Review of Systems Constitutional: Negative for [...] EST Established Patient New Problem Elba Jo [id number] 1990 06/14/2020 Chief Complaint Patient presents with Establish Care History of Present Illness: Elba Jo is a 29 y.o. female is an established pt to the [facility] for new complaint to get est as [...] file Gets together: Not on file Attends methodist service: Not on file Active member of [...] or performed in visit [facility]23[facility]20 [facility] Result Value Ref Range [...] PM EST Follow Up Visit Elba Jo [id number] 1990 06/20/2020 Chief Complaint Patient presents with [...] file Gets together: Not on file Attends methodist service: Not on file Active member of [...] AM EST Follow Up Visit Elba Jo [id number] 1990 07/21/2020 Chief Complaint Patient presents with [...] mg, 380 mg, Intramuscular, Once (In Clinic), Endre L Collins, BALE STACKER-CATH LAB MANAGER ROS: Review of Systems Constitutional: Negative for [...] PM EDT Follow Up Visit Elba Jo [id number] 1990 08/17/2020 Chief Complaint Patient presents with [...] Asking for referral or a list of PLANT SUPERVISOR providers. Was seen by PLANT SUPERVISOR in the past and during exam was [...] Asking for referral or a list of PLANT SUPERVISOR providers. Was seen by PLANT SUPERVISOR in the past and during exam was found to have abnormal cells and was suppose to have a procedure to have this addressed further. Would like to have this addressed now. -referral to PLANT SUPERVISOR placed. Call the office for any questions [...] Opioid dependence in remission Ender Collins APRN-CNP [address] [place] [address] Status Reason Specialty Diagnoses / Procedures Re ferred By Contact Referred To Contact New Request FUNCTIONAL SKILLS TUTOR Diagnoses Encounter for well woman exam with routine gynecological exam Ender Collins APRN-CNP [address] [place] [address] Chief Complaint and Reason for Visit Chief [...] section and content) DATE CREATED AUTHOR 11/26/2017 [facility] DATE CREATED AUTHOR AUTHOR'S ORGANIZ ATION 05/14/2018 [facility] DATE CREATED AUTHOR AUTHOR'S ORGANIZ ATION 11/23/2019 [facility] DATE CREATED AUTHOR AUTHOR'S ORGANIZ ATION 03/21/2020 [facility] DATE CREATED AUTHOR AUTHOR'S ORGANIZ ATION 05/24/2021 [facility] DATE CREATED AUTHOR AUTHOR'S ORGANIZ ATION 11/13/2022 [facility] DATE CREATED AUTHOR AUTHOR'S ORGANIZ ATION 01/20/2023 [facility] DATE CREATED AUTHOR AUTHOR'S ORGANIZ ATION 03/17/2023 [facility] DATE CREATED AUTHOR AUTHOR'S ORGANIZ ATION 04/19/2023 [facility] [place] [facility] DATE CREATED AUTHOR AUTHOR'S ORGANIZ ATION 06/16/2023 [facility] DATE CREATED AUTHOR AUTHOR'S ORGANIZ ATION 10/18/2023 [facility] DATE CREATED AUTHOR AUTHOR'S ORGANIZ ATION 10/24/2023 [facility] DATE CREATED AUTHOR AUTHOR'S ORGANIZ ATION 11/08/2023 [facility] DATE CREATED AUTHOR AUTHOR'S [...] (Given - Provid er: Raine Rivas RN) sulfamethoxazole-trimethoprim (BACTRIM DS) 800-160 MG per [...] at 1210, Until Tania 11/07/22 at 1215, Ashley, Lacraysha: cabinet override, Ashley, Lacraysha: cabinet override [...] Care Teams (unrecognized sec tion and content) Design Engineer Products Relationship Specialty Start Date End Date Ender Collins, BALE STACKER-CATH LAB MANAGER [address] [place] [address] PCP - General Family Medicine 2/19/21 [employer] Engineer Products Relationship Specialty Start Date End Date Ender Collins, BALE STACKER-CATH LAB MANAGER [address] [place] [address] PCP - General Family Medicine 07/21/20 [employer] Engineer Products Relationship Specialty Start Date End Date Ender Collins, BALE STACKER-CATH LAB MANAGER [address] [place] [address] PCP - General Family Medicine 07/21/20 [employer] Engineer Products Relationship Specialty Start Date End Date Ender Collins, BALE STACKER-CATH LAB MANAGER [address] [place] [address] PCP - General Family Medicine 07/21/20 [employer] Engineer Products Relationship Specialty Start Date End Date Ender Collins, BALE STACKER-CATH LAB MANAGER [address] [place] [address] PCP - General Family Medicine 07/21/20 Design Engineer Products Relationship Specialty Start Date End Date Ender Collins, BALE STACKER-CATH LAB MANAGER [address] [place] [address] PCP - General Family Medicine 07/21/20 [employer] Engineer Products Relationship Specialty Start Date End Date Ender Collins, BALE STACKER-CATH LAB MANAGER [address] [place] [address] PCP - General Family Medicine 07/21/20 Team [...] MD Admit Provider, Attending Pr ovider Active Design Engineer Products Relationship Specialty Start Date End Date None, None PCP - General 11/07/22 Design Engineer Products Relationship Specialty Start Date End Date None, None PCP - General 11/07/22 [employer] Engineer Products Relationship Specialty Start Date End Date Obey Carl, BALE STACKER - CATH LAB MANAGER [address] [place] [address] PCP - General Nurse Practitioner 09/27/21 Team [...] BE BASED ON THE PRIMARY CLINICAL RECORDS. [employer] provides no warranty or guarantee of the accuracy or completeness of information in this document.
[2024-08-07 19:52] VITALS: BP 105/63; PULSE 83; TEMP 36.7; O2SAT 98; BMI 33.7
== END 2024-08-07 20:49 | disposition left against medical advice (07) ==
PROVIDERS: Emergency Provider Emergency Medicine
DX: Z53.21 Procedure and treatment not carried out due to patient leaving prior to being seen by health care provider (principal)